=== PATIENT | male | born 1955 | race Caucasian/White ===

== ENCOUNTER 2023-09-20 08:46 | Outpatient (OUT) | payer OTHER, MEDICARE, SELFPAY ==
--- NOTE | 2023-09-20 | ECG_ITS ---
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
[2023-09-20 09:52] LABS: Basophils Percent Auto 0.5 % (0.2-2.0); Eosinophils Absolute Auto 0.5 10^3/uL (0.0-0.7); Eosinophils Percent Auto 7.6 % (0.9-7.0); Hematocrit 43.2 % (42.0-54.0); Hemoglobin 14.7 g/dL (14.0-18.0); Immature Granulocytes Abs Auto 0.02 10^3/uL (0.00-0.03); Immature Granulocytes Pct Auto 0.3 % (0.0-0.5); Lymphocytes Absolute Auto 1.1 10^3/uL (1.2-3.8); Lymphocytes Percent Auto 18.2 % (20.5-60.0); Mean Corpuscular Hemoglobin 30.8 pg (25.9-34.0); Mean Corpuscular Volume 90.6 fL (80.0-94.0); Monocytes Absolute Auto 0.7 10^3/uL (0.3-0.8); Neutrophils Absolute Auto 3.7 10^3/uL (1.4-6.5); Neutrophils Percent Auto 62.4 % (43.0-75.0); Platelet Count 217 10^3/uL (150-450); Red Blood Count 4.77 10^6/uL (4.70-6.10); Red Cell Distribution Width 13.5 % (11.0-15.0); White Blood Count 5.9 10^3/uL (4.0-11.0)
--- NOTE | 2023-09-20 09:52 | PM.PRESUREVA ---
History of Present Illness History of Present Illness Chief complaint: elevated psa and prostate lesion Narrative: Patient presents for preadmission testing. The patient states he had an elevated PSA and previously had a prostate biopsy. The patient states he does get up to void 2 times a night, and has intermittent hesitancy with urination. Otherwise he complains of no urinary symptoms and does not have any hematuria, dysuria, fever, abdominal pain, or any other complaints. Review of Systems ROS Narrative REVIEW OF SYSTEMS: Negative except as stated in HPI, ten or more systems reviewed. Constitutional: No fever, chills, weakness ENT: No sore throat or epistaxis Cardiovascular: No edema, chest pain, palpitations, or activity intolerance Respiratory: No shortness of breath, cough, or wheezing Musculoskeletal: No joint pain or swelling Gastrointestinal: No abdominal pain, constipation, diarrhea, or vomiting Genitourinary: No dysuria or hematuria Neurological: No numbness, tingling, weakness, or headache Psychiatric: No mood changes PFSH PFS Medical History (Updated 09/20/23 @ 09:30 by Jaky Tovar NP) Arthritis ?M19.90 - Unspecified osteoarthritis, unspecified site (ICD-10) Back pain ?M54.9 - Dorsalgia, unspecified (ICD-10) Erectile dysfunction ?N52.9 - Male erectile dysfunction, unspecified (ICD-10) Hypertension ?I10 - Essential (primary) hypertension (ICD-10) Hearing loss ?H91.90 - Unspecified hearing loss, unspecified ear (ICD-10) Gout ?M10.9 - Gout, unspecified (ICD-10) GERD (gastroesophageal reflux disease) ?K21.9 - Gastro-esophageal reflux disease without esophagitis (ICD-10) BPH (benign prostatic hyperplasia) ?N40.0 - Benign prostatic hyperplasia without lower urinary tract symptoms (ICD-10) Prostate nodule ?N40.2 - Nodular prostate without lower urinary tract symptoms (ICD-10) Elevated PSA ?R97.20 - Elevated prostate specific antigen [PSA] (ICD-10) Surgical History (Updated 09/20/23 @ 09:30 by Jaky Tovar NP) History of vasectomy ?Z98.52 - Vasectomy status (ICD-10) History of colonoscopy ?Z98.890 - Other specified postprocedural states (ICD-10) Hx of prostate biopsy ?Z98.890 - Other specified postprocedural states (ICD-10) Family History (Updated 09/20/23 @ 09:30 by Jaky Tovar NP) Other Family history of aneurysm Family history of heart disease Family history of seizures Family history of stroke Social History (Updated 09/20/23 @ 09:21 by Jaky Tovar NP) Within the past year, how often did you have a drink containing alcohol: 4 or more times a week Within the past year, how many standard drinks containing alcohol did you have on a typical day: 1 or 2 Total score: 0 Score interpretation: A score less than 4 is consistent with normal alcohol consumption. Smoking status: Never smoker Non-prescribed substance use: denies use Highest level of school completed/degree received: high school graduate Meds Home Medications and Allergies Home Medications ?Medication ?Instructions ?Recorded ?Confirmed ?Type allopurinol 100 mg tablet 100 mg PO DAILY 09/20/23 09/20/23 History famotidine 40 mg tablet 40 mg PO QPM 09/20/23 09/20/23 History losartan 25 mg tablet 25 mg PO DAILY 09/20/23 09/20/23 History Allergies Allergy/AdvReac Type Severity Reaction Status Date / Time No Known Drug Allergies Allergy Verified 09/20/23 09:18 Exam Narrative Exam Narrative: Constitutional: Awake, alert, comfortable, well-appearing, nontoxic, interactive, vital signs as charted Head: Normocephalic, atraumatic Neck: Supple, normal appearance, normal range of motion, no meningeal signs, no lymphadenopathy Respiratory: No respiratory distress, breath sounds clear Cardiovascular: Regular rate and rhythm, strong and regular heart tones Abdomen: Nontender, normal bowel sounds, soft, no CVA tenderness Musculoskeletal: Normal gait, no swelling or edema Skin: No rashes or induration, no lesions, only visible skin inspected Neuro: No neurological deficits, normal sensation Psychiatric: Oriented ?3, normal affect Assessment and Plan Assessment and Plan (1) BPH (benign prostatic hyperplasia): (2) Prostate nodule: (3) Elevated PSA: Plan Transrectal MRI prostate fusion biopsy scheduled with Dr. Thacker October 06, 2023.
[2023-09-20 10:13] LABS: Anion Gap 10.7; BUN Creatinine Ratio 9.7; Calcium 8.6 mg/dL (8.5-10.1); Carbon Dioxide 28.4 mmol/L (21.0-32.0); Chloride 101 mmol/L (98-107); Estimated GFR (African America >60 (>=60); Estimated GFR (Non-African Ame >60 (>=60); Glucose 104 mg/dL (74-106); Potassium 4.1 mmol/L (3.5-5.1); Sodium 136 mmol/L (136-145)
[2023-09-20 10:16] LABS: INR 0.97; Partial Thromboplastin Time 30.8 sec (22.3-36.2); Prothrombin Time 10.3 sec (9.0-11.6)
== END 2023-09-20 08:47 | disposition home or self-care (01) ==
PROVIDERS: PCP Family Medicine; Visit Provider Urology
DX: Z01.810 Encounter for preprocedural cardiovascular examination (principal); Z01.812 Encounter for preprocedural laboratory examination; Z01.818 Encounter for other preprocedural examination; R97.20 Elevated prostate specific antigen [PSA]; D49.89 Neoplasm of unspecified behavior of other specified sites
CPT/HCPCS: 80048; 85025; 85610; 85730; 93005; G0463

== ENCOUNTER 2023-10-06 07:13 | Day surgery (SDC) | payer MEDICARE, SELFPAY ==
--- NOTE | 2023-09-20 09:03 | ECG_ITS ---
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
[2023-09-20 09:41] VITALS: BP 146/90; PULSE 75; TEMP 36.3; O2SAT 95; BMI 33.0
[2023-10-06 07:25] VITALS: BP 157/86; PULSE 91; TEMP 36.4; O2SAT 96; BMI 30.7; BMI 30.8
[2023-10-06] MEDS: LACTATED RINGER'S SOLUTION 1,000 ML 50 ML IV (08:01)
[2023-10-06] MEDS: GENTAMICIN SULFATE 120 MG in 0.9 % SODIUM CHLORIDE 100 ML 206 MG IV (08:01)
[2023-10-06] MEDS: CEFAZOLIN SODIUM/DEXTROSE,ISO 1 GM/50 ML IV.SOLN IV (09:05)
[2023-10-06] MEDS: LIDOCAINE 2% JELLY 20 ML UR (09:07)
[2023-10-06 09:30] VITALS: BP 120/78; PULSE 82; TEMP 36.6; O2SAT 94
--- NOTE | 2023-10-06 09:30 | PM.URSON ---
Urology Surgery Operative Note Operative Note Procedure Date: 10/06/23 Time Out Performed: yes Pre-op Diagnosis: Elevated PSA and prostate lesion by MRI Post-op Diagnosis: same as pre-op Procedures performed: 1.Transrectal ultrasound of the prostate. 2. MRI prostate fusion biopsies with the Navigo system Anesthesia: MAC and local Complications: None Estimated blood loss (mL): 10 Findings: 1 small area of interest Specimens: 5 biopsies from the area of interest sent separately.Systematic mapped out biopsies from the left and right sides sent separately. Drains: None Indications for Procedures: This gentleman has an elevated PSA of 6.9. Prostate MRI reveals a PI-RADS 4 lesion. He now presents for transrectal ultrasound and fusion biopsies of the prostate. He has signed an informed consent for this procedure after risks were explained. Some of these include bleeding, infection, urosepsis and anesthesia to name a few. He has had a transperineal fusion biopsy done a couple years ago which revealed benign tissue. Detailed description of Procedure: The patient was brought to the operating room and kept on his [facility] bed. He was rotated in the left lateral decubitus position. Timeout was done by all parties in the room. We all agreed upon the patient's identification and the planned procedures for this patient. MAC anesthesia was then administered. 2% lidocaine gel was passed per rectum. The ultrasound probe was passed per rectum and the prostate was scanned in the sagittal view. Segmentation was then done so as to fuse the MRI images to the ultrasound. We identified the area of interestWhich was in the left peripheral zone in the mid gland.We then began taking biopsies with the needle biopsy. We took 5 biopsies through this PI-RADS 4 lesion. These were sent separately labeled region of interest. We then took mapped out biopsies from the left side Base going towards the apex and then from the right side Base going towards the apexAll the tissue was sent for pathology. The probe was then removed. He was then transferred to PACU in stable condition. He was instructed to continue his antibiotic course. Also if he gets any temperature near 101 and/or shaking chills that will not stop he was instructed to go to the ER for IV antibiotics.
[2023-10-06 09:45] VITALS: BP 119/91; PULSE 81; O2SAT 94
[2023-10-06 10:00] VITALS: BP 113/75; PULSE 89; O2SAT 95
[2023-10-06 10:15] VITALS: BP 132/84; PULSE 83; O2SAT 93
[2023-10-06 10:30] VITALS: BP 141/80; PULSE 89; O2SAT 93
== END 2023-10-06 10:40 | disposition home or self-care (01) ==
PROVIDERS: PCP Family Medicine; Visit Provider Urology
PROC: (CPT 55700; principal; 2023-10-06 08:30)
DX: C61 Malignant neoplasm of prostate (principal); R97.20 Elevated prostate specific antigen [PSA]; K21.9 Gastro-esophageal reflux disease without esophagitis; N40.0 Benign prostatic hyperplasia without lower urinary tract symptoms; I10 Essential (primary) hypertension; M10.9 Gout, unspecified; M19.90 Unspecified osteoarthritis, unspecified site
CPT/HCPCS: 55700; 36415; 88305; J0690; J1100; J1580; J2704; J3010

== ENCOUNTER 2024-10-01 08:58 | Outpatient (OUT) | payer MEDICARE, SELFPAY ==
--- OUTSIDE RECORDS SUMMARY | 2024-10-01 09:01 | XMS_ITS | Encounter Summary ---
Author Organization [facility] Address [address] [place] [address] Care Team Providers Care Life Cycle Assessment Analyst Name Role Phone Bill Marvin MD Primary Care Provider [phone] Bill Marvin MD Primary Care Provider [phone] Encounter Details Date Type Department Care Team (Late st Contact Info) Description 03/29/2024 Orders Only [facility] [address] [place] [phone] Bill Hollins DPM [address] [place] [address] Onychomycosis of great toe Social History Tobacco Use Types Packs/Day Years Used Date Smoking Tobacco: Never Smokeless Tobacco: Never Alcohol Use Standard Drinks/Week Comments Yes 0 (1 standard drink = 0.6 oz pur e alcohol) Sex and Gender Information Value Date Recorded Sex Assigned at Not on file Legal Sex Male 6:55 PM EDT Gender Identity Not on file Sexual Orientation Not on file documented as of this encounter Plan of Treatment Upcoming Encounters Date Type Department Care Team (Late st Contact Info) Description 03/04/2025 9:00 AM EST Office Visit [facility] [address] [place] [phone] Bill Hollins DPM [address] [place] [address] 03/19/2025 10:15 AM EST Office Visit [facility] [address] [place] [address] Tori Cheek MD [address] [place] [address] documented as of this encounter Procedures Procedure Name Priority Date/Time Associated Diagnosis Comments FUNGAL CULTURE, CUTANEOUS Routine 03/29/2024 9:31 AM EST Onychomycosis of great toe documented in this encounter Results * Fungal culture, cutaneous (03/29/2024 9:31 AM EST) Nail Structure of toe of left foot / Unknown Bill Hollins DPIsaiah [facility] MICROBIOLOGY - GENE RAL ORDERABLES Final Result [facility] documented in this encounter Visit Diagnoses Diagnosis Onychomycosis of great toe documented in this encounter Care Teams Life Cycle Assessment Analyst Relationship Specialty Start Date End Date Bill Marvin MD PCP - General 03/15/24 09/26/24 Bill Marvin MD [address] [place] [address] [place] [phone] PCP - General 09/27/24 documented as of this encounter
--- OUTSIDE RECORDS SUMMARY | 2024-10-01 09:01 | XMS_ITS | Clinical Summary ---
Author Organization [facility] Address [address] [place] [address] Care Team Providers Care Head Loft Worker Name Role Phone Bill Marvin MD Primary Care Provider [phone] Allergies No known active allergies Medications allopurinol (Zyloprim) 100 MG tablet Take 100 mg by mouth 12/16/2023 Active famotidine (Pepcid) 40 MG tablet 12/16/2023 Active losartan (Cozaar) 25 MG tablet 12/16/2023 Active tadalafil (Cialis) 20 MG tablet 02/16/2024 Active vardenafil (Levitra) 20 MG tablet 02/27/2024 Active fluorouracil (Efudex) 5 % creamIndication s:Actinic keratosis Apply to directed areas on arms bid x 14 days 40 g 03/16/2024 Active fluconazole (Diflucan) 200 MG tabletIndicatio ns:Onychomycosi s Take 1 tablet (200 mg) by mouth 1 (one) time per week 4 tablet 6 03/29/2024 10/12/19 25 Active Active Problems Problem Noted Date Diagnosed Date Benign hypertension 03/15/2024 Actinic keratoses 03/15/2024 Fasting hyperglycemia 03/15/2024 GERD (gastroesophageal reflux disease) Gout 03/15/2024 Genital herpes 03/15/2024 Lumbar radiculopathy, right 03/15/2024 Onychomycosis of right great toe 03/15/2024 Pes planus of both feet 03/15/2024 Prostate cancer 03/15/2024 Tubulovillous adenoma of colon 03/15/2024 Encounters Date Type Department Care Team Description 09/27/2024 9:00 AM EDT Office Visit [facility] [address] [place] [address] Bill Hollins DPM Onychomycosis (Primary Dx); Idiopathic progressive polyneuropathy 09/27/2024 Bamboo flowsheet [facility] [address] [place] [address] Bill Hollins DPM 09/27/2024 Travel from Last 3 Months Family History Medical History Relation Name Comments Melanoma Neg Hx Social History Tobacco Use Types Packs/Day Years Used Date Smoking Tobacco: Never Smokeless Tobacco: Never Tobacco Cessation:Counseling Given: Not Answered Alcohol Use Standard Drinks/Week Comments Yes 0 (1 standard drink = 0.6 oz pur e alcohol) Sex and Gender Information Value Date Recorded Sex Assigned at Not on file Legal Sex Male 6:55 PM EDT Gender Identity Not on file Sexual Orientation Not on file Last Filed Vital Signs Vital Sign Reading Time Taken Comments Blood Pressure 135/89 03/15/2024 10:39 AM EST Pulse 79 03/15/2024 10:39 AM EST Temperature - - Respiratory Rate 18 03/15/2024 10:39 AM EST Oxygen Saturation - - Inhaled Oxygen Concentration - - Weight 104 kg (230 lb) 09/27/2024 8:54 AM EDT Height 180.3 cm (5' 11 ) 09/27/2024 8:54 AM EDT Body Mass Index 32.08 09/27/2024 8:54 AM EDT Plan of Treatment Upcoming Encounters Date Type Department Care Team (Late st Contact Info) Description 03/04/2025 9:00 AM EST Office Visit [facility] [address] [place] [address] Bill Hollins DPM [address] [place] [address] 03/19/2025 10:15 AM EST Office Visit [facility] [address] [place] [address] Tori Cheek MD [address] [place] [address] Health Maintenance Due Date Last Done Comments CT Colonography 1955 FIT-DNA 1955 FIT 1955 FOBT 1955 Sigmoidoscopy 1955 Influenza Vaccine (#1) 2024 12/16/2023, 2022 Colonoscopy 09/22/2033 09/23/2023, 07/21/2020 Colorectal Cancer Screening 09/22/2033 Pneumococcal Vaccine: 65+ Years Completed Insurance MEDICARE [facility] Care Teams Head Loft Worker Relationship Specialty Start Date End Date Bill Marvin MD [address] [place] [address] [place] [address] PCP - General 09/27/24
--- OUTSIDE RECORDS SUMMARY | 2024-10-01 09:01 | XMS_ITS | Encounter Summary ---
Author Organization [facility] Address [address] [place] [address] Care Team Providers Care 3D Animator Name Role Phone Bill Marvin MD Primary Care Provider Encounter Details Date Type Department Care Team (Late st Contact Info) Description 09/27/2024 Bamboo flowsheet [facility] [address] [place] [phone] Bill Hollins DPM [address] [place] [address] Social History Tobacco Use Types Packs/Day Years [...] Office Visit [facility] [address] [place] [phone] Bill Hollins DPM [address] [place] [address] 03/19/2025 10:15 AM EST Office Visit [facility] [address] [place] [address] Tori Cheek MD [address] [place] [address] documented as of this encounter Visit Diagnoses Not on filedocumented in this encounter Care Teams 3D Animator Relationship Specialty Start Date End Date Bill Marvin MD [address] [place] [address] [place] [address] PCP - General 09/27/24 documented as of this encounter
--- OUTSIDE RECORDS SUMMARY | 2024-10-01 09:01 | XMS_ITS | Clinical Summary ---
Author Organization [facility] Address [address] [place] [address] Care Team Providers Care Mixer Runner Name Role Phone Estuardo Upton MD Primary Care Provider [phone] Allergies No known active allergies Medications allopurinol (ZYLOPRIM) 100 MG tablet Take 100 mg by mouth daily. Active Social History Tobacco Use Types Packs/Day Years Used Date Smoking Tobacco: Never Assessed Sex and Gender Information Value Date Recorded Sex Assigned at Not on file Legal Sex Male 11:46 AM EST Gender Identity Not on file Sexual Orientation Not on file Last Filed Vital Signs Vital Sign Reading Time Taken Comments Blood Pressure 136/78 2013 2:48 AM EDT Pulse 82 2013 2:48 AM EDT Temperature 36.6 C (97.9 F) 2013 2:48 AM EDT Respiratory Rate 18 2013 2:48 AM EDT Oxygen Saturation 100% 2013 2:48 AM EDT Inhaled Oxygen Concentration - - Weight - - Height - - Body Mass Index - - Plan of Treatment Not on file Care Teams Mixer Runner Relationship Specialty Start Date End Date Estuardo Upton MD [address] [place] PCP - General 11/25/13
--- OUTSIDE RECORDS SUMMARY | 2024-10-01 09:01 | XMS_ITS | Encounter Summary ---
Author Organization [facility] Address [address] [place] [address] Care Team Providers Care Product Support Specialist Name Role Phone Bill Marvin MD Primary Care Provider Encounter Details Date Type Department Care Team (Latest Contact Info) Description 09/27/2024 Travel Social History Tobacco Use Types Packs/Day Years [...] Office Visit [facility] [address] [place] [address] Bill Hollins DPM [address] [place] [address] 03/19/2025 10:15 AM EST Office Visit [facility] [address] [facility] [address] [place] [phone] Tori Cheek MD [address] [facility] [address] [place] [address] documented as of this encounter Visit Diagnoses Not on filedocumented in this encounter Care Teams Product Support Specialist Relationship Specialty Start Date End Date Bill Marvin MD [address] [place] [address] [place] [address] PCP - General 09/27/24 documented as of this encounter
--- NOTE | 2024-10-01 09:07 | XR_ITS ---
The [address] [address] Patient Name: MELISA PADILLA MRN: [id number] date: 1955 Sex: M Assigned Patient Location: [facility] Current Patient Location: [facility] Accession/Order Number: [id number] Exam Date: 10/01/2024 10:12 Report Date: 10/01/2024 10:13 At the request of: CHARLENE DURBIN MD Procedure: XR chest 2V PA AND LATERAL CHEST: CLINICAL HISTORY: Preoperative clearance. History of hypertension and prostate cancer. COMPARISON: None There is no focal parenchymal consolidation, effusion or pneumothorax. The cardiac, hilar and mediastinal silhouettes are within normal limits. There is no vascular congestion. The visualized bony thorax is intact. Minor endplate spurring is present at the spine. XR/XR chest 2V IMPRESSION: NO ACUTE CARDIOPULMONARY ABNORMALITY. Impression dictated by: Paris Hadley M.D. 10/01/2024 10:13 AM Dictation Location: [place] [address] Electronically authenticated by: [id number] Y Date: 10/01/2024 10:13
--- NOTE | 2024-10-01 09:07 | ECG_ITS ---
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 Measurements Intervals [place] Rate: 75 P: -1 TX: 168 QRS: 1 QRSD: 91 T: 9 QT: 385 QTc: 431 Interpretive Statements SINUS RHYTHM Normal ECG Compared to ECG 09/20/2023 09:39:39 Sinus arrhythmia no longer present Electronically Signed On 10-01-2024 20:34:10 EDT by AUDREY DELUNA M.D.
--- NOTE | 2024-10-01 09:45 | PM.PRESUREVA ---
History of Present Illness History of Present Illness Chief complaint: Prostate Cancer Narrative: Patient presents for presurgical testing. Please see HPI from Dr. Thacker dated September 24, 2024. Review of Systems ROS Narrative Please see ROS from Dr. Thacker dated September 24, 2024. [facility] Medical History (Updated 10/01/24 @ 09:30 by Jaky Tovar NP) Prostate cancer �C61 - Malignant neoplasm of prostate (ICD-10) Depression �F32.A - Depression, unspecified (ICD-10) Arthritis �M19.90 - Unspecified osteoarthritis, unspecified site (ICD-10) Back pain �M54.9 - Dorsalgia, unspecified (ICD-10) Erectile dysfunction �N52.9 - Male erectile dysfunction, unspecified (ICD-10) Hypertension �I10 - Essential (primary) hypertension (ICD-10) Hearing loss �H91.90 - Unspecified hearing loss, unspecified ear (ICD-10) Gout �M10.9 - Gout, unspecified (ICD-10) GERD (gastroesophageal reflux disease) �K21.9 - Gastro-esophageal reflux disease without esophagitis (ICD-10) BPH (benign prostatic hyperplasia) �N40.0 - Benign prostatic hyperplasia without lower urinary tract symptoms (ICD-10) Prostate nodule �N40.2 - Nodular prostate without lower urinary tract symptoms (ICD-10) Elevated PSA �R97.20 - Elevated prostate specific antigen [PSA] (ICD-10) Surgical History (Updated 09/25/24 @ 10:52 by Jaky Tovar NP) H/O prostate biopsy (10/06/23) �Z98.890 - Other specified postprocedural states (ICD-10) History of vasectomy �Z98.52 - Vasectomy status (ICD-10) History of colonoscopy �Z98.890 - Other specified postprocedural states (ICD-10) Hx of prostate biopsy �Z98.890 - Other specified postprocedural states (ICD-10) Family History (Updated 09/20/23 @ 09:30 by Jaky Tovar NP) Other Family history of aneurysm Family history of heart disease Family history of seizures Family history of stroke Social History (Updated 09/20/23 @ 09:21 by Jaky Tovar NP) Within the past year, how often did you have a drink containing alcohol: 4 or more times a week Within the past year, how many standard drinks containing alcohol did you have on a typical day: 1 or 2 Total score: 0 Score interpretation: A score less than 4 is consistent with normal alcohol consumption. Smoking status: Never smoker Non-prescribed substance use: denies use Highest level of school completed/degree received: high school graduate Meds Home Medications and Allergies Home Medications �Medication �Instructions �Recorded �Confirmed �Type allopurinol 100 mg tablet 100 mg PO DAILY 09/20/23 10/01/24 History famotidine 40 mg tablet 40 mg PO QPM 09/20/23 10/01/24 History losartan 25 mg tablet 25 mg PO DAILY 09/20/23 10/01/24 History ascorbic acid 100 mg-elderberry 1 tab PO DAILY 10/01/24 10/01/24 History fruit 50 mg chewable tablet escitalopram oxalate 5 mg tablet 5 mg PO DAILY 10/01/24 10/01/24 History pantoprazole 40 mg tablet,delayed 40 mg PO DAILY 10/01/24 10/01/24 History release pomegranate seed-pomegranate fruit 1 cap PO DAILY 10/01/24 10/01/24 History extract 250 mg capsule red beet 500 mg capsule 500 mg PO DAILY 10/01/24 10/01/24 History Allergies Allergy/AdvReac Type Severity Reaction Status Date / Time No Known Drug Allergies Allergy Verified 10/01/24 09:20 Exam Narrative Exam Narrative: Constitutional: Awake, alert, comfortable, well-appearing, nontoxic, interactive, vital signs as charted Head: Normocephalic, atraumatic Neck: Supple, normal appearance, normal range of motion, no meningeal signs, no lymphadenopathy Respiratory: No respiratory distress, breath sounds clear Cardiovascular: Regular rate and rhythm, strong and regular heart tones Abdomen: Nontender, normal bowel sounds, soft, no CVA tenderness Musculoskeletal: Normal gait, no swelling or edema Skin: No rashes or induration, no lesions, only visible skin inspected Neuro: No neurological deficits, normal sensation Psychiatric: Oriented �3, normal affect Assessment and Plan Assessment and Plan (1) Prostate cancer: Plan TRUS prostate biopsy scheduled with Dr. Thacker October 04, 2024.
[2024-10-01 10:27] LABS: Anion Gap 13.2; Blood Urea Nitrogen 12.0 mg/dL (7.0-18.0); Calcium 9.1 mg/dL (8.5-10.1); Carbon Dioxide 29.9 mmol/L (21.0-32.0); Chloride 103 mmol/L (98-107); Estimated GFR (African America >60 (>=60 mL/min/1.73m^2); Estimated GFR (Non-African Ame >60 (>=60 mL/min/1.73m^2); Glucose 101 mg/dL (74-106); Potassium 5.1 mmol/L (3.5-5.1); Sodium 141 mmol/L (136-145)
[2024-10-01 10:30] LABS: Hematocrit 44.4 % (42.0-54.0); Hemoglobin 15.6 g/dL (14.0-18.0); Immature Granulocytes Abs Auto 0.01 10^3/uL (0.00-0.03); Immature Granulocytes Pct Auto 0.2 % (0.0-0.5); Lymphocytes Absolute Auto 1.1 10^3/uL (1.2-3.8); Mean Corpuscular HGB Conc 35.1 g/dL (29.9-35.2); Mean Corpuscular Hemoglobin 31.7 pg (25.9-34.0); Mean Corpuscular Volume 90.2 fL (80.0-94.0); Platelet Count 213 10^3/uL (150-450); Red Blood Count 4.92 10^6/uL (4.70-6.10); White Blood Count 5.8 10^3/uL (4.0-11.0)
[2024-10-01 10:57] LABS: INR 1.02; Partial Thromboplastin Time 28.0 sec (22.3-36.2); Prothrombin Time 10.8 sec (9.0-11.6)
== END 2024-10-01 08:59 | disposition home or self-care (01) ==
LOC: PST 09:00
PROVIDERS: PCP Family Medicine; Visit Provider Urology
DX: Z01.810 Encounter for preprocedural cardiovascular examination (principal); Z01.812 Encounter for preprocedural laboratory examination; Z01.818 Encounter for other preprocedural examination; Z85.46 Personal history of malignant neoplasm of prostate; K21.9 Gastro-esophageal reflux disease without esophagitis
CPT/HCPCS: 36415; 71046; 80048; 85025; 85610; 85730; 93005; G0463

== ENCOUNTER 2024-10-04 07:22 | Day surgery (SDC) | payer MEDICARE, SELFPAY ==
[2024-10-01 09:39] VITALS: BP 145/89; PULSE 84; TEMP 36.6; O2SAT 97; BMI 31.4
--- NOTE | 2024-10-04 06:53 | US_ITS ---
[address] [address] Patient Name: MELISA PADILLA MRN: [id number] date: 1955 Sex: M Assigned Patient Location: [facility] Current Patient Location: Accession/Order Number: [id number] Exam Date: 10/04/2024 16:30 Report Date: 10/04/2024 16:31 At the request of: CHARLENE DURBIN MD Procedure: US prostate Prostate ultrasound HISTORY: Abnormal PSA. Prostate biopsy Prostate measures 4.3 x 4.8 x 2.9 cm with volume of 32 cc. US/US prostate IMPRESSION: Prostate volume 32 cc. Impression dictated by: Alfredo Tijerina M.D. 10/04/2024 4:31 PM Dictation Location: [place] [address] Electronically authenticated by: [id number] Y Date: 10/04/2024 16:31
--- OUTSIDE RECORDS SUMMARY | 2024-10-04 07:26 | XMS_ITS | CCD ---
Author Organization [facility] Care Team Providers Care Parts Room Associate Name Role Phone Aruna MARVIN Primary Care Physician MD Nick Thacker Attending Provider [phone] MD Ja Marvin Primary Care Provider Aruna MARVIN Primary Care Physician [phone] MD Ja Marvin Primary Care Provider MD Nick Thacker Attending Provider Nick Thacker Attending Unavailable Thacker, Nick Admitting Unavailable Thacker, Nick Attending Unavailable Thacker, Nick Admitting Unavailable Ja Marvin Primary Care Unavailable Aruna Marvin MD Primary Care Provider [phone] NAVID, Aruna Attending Unavailable BROWN, Christopher Admitting Unavailable BROWN, Christopher Attending Unavailable BROWN, Christopher Attending Unavailable THACKER, Nick R Attending Unavailable BROWN, Christopher Admitting Unavailable BROWN, Christopher Attending Unavailable BROWN, Christopher Attending Unavailable BROWN, Christopher Attending Unavailable THACKER, Nick R Attending Unavailable THACKER, Nick R Admitting Unavailable BROWN, Christopher Admitting Unavailable BROWN, Christopher Attending Unavailable BROWN, Christopher Attending Unavailable BROWN, Christopher Attending Unavailable THACKER, Nick R Attending Unavailable THACKER, Nick R Attending Unavailable THACKER, Nick R Attending Unavailable THACKER, Nick R Admitting Unavailable THACKER, Nick R Attending Unavailable THACKER, Nick R Attending Unavailable THACKER, Nick R Referring Unavailable BROWN, Christopher Attending Unavailable BROWN, Christopher Attending Unavailable BROWN, Christopher Attending Unavailable BROWN, Christopher Attending Unavailable BROWN, Christopher Attending Unavailable BROWN, Christopher Attending Unavailable THACKER, Nick R Attending Unavailable THACKER, Nick R Attending Unavailable THACKER, Nick R Admitting Unavailable THACKER, Nick R Attending Unavailable Colby Marvin MDopher Primary Care Provider [phone] ARUNA VERAS Attending ARUNA Mullins Referring Unavailable ARUNA VERAS Attending FRANK Castanon Attending Unavailable Medications Current Medications Medication Drug Class(es) Dates Sig (Normalized) Sig (Original) acetaminophen 325 mg / HYDROcodone bitartrate 7.5 mg oral tablet (1 source) Opioid Agonist Start: 02-10-2022 take 1 tablet by mouth once, then take 1 tablet by mouth every hour Pitman 325 mg-7.5 mg oral tablet 1 tab(s), Oral, Once, 1 tab(s), Refill(s) 0, Take 1 hour prior to procedure. Don't drive or operate machinery while taking., [id number], 178, cm, 12/28/21 13:18:00 EDT, Height/Length Dosing, 99.2, kg, 12/28/21 13:18:00 EDT, Weight Dosing Start Date: 02/10/22 Status: Ordered allopurinol 100 mg oral tablet (20 sources) Xanthine Oxidase Inhibitor Start: 12-16-2023 allopurinol (Zyloprim) 100 MG tablet Take 100 mg by mouth 12/16/2023 Active Start: 06-17-2023 take 1 tablet by topher th once daily allopurinol 100 mg Tab 100 mg = 1 tab(s), Oral, Daily, # 90 tab(s), Refills(s) 1, Pharmacy: [facility] #[id number], 178, cm, 06/07/23 10:04:00 EDT, Height/Length Dosing, 101.7, kg, 06/07/23 10:04:00 EDT, Weight Dosing Start Date: 06/17/23 Status: Ordered Start: 09-15-2022 take 1 tablet by topher th once daily allopurinol 100 mg Tab 100 mg = 1 tab(s), Oral, Daily, # 90 tab(s), Refills(s) 1, [facility]: [facility] #[id number], 178, cm, 07/05/22 14:54:00 EDT, Height/Length Dosing, 95.9, kg, 07/05/22 14:54:00 EDT, Weight Dosing Start Date: 09/15/22 Status: Ordered Start: 03-01-2022 take 1 tablet by topher once daily allopurinol 100 mg Tab 100 mg = 1 tab(s), Oral, Daily, # 90 tab(s), Refills(s) 1, [id number], 178, cm, 12/28/21 13:18:00 EDT, Height/Length Dosing, 99.2, kg, 12/28/21 13:18:00 EDT, Weight Dosing Start Date: 03/01/22 Status: Ordered Start: 09-02-2021 [facility] all[facility] 100 mg Tab 100 mg = 1 tab(s), Oral, Daily, # 90 tab(s), Refills(s) 1, [facility]: [facility], 180, cm, 03/17/21 12:59:00 EST, Height/Length Dosing, 100.5, kg, 03/17/21 12:59:00 EST, Weight Dosing Start Date: 09/02/21 Status: Ordered amoxicillin 500 mg / clavulanate 125 mg oral tablet (1 source) Penicillin-class Antibacterial Start: 04-19-2024 End: 04-29-2024 amoxicillin-clavulanate 500 mg-125 mg Tab 1 tab(s), Oral, q8hr for 10 day(s), 30 tab(s), Refill(s) 0, [facility], 180, cm, 04/19/24 10:13:00 EST, Height/Length Dosing, 105.2, kg, 04/19/24 10:13:00 EST, Weight Dosing Start Date: 04/19/24 Stop Date: 04/29/24 Status: Ordered Ascorbic Acid (1 source) Vitamin C Start: 09-24-2024 Vitamin C Daily, Refills(s) 0 Start Date: 09/24/24 Status: Ordered Repeat number: 1 ciprofloxacin 500 mg oral tablet (1 source) Quinolone Antimicrobial Start: 09-24-2024 End: 10-01-2024 Cipro 500 mg Tab 500 mg = 1 tab(s), Oral, BID, start 3 days prior to procedure, X 7 day(s), # 14 tab(s), Refills(s) 0, Pharmacy: [facility], 180, cm, 09/24/24 13:18:00 EDT, Height/Length Dosing, 102.4, kg, 09/24/24 13:18:00 EDT, Weight Dosing Start Date: 09/24/24 Stop Date: 10/01/24 Status: Ordered Quantity: 14.0 Unit: tab(s) Repeat number: 1 escitalopram 5 mg oral tablet (3 sources) Serotonin Reuptake Inhibitor Start: 06-15-2024 take 1 tablet by mouth once daily escitalopram 5 mg oral tablet 5 mg = 1 tab(s), Oral, Daily, # 90 tab(s), Refills(s) 4, Pharmacy: [facility], 180, cm, 06/15/24 8:23:00 EDT, Height/Length Dosing, 104.6, kg, 06/15/24 8:23:00 EDT, Weight Dosing Start Date: 06/15/24 Status: Ordered Quantity: 90.0 Unit: tab(s) Repeat number: 5 famotidine 40 mg oral tablet (20 sources) Histamine-2 Receptor Antagonist Start: 12-16-2023 famotidine (Pepcid) 40 MG tablet 12/16/2023 Active Start: 06-07-2023 take 1 tablet by topher once daily at bedtime famotidine 40 mg Tab 40 mg = 1 tab(s), Oral, Once a day (at bedtime), # 90 tab(s), Refills(s) 1, Pharmacy: [facility] #[id number], 178, cm, 06/07/23 10:04:00 EDT, Height/Length Dosing, 101.7, kg, 06/07/23 10:04:00 EDT, Weight Dosing Start Date: 06/07/23 Status: Ordered fluconazole 200 mg oral tablet (3 sources) Azole Antifungal Start: 03-29-2024 End: 10-11-2024 take 1 tablet by mouth every week fluconazole (Diflucan) 200 MG tablet Indications: Onychomycosis Take 1 tablet (200 mg) by mouth 1 (one) time per week 4 tablet 6 03/29/2024 10/11/2024 Active fluorouracil 50 mg/ml topical cream (5 sources) Nucleoside Metabolic Inhibitor Start: 03-16-2024 fluorouracil (Efudex) 5 % cream Indications: Actinic keratosis Apply to directed areas on arms bid x 14 days 40 g 03/16/2024 Active hydrocortisone 25 mg/ml rectal cream (20 sources) Corticosteroid Start: 06-07-2023 hydrocortisone 2.5% Rectal Crm w/Appl 1 benito, Rectal, BID, 30 gram, Refill(s) 0, 178, cm, 06/07/23 10:04:00 EDT, Height/Length Dosing, 101.7, kg, 06/07/23 10:04:00 EDT, Weight Dosing Start Date: 06/07/23 Status: Ordered Quantity: 30.0 Unit: g Repeat number: 1 Start: 05-11-2022 hydrocortisone 2.5% Rectal Crm w/Appl 1 benito, Rectal, BID, 30 gram, Refill(s) 0, 178, cm, 05/11/22 17:29:00 EST, Height/Length Dosing, 97.6, kg, 05/11/22 17:29:00 EST, Weight Dosing Start Date: 05/11/22 Status: Ordered losartan potassium 25 mg oral tablet (20 sources) Angiotensin 2 Receptor Dillon Start: 12-16-2023 losartan (Cozaar) 25 MG tablet 12/16/2023 Active Start: 06-07-2023 take 1 tablet by topher th once daily losartan 25 mg Tab 25 mg = 1 tab(s), Oral, Daily, # 90 tab(s), Refills(s) 1, [facility]: [facility] #[id number], 178, cm, 06/07/23 10:04:00 EDT, Height/Length Dosing, 101.7, kg, 06/07/23 10:04:00 EDT, Weight Dosing Start Date: 06/07/23 Status: Ordered Start: 05-05-2022 take 1 tablet by topher th once daily losartan 25 mg Tab 25 mg = 1 tab(s), Oral, Daily, # 90 tab(s), Refills(s) 1, Pharmacy: [facility] #[id number], 70, cm, 03/26/22 9:17:00 EST, Height/Length Dosing, 99.2, kg, 03/26/22 9:17:00 EST, Weight Dosing Start Date: 05/05/22 Status: Ordered Start: 11-02-2021 take 1 tablet by topher th once daily losartan 25 mg Tab 25 mg = 1 tab(s), Oral, Daily, # 90 tab(s), Refills(s) 1, [facility][id number], 180, cm, 03/17/21 12:59:00 EST, Height/Length Dosing, 100.5, kg, 03/17/21 12:59:00 EST, Weight Dosing Start Date: 11/02/21 Status: Ordered naproxen 500 mg oral tablet (20 sources) Nonsteroidal Anti-inflammatory Drug Start: 07-05-2022 take 1 tablet by mouth twice daily naproxen 500 mg Tab 500 mg = 1 tab(s), Oral, BID, # 60 tab(s), Refills(s) 1 Start Date: 07/05/22 Status: Ordered Quantity: 60.0 Unit: tab(s) Repeat number: 2 pantoprazole 40 mg delayed release oral tablet (10 sources) Proton Pump Inhibitor Start: 04-06-2024 take 1 tablet by mouth once daily Pantoprazole [address] Tab 40 mg = 1 tab(s), Oral, Daily, # 30 tab(s), Refills(s) 5, Pharmacy: [facility] #16, 180, cm, 04/06/24 11:05:00 EST, Height/Length Dosing, 105.3, kg, 04/06/24 11:05:00 EST, Weight Dosing Start Date: 04/06/24 Status: Ordered Quantity: 30.0 Unit: tab(s) Repeat number: 6 sildenafil 100 mg oral tablet (10 sources) Phosphodiesterase 5 Inhibitor Start: 04-06-2024 sildenafil 100 mg Tab See Instructions, 1 hour before sexual activity, # 30 tab(s), Refills(s) 5, Pharmacy: [facility], 180, cm, 04/06/24 11:05:00 EST, Height/Length Dosing, 105.3, kg, 04/06/24 11:05:00 EST, Weight Dosing Start Date: 04/06/24 Status: Ordered Quantity: 30.0 Unit: tab(s) Repeat number: 6 tadalafil 20 mg oral tablet (11 sources) Phosphodiesterase 5 Inhibitor Start: 02-16-2024 tadalafil (Cialis) 20 MG tablet 02/16/2024 Active vardenafil 20 mg oral tablet (5 sources) Phosphodiesterase 5 Inhibitor Start: 02-27-2024 vardenafil (Levitra) 20 MG tablet 02/27/2024 Active Problems Active Problems Problem Classification Problem Date Documented Da te Episodic/Chronic Acquired foot deformities (2 sources) Hammer toe; Translations: [Other hammer toe(s) (acquired), right foot] 03-17-2024 Chronic Cancer of prostate (20 sources) Malignant neoplasm of prostate; Translations: [Malignant tumor of prostate] Onset: 4 Chronic Conditions associated with dizziness or vertigo (20 sources) Dizziness 09-18-2019 Episodic Disorders of lipid metabolism (4 sources) Hyperlipidemia 11-05-2019 Chronic Esophageal disorders (20 sources) Gastroesophageal reflux disease; Translations: [Gastroesophageal reflux disease without esophagitis] Onset: 3 08-31-2018 Chronic Essential hypertension (20 sources) Benign hypertension; Translations: [Essential hypertension] Onset: 3 08-30-2018 Chronic Gout and other crystal arthropathies (20 sources) Gout; Translations: [Idiopathic chronic gout, right ankle and foot, without tophus (tophi)] Onset: 3 11-05-2019 Chronic Hemorrhoids (20 sources) Residual hemorrhoidal skin tags; Translations: [Residual hemorrhoidal skin tags] Onset: 3 Episodic Hyperplasia of prostate (20 sources) Benign prostatic hypertrophy without outflow obstruction; Translations: [Benign prostatic hyperplasia without lower urinary tract symptoms] Onset: 2 Chronic Immunizations and screening for infectious disease (7 sources) Vaccination given; Translations: [Encounter for immunization] Onset: 3 Episodic Mood disorders (3 sources) Major depression in partial remission 06-15-2024 Chronic Mycoses (20 sources) Onychomycosis due to dermatophyte ; Translations: [Tinea unguium] Onset: 4 Episodic Neoplasms of unspecified nature or uncertain behavior (2 sources) Neoplastic disease; Translations: [Neoplasm of unspecified behavior of bone, soft tissue, and skin] 03-16-2024 Episodic Other and unspecified benign neoplasm (2 sources) Benign neoplasm of colon; Translations: [Benign neoplasm of colon, unspecified] Onset: 4 Episodic Other congenital anomalies (14 sources) Congenital pes planus; Translations: [Congenital pes planus, unspecified foot] Onset: 4 Chronic Other connective tissue disease (2 sources) Plantar fasciitis 07-05-2022 Episodic Other connective tissue disease (2 sources) Tenosynovitis of right radial styloid 07-05-2022 Episodic Other connective tissue disease (2 sources) Pain of toes of bilateral feet; Translations: [Pain in right toe(s)] 03-17-2024 Episodic Other ear and sense organ disorders (20 sources) Hearing loss of left ear 08-28-2020 Chronic Other ear and sense organ disorders (20 sources) Impacted cerumen; Translations: [Impacted cerumen, unspecified ear] Onset: 4 09-18-2019 Episodic Other eye disorders (20 sources) Vitreous floaters 09-18-2019 Chronic Other gastrointestinal disorders (1 source) Dysphagia; Translations: [Other dysphagia] Onset: 5 Episodic Other gastrointestinal disorders (10 sources) Esophageal dysphagia 04-04-2024 Episodic Other injuries and conditions due to external causes (20 sources) Traumatic anosmia 08-30-2018 Episodic Other male genital disorders (20 sources) Male erectile dysfunction, unspecified; Translations: [Erectile dysfunction] Onset: 3 Chronic Other male genital disorders (11 sources) Hemospermia; Translations: [Hematospermia] Onset: 3 Episodic Other nervous system disorders (4 sources) Idiopathic progressive polyneuropathy; Translations: [Idiopathic progressive neuropathy] 03-17-2024 Chronic Other nutritional; endocrine; and metabolic disorders (20 sources) Body mass index 30+ - obesity 11-10-2021 Chronic Other nutritional; endocrine; and metabolic disorders (20 sources) Obese class I; Translations: [Body mass index (BMI) 30.0-30.9, adult] Onset: 3 11-10-2021 Chronic Other nutritional; endocrine; and metabolic disorders (20 sources) Obesity; Translations: [Other obesity due to excess calories] Onset: 3 11-10-2021 Chronic Other nutritional; endocrine; and metabolic disorders (6 sources) Obesity caused by energy imbalance 05-14-2024 Chronic Other nutritional; endocrine; and metabolic disorders (20 sources) Overweight 03-25-2020 Episodic Other screening for suspected conditions (not mental disorders or infectious disease) (20 sources) Raised prostate specific antigen; Translations: [Elevated prostate specific antigen [PSA]] Onset: 2 11-10-2021 Episodic Other skin disorders (5 sources) Actinic keratosis; Translations: [Actinic keratosis] Onset: 4 Episodic Other skin disorders (2 sources) Lentiginosis; Translations: [Other melanin hyperpigmentation] 03-16-2024 Episodic Other skin disorders (2 sources) Sebaceous hyperplasia; Translations: [Other specified follicular disorders] 03-16-2024 Episodic Other upper respiratory infections (1 source) Recurrent acute sinusitis; Translations: [Acute recurrent frontal sinusitis] Onset: 5 Episodic Skin and subcutaneous tissue infections (4 sources) Paronychia of toe of left foot; Translations: [Cellulitis of left toe] 03-17-2024 Episodic Unclassified (3 sources) Recurrent acute frontal sinusitis 04-19-2024 Viral infection (20 sources) Genital herpes simplex; Translations: [Herpesviral infection of urogenital system, unspecified] Onset: 4 08-30-2018 Chronic Past or Other Problems Problem Classification Problem Date Documented Da te Episodic/Chronic Acquired foot deformities (20 sources) Talipes planus; Translations: [Acquired pes planus of right foot] Onset: 10-24-2022 11-10-2021 Episodic Blindness and vision defects (20 sources) Visual disturbance Resolved: 08-30-2018 08-30-2018 Episodic Diabetes mellitus without complication (20 sources) Hyperglycemia; Translations: [Impaired fasting glycemia] Onset: 05-08-2022 03-14-2021 Episodic Other and unspecified benign neoplasm (20 sources) Adenomatous polyp of colon ; Translations: [Benign neoplasm of colon, unspecified] Onset: 03-15-2024 08-28-2020 Episodic Other skin disorders (20 sources) Multiple actinic keratoses; Translations: [Actinic keratosis] Onset: 03-15-2024 12-16-2023 Episodic Spondylosis; intervertebral disc disorders; other back problems (20 sources) Chronic low back pain; Translations: [Lumbar radiculopathy] Onset: 03-15-2024 12-04-2019 Episodic Unclassified (20 sources) Exposure to 2019 novel coronavirus 03-23-2020 Results Test Name Value Interpretation Reference Range Facility Ambulatory Visit Summaryon 0 6-30-2025 Ambulatory Visit Summary Ambulatory Visit Summary MELISA PADILLA :1955 Visit Date:09/24/2024 Ambulatory Visit Instructions Your Diagnosis Prostate cancer BPH without urinary obstruction Erectile dysfunction Your Care Team Attending Physician - Nick THACKER MD Primary Care Physician - Aruna MARVIN MD This Is Your Medications List ciprofloxacin (Cipro 500 mg Tab) sildenafil (sildenafil 100 mg Tab) Contact prescribing physician if questions or concerns allopurinol (allopurinol 100 mg Tab) ascorbic acid (Vitamin C) escitalopram (escitalopram 5 mg oral tablet) famotidine (famotidine 40 mg Tab) hydrocortisone topical (hydrocortisone 2.5% Rectal Crm w/Appl) losartan (losartan 25 mg Tab) naproxen (naproxen 500 mg Tab) pantoprazole (Pantoprazole [address] Tab) Procedures Performed MRI-US fusion guided prostate biopsy (10/06/2023), Colonoscopy (09/23/2023), MRI-US fusion guided transperineal biopsy of prostate (03/09/2022), Colonoscopy (07/21/2020), History of vasectomy. Discharge Vitals Temperature (Temporal Artery) 37 ???C Heart Rate (Peripheral) 82 Respiratory Rate 16 Blood Pressure 130/84 Height 180 cm Height 71 in Weight 102.4 kg Weight 225.753 lb BMI 31.6 What to do next Scheduled Follow-Up Appointments Tuesday 10:00 AM EDT With: Nick THACKER MD Where: [facility] [address] [address]- Tuesday 9:20 AM EST With: Aruna MARVIN MD Where: [facility] [address] [place] [address]- Tuesday 1:00 PM EST With: Where: [facility] [address] [place] [address]- You Need to Schedule the Following Appointments Follow Up with Nick THACKER MD, URL When: Comments: sched confirmatory bx Where: [facility] [address], [place] [address] [phone] Medications What How Much When Instructions New ciprofloxacin (Cipro 500 mg Tab) 1 Tablets By Mouth 2 times a day Duration: 7 Days start 3 days prior to procedure Pickup at [facility] Unchanged sildenafil (sildenafil 100 mg Tab) See instructions 1 hour before sexual activity Unchanged allopurinol (allopurinol 100 mg Tab) 1 Tablets By Mouth Every day Contact prescribing physician if questions or concerns Unchanged ascorbic acid (Vitamin C) Every day Contact prescribing physician if questions or concerns Unchanged escitalopram (escitalopram 5 mg oral tablet) 1 Tablets By Mouth Every day Contact prescribing physician if questions or concerns Unchanged famotidine (famotidine 40 mg Tab) See instructions take 1 tablet by mouth at bedtime Contact prescribing physician if questions or concerns Unchanged hydrocortisone topical (hydrocortisone 2.5% Rectal Crm w/ Appl) 1 Application By rectum 2 times a day Contact prescribing physician if questions or concerns Unchanged losartan (losartan 25 mg Tab) See instructions take 1 tablet by mouth once daily Contact prescribing physician if questions or concerns Unchanged naproxen (naproxen 500 mg Tab) 1 Tablets By Mouth 2 times a day Contact prescribing physician if questions or concerns Unchanged pantoprazole (Pantoprazole [address] Tab) 1 Tablets By Mouth Every day Contact prescribing physician if questions or concerns Pharmacy Information [facility]: [address], [place] [id number] [phone] Allergies No Known Allergies Problems Ongoing - Any problem that you are currently receiving treatment for. Actinic keratoses Benign hypertension BMI 32.0-32.9,adult BPH without urinary obstruction Erectile dysfunction Esophageal dysphagia External hemorrhoid, bleeding Fasting hyperglycemia GERD (gastroesophageal reflux disease) Gout Hearing loss on left Lumbar radiculopathy, right Major depression in partial remission Obesity due to excess calories Onychomycosis of right great toe Pes planus of both feet Pes planus, congenital Prostate cancer Traumatic anosmia Tubulovillous adenoma of colon Visual floaters Historical - Any problem that you are no longer receiving treatment for. Body mass index [BMI] 31.0-31.9, adult Chronic left-sided low back pain Class 1 obesity due to excess calories with body mass index (BMI) of 31.0 to 31.9 in adult Close exposure to COVID-19 virus Dizzinesses Overweight Visual disturbance Patient Survey You may receive a survey via text or e-mail asking about your office visit. Please share your experience with us by completing your survey. We appreciate your feedback and thank you for choosing us for your care. Education Materials Transrectal Ultrasound-Guided Prostate Biopsy, Care After The following information offers guidance on how to care for yourself after your p (more content not included)... Normal [facility] Urology Office/Clinic Noteon 09-24-2024 Urology Office/Clinic Note Urology Office/Clinic Note Chief Complaint 6 month with PSA HPI Staff 6 month f/u with PSA Dx: prostate cancer (ACTIVE SURVEILLANCE) and BPH without urinary obstruction PSA 09/11/24 - 1.8 IPSS score of 6 today. Nocturia x3. Frequency less than half the time. Weak stream less than 1 in 5x. Denies any other urinary complaints at this time. History of Present Illness Tests reviewed: reviewed UA, PSA I have reviewed the previous health record information and history for this patient from Dr. Thacker. I have reviewed and verified the staff HPI to be accurate for this encounter. Review of Systems PHQ Score Initial Depression Screen Score: 0 SCORE ROS - Provider Constitutional: denies weight loss, denies hot flashes. Eyes: denies eye problems. Gastrointestinal: denies nausea, denies vomiting. Cardiovascular: denies chest pain or angina. Integumentary: no dryness Musculoskeletal: denies musculoskeletal symptoms. ENMT: denies otolaryngeal symptoms. Respiratory: no shortness of breath. Heme/Lymph: denies easy bleeding tendency, denies easy bruising tendency. Psychiatric: no confusion, no anxiety. Genitourinary: See HPI. Physical Exam Vitals & Measurements T: 37 ???C(Temporal Artery) HR: 82(Peripheral) RR: 16 BP: 130/84 HT: 180 cm HT: 71 in WT: 225.753 lb WT: 102.4 kg BMI: 31.6 General Appearance: alert, no distress, well nourished, well developed male. Assessment/Plan Pt here with his girlfriend today. 1. Prostate cancer (C61: Malignant neoplasm of prostate) ACTIVE SURVEILLANCE. PSA: 02/2020 - 1.8 11/10/21 - 3.8, repeat free & total 3.7 & 12% 06/07/23 - 6.9 & 17.4% 04/30/24 - 11.0 & 9.1% 09/11/24 - 1.8 MRI of prostate 01/14/22 - 2 areas found PI-RADS 4. S/p transperineal fusion biopsy 03/09/22 - neg for malignancy. MRI of prostate 08/23/23 - Lesion involving the posterior aspect of the left peripheral zone, measures 5 x 4 mm. No gross extracapsular extension is seen. PI-RADS 4. S/p MRI fusion bx 10/06/23 - [place] 6 (3+3) 2/17 cores. GG1. Extraprostatic extension is not identified. PSA has decreased from prior. Advised pt next step is confirmatory bx given it has been 1 yr since dx. Pt agrees w plan. -Will schedule confirmatory TRUS of Prostate with Biopsy. The procedural risks, benefits, details, and treatment alternatives have been discussed with the patient. These include minimal to severe bleeding, infection, blood in the semen, inability to urinate, and severe infection requiring hospitalization and IV antibiotics, among others. Full informed consent has been obtained. Will order Local anesthesia. 2. BPH without urinary obstruction (N40.0: Benign prostatic hyperplasia without lower urinary tract symptoms) MRI of prostate 08/23/23 - prostate volume 38 mL. [1] UA neg. IPSS 6. Not taking any BPH meds. Gets up 3x/night. Unsure if he has sleep apnea. No bother w urination. 3. Erectile dysfunction (N52.9: Male erectile dysfunction, unspecified) Reports difficulty achieving an erection. Tried oral meds, including Cialis, Viagra, and Levitra, wo effect. Discussed alternative option of ICI. Risks/benefits discussed. Pt wishes to try this. -Schedule ICI teaching with [facility]. Follow-up With When Contact Information RAMAKRISHNA LICONA, Nick Irwin, URL [facility] [address], [place] [address]- [phone] Additional Instructions: sched confirmatory bx Patient Education Transrectal Ultrasound-Guided Prostate Biopsy, Care After Transrectal Ultrasound-Guided Prostate Biopsy Erectile Dysfunction I, Michela Oquendo, personally scribed for Dr. Thacker on 09/24/2024 14:37:22. . Documentation recorded by the Michela elizondo Oquendo, accurately reflects the services(s) I performed and decisions made by me. Authenticated by Dr. Thacker on 09/24/2024 14:40:24. Problem List/Past Medical History Ongoing Actinic keratoses Benign hypertension BMI 32.0-32.9,adult BPH without urinary obstruction Erectile dysfunction Esophageal dysphagia External hemorrhoid, bleeding Fasting hyperglycemia GERD (gastroesophageal reflux disease) Gout Hearing loss on left Lumbar radiculopathy, right Major depression in partial remission Obesity due to excess calories Onychomycosis of right great toe Pes planus of both feet Pes planus, congenital Prostate cancer Traumatic anosmia Tubulovillous adenoma of colon Visual floaters Historical Body mass index [BMI] 31.0-31.9, adult Chronic left-sided low back pain Class 1 obesity due to excess calories with body mass index (BMI) of 31.0 to 31.9 in adult Close exposure to COVID-19 virus Dizzinesses Overweight Visual disturbance Procedure/Surgical History MRI-US fusion guided prostate biopsy (10/06/2023), Colonoscopy (09/23/2023), MRI-US fusion guided transperineal biopsy of prostate (03/09/2022), Colonoscopy (07/21/2020), History of vasectomy. Medications allopurinol 100 mg Tab (more content not included)... Normal [facility] Comment on above: Result Comment: Elec tronically Signed By: Nick THACKER MD\.br\Date and Time Signed: 09/24/24 14:40 EDT\.br\Electronically Co-Signed By: Michela Oquendo.br\Date and Time Co-Signed: 09/24/24 14:37 EDT Ambulatory Visit Summaryon 0 09-11-2024 Ambulatory Visit Summary Ambulatory Visit Summary MELISA PADILLA :1955 Visit Date:09/11/2024 Ambulatory Visit Instructions Your Care Team Attending Physician - Nick THACKER MD Primary Care Physician - Aruna MARVIN MD This Is Your Medications List allopurinol (allopurinol 100 mg Tab) escitalopram (escitalopram 5 mg oral tablet) famotidine (famotidine 40 mg Tab) hydrocortisone topical (hydrocortisone 2.5% Rectal Crm w/Appl) losartan (losartan 25 mg Tab) naproxen (naproxen 500 mg Tab) pantoprazole (Pantoprazole [address] Tab) sildenafil (sildenafil 100 mg Tab) Procedures Performed MRI-US fusion guided prostate biopsy (10/06/2023), Colonoscopy (09/23/2023), MRI-US fusion guided transperineal biopsy of prostate (03/09/2022), Colonoscopy (07/21/2020), History of vasectomy. What to do next Scheduled Follow-Up Appointments Tuesday 12:45 PM EDT With: Nick THACKER MD Where: [facility] [address] [place] [address]- Tuesday 9:20 AM EST With: Aruna MARVIN MD Where: [facility] [address] [place] [address]- Tuesday 1:00 PM EST With: Where: [facility] [address] [place] [address]- Medications What How Much When Instructions Unchanged allopurinol (allopurinol 100 mg Tab) 1 Tablets By Mouth Every day Unchanged escitalopram (escitalopram 5 mg oral tablet) 1 Tablets By Mouth Every day Unchanged famotidine (famotidine 40 mg Tab) See instructions take 1 tablet by mouth at bedtime Unchanged hydrocortisone topical (hydrocortisone 2.5% Rectal Crm w/ Appl) 1 Application By rectum 2 times a day Unchanged losartan (losartan 25 mg Tab) See instructions take 1 tablet by mouth once daily Unchanged naproxen (naproxen 500 mg Tab) 1 Tablets By Mouth 2 times a day Unchanged pantoprazole (Pantoprazole [address] Tab) 1 Tablets By Mouth Every day Unchanged sildenafil (sildenafil 100 mg Tab) See instructions 1 hour before sexual activity Allergies No Known Allergies Problems Ongoing - Any problem that you are currently receiving treatment for. Actinic keratoses Benign hypertension BMI 32.0-32.9,adult BPH without urinary obstruction Erectile dysfunction Esophageal dysphagia External hemorrhoid, bleeding Fasting hyperglycemia GERD (gastroesophageal reflux disease) Gout Hearing loss on left Lumbar radiculopathy, right Major depression in partial remission Obesity due to excess calories Onychomycosis of right great toe Pes planus of both feet Pes planus, congenital Prostate cancer Traumatic anosmia Tubulovillous adenoma of colon Visual floaters Historical - Any problem that you are no longer receiving treatment for. Body mass index [BMI] 31.0-31.9, adult Chronic left-sided low back pain Class 1 obesity due to excess calories with body mass index (BMI) of 31.0 to 31.9 in adult Close exposure to COVID-19 virus Dizzinesses Overweight Visual disturbance Patient Survey You may receive a survey via text or e-mail asking about your office visit. Please share your experience with us by completing your survey. We appreciate your feedback and thank you for choosing us for your care. Normal [facility] CHEMISTRYOrdered By: SYSTEM SYSTEM on 09-11-2024 Prostate specific Ag [Mass/Vol] 1.8 ng/mL Normal 0.1 - 3.5 ng/mL [facility] Comment on above: Interpretive Data: T he concentration of PSA determined by different manufacturers can vary due to differences in assay methods and reagent specificity. Values obtained from different assay methods cannot be used interchangeably. The methodology used for this result was chemiluminescence using [email or web address]'s Access Hybritech PSA reagent. PSA Totalon 09-11-2024 PSA Total 1.8 ng/mL Normal 0.1-3.5 [facility] Comment on above: Result Comment: The concentration of PSA determined by different manufacturers can vary due to differences in assay methods and reagent specificity. Values obtained from different assay methods cannot be used interchangeably. The methodology used for this result was chemiluminescence using [employer] Access Hybritech PSA reagent. Performed By: #### 1 [id number] #### [facility] [address] [place] [address] Ambulatory Visit Summaryon 0 07-27-2024 Ambulatory Visit Summary Ambulatory Visit Summary MELISA PADILLA :1955 Visit Date:07/27/2024 Ambulatory Visit Instructions Your Diagnosis Major depression in partial remission Prostate cancer Erectile dysfunction Benign hypertension External hemorrhoid, bleeding Obesity due to excess calories BMI 32.0-32.9,adult Your Care Team Attending Physician - Aruna MARVIN MD Primary Care Physician - BROWN MD, Christopher This Is Your Medications List Contact prescribing physician if questions or concerns allopurinol (allopurinol 100 mg Tab) escitalopram (escitalopram 5 mg oral tablet) famotidine (famotidine 40 mg Tab) hydrocortisone topical (hydrocortisone 2.5% Rectal Crm w/Appl) losartan (losartan 25 mg Tab) naproxen (naproxen 500 mg Tab) pantoprazole (Pantoprazole [address] Tab) sildenafil (sildenafil 100 mg Tab) Procedures Performed MRI-US fusion guided prostate biopsy (10/06/2023), Colonoscopy (09/23/2023), MRI-US fusion guided transperineal biopsy of prostate (03/09/2022), Colonoscopy (07/21/2020), History of vasectomy. Discharge Vitals Heart Rate (Peripheral) 92 Respiratory Rate 16 Blood Pressure 130/84 Height 180 cm Height 71 in Weight 104.5 kg Weight 230.383 lb BMI 32.25 What to do next Scheduled Follow-Up Appointments Tuesday 9:00 AM EDT With: Where: [facility] [address] [address]- Tuesday 1:45 PM EDT With: Nick THACKER MD Where: [facility] [address] [address]- Tuesday 9:20 AM EST With: Aruna MARVIN MD Where: [facility] [address] [place] [address]- Tuesday 1:00 PM EST With: Where: [facility] [address] [place] [address]- You Need to Schedule the Following Appointments Follow Up with Aruna MARVIN MD, FAM When: Within 6 months Where: [address] [place] [address]- Medications What How Much When Instructions Unchanged allopurinol (allopurinol 100 mg Tab) 1 Tablets By Mouth Every day Contact prescribing physician if questions or concerns Unchanged escitalopram (escitalopram 5 mg oral tablet) 1 Tablets By Mouth Every day Contact prescribing physician if questions or concerns Unchanged famotidine (famotidine 40 mg Tab) See instructions take 1 tablet by mouth at bedtime Contact prescribing physician if questions or concerns Unchanged hydrocortisone topical (hydrocortisone 2.5% Rectal Crm w/ Appl) 1 Application By rectum 2 times a day Contact prescribing physician if questions or concerns Unchanged losartan (losartan 25 mg Tab) See instructions take 1 tablet by mouth once daily Contact prescribing physician if questions or concerns Unchanged naproxen (naproxen 500 mg Tab) 1 Tablets By Mouth 2 times a day Contact prescribing physician if questions or concerns Unchanged pantoprazole (Pantoprazole [address] Tab) 1 Tablets By Mouth Every day Contact prescribing physician if questions or concerns Unchanged sildenafil (sildenafil 100 mg Tab) See instructions 1 hour before sexual activity Contact prescribing physician if questions or concerns Allergies No Known Allergies Problems Ongoing - Any problem that you are currently receiving treatment for. Actinic keratoses Benign hypertension BMI 32.0-32.9,adult BPH without urinary obstruction Erectile dysfunction Esophageal dysphagia External hemorrhoid, bleeding Fasting hyperglycemia GERD (gastroesophageal reflux disease) Gout Hearing loss on left Lumbar radiculopathy, right Major depression in partial remission Obesity due to excess calories Onychomycosis of right great toe Pes planus of both feet Pes planus, congenital Prostate cancer Traumatic anosmia Tubulovillous adenoma of colon Visual floaters Historical - Any problem that you are no longer receiving treatment for. Body mass index [BMI] 31.0-31.9, adult Chronic left-sided low back pain Class 1 obesity due to excess calories with body mass index (BMI) of 31.0 to 31.9 in adult Close exposure to COVID-19 virus Dizzinesses Overweight Visual disturbance Patient Survey You may receive a survey via text or e-mail asking about your office visit. Please share your experience with us by completing your survey. We appreciate your feedback and thank you for choosing us for your care. Education Materials Major Depressive Disorder, Adult Major depressive disorder (MDD) is a mental health condition. It may also be called clinical depression or unipolar depression. MDD causes symptoms of sadness, hopelessness, and loss of interest in things. These symptoms last most of the day, almost mt (more content not included)... Normal [facility] Family Medicine Office/Clini c Noteon 07-27-2024 Family Medicine Office/Clinic Note Family Medicine Office/Clinic Note Chief Complaint pt presents today for 6wk rechk, no rfs, will chk insurance regarding shingrix coverage History of Present Illness Started Lexapro last visit. Has found that this has not measurably improved his outlook. No longer agitated irritable or sad. Particularly recognizes it is easier when leaving family functions he does not feel so down. Has follow-up with urology regarding prostate carcinoma and repeat PSA in the next month. Erectile dysfunction still persist despite use of sildenafil. Blood pressures have been fine no chest pain palpitations or syncope. Does complain of intermittent rectal bleeding. Has well-known hemorrhoids. Not painful. Not currently taking any fiber supplement. Colonoscopy was completed last summer and stable. Review of Systems PHQ Score Initial Depression Screen Score: 0 SCORE See HPI otherwise negative Physical Exam Vitals & Measurements HR: 92(Peripheral) RR: 16 BP: 130/84 SpO2: 95% HT: 180 cm HT: 71 in WT: 104.5 kg WT: 230.383 lb BMI: 32.25 Well-groomed adequately hydrated wearing corrective lenses. Neck is supple. No respiratory distress cardiac regular rate and rhythm no murmur gallop or rub. Belly overweight nontender no organomegaly. Deferred rectal exam. Integument moderately tanned. Does have a bright affect. Talkative smiling. Assessment/Plan 1. Major depression in partial remission (F32.4: Major depressive disorder, single episode, in partial remission) Doing very nicely with SSRI addition low-dose suggestively 6 months and we will talk about weaning at that time. Consider counseling if any mood disturbance or change. Ordered: 1126F Pain severity quantified; no pain present Current tobacco non-user 1036F Functional status assessed 1170F Medication list documented in medical record 1159F Most recent diastolic blood pressure 80-89 mm Hg 3079F Review of all meds by a prescribing practitioner or clinical pharmacist documented in EHR 1160F Systolic BP 130-139 mm Hg (Most Recent) 3075F 2. Prostate cancer (C61: Malignant neoplasm of prostate) Continue following with Dr. Thacker of urology planning PSA drawl this month. 3. Erectile dysfunction (N52.9: Male erectile dysfunction, unspecified) Asking him to discuss ED with the specialist other options other than the phosphodiesterase inhibitors already tried 4. Benign hypertension (I10: Essential (primary) hypertension) The importance of the following were all reviewed with the patient: -Take Rx(s )as prescribed. There are simple Lifestyle Modifications that you can do to reduce your blood pressure. -Weight Reduction -Follow the DASH eating plan. More information about this eating plan can be found here: https://www.nhlbi.nih.gov/ health/health-topics/topic s/dash -Reduce Sodium (Salt) Intake to 2000mg per day. -Use Moderation when consuming alcohol. - To improve your health we recommend increasing your level of moderate exercise to at least 2.5 hrs per week. For more information, please visit the CDC Exercise and Fitness Recommendations at www.cdc.gov/physicalactivi ty/basics/index.htm 5. External hemorrhoid, bleeding (K64.4: Residual hemorrhoidal skin tags) Suggesting addition of fiber such as Benefiber or Metamucil daily. We did discuss appropriate bathroom hygiene avoid straining increase fluids and activities 6. Obesity due to excess calories (E66.09: Other obesity due to excess calories) The standard range for ages 18 and older is >=18.5 and < 25 kg/m2. Your BMI today was above this range, this falls in the overweight to obese category and there are medical benefits to weight loss. We can offer counselling, referral, and/or medical support in addressing this problem. Your BMI and weight management will be followed at subsequent visits. 7. BMI 32.0-32.9,adult (Z68.32: Body mass index [BMI] 32.0-32.9, adult) See #6 Follow-up With When Contact Information NAVID LICONA, JEREMIAH Khan Within [address] [place] [address]- Additional Instructions: Patient Education Major Depressive Disorder, Adult Problem List/Past Medical History Ongoing Actinic keratoses Benign hypertension BMI 32.0-32.9,adult BPH without urinary obstruction Erectile dysfunction Esophageal dysphagia External hemorrhoid, bleeding Fasting hyperglycemia GERD (gastroesophageal reflux disease) Gout Hearing loss on left Lumbar radiculopathy, right Major depression in partial remission Obesity due to excess calories Onychomycosis of right great toe Pes planus of both feet Pes planus, congenital Prostate cancer Traumatic anosmia Tubulovillous adenoma of colon Visual floaters Historical Body mass index [BMI] 31.0-31.9, adult Chronic left-sided low back pain Class 1 obesity due to excess calories with body mass index (BMI) of 31.0 to 31.9 in adult Close exposure to COVID-19 virus Dizzinesses Overweight Visual d (more content not included)... 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 Obesity due to excess calories BMI 32.0-32.9,adult Your Care Team Attending Physician - Aruna MARVIN MD Primary Care Physician - Aruna MARVIN MD This Is Your Medications List escitalopram (escitalopram 5 mg oral tablet) Contact prescribing physician if questions or concerns allopurinol (allopurinol 100 mg Tab) famotidine (famotidine 40 mg Tab) hydrocortisone topical (hydrocortisone 2.5% Rectal Crm w/Appl) losartan (losartan 25 mg Tab) naproxen (naproxen 500 mg Tab) pantoprazole (Pantoprazole [address] Tab) sildenafil (sildenafil 100 mg Tab) Procedures Performed MRI-US fusion guided prostate biopsy (10/06/2023), Colonoscopy (09/23/2023), MRI-US fusion guided transperineal biopsy of prostate (03/09/2022), Colonoscopy (07/21/2020), History of vasectomy. Discharge Vitals Heart Rate (Peripheral) 84 Respiratory Rate 16 Blood Pressure 130/80 Height 180 cm Height 71 in Weight 104.6 kg Weight 230.603 lb BMI 32.28 What to do next Scheduled Follow-Up Appointments Tuesday 9:00 AM EDT With: Where: [facility] [address] [place] [address]- Tuesday 1:45 PM EDT With: THACKER MD, Nick R Where: [facility] [address] [place] [address]- Tuesday 1:00 PM EST With: Where: [facility] [place] [address] [place] [address]- You Need to Schedule the Following Appointments Follow Up with NAVID LICONA, JEREMIAH Khan When: Within 6 weeks Comments: labs will be called Where: Medications What How Much When Instructions New escitalopram (escitalopram 5 mg oral tablet) 1 Tablets By Mouth Every day Refills: 4 Pickup at [facility] Unchanged allopurinol (allopurinol 100 mg Tab) 1 Tablets By Mouth Every day Contact prescribing physician if questions or concerns Unchanged famotidine (famotidine 40 mg Tab) See instructions take 1 tablet by mouth at bedtime Contact prescribing physician if questions or concerns Unchanged hydrocortisone topical (hydrocortisone 2.5% Rectal Crm w/ Appl) 1 Application By rectum 2 times a day Contact prescribing physician if questions or concerns Unchanged losartan (losartan 25 mg Tab) See instructions take 1 tablet by mouth once daily Contact prescribing physician if questions or concerns Unchanged naproxen (naproxen 500 mg Tab) 1 Tablets By Mouth 2 times a day Contact prescribing physician if questions or concerns Unchanged pantoprazole (Pantoprazole [address] Tab) 1 Tablets By Mouth Every day Contact prescribing physician if questions or concerns Unchanged sildenafil (sildenafil 100 mg Tab) See instructions 1 hour before sexual activity Contact prescribing physician if questions or concerns Pharmacy Information [facility]: [address], [place] [id number] [phone] Allergies No Known Allergies Problems Ongoing - Any problem that you are currently receiving treatment for. 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 Body mass index [BMI] 31.0-31.9, adult Chronic left-sided low back pain Class 1 obesity due to excess calories with body mass index (BMI) of 31.0 to 31.9 in adult Close exposure to COVID-19 virus Dizzinesses Overweight Visual disturbance Patient Survey You may receive a survey via text or e-mail asking about your office visit. Please share your experience with us by completing your survey. We appreciate your feedback and thank you for choosing us for your care. Education Materials DASH Eating Plan DASH stands for Dietary Approaches to Stop Hypertension. The DASH eating plan is a healthy eating plan that has been shown to: ??? Lower high blood pressure (hypertension). ??? Reduce your risk for type 2 diabetes, heart disease, and stroke. ??? Help with weight loss. (more content not included)... Normal [facility] CBC w/ Auto Diffon 5 Basophils/100 WBC (Bld) 0.8 % Normal 0.0-2.0 [facility] Comment on above: Performed By: #### 2 [id number] #### [facility] [address] [place] [address] Basophils/Leukocyte s Auto (Bld) [Pure # fraction] 0.0 E9/L Normal 0.0-0.2 [facility] Comment on above: Performed By: #### 2 [id number] #### [facility] [address] [place] [address] Eosinophils (Bld) [#/Vol] 0.3 E9/L Normal 0.0-0.5 [facility] Comment on above: Performed By: #### 2 [id number] #### [facility] [address] [place] [address] Eosinophils/100 WBC (Bld) 4.9 % Normal 0.0-8.0 [facility] Comment on above: Performed By: #### 2 [id number] #### [facility] [address] [place] [address] Erythrocyte distribution width (RBC) [Ratio] 14.7 % High 10.9-14.2 [facility] Comment on above: Performed By: #### 2 [id number] #### [facility] [address] [place] [address] Hematocrit (Bld) [Volume fraction] 44.3 % Normal 37.7-49.0 [facility] Comment on above: Performed By: #### 2 [id number] #### [facility] [address] [place] [address] Hemoglobin (Bld) [Mass/Vol] 15.2 g/dL Normal 13.5-17.5 [facility] Comment on above: Performed By: #### 2 [id number] #### [facility] [address] [place] [address] Lymphocytes (Bld) [#/Vol] 0.9 E9/L Low 1.0-4.0 [facility] Comment on above: Performed By: #### 2 [id number] #### [facility] [address] [place] [address] Lymphocytes/100 WBC (Bld) 16.8 % Normal 14.0-50.0 [facility] Comment on above: Performed By: #### 2 [id number] #### [facility] [address] [place] [address] MCH (RBC) [Entitic mass] 31.4 pg Normal 27.0-34.0 [facility] Comment on above: Performed By: #### 2 [id number] #### [facility] [address] [place] [address] MCHC (RBC) [Mass/Vol] 34.2 g/dL Normal 31.4-36.0 [facility] Comment on above: Performed By: #### 2 [id number] #### [facility] [address] [place] [address] MCV (RBC) [Entitic vol] 91.7 fL Normal 80.0-100.0 [facility] Comment on above: Performed By: #### 2 [id number] #### [facility] [address] [place] [address] Monocytes (Bld) [#/Vol] 0.9 E9/L Normal 0.2-1.0 [facility] Comment on above: Performed By: #### 2 [id number] #### [facility] [address] [place] [address] Neutrophils (Bld) [#/Vol] 3.5 E9/L Normal 2.0-7.5 [facility] Comment on above: Performed By: #### 2 [id number] #### [facility] [address] [place] [address] Neutrophils/100 WBC (Bld) 62.1 % Normal 36.0-75.0 [facility] Comment on above: Performed By: #### 2 [id number] #### [facility] [address] [place] [address] Platelet 211.0 E9/L Normal 150.0-500.0 [facility] Comment on above: Performed By: #### 2 [id number] #### [facility] [address] [place] [address] Platelet mean volume (Bld) [Entitic vol] 8.7 fL Normal 6.4-10.8 [facility] Comment on above: Performed By: #### 2 [id number] #### [facility] [address] [place] [address] RBC (Bld) [#/Vol] 4.8 E12/L Normal 4.3-5.9 [facility] Comment on above: Performed By: #### 2 [id number] #### [facility] [address] [place] [address] WBC corrected for nucl RBC Auto (Bld) [#/Vol] 5.6 E9/L Normal 4.0-11.0 [facility] Comment on above: Result Comment: Rajani pheral smear review performed. Performed By: #### 2 [id number] #### [facility] [address] [place] [address] CMPon 06-15-2024 Albumin [Mass/Vol] 4.1 g/dL Normal 3.3-5.0 [facility] Comment on above: Performed By: #### 2 [id number] #### [facility] [address] [place] [address] Albumin/Globulin (S) [Mass conc ratio] 1.3 Normal 1.1-2.2 [facility] Comment on above: Performed By: #### 2 [id number] #### [facility] [address] [place] [address] ALP [Catalytic activity/Vol] 93 Int._Unit/L Normal 21-98 [facility] Comment on above: Performed By: #### 2 [id number] #### [facility] [address] [place] [address] ALT No additional P-5'-P [Catalytic activity/Vol] 20 Int._Unit/L Normal 6-46 [facility] Comment on above: Performed By: #### 2 [id number] #### [facility] [address] [place] [address] Anion gap [Moles/Vol] 11 mmol/L Normal 6-16 [facility] Comment on above: Performed By: #### 2 [id number] #### [facility] [address] [place] [address] AST [Catalytic activity/Vol] 20 Int._Unit/L Normal 5-43 [facility] Comment on above: Performed By: #### 2 [id number] #### [facility] [address] [place] [address] Bilirubin [Mass/Vol] 0.5 mg/dL Normal 0.0-1.1 [facility] Comment on above: Performed By: #### 2 [id number] #### [facility] [address] [place] [address] Calcium [Mass/Vol] 9.0 mg/dL Normal 8.9-11.1 [facility] Comment on above: Performed By: #### 2 [id number] #### [facility] [address] [place] [address] Chloride [Moles/Vol] 102 mmol/L Normal 101-111 [facility] Comment on above: Performed By: #### 2 [id number] #### [facility] [address] [place] [address] CO2 [Moles/Vol] 25 mmol/L Normal 21-31 [facility] Comment on above: Performed By: #### 2 [id number] #### [facility] [address] [place] [address] Creatinine [Mass/Vol] 1.0 mg/dL Normal 0.5-1.3 [facility] Comment on above: Performed By: #### 2 [id number] #### [facility] [address] [place] [address] Globulin (S) [Mass/Vol] 3.1 g/dL Normal 1.4-4.0 [facility] Comment on above: Performed By: #### 2 [id number] #### [facility] [address] [place] [address] Glucose [Mass/Vol] 97 mg/dL Normal 55-199 [facility] Comment on above: Performed By: #### 2 [id number] #### [facility] [address] [place] [address] Potassium [Moles/Vol] 4.4 mmol/L Normal 3.5-5.3 [facility] Comment on above: Performed By: #### 2 [id number] #### [facility] [address] [place] [address] Protein [Mass/Vol] 7.2 g/dL Normal 6.0-7.8 [facility] Comment on above: Performed By: #### 2 [id number] #### [facility] [address] [place] [address] Sodium [Moles/Vol] 134 mmol/L Low 135-145 [facility] Comment on above: Performed By: #### 2 [id number] #### [facility] [address] [place] [address] Urea nitrogen [Mass/Vol] 8 mg/dL Normal 5-21 [facility] Comment on above: Performed By: #### 2 [id number] #### [facility] [address] [facility] [place] [address] Urea nitrogen/Creatinine [Mass ratio] 8 No Units Low 10-20 [facility] Comment on above: Performed By: #### 2 [id number] #### [facility] [address] [place] [address] Family Medicine Office/Clini c Noteon 06-15-2024 Family Medicine Office/Clinic Note Family Medicine Office/Clinic Note Chief Complaint 6mo chk up, not fasting, no rfs, needs shingrix The patient presents with concerns surrounding his prostate cancer management and its associated health implications. History of Present Illness The patient is a 68-year-old male presenting with concerns related to his prostate cancer management. Over the past year, his PSA levels have shown an increase from 6.9 to 11. Monitoring is ongoing, with follow-up appointments scheduled. Patient has been dealing with erectile dysfunction for several months and has gone through 3 different ED medications. Viagra is helping the most. He does question the possibility of testing for hormone levels. Concerns about testosterone were addressed, given its potential to exacerbate his prostate cancer; thus, no supplementation is considered. Previously diagnosed idiopathic chronic gout in the right ankle and foot remains stable, and his hypertension is under control with current medication regimens. Blood pressures not routinely followed. Denies chest pain palpitations or syncope. When seen last he was worried about the possibility of herpes transmission between he and his new partner. A history of herpes simplex virus type 1 positivity remains non-problematic since there are no recent outbreaks. Reviewed other STD testing that was completed and negative. At the end of visit patient questions whether it is normal for him to be careful when crying at the end of visit patient questions whether it is normal for him to be tearful and crying frequently for no particular reason. Recognizes that this has been going on for quite some time. He is not suicidal. Thinks back that this could have been going on for years. Not currently medicated and not particular interested in counseling. Sleep is generally good. Review of Systems PHQ Score Initial Depression Screen Score: 2 SCORE - : Denies current issues with urination despite having BPH. - Emotional: Reports intermittent emotional lability with episodes of spontaneous crying. Physical Exam Vitals & Measurements HR: 84(Peripheral) RR: 16 BP: 130/80 SpO2: 96% HT: 180 cm HT: 71 in WT: 104.6 kg WT: 230.603 lb BMI: 32.28 Well-groomed adequately hydrated. HEENT normal cephalic atraumatic. Wearing corrective lenses. Conjunctiva clear pupils are symmetric. Wearing new dentures. Oropharynx pink and moist neck is supple. No thyromegaly. Lungs are clear bilaterally cardiac regular rate and rhythm no murmur gallop or rub. Belly is overweight nontender no organomegaly. Integument warm dry pale. Extremities without rash or lesions. Deferred rectal and genital exam. Mood is relatively upbeat. Makes good eye contact. No psychomotor agitation. Assessment/Plan 1. BPH without urinary obstruction (N40.0: Benign prostatic hyperplasia without lower urinary tract symptoms) Continues limit nocturnal fluids caffeinated beverages maintain scheduled voiding. Patient is under the watchful care urology for prostate carcinoma. Understands that this could certainly add to the issue of decreased urinary stream Ordered: Complex E&M Add on G2211 E&M of Est. Patient Moderate 30-39 Min 65556 Lab Specimen Collect 66931 2. Benign hypertension (I10: Essential (primary) hypertension) The importance of the following were all reviewed with the patient: -Take Rx(s )as prescribed. There are simple Lifestyle Modifications that you can do to reduce your blood pressure. -Weight Reduction -Follow the DASH eating plan. More information about this eating plan can be found here: https://www.nhlbi.nih.gov/ health/health-topics/topic s/dash -Reduce Sodium (Salt) Intake to 2000mg per day. -Use Moderation when consuming alcohol. - To improve your health we recommend increasing your level of moderate exercise to at least 2.5 hrs per week. For more information, please visit the CDC Exercise and Fitness Recommendations at www.cdc.gov/physicalactivi ty/basics/index.htm Ordered: Complex E&M Add on G2211 E&M of Est. Patient Moderate 30-39 Min 36045 Lab Specimen Collect 47501 3. Major depression in partial remission (F32.4: Major depressive disorder, single episode, in partial remission) Lengthy discussion had regarding depression. Patient is agreeable to a trial of SSRI recognizing that depression symptomatology certainly varies based on age and sex. Did review the potential of going to counseling but he defers at this time and status prefers to trial SSRI in the form of Lexapro. Starting low-dose encouraged good sleep hygiene and notify me of any agitation. Keep follow-up as planned Ordered: Complex E&M Add on G2211 E&M of Est. Patient Moderate 30-39 Min 12590 4. Erectile dysfunction (N52.9: Male erectile dysfunction, unspecified) Patient continues with sildenafil with adequate response. I discouraged testing for testosterone levels primarily because he does not have prostate cancer on hormonal supplementation could add to cancer progression. Directing (more content not included)... Normal [facility] Comment on above: Result Comment: Elec tronically Signed By: NAVID LICONA, Aruna\.br\Date and Time Signed: 06/15/24 09:41 EDT eGFRon 06-15-2024 eGFR 82 mL/min/1.73 m2 Normal >=59 [facility] Comment on above: Performed By: #### 1 [id number] #### [facility] [address] [place] [address] .Interpretation:on HCV Ab IA Ql Comment Invalid Interpretation Code [facility] Comment on above: Result Comment: Not infected with HCV unless early or acute infection is suspected (which may be delayed in an immunocompromised individual), or other evidence exists to indicate HCV infection. Performed at: [facility] [address] [place] [address] [id number] PhD Marlon Rosen Performed By: #### 2 [id number] #### [facility] [address] [place] [address] HCV Antibody RFX to Quant PC Burt 05-18-2024 HCV IgG IA Ql Non-Reactive Invalid Interpretation Code Non Reactive [facility] Comment on above: Result Comment: Perf ormed at: [facility] [address] [place], [place] [id number] PhD Marlon Rosen Performed By: #### 2 [id number] #### [facility] [address] [place] [address] HIV Screen 4th Generation wR fxon 05-18-2024 HIV 1+2 Ab+HIV1 p24 Ag IA Ql Non-Reactive Invalid Interpretation Code Non Reactive [facility] Comment on above: Result Comment: HIV- 1/HIV-2 antibodies and HIV-1 p24 antigen were NOT detected. There is no laboratory evidence of HIV infection. HIV Negative Performed at: [address] [id number] PhD Marlon Rosen Performed By: #### 9 [id number] #### [facility] [address] [place] [address] HSV I and II IgGon HSV 1 IgG IA Ql Reactive Abnormal Non Reactive [facility] Comment on above: Result Comment: Pl ease note reference interval change HSV-1 IgG testing performed using the [employer] HSV-1 IgG assay. Performed By: #### 1 [id number] #### [facility] [address] [place] [address] HSV 2 IgG IA Ql Non-Reactive Invalid Interpretation Code Non Reactive [facility] Comment on above: Result Comment: Pl ease note reference interval change Current guidelines and recommendations do not recommend routine screening for HSV-2 in asymptomatic individuals, including those that are . The detection of HSV-2 IgG antibodies in a single sample indicates previous exposure to HSV-2 but does not give information as to the site of HSV infection or the timing of exposure. The predictive value of positive and negative results depends on the population's prevalence and the pretest likelihood of HSV-2. HSV-2 IgG testing performed using the [employer] HSV-2 IgG assay. Performed at: [address] [id number] PhD Marlon Rosen Performed By: #### 1 [id number] #### [facility] [address] [place] [address] Hep Bs Abon 05-18-2024 HBV surface Ab Ql (S) Non-Reactive Invalid Interpretation Code [facility] Comment on above: Result Comment: Non Reactive: Not immune to HBV infection. Equivocal: Unable to determine if anti-HBs is present at levels consistent with immunity. Reactive: Anti-HBs concentration detected at greater than 10 mIU/mL. Individual is considered to be immune to infection with HBV. Performed at: [address] [id number] PhD Marlon Rosen Performed By: #### 2 [id number] #### [facility] [address] [place] [address] Hep Bs Agon 05-18-2024 HBV surface Ag IA Ql Negative Invalid Interpretation Code Negative [facility] Comment on above: Result Comment: Perf ormed at: [facility] [address] [place], [place] [id number] PhD Marlon Rosen Performed By: #### 2 [id number] #### [facility] [address] [place] [address] Ambulatory Visit Summaryon 0 05-15-2024 Ambulatory Visit Summary Ambulatory Visit Summary MELISA PADILLA Danny :1955 Visit Date:05/15/2024 Ambulatory Visit Instructions Your Diagnosis BPH without urinary obstruction Erectile dysfunction Prostate cancer STD exposure Obesity due to excess calories BMI 32.0-32.9,adult Your Care Team Attending Physician - NAVID LICONA, Aruna Primary Care Physician - Aruna MARVIN MD This Is Your Medications List allopurinol (allopurinol 100 mg Tab) famotidine (famotidine 40 mg Tab) hydrocortisone topical (hydrocortisone 2.5% Rectal Crm w/Appl) losartan (losartan 25 mg Tab) naproxen (naproxen 500 mg Tab) pantoprazole (Pantoprazole [address] Tab) sildenafil (sildenafil 100 mg Tab) Procedures Performed MRI-US fusion guided prostate biopsy (10/06/2023), Colonoscopy (09/23/2023), MRI-US fusion guided transperineal biopsy of prostate (03/09/2022), Colonoscopy (07/21/2020), History of vasectomy. Discharge Vitals Heart Rate (Peripheral) 80 Respiratory Rate 16 Blood Pressure 130/80 Height 180 cm Height 71 in Weight 104 kg Weight 229.28 lb BMI 32.1 What to do next Scheduled Follow-Up Appointments Tuesday 8:20 AM EDT With: Aruna MARVIN MD Where: [address] [address]- Tuesday 9:00 AM EDT With: Where: [facility] [address] [place] [address] [place] [address]- Tuesday 1:45 PM EDT With: Nick THACKER MD Where: [facility] [address] [place] [address] [place] [address]- Tuesday 1:00 PM EST With: Where: [facility] [address] [place] [address]- You Need to Complete the Following HCV Antibody RFX to Quant PCR, Blood, Routine collect, *Est. 05/15/24 due within 1 months, Order for future visit, Lab Collect, BPH without urinary obstruction Erectile dysfunction Prostate cancer STD exposure Obesity due to excess calories BMI 32.0-32.9,adult, Not Requir... Hepatitis B Surface Antibody, Blood, Routine collect, *Est. 05/15/24 due within 1 months, Order for future visit, Lab Collect, BPH without urinary obstruction Erectile dysfunction Prostate cancer STD exposure Obesity due to excess calories BMI 32.0-32.9,adult, Not Requir... Hepatitis B Surface Antigen, Blood, Routine collect, *Est. 05/15/24 due within 1 months, Order for future visit, Lab Collect, BPH without urinary obstruction Erectile dysfunction Prostate cancer STD exposure Obesity due to excess calories BMI 32.0-32.9,adult, Not Requir... HIV Screen 4th Generation wRfx, Blood, Routine collect, *Est. 05/15/24 due within 1 months, Order for future visit, Lab Collect, BPH without urinary obstruction Erectile dysfunction Prostate cancer STD exposure Obesity due to excess calories BMI 32.0-32.9,adult, Not Requir... HSV I and II IgG, Blood, Routine collect, *Est. 05/15/24 due within 1 months, Order for future visit, Lab Collect, BPH without urinary obstruction Erectile dysfunction Prostate cancer STD exposure Obesity due to excess calories BMI 32.0-32.9,adult, Not Requir... Medications What How Much When Instructions Unchanged allopurinol (allopurinol 100 mg Tab) 1 Tablets By Mouth Every day Unchanged famotidine (famotidine 40 mg Tab) See instructions take 1 tablet by mouth at bedtime Unchanged hydrocortisone topical (hydrocortisone 2.5% Rectal Crm w/ Appl) 1 Application By rectum 2 times a day Unchanged losartan (losartan 25 mg Tab) See instructions take 1 tablet by mouth once daily Unchanged naproxen (naproxen 500 mg Tab) 1 Tablets By Mouth 2 times a day Unchanged pantoprazole (Pantoprazole [address] Tab) 1 Tablets By Mouth Every day Unchanged sildenafil (sildenafil 100 mg Tab) See instructions 1 hour before sexual activity Allergies No Known Allergies Problems Ongoing - Any problem that you are currently receiving treatment for. Actinic keratoses Benign hypertension BMI 32.0-32.9,adult BPH without urinary obstruction Erectile dysfunction Esophageal dysphagia External hemorrhoid, bleeding Fasting hyperglycemia Genital herpes GERD (gastroesophageal reflux disease) Gout Hearing loss on left Lumbar radiculopathy, right Obesity due to excess calories Onychomycosis of right great toe Pes planus of both feet Pes planus, congenital Prostate cancer STD exposure Traumatic anosmia Tubulovillous adenoma of colon Visual floaters Historical - Any problem that you are no longer receiving treatment for. Body mass index [BMI] 31.0-31.9, adult Chronic left-sided low back pain Class 1 obesity due to excess calories with body mass index (BMI) of 31.0 to 31.9 in adult Close exposure to COVID-19 virus Dizzinesses Overweig (more content not included)... Normal [facility] Family Medicine Office/Clini c Noteon 05-15-2024 Family Medicine Office/Clinic Note Family Medicine Office/Clinic Note Chief Complaint pt presents today for personal discussion, no rfs History of Present Illness Patient is currently getting into an intimate relationship. His second whom he is now from apparently had herpes from her first . Patient believes that he himself tested positive with a serologic test almost 25 years ago but we have no record of this. His current partner obviously expresses concern about this. He has had longstanding history of recurrent cold sores but nothing recent and has absolutely no history of genital herpes outbreak. Patient is requesting STD testing in general. He denies any dysuria currently no urethral discharge. He does have prostate carcinoma being managed by urology. Review of Systems PHQ Score Initial Depression Screen Score: 0 SCORE Denies any fevers chills urethral discharge or genital lesions Physical Exam Vitals & Measurements HR: 80(Peripheral) RR: 16 BP: 130/80 SpO2: 95% HT: 71 in HT: 180 cm WT: 104 kg WT: 229.28 lb BMI: 32.1 Well-groomed adequately hydrated wearing corrective lenses conjunctiva clear pupils are symmetric. No oropharyngeal lesions of concern. Deferred genital exam. Abdomen is overweight. Neuropsychiatric anxious about the situation discussed but cooperative and good insight Assessment/Plan 1. BPH without urinary obstruction (N40.0: Benign prostatic hyperplasia without lower urinary tract symptoms) Patient is continuing under the care of urology with reasonable symptom management not requiring any tamsulosin or finasteride. Patient maintains limited nocturnal fluids and caffeinated beverage limits. Ordered: HCV Antibody RFX to Quant PCR Hepatitis B Surface Antibody Hepatitis B Surface Antigen HIV Screen 4th Generation wRfx HSV I and II IgG 2. Erectile dysfunction (N52.9: Male erectile dysfunction, unspecified) This is currently being treated with sildenafil with a reasonable response at this point. Ordered: HCV Antibody RFX to Quant PCR Hepatitis B Surface Antibody Hepatitis B Surface Antigen HIV Screen 4th Generation wRfx HSV I and II IgG 3. Prostate cancer (C61: Malignant neoplasm of prostate) Continue following with urology as planned fusion biopsy. Ordered: HCV Antibody RFX to Quant PCR Hepatitis B Surface Antibody Hepatitis B Surface Antigen HIV Screen 4th Generation wRfx HSV I and II IgG 4. STD exposure (Z20.2: Contact with and (suspected) exposure to infections with a predominantly sexual mode of transmission) Lengthy discussion had regarding STD exposure. Greater than 20 years ago without any current symptomatology. For peace of mind planning to check HIV, hepatitis A not necessary, hepatitis B and C will be drawn and herpes type I and II. We did discuss that utilizing great caution with intimacy such as condoms or avoiding any intimacy with any oropharyngeal lesions very important. Results will follow Ordered: HCV Antibody RFX to Quant PCR Hepatitis B Surface Antibody Hepatitis B Surface Antigen HIV Screen 4th Generation wRfx HSV I and II IgG 5. Obesity due to excess calories (E66.09: Other obesity due to excess calories) The standard range for ages 18 and older is >=18.5 and < 25 kg/m2. Your BMI today was above this range, this falls in the overweight to obese category and there are medical benefits to weight loss. We can offer counselling, referral, and/or medical support in addressing this problem. Your BMI and weight management will be followed at subsequent visits. Ordered: HCV Antibody RFX to Quant PCR Hepatitis B Surface Antibody Hepatitis B Surface Antigen HIV Screen 4th Generation wRfx HSV I and II IgG 6. BMI 32.0-32.9,adult (Z68.32: Body mass index [BMI] 32.0-32.9, adult) See #5 Ordered: HCV Antibody RFX to Quant PCR Hepatitis B Surface Antibody Hepatitis B Surface Antigen HIV Screen 4th Generation wRfx HSV I and II IgG Follow-up No qualifying data available Patient Education Erectile Dysfunction Problem List/Past Medical History Ongoing Actinic keratoses Benign hypertension BMI 32.0-32.9,adult BPH without urinary obstruction Erectile dysfunction Esophageal dysphagia External hemorrhoid, bleeding Fasting hyperglycemia Genital herpes GERD (gastroesophageal reflux disease) Gout Hearing loss on left Lumbar radiculopathy, right Obesity due to excess calories Onychomycosis of right great toe Pes planus of both feet Pes planus, congenital Prostate cancer STD exposure Traumatic anosmia Tubulovillous adenoma of colon Visual floaters Historical Body mass index [BMI] 31.0-31.9, adult Chronic left-sided low back pain Class 1 obesity due to excess calories with body mass index (BMI) of 31.0 to 31.9 in adult Close exposure to COVID-19 virus Dizzinesses Overweight Visual disturbance Procedure/Surgical History MRI-US fusion guided prostate biopsy (10/06/2023), Colonoscopy (09/23/2023), MRI-US fusi (more content not included)... Normal [facility] Comment on above: Result Comment: Elec tronically Signed By: NAVID LICONA, Aruna\.br\Date and Time Signed: 05/15/24 17:24 EST Urology Office/Clinic Noteon 04-30-2024 Urology Office/Clinic Note Urology Office/Clinic Note Chief Complaint 6mo PSA HPI Staff 68yr old male pt here for 6mo f/u with PSA. MRI of prostate 08/23/23 - PI-RADS 4. S/p MRI fusion prostate bx 10/06/23. Repeat bx in 1 year (due 09/2024). Previous Dx: prostate cancer, BPH without urinary obstruction PSA: 02/2020 - 1.8 11/10/21 - 3.8, repeat free & total 3.7 & 12% 06/07/23 - 6.9 & 17.4% Dysuria: denies Incomplete bladder emptying: denies Hematuria: denies Frequency: denies Urgency: denies Nocturia: 2x per night Stream: good stream Leaking: denies Post void dripping: denies Wearing pads/ Depends: denies Urge incontinence: denies Stress incontinence: denies Incontinence without Sensory Awareness: denies Abdominal pain: denies Flank pain: denies Sexual complaints: denies History of Present Illness Tests reviewed: reviewed UA I have reviewed the previous health record information and history for this patient from Dr. Thacker. I have reviewed and verified the staff HPI to be accurate for this encounter. Review of Systems PHQ Score Initial Depression Screen Score: 0 SCORE ROS - Provider Constitutional: denies weight loss, denies hot flashes. Eyes: denies eye problems. Gastrointestinal: denies nausea, denies vomiting. Cardiovascular: denies chest pain or angina. Integumentary: no dryness Musculoskeletal: denies musculoskeletal symptoms. ENMT: denies otolaryngeal symptoms. Respiratory: no shortness of breath. Heme/Lymph: denies easy bleeding tendency, denies easy bruising tendency. Psychiatric: no confusion, no anxiety. Genitourinary: See HPI. Physical Exam Vitals & Measurements T: 37 ???C(Oral) HR: 80(Peripheral) RR: 18 BP: 147/85 HT: 71 in HT: 180 cm WT: 104 kg WT: 229.28 lb BMI: 32.1 General Appearance: alert, no distress, well nourished, well developed male. Prostate: normal prostate, estimated weight 40 gms, no hard nodule observed. Assessment/Plan 1. Prostate cancer (C61: Malignant neoplasm of prostate) ACTIVE SURVEILLANCE. PSA: 02/2020 - 1.8 11/10/21 - 3.8, repeat free & total 3.7 & 12% 06/07/23 - 6.9 & 17.4% MRI of prostate 01/14/22 - 2 areas found PI-RADS 4. S/p transperineal fusion biopsy 03/09/22 - neg for malignancy. MRI of prostate 08/23/23 - Lesion involving the posterior aspect of the left peripheral zone, measures 5 x 4 mm. No gross extracapsular extension is seen. PI-RADS 4. S/p MRI fusion bx 10/06/23 - [place] 6 (3+3) 2/17 cores. GG1. Extraprostatic extension is not identified. Pt did not have PSA done for appt today, thought PCP did this but was not completed. BOB: ~40g, no nodules. -PSA to be drawn IO today. Will call pt with results. -F/u in 6 mos w/ PSA 2. BPH without urinary obstruction (N40.0: Benign prostatic hyperplasia without lower urinary tract symptoms) MRI of prostate 08/23/23 - prostate volume 38 mL. UA today shows small leuks, negative for blood. Not taking any BPH meds. Not voicing any urinary habit complaints. Follow-up With When Contact Information RAMAKRISHNA LICONA, Nick Irwin, URL [facility] [address], [place] [address] [phone] Additional Instructions: 6 mos w/ PSA Patient Education Prostate Cancer Screening I, Michela Oquendo, personally scribed for Dr. Thacker on 04/30/2024 14:31:00. . Documentation recorded by the scribe, Michela Oquendo, accurately reflects the services(s) I performed and decisions made by me. Authenticated by Dr. Thacker on 04/30/2024 14:33:23. Problem List/Past Medical History Ongoing Actinic keratoses Acute non-recurrent frontal sinusitis Benign hypertension BMI 32.0-32.9,adult BPH without urinary obstruction Class 1 obesity due to excess calories in adult Erectile dysfunction Esophageal dysphagia External hemorrhoid, bleeding Fasting hyperglycemia Genital herpes GERD (gastroesophageal reflux disease) Gout Hearing loss on left Lumbar radiculopathy, right Onychomycosis of right great toe Pes planus of both feet Pes planus, congenital Prostate cancer Traumatic anosmia Tubulovillous adenoma of colon Visual floaters Historical Body mass index [BMI] 31.0-31.9, adult Chronic left-sided low back pain Class 1 obesity due to excess calories with body mass index (BMI) of 31.0 to 31.9 in adult Close exposure to COVID-19 virus Dizzinesses Overweight Visual disturbance Procedure/Surgical History MRI-US fusion guided prostate biopsy (10/06/2023), Colonoscopy (09/23/2023), MRI-US fusion guided transperineal biopsy of prostate (03/09/2022), Colonoscopy (07/21/2020), History of vasectomy. Medications allopurinol 100 mg Tab, 100 mg= 1 tab(s), Oral, Daily, 4 refills famotidine 40 mg Tab, See Instructions, 4 refills hydrocortisone 2.5% Rectal Crm w/Appl, 1 benito, Rectal, BID losartan 25 mg Tab, See Instructions, 4 refills naproxen 500 mg Tab, 500 mg= 1 tab(s), Oral, BID, 1 refills Pantoprazole [address] Tab, 40 (more content not included)... Normal [facility] Comment on above: Result Comment: Elec tronically Signed By: Nick THACKER MD\.br\Date and Time Signed: 04/30/24 14:33 EST\.br\Electronically Co-Signed By: Michela Oquendo\.br\Date and Time Co-Signed: 04/30/24 14:31 EST Family Medicine Office/Clini c Noteon 04-19-2024 Family Medicine Office/Clinic Note Family Medicine Office/Clinic Note Chief Complaint pt presents today c/o sinus congestion/yellow drainage, roof of mouth sore, non prod cough, fatigue, raspy voice, sore throat x 1wk, no covid testing, denies fevers or n/v/d, rf losartan to dm/w, needs shingrix The patient presents with upper respiratory symptoms and erectile dysfunction. History of Present Illness The patient is a 68-year-old male presenting with upper respiratory symptoms and erectile dysfunction. The patient reports a history of symptoms consistent with a respiratory illness, starting approximately one week ago. Initial symptoms included sneezing, nasal congestion, and a sore throat. Reports significant other was treated for strep pharyngitis without testing. The sore throat has fluctuated in intensity but currently remains bothersome. The patient denies fever or significant chills, which he associates more commonly with influenza. Historical use of antibiotics for related conditions was noted, but no recent use prior to this visit. The patient also noted erythematous throat and features consistent with posterior pharyngeal drainage on examination but did not report previous ulcerations or lesions in the oral cavity. Patient feels that the sildenafil has been more beneficial than the Cialis with the Levitra for ED. Review of Systems PHQ Score Initial Depression Screen Score: 0 SCORE - Respiratory: Reports sneezing and congestion. - Gastrointestinal: Denies nausea or vomiting. - Musculoskeletal: Denies joint pain. Physical Exam Vitals & Measurements T: 36.3 ???C(Temporal Artery) HR: 88(Peripheral) RR: 16 BP: 120/84 SpO2: 96% HT: 71 in HT: 180 cm WT: 105.2 kg WT: 231.926 lb BMI: 32.47 Patient is nontoxic adequately hydrated does have a very hoarse voice. Dentures in good repair above, moderately poor dentition below. Oropharynx does show cobblestoning. Underneath the upper plate there is some excoriation of the skin not actual aphthous ulcers. Slightly sensitive to touch. Neck with shotty nodes. Nares with pale yellow rhinorrhea. TMs unremarkable today scant cerumen wearing corrective lenses conjunctiva clear lungs diminished but clear cardiac regular rate and rhythm no murmur gallop or rub. Overweight. Assessment/Plan 1. Acute recurrent frontal sinusitis (J01.11: Acute recurrent frontal sinusitis) Discussed with patient that for sinusitis symptoms complete antibiotics as directed. Discussed expected improvement of symptoms within 7-10 days. May continue OTC medications, nasal steroid sprays and nasal saline to moisturize nostrils if suggested. Vaporizer or humidifier can be helpful. Call if no improvement in 7-10 days, sooner if increasing cough, fever, or new symptoms. 2. Benign hypertension (I10: Essential (primary) hypertension) The importance of the following were all reviewed with the patient: -Take Rx(s )as prescribed. There are simple Lifestyle Modifications that you can do to reduce your blood pressure. -Weight Reduction -Follow the DASH eating plan. More information about this eating plan can be found here: https://www.nhlbi.nih.gov/ health/health-topics/topic s/dash -Reduce Sodium (Salt) Intake to 2000mg per day. -Use Moderation when consuming alcohol. - To improve your health we recommend increasing your level of moderate exercise to at least 2.5 hrs per week. For more information, please visit the CDC Exercise and Fitness Recommendations at www.cdc.gov/physicalactivi ty/basics/index.htm 3. Erectile dysfunction (N52.9: Male erectile dysfunction, unspecified) Current regimen with sildenafil appears effective. Patient instructed to maintain treatment with sildenafil. Consider discussion with urology for ongoing management, emphasizing efficacy and tolerability of current therapy. 4. Class 1 obesity due to excess calories in adult (E66.09: Other obesity due to excess calories) The standard range for ages 18 and older is >=18.5 and < 25 kg/m2. Your BMI today was above this range, this falls in the overweight to obese category and there are medical benefits to weight loss. We can offer counselling, referral, and/or medical support in addressing this problem. Your BMI and weight management will be followed at subsequent visits. 5. BMI 32.0-32.9,adult (Z68.32: Body mass index [BMI] 32.0-32.9, adult) See #4 Orders: amoxicillin-clavulanate, 1 tab(s), Oral, q8hr for 10 day(s), 30 tab(s), Refill(s) 0, [facility], 180, cm, 04/19/24 10:13:00 EST, Height/Length Dosing, 105.2, kg, 04/19/24 10:13:00 EST, Weight Dosing losartan, See Instructions, take 1 tablet by mouth once daily, # 90 tab(s), Refills(s) 4, Pharmacy: [facility], 180, cm, 04/19/24 10:13:00 EST, Height/Length Dosing, 105.2, kg, 04/19/24 10:13:00 EST, Weight Dosing Portions of this record may have been created with voice recognition artificial intelligence software, specifically [employer] and [employer]. Substitutions may have occurred (more content not included)... Normal [facility] Comment on above: Result Comment: Elec tronically Signed By: NAVID LICONA, Aruna\.br\Date and Time Signed: 04/19/24 12:01 EST Ambulatory Visit Summaryon 0 04-06-2024 Ambulatory Visit Summary Ambulatory Visit Summary MELISA PADILLA :1955 Visit Date:04/06/2024 Ambulatory Visit Instructions Your Diagnosis Esophageal dysphagia GERD (gastroesophageal reflux disease) Erectile dysfunction Benign hypertension Prostate cancer Class 1 obesity due to excess calories in adult BMI 32.0-32.9,adult Your Care Team Attending Physician - Aruna MARVIN MD Primary Care Physician - Aruna MARVIN MD This Is Your Medications List pantoprazole (Pantoprazole [address] Tab) sildenafil (sildenafil 100 mg Tab) Contact prescribing physician if questions or concerns allopurinol (allopurinol 100 mg Tab) famotidine (famotidine 40 mg Tab) hydrocortisone topical (hydrocortisone 2.5% Rectal Crm w/Appl) losartan (losartan 25 mg Tab) naproxen (naproxen 500 mg Tab) [Image Removed: STOP]Stop taking these medications tadalafil (Cialis 20 mg Tab) vardenafil (Levitra 20 mg Tab) Procedures Performed MRI-US fusion guided prostate biopsy (10/06/2023), Colonoscopy (09/23/2023), MRI-US fusion guided transperineal biopsy of prostate (03/09/2022), Colonoscopy (07/21/2020), History of vasectomy. Discharge Vitals Heart Rate (Peripheral) 68 Respiratory Rate 16 Blood Pressure 130/84 Height 180 cm Height 71 in Weight 105.3 kg Weight 232.146 lb BMI 32.5 What to do next Scheduled Follow-Up Appointments Tuesday 1:30 PM EST With: Nick THACKER MD Where: [facility] [address] [address]- Tuesday 8:20 AM EDT With: Aruna MARVIN MD Where: [facility] [address] [place] [address]- Tuesday 1:00 PM EST With: Where: [facility] [address] [place] [address]- You Need to Schedule the Following Appointments Follow Up with Aruna MARVIN MD, FAM When: Only if needed Where: Medications What How Much When Instructions New pantoprazole (Pantoprazole [address] Tab) 1 Tablets By Mouth Every day Refills: 5 Pickup at [facility] New sildenafil (sildenafil 100 mg Tab) See instructions Refills: 5 1 hour before sexual activity Pickup at [facility] Unchanged allopurinol (allopurinol 100 mg Tab) 1 Tablets By Mouth Every day Contact prescribing physician if questions or concerns Unchanged famotidine (famotidine 40 mg Tab) See instructions take 1 tablet by mouth at bedtime Contact prescribing physician if questions or concerns Unchanged hydrocortisone topical (hydrocortisone 2.5% Rectal Crm w/ Appl) 1 Application By rectum 2 times a day Contact prescribing physician if questions or concerns Unchanged losartan (losartan 25 mg Tab) See instructions take 1 tablet by mouth once daily Contact prescribing physician if questions or concerns Unchanged naproxen (naproxen 500 mg Tab) 1 Tablets By Mouth 2 times a day Contact prescribing physician if questions or concerns Pharmacy Information [facility]: [address], [place] [phone] What How Much When Comments Stop Taking tadalafil (Cialis 20 mg Tab) See instructions 1 tab(s) orally 45 minutes prior to making love Stop Taking vardenafil (Levitra 20 mg Tab) See instructions Take 1 tablet 1 hour before sexual activity Allergies No Known Allergies Problems Ongoing - Any problem that you are currently receiving treatment for. Actinic keratoses Benign hypertension BMI 32.0-32.9,adult Cerumen impaction Class 1 obesity due to excess calories in adult Erectile dysfunction Esophageal dysphagia External hemorrhoid, bleeding Fasting hyperglycemia Genital herpes GERD (gastroesophageal reflux disease) Gout Hearing loss on left Lumbar radiculopathy, right Onychomycosis of right great toe Pes planus of both feet Pes planus, congenital Prostate cancer Traumatic anosmia Tubulovillous adenoma of colon Visual floaters Historical - Any problem that you are no longer receiving treatment for. Body mass index [BMI] 31.0-31.9, adult Chronic left-sided low back pain Class 1 obesity due to excess calories with body mass index (BMI) of 31.0 to 31.9 in adult Close exposure to COVID-19 virus Dizzinesses Overweight Visual disturbance Patient Survey You may receive a survey via text or e-mail asking about your office visit. Please share your experience with us by completing your survey. We appreciate your feedback and thank you for choosing us for your care. Education Materials Dysphagia Eating Plan, Bite Size Food This diet is recommended for people who are not able to bite pieces of food but are able to chew. You may need this diet if you have weakness of the muscles that control swallowing, you have an increased risk of choking, or you suffer from fa (more content not included)... Normal [facility] Medicine Office/Clini c Noteon 04-06-2024 Family Medicine Office/Clinic Note Family Medicine Office/Clinic Note Chief Complaint pt presents today c/o dysphagia, no rfs, discuss cont issues with ED, needs shingrix The patient presents with difficulty swallowing and symptoms of GERD. History of Present Illness The patient is a 68-year-old male presenting with dysphagia and GERD. The patient reports experiencing swallowing difficulties a few times since the last visit, unsure if it is related to anxiety or eating speed. He uses famotidine for GERD, taking one dose at night, which he finds helpful in reducing symptoms. However, he experiences a recurrence of symptoms such as sour stomach on the occasions he forgets to take the medication. The patient does not consistently correlate specific foods to the swallowing problem, noting it can happen with any type of food. Dysphagia episodes reportedly resolve after about five minutes, but the patient describes the sensation of food not going down smoothly. There is no reported correlation with weight loss, coughing up blood, or family history of esophageal cancer. Additionally, the patient reports lifestyle factors potentially contributing to reflux symptoms, including alcohol use and dietary choices such as tomato products and citrus. Compliance with the current GERD medication regimen was noted, but additional measures and medications were discussed to improve symptom management. Another great concern is persistent problems with erectile function. Patient has prostate cancer currently monitored by Dr. Thacker with watchful waiting. No intervention has been utilized. He can get an erection, minimal ejaculate. Not satisfying for patient or partner. Has tried Cialis as well as Levitra without relief. BPH symptoms are intermittent. Review of Systems PHQ Score Initial Depression Screen Score: 2 SCORE - Respiratory: Denies coughing up blood. - Gastrointestinal: Reports dysphagia primarily with solid foods, experienced sporadically; denies frequent heartburn with current medication. - Hematologic/Lymphatic: Denies unexpected weight loss. Physical Exam Vitals & Measurements HR: 68(Peripheral) RR: 16 BP: 130/84 SpO2: 100% HT: 71 in HT: 180 cm WT: 105.3 kg WT: 232.146 lb BMI: 32.5 Well-groomed adequately hydrated. I do not appreciate any palpable mass, tenderness hyperactive bowel sounds are present. Lungs diminished but clear cardiac regular rate and rhythm no murmur gallop or rub. Integument moderately tanned there are some senile purpura on the arms. Oropharynx pink moist dentures in fair repair conjunctiva clear wearing corrective lenses grossly normal hearing. Deferred rectal and genital exams. Neuropsychiatric very pleasant cooperative. Assessment/Plan 1. Esophageal dysphagia (R13.19: Other dysphagia) The patient will continue famotidine and initiate once-daily pantoprazole prior to the largest meal to better manage GERD-related symptoms and dysphagia. Instructions were given to alternate sips of fluids with food to reduce esophageal irritation. A referral for esophagogastroduodenoscopy (EGD) will be considered if symptoms persist or worsen, especially in terms of frequency or severity. Did discuss the potential for esophageal narrowing with mass or reflux esophagitis. Ordered: Complex E&M Add on G2211 E&M of Est. Patient Moderate 30-39 Min 24569 2. GERD (gastroesophageal reflux disease) (K21.9: Gastro-esophageal reflux disease without esophagitis) Management includes optimizing acid suppression with pantoprazole in addition to continuing famotidine at night. Lifestyle modifications discussed, such as dietary changes and limiting alcohol intake. An escalation to endoscopic investigation would be considered upon persistent symptoms despite optimal medical therapy. Ordered: Complex E&M Add on G2211 E&M of Est. Patient Moderate 30-39 Min [id number] 3. Erectile dysfunction (N52.9: Male erectile dysfunction, unspecified) The patient will trial the maximum dose of sildenafil (Viagra) to assess improvement in erectile function, especially in relation to timing and dietary intake. Discussion included the potential impact of alcohol and blood pressure medications on erectile function. Further discussion with his specialist Dr. Thacker of urology will be revisited if improvement is not observed. Does have an appointment there early May Ordered: Complex E&M Add on G2211 E&M of Est. Patient Moderate 30-39 Min [id number] 4. Benign hypertension (I10: Essential (primary) hypertension) Keep in mind that this can cause erectile dysfunction when being treated The importance of the following were all reviewed with the patient: -Take Rx(s )as prescribed. There are simple Lifestyle Modifications that you can do to reduce your blood pressure. -Weight Reduction -Follow the DASH eating plan. More information about this eating plan can be found here: https://www.nhlbi.nih.gov/ health/health-topics/topic s/dash -Reduce Sodium (Salt) Intake to 2000mg per day. -Use Moderation when consuming al (more content not included)... Normal [facility] Comment on above: Result Comment: Elec tronically Signed By: Aruna MARVIN MD\.br\Date and Time Signed: 04/06/24 12:50 EST No Panel Informationon 03-16 Type of biopsy: paredes ential Informed consent: discussed and consent obtained Informed consent comment: The risks and benefits of the biopsy were discussed. Risks include but are not limited to bleeding, infection, scarring, pain, and nerve damage. An opportunity to ask questions prior to the procedure was permitted and all questions were answered. Patient was prepped and draped in usual sterile fashion: area cleansed with alcohol. Anesthesia: the lesion was anesthetized in a standard fashion Anesthetic: 1% lidocaine w/ epinephrine 1-100,000 buffered w/ 8.4% NaHCO3 Instrument used: DermaBlade Hemostasis achieved with: electrodesiccation Outcome: patient tolerated procedure well Outcome comment: The specimen was placed in a prelabeled formalin container to be sent for pathology Post-procedure details: sterile dressing applied and wound care instructions given Post-procedure details comment: Emphasized need to contact clinic for any signs of infection, uncontrollable bleeding, or complications. Dressing type: bandage Additional details: Photo taken Amount of lidocaine used: 1 cc [facility] Ambulatory Visit Summaryon 1 05-01-2023 Ambulatory Visit Summary Ambulatory Visit Summary VALERIEMELISA :1955 Visit Date:02/29/2024 Ambulatory Visit Instructions Your Diagnosis Annual visit for general adult medical examination without abnormal findings Prostate cancer Benign hypertension Fasting hyperglycemia GERD (gastroesophageal reflux disease) BMI 32.0-32.9,adult Class 1 obesity due to excess calories in adult, Other obesity due to excess calories Your Care Team Attending Physician - Aruna MARVIN MD Primary Care Physician - Aruna MARVIN MD This Is Your Medications List allopurinol (allopurinol 100 mg Tab) famotidine (famotidine 40 mg Tab) hydrocortisone topical (hydrocortisone 2.5% Rectal Crm w/Appl) losartan (losartan 25 mg Tab) naproxen (naproxen 500 mg Tab) tadalafil (Cialis 20 mg Tab) Procedures Performed MRI-US fusion guided prostate biopsy (10/06/2023), Colonoscopy (09/23/2023), MRI-US fusion guided transperineal biopsy of prostate (03/09/2022), Colonoscopy (07/21/2020), History of vasectomy. Discharge Vitals Heart Rate (Peripheral) 69 Blood Pressure 128/74 Height 180.34 cm Height 71 in Weight 105.5 kg Weight 232.587 lb BMI 32.44 What to do next Scheduled Follow-Up Appointments Tuesday 8:15 AM EST With: Nick THACKER MD Where: [facility] [address] [place] [address] [place] [address]- Tuesday 8:20 AM EDT With: Aruna MARVIN MD Where: [facility] [address], [place] [id number]- Tuesday 1:00 PM EST With: Where: [facility] [address] [place] [address]- Medications What How Much When Instructions Unchanged allopurinol (allopurinol 100 mg Tab) 1 Tablets By Mouth Every day Unchanged famotidine (famotidine 40 mg Tab) See instructions take 1 tablet by mouth at bedtime Unchanged hydrocortisone topical (hydrocortisone 2.5% Rectal Crm w/ Appl) 1 Application By rectum 2 times a day Unchanged losartan (losartan 25 mg Tab) See instructions take 1 tablet by mouth once daily Unchanged naproxen (naproxen 500 mg Tab) 1 Tablets By Mouth 2 times a day Unchanged tadalafil (Cialis 20 mg Tab) See instructions 1 tab(s) orally 45 minutes prior to making love Allergies No Known Allergies Problems Ongoing - Any problem that you are currently receiving treatment for. Actinic keratoses Benign hypertension BMI 32.0-32.9,adult Cerumen impaction Class 1 obesity due to excess calories in adult Erectile dysfunction External hemorrhoid, bleeding Fasting hyperglycemia Genital herpes GERD (gastroesophageal reflux disease) Gout Hearing loss on left Lumbar radiculopathy, right Onychomycosis of right great toe Pes planus of both feet Pes planus, congenital Prostate cancer Traumatic anosmia Tubulovillous adenoma of colon Visual floaters Historical - Any problem that you are no longer receiving treatment for. Body mass index [BMI] 31.0-31.9, adult Chronic left-sided low back pain Class 1 obesity due to excess calories with body mass index (BMI) of 31.0 to 31.9 in adult Close exposure to COVID-19 virus Dizzinesses Overweight Visual disturbance Patient Survey You may receive a survey via text or e-mail asking about your office visit. Please share your experience with us by completing your survey. We appreciate your feedback and thank you for choosing us for your care. Education Materials BMI for Adults Body mass index (BMI) is a number found using a person's weight and height. BMI can help tell how much of a person's weight is made up of fat. BMI does not measure body fat directly. It is used instead of tests that directly measure body fat, which can be difficult and expensive. What are BMI measurements used for? BMI is useful to: ??? Find out if your weight puts you at higher risk for medical problems. ??? Help recommend changes, such as in diet and exercise. This can help you reach a healthy weight. BMI screening can be done again to see if these changes are working. How is BMI calculated? Your height and weight are measured. The BMI is found from those numbers. This can be done with U.S. or metric measurements. Note that charts and online BMI calculators are available to help you find your BMI quickly and easily without doing these calculations. To calculate your BMI in U.[place]. measurements: 1. Measure your weight in pounds (lb). 2. Multiply the number of pounds by 703. ??? So, for an adult who weighs 150 lb, multiply that number by 703: 150 x 703, which equals 105,450. 3. Measure your height in inches. Then multiply that number by itself to get a measurement called inches squared. ??? So, for an adult who is 70 inches tall, the inches squared measurement is 70 inches x 70 inches, which equals (more content not included)... Normal [facility] Ambulatory Visit Summary Ambulatory Visit Summary MELISA PADILLA :1955 Visit Date:02/29/2024 Ambulatory Visit Instructions Your Diagnosis Annual visit for general adult medical examination without abnormal findings Prostate cancer Benign hypertension Fasting hyperglycemia GERD (gastroesophageal reflux disease) BMI 32.0-32.9,adult Class 1 obesity due to excess calories in adult, Other obesity due to excess calories Your Care Team Attending Physician - Aruna MARVIN MD Primary Care Physician - Aruna MARVIN MD This Is Your Medications List allopurinol (allopurinol 100 mg Tab) famotidine (famotidine 40 mg Tab) hydrocortisone topical (hydrocortisone 2.5% Rectal Crm w/Appl) losartan (losartan 25 mg Tab) naproxen (naproxen 500 mg Tab) tadalafil (Cialis 20 mg Tab) Procedures Performed MRI-US fusion guided prostate biopsy (10/06/2023), Colonoscopy (09/23/2023), MRI-US fusion guided transperineal biopsy of prostate (03/09/2022), Colonoscopy (07/21/2020), History of vasectomy. What to do next Scheduled Follow-Up Appointments Tuesday 8:15 AM EST With: Nick THACKER MD Where: [facility] [address] [address]- Tuesday 8:20 AM EDT With: Aruna MARVIN MD Where: [facility] [address] [place] [address]- Tuesday 1:00 PM EST With: Where: [facility] [address] [place] [address]- Medications What How Much When Instructions Unchanged allopurinol (allopurinol 100 mg Tab) 1 Tablets By Mouth Every day Unchanged famotidine (famotidine 40 mg Tab) See instructions take 1 tablet by mouth at bedtime Unchanged hydrocortisone topical (hydrocortisone 2.5% Rectal Crm w/ Appl) 1 Application By rectum 2 times a day Unchanged losartan (losartan 25 mg Tab) See instructions take 1 tablet by mouth once daily Unchanged naproxen (naproxen 500 mg Tab) 1 Tablets By Mouth 2 times a day Unchanged tadalafil (Cialis 20 mg Tab) See instructions 1 tab(s) orally 45 minutes prior to making love Allergies No Known Allergies Problems Ongoing - Any problem that you are currently receiving treatment for. Actinic keratoses Benign hypertension BMI 32.0-32.9,adult Cerumen impaction Class 1 obesity due to excess calories in adult Erectile dysfunction External hemorrhoid, bleeding Fasting hyperglycemia Genital herpes GERD (gastroesophageal reflux disease) Gout Hearing loss on left Lumbar radiculopathy, right Onychomycosis of right great toe Pes planus of both feet Pes planus, congenital Prostate cancer Traumatic anosmia Tubulovillous adenoma of colon Visual floaters Historical - Any problem that you are no longer receiving treatment for. Body mass index [BMI] 31.0-31.9, adult Chronic left-sided low back pain Class 1 obesity due to excess calories with body mass index (BMI) of 31.0 to 31.9 in adult Close exposure to COVID-19 virus Dizzinesses Overweight Visual disturbance Patient Survey You may receive a survey via text or e-mail asking about your office visit. Please share your experience with us by completing your survey. We appreciate your feedback and thank you for choosing us for your care. Normal [facility] Family Medicine Office/Clini c Noteon 02-29-2024 Family Medicine Office/Clinic Note Family Medicine Office/Clinic Note Chief Complaint Medicare Wellness Visit Review of Systems PHQ Score Initial Depression Screen Score: 0 SCORE Physical Exam Vitals & Measurements HR: 69(Peripheral) BP: 128/74 SpO2: 99% HT: 180.34 cm HT: 71 in WT: 105.5 kg WT: 232.587 lb BMI: 32.44 Assessment/Plan 1. Annual visit for general adult medical examination without abnormal findings (Z00.00: Encounter for general adult medical examination without abnormal findings) The patient was given a customized and personalized print out of all the current AHRQ USPSTF???s recommendations for preventative services and all current CDC recommended immunizations, relevant risk recommendations and the following patient brochures were given. Reviewed Medicare Prevention Services checklist. CDC-Falls Prevention and home safety screening reviewed. Patient denies any falls in last 12 months, voices no worry about falling. Exhibits no problems with sitting, standing or ambulation. Patient aware with keeping walk way area free of clutter to prevent tripping and/or falling. [place] Advance Directives reviewed. Documents remain at home, encouraged to bring in for scanning into chart. Patient denies any problems with ADL???s and Instrumental ADL???s. Cognitive screening completed with memory and clock face drawing. No deficits noted. Immunization record reviewed, discussed Shingrix vaccine with educational handout and availability. COVID vaccines have been administered, with 1 Booster received. Allergies and medications reviewed and up to date. No concerns with taking medication as prescribed. Reviewed OTC medications, medication list up to date. Blood tests were reviewed: Discussed what tests need to be updated. Labs were up to date. No concerns with bowel/ bladder. Colonoscopy last completed 09/23/23, repeat ion 5 years. Reviewed pain symptoms : denies pain, no pain medications taken. Reviewed all outside providers that patient follows. Last visit summary notes available in chart and/or have been requested. Patient declines any signs or symptoms of depression at this time. 15 minutes spent with screening and documentation. PHQ2 screening score 0. Patient drinks alcohol 4 or more times weekly 1-2 drinks, denies concerns. 15 minutes spent with screening and documentation. Audit score 4. Follow up scheduled with PCP, 04/19/24. AWV has been scheduled, 03/01/25 @1pm. 2. Prostate cancer (C61: Malignant neoplasm of prostate) Patient follows with Urologist Dr. Thacker, currently monitoring. 3. Benign hypertension (I10: Essential (primary) hypertension) Patient taking medications daily as directed. Patient does voice understanding with signs and symptoms to monitor for. HTN stoplight handout reviewed with importance of keeping BP <140/90 to prevent increased cardiovascular risks. DASH dietary handout reviewed with importance to lower salt intake, eat more chicken, fish and lean white meats. 4. Fasting hyperglycemia (R73.01: Impaired fasting glucose) Diabetes Risk Assessment score 7. There is no family history of diabetes, discussed his increased risk of developing diabetes. Fasting glucose was 91 on 06/07/23. DM stoplight handout given and reviewed symptoms to monitor and report to PCP as needed. 5. GERD (gastroesophageal reflux disease) (K21.9: Gastro-esophageal reflux disease without esophagitis) Patient denies any concerns. Takes Famotidine daily as directed, states effective. Patient encouraged to avoid spicy or acidic foods, to remain upright 30 min. after eating ,avoid eating late at night ,and follow up with PCP as needed. 6. BMI 32.0-32.9,adult (Z68.32: Body mass index [BMI] 32.0-32.9, adult) The standard range for ages 18 and older is >18.5 and <25kg/m2. Your BMI today was 32.44, this falls into the obesity range. BMI meaning contributes to your health with a greater risk for HTN, high cholesterol, body pain, stroke, heart disease, Type 2 DM and early . Your BMI and weight management will be followed with PCP visits. Encouraged with healthy nutritional choices and the importance with daily physical activity. 7. Class 1 obesity due to excess calories in adult, (E66.09: Other obesity due to excess calories)Other obesity due to excess calories A combination of diet and exercise can help you lose weight. Discussed weight loss benefits to dietary management and overall health with increased cardiovascular risks associated with waist measurement female>35 men>40. Patients waist measured 42 inches. Reminded of importance to work on lowering current body weight with healthy dietary intake choices and portion control. Reviewed goals and patients readiness with needing to make a lifestyle change. Will work on increasing daily activity to prevent further weight gain. Will continue to monitor during office visits with progress. Follow-up No qualifying data available Patient Education BMI for Adults Hyperglycemia DASH Eating Plan Problem List/Past Medical History (more content not included)... Normal [facility] Comment on above: Result Comment: Elec tronically Signed By: Mateus HONG, DEAN OF GIRLS- CMA, Francisca Rosas\.br\Date and Time Signed: 02/29/24 15:48 EST\.br\Electronically Co-Signed By: Dwayne SCHUMACHER, Rita Rojas\.br\Date and Time Co-Signed: 02/29/24 14:07 EST Ambulatory Visit Summaryon 1 04-17-2023 Ambulatory Visit Summary Ambulatory Visit Summary VALERIE MELISA Delgado :1955 Visit Date:02/16/2024 Ambulatory Visit Instructions Your Diagnosis Benign hypertension Erectile dysfunction Prostate cancer Cerumen impaction Class 1 obesity due to excess calories in adult BMI 32.0-32.9,adult Your Care Team Attending Physician - Aruna MARVIN MD Primary Care Physician - Aruna MARVIN MD This Is Your Medications List tadalafil (Cialis 20 mg Tab) Contact prescribing physician if questions or concerns allopurinol (allopurinol 100 mg Tab) famotidine (famotidine 40 mg Tab) hydrocortisone topical (hydrocortisone 2.5% Rectal Crm w/Appl) losartan (losartan 25 mg Tab) naproxen (naproxen 500 mg Tab) Procedures Performed MRI-US fusion guided prostate biopsy (10/06/2023), Colonoscopy (09/23/2023), MRI-US fusion guided transperineal biopsy of prostate (03/09/2022), Colonoscopy (07/21/2020), History of vasectomy. Discharge Vitals Heart Rate (Peripheral) 86 Respiratory Rate 16 Blood Pressure 140/90 Height 180 cm Height 71 in Weight 106.5 kg Weight 234.792 lb BMI 32.87 What to do next Scheduled Follow-Up Appointments Tuesday 1:00 PM EST With: Where: [facility] [address] [place] [address]- 2024 9:00 AM EST With: Aruna MARVIN MD Where: [facility] [address] [place] [address]- Tuesday 8:15 AM EST With: Nick THACKER MD Where: [facility] [address] [address]- Tuesday 8:20 AM EDT With: Aruna MARVIN MD Where: [facility] [address] [place] [address]- You Need to Schedule the Following Appointments Follow Up with Aruna MARVIN MD, FAM When: Only if needed Where: Medications What How Much When Instructions New tadalafil (Cialis 20 mg Tab) See instructions Refills: 5 1 tab(s) orally 45 minutes prior to making love Pickup at [facility] Unchanged allopurinol (allopurinol 100 mg Tab) 1 Tablets By Mouth Every day Contact prescribing physician if questions or concerns Unchanged famotidine (famotidine 40 mg Tab) See instructions take 1 tablet by mouth at bedtime Contact prescribing physician if questions or concerns Unchanged hydrocortisone topical (hydrocortisone 2.5% Rectal Crm w/ Appl) 1 Application By rectum 2 times a day Contact prescribing physician if questions or concerns Unchanged losartan (losartan 25 mg Tab) See instructions take 1 tablet by mouth once daily Contact prescribing physician if questions or concerns Unchanged naproxen (naproxen 500 mg Tab) 1 Tablets By Mouth 2 times a day Contact prescribing physician if questions or concerns Pharmacy Information [facility]: [address], [place] [id number] [phone] 1942 Allergies No Known Allergies Problems Ongoing - Any problem that you are currently receiving treatment for. Actinic keratoses Benign hypertension BMI 32.0-32.9,adult Cerumen impaction Class 1 obesity due to excess calories in adult Erectile dysfunction External hemorrhoid, bleeding Fasting hyperglycemia Genital herpes GERD (gastroesophageal reflux disease) Gout Hearing loss on left Lumbar radiculopathy, right Onychomycosis of right great toe Pes planus of both feet Pes planus, congenital Prostate cancer Traumatic anosmia Tubulovillous adenoma of colon Visual floaters Historical - Any problem that you are no longer receiving treatment for. Body mass index [BMI] 31.0-31.9, adult Chronic left-sided low back pain Class 1 obesity due to excess calories with body mass index (BMI) of 31.0 to 31.9 in adult Close exposure to COVID-19 virus Dizzinesses Overweight Visual disturbance Patient Survey You may receive a survey via text or e-mail asking about your office visit. Please share your experience with us by completing your survey. We appreciate your feedback and thank you for choosing us for your care. Education Materials Erectile Dysfunction Erectile dysfunction (ED) is the inability to get or keep an erection in order to have sexual intercourse. ED is considered a symptom of an underlying disorder and is not considered a disease. ED may include: ??? Inability to get an erection. ??? Lack of enough hardness of the erection to allow penetration. ??? Loss of erection before sex is finished. What are the causes? This condition may be caused by: ??? Physical causes, such as: ? Artery problems. This may include heart disease, high blood pressure, atherosclerosis, and diabetes. ? Hormonal problems, such as low testosterone. ? Obesity. ? Nerve problems. This may inclu (more content not included)... Normal [facility] Family Medicine Office/Clini c Noteon 02-16-2024 Family Medicine Office/Clinic Note Family Medicine Office/Clinic Note Chief Complaint pt presents today for discussion of ED meds, c/o rt ear plugging, no rfs, needs shingrix History of Present Illness patient is well-groomed adequately hydrated. The patient is a 68-year-old male presenting with erectile dysfunction and cerumen impaction in the right ear. The erectile dysfunction has been progressively worsening, with the patient noting a decrease in spontaneity and firmness of erections, particularly in the mornings. He mentions difficulty maintaining an erection sufficient for satisfactory sexual activity, which became evident during a recent encounter. The patient has a history of hypertension, treated with Losartan, and prostate cancer, for which he is in a watchful waiting stage. The prostate cancer diagnosis contributes to concerns about testosterone levels, but testosterone replacement therapy was deemed unsuitable due to the cancer diagnosis. The patient reports concerns about potential blood pressure effects from erectile dysfunction medications. Regarding the cerumen impaction, the patient reports the sensation of a plugged right ear with occasional use of Debrox drops providing minimal relief. Examination confirmed the presence of cerumen in the right ear, which was not fully obstructive but significant enough to cause the sensation of blockage. The problem is exacerbated by seasonal dryness affecting his nasal passages and ear comfort. Review of Systems PHQ Score Initial Depression Screen Score: 0 SCORE - Ears/Nose/Throat: Reports right ear fullness and plugged sensation. - Neurological: Denies dizziness, loss of consciousness. - Genitourinary: Reports difficulty in maintaining erections; denies morning erections. - Dermatological: Denies rashes or lesions indicative of tick bites. Physical Exam Vitals & Measurements HR: 86(Peripheral) RR: 16 BP: 140/90 SpO2: 97% HT: 71 in HT: 180 cm WT: 106.5 kg WT: 234.792 lb BMI: 32.87 HEENT normocephalic atraumatic. Right tympanic membrane is completely occluded by cerumen left TM moderately so decreased hearing on the right. Nares with clear rhinorrhea oropharynx pink and moist fair dentures. Wearing corrective lenses conjunctiva clear neck is supple no thyromegaly. No respiratory distress cardiac regular rate and rhythm no murmur gallop or rub. Abdomen is overweight nontender. Deferred genital exam. Integument warm and dry moderately tanned Procedure A verbal consent was obtained for removal of cerumen. Using a lighted loop was able to remove a moderate amount but had to complete the management with irrigation until the right TM was completely visible. Left TM flushed very easily. Normal hearing tolerated this well. Assessment/Plan 1. Benign hypertension (I10: Essential (primary) hypertension) The importance of the following were all reviewed with the patient: -Take Rx(s )as prescribed. There are simple Lifestyle Modifications that you can do to reduce your blood pressure. -Weight Reduction -Follow the DASH eating plan. More information about this eating plan can be found here: https://www.nhlbi.nih.gov/ health/health-topics/topic s/dash -Reduce Sodium (Salt) Intake to 2000mg per day. -Use Moderation when consuming alcohol. - To improve your health we recommend increasing your level of moderate exercise to at least 2.5 hrs per week. For more information, please visit the CDC Exercise and Fitness Recommendations at www.cdc.gov/physicalactivi ty/basics/index.ht 2. Erectile dysfunction (N52.9: Male erectile dysfunction, unspecified) Discussed with patient the natural course of erectile dysfunction as 1 ages. Would not be able to offer any testosterone even if low because he does have prostate cancer. Patient is agreeable to a trial of phosphodiesterase inhibitor using Cialis recognizing the risks and benefit of use. A lengthy discussion had regarding may very well have vaginal atrophy and would suggest some type of moisturization with a water-based lubricant. Patient understands that intimacy in new relationship does take it to a different level and would ask him to always reconsider whether this is beneficial. 3. Prostate cancer (C61: Malignant neoplasm of prostate) Patient is continuing watchful waiting under the care of urology they are not aggressively doing any therapeutics at this time. Continue follow-up as planned. 4. Cerumen impaction (H61.20: Impacted cerumen, unspecified ear) See procedural note above. Avoid using Q-tips. May continue Debrox on a as needed basis Ordered: Remove impacted ear wax- [id number] 5. Class 1 obesity due to excess calories in adult (E66.09: Other obesity due to excess calories) The standard range for ages 18 and older is >=18.5 and < 25 kg/m2. Your BMI today was above this range, this falls in the overweight to obese category and there are medical benefits to weight loss. We can offer counselling, referral, and/or medical support in addressing this problem. Your BMI and weight tayler (more content not included)... Normal [facility] Comment on above: Result Comment: Elec tronically Signed By: NAVID LICONA, Aruna\.br\Date and Time Signed: 02/16/24 16:33 EST Ambulatory Visit Summaryon 0 12-16-2023 Ambulatory Visit Summary Ambulatory Visit Summary MELISA PADILLA :1955 Visit Date:12/16/2023 Ambulatory Visit Instructions Your Diagnosis Benign hypertension Prostate cancer Gout GERD (gastroesophageal reflux disease) Fasting hyperglycemia Actinic keratoses Pes planus, congenital Onychomycosis of right great toe Class 1 obesity due to excess calories in adult BMI 32.0-32.9,adult Encounter for immunization Your Care Team Attending Physician - Aruna MARVIN MD Primary Care Physician - Aruna MARVIN MD This Is Your Medications List allopurinol (allopurinol 100 mg Tab) famotidine (famotidine 40 mg Tab) hydrocortisone topical (hydrocortisone 2.5% Rectal Crm w/Appl) losartan (losartan 25 mg Tab) Contact prescribing physician if questions or concerns naproxen (naproxen 500 mg Tab) Procedures Performed MRI-US fusion guided prostate biopsy (10/06/2023), Colonoscopy (09/23/2023), MRI-US fusion guided transperineal biopsy of prostate (03/09/2022), Colonoscopy (07/21/2020), History of vasectomy. Discharge Vitals Heart Rate (Peripheral) 104 Respiratory Rate 16 Blood Pressure 120/80 Height 180 cm Height 71 in Weight 105.2 kg Weight 231.44 lb BMI 32.47 What to do next Scheduled Follow-Up Appointments Tuesday 8:00 AM EST With: Where: [facility] [place] [address] [place] [address]- Tuesday 8:15 AM EST With: Nick THACKER MD Where: [facility] [address] [place] [address] [place] [address]- Tuesday 8:20 AM EDT With: Aruna MARVIN MD Where: [facility] [address] [place] [address]- You Need to Schedule the Following Appointments Follow Up with Aruna MARVIN MD [facility] When: Within 6 months Comments: please schedule medicare wellness with Rita before end of year, he is agreeable Where: [address] [place] [address]- Someone Will Contact You Regarding These Appointments [facility] External Ambulatory Referral, Service not offered at [facility], Podiatry, DR Ja Veras, 12/16/23 14:03:00 EDT, Onychomycosis of right great toe [facility] External Ambulatory Referral, Geographic proximity, Dermatology, [facility] [place], 12/16/23 14:05:00 EDT, Actinic keratoses Medications What How Much When Instructions Unchanged allopurinol (allopurinol 100 mg Tab) 1 Tablets By Mouth Every day Pickup at [facility] Unchanged famotidine (famotidine 40 mg Tab) See instructions take 1 tablet by mouth at bedtime Pickup at [facility] Unchanged hydrocortisone topical (hydrocortisone 2.5% Rectal Crm w/ Appl) 1 Application By rectum 2 times a day Unchanged losartan (losartan 25 mg Tab) See instructions take 1 tablet by mouth once daily Pickup at [facility] Unchanged naproxen (naproxen 500 mg Tab) 1 Tablets By Mouth 2 times a day Contact prescribing physician if questions or concerns Pharmacy Information [facility]: [address], [place] [phone] Medications and Immunizations Administered Given Fluzone High-Dose PF Prefilled Syringe , 0.5 mL, IntraMuscular. For: Benign hypertension, Prostate cancer, Gout, GERD (gastroesophageal reflux disease), Encounter for immunization influenza virus vaccine, inactivated, IntraMuscular Allergies No Known Allergies Problems Ongoing - Any problem that you are currently receiving treatment for. Actinic keratoses Benign hypertension BMI 32.0-32.9,adult Class 1 obesity due to excess calories in adult Erectile dysfunction External hemorrhoid, bleeding Fasting hyperglycemia Genital herpes GERD (gastroesophageal reflux disease) Gout Hearing loss on left Lumbar radiculopathy, right Onychomycosis of right great toe Pes planus of both feet Pes planus, congenital Prostate cancer Traumatic anosmia Tubulovillous adenoma of colon Visual floaters Historical - Any problem that you are no longer receiving treatment for. Body mass index [BMI] 31.0-31.9, adult Cerumen impaction Chronic left-sided low back pain Class 1 obesity due to excess calories with body mass index (BMI) of 31.0 to 31.9 in adult Close exposure to COVID-19 virus Dizzinesses Overweight Visual disturbance Patient Survey You may receive a survey via text or e-mail asking about your office visit. Please share your experience with us by completing your survey. We appreciate your feedback and thank you for choosing us for your care. Education Materials Fungal Nail Infection A fungal nail infection is a common infection of the toenails or fingernails. This condition affects toenails more often than fingernails. It often affects the great, or big, toes. More than one nail (more content not included)... Normal [facility] Family Medicine Office/Clini c Noteon 12-16-2023 Family Medicine Office/Clinic Note Family Medicine Office/Clinic Note Chief Complaint 6mo chk up, rf meds to dm/w, not fasting, needs shingrix and AMV History of Present Illness The patient is a 68-year-old male who presents for a general checkup. He has been under the care of Dr. Thacker of urology, who performed a biopsy in May 2023. He is scheduled for additional blood work in March 2024, after which a decision will be made regarding the need for another biopsy. Patient does have prostate cancer and has been simply monitored with active surveillance. Not experiencing any gross hematuria. He monitors his blood pressure at home, which typically reads around 120/80. He reports no recent coughs or colds. He lost his sense of smell years ago due to a head injury from a fall on ice. Does not generally bother him. He has not experienced any gout flares and continues to take allopurinol. He occasionally forgets to take famotidine but does not experience severe symptoms when he misses a dose. He has noticed some achiness in his elbow, which he attributes to aging. He reports no swelling, heat, or recent trauma to the area. He also experiences occasional knee pain. He has noticed some skin changes, which he believes may be due to sun exposure. He was previously red-haired. Has experienced multiple sunburns when he was younger. He has lesions just are peeling and did not heal. He reports normal bowel movements but experiences mild rectal bleeding and a burning sensation about an hour after using the bathroom. He has tried Anusol cream in the past. He underwent a colonoscopy on September 23, 2023, which revealed severe sigmoid diverticulosis and moderate internal hemorrhoids. He has noticed some liquid stool leakage. He has been taking Benefiber daily. He has toenail fungus and has never seen a bottom loader. He has tried trimming his nails with clippers. He received an influenza vaccine on January 26, 2023. He has not had a Medicare wellness exam with the healthcare nurse here. He weighs 231 pounds and wishes to lose weight. Review of Systems PHQ Score Initial Depression Screen Score: 0 SCORE See HPI otherwise negative Physical Exam Vitals & Measurements HR: 104(Peripheral) RR: 16 BP: 120/80 SpO2: 98% HT: 71 in HT: 180 cm WT: 105.2 kg WT: 231.44 lb BMI: 32.47 Patient is nicely groomed, adequately hydrated, age appropriate. Patient is wearing corrective lenses. Conjunctivae are clear. Pupils are symmetric. Patient has a very andi complexion. Lung sounds are diminished but clear. Heart has a regular rate and rhythm. No murmur, gallop, or rub. Abdomen is overweight, nontender. No organomegaly. Rectal and genital exam deferred. Lower extremities show negligible edema. Toenails are extremely thick hypertrophied with onychomycosis and subungual debris. Patient is very flat-footed. There is very large callus formation right left first metatarsal head. Bilateral elbows demonstrate some arthritic change lacking full flexion or extension without obvious crepitance, erythema, warmth or swelling. Integument is relatively kerr, but the forearms have numerous areas of small irregular scaly patches with erythematous bases scattered primarily on the extensor surfaces. Patient is very pleasant, cooperative, fairly talkative. Assessment/Plan 1. Benign hypertension (I10: Essential (primary) hypertension) The importance of the following were all reviewed with the patient: -Take Rx(s )as prescribed. There are simple Lifestyle Modifications that you can do to reduce your blood pressure. -Weight Reduction -Follow the DASH eating plan. More information about this eating plan can be found here: https://www.nhlbi.nih.gov/ health/health-topics/topic s/dash -Reduce Sodium (Salt) Intake to 2000mg per day. -Use Moderation when consuming alcohol. - To improve your health we recommend increasing your level of moderate exercise to at least 2.5 hrs per week. For more information, please visit the CDC Exercise and Fitness Recommendations at www.cdc.gov/physicalactivi ty/basics/index.htm We will Ordered: influenza virus vaccine, inactivated, 0.5 mL, Susp-Inj, IntraMuscular, Once, Stop date 12/16/23 15:00:00 EDT, Routine, Start date 12/16/23 15:00:00 EDT pneumococcal 20-valent conjugate vaccine, 0.5 mL, Injection, IntraMuscular, Once, Stop date 12/16/23 15:00:00 EDT, Routine, Start date 12/16/23 15:00:00 EDT Administration pneumococcal vaccine G0009 2. Prostate cancer (C61: Malignant neoplasm of prostate) Continue active surveillance with Dr. Thacker. Always bring to his attention any acute urinary symptoms of concern Ordered: influenza virus vaccine, inactivated, 0.5 mL, Susp-Inj, IntraMuscular, Once, Stop date 12/16/23 15:00:00 EDT, Routine, Start date 12/16/23 15:00:00 EDT pneumococcal 20-valent conjugate vaccine, 0.5 mL, Injection, IntraMuscular, Once, Stop date 12/16/23 15:00:00 EDT, Routine, Start date 12/16/23 15:00:00 EDT Administration pneumococcal vaccine G0009 3. Gout (M1A.07 (more content not included)... Normal [facility] Comment on above: Result Comment: Elec tronically Signed By: NAVID LICONA, Aruna\.br\Date and Time Signed: 12/16/23 17:17 EDT Ambulatory Visit Summaryon 0 10-14-2023 Ambulatory Visit Summary Ambulatory Visit Summary MELISA PADILLA :1955 Visit Date:10/14/2023 Ambulatory Visit Instructions Your Diagnosis Prostate cancer BPH without urinary obstruction Your Care Team Attending Physician - Nick THACKER MD Primary Care Physician - Aruna MARVIN MD This Is Your Medications List Contact prescribing physician if questions or concerns allopurinol (allopurinol 100 mg Tab) famotidine (famotidine 40 mg Tab) hydrocortisone topical (hydrocortisone 2.5% Rectal Crm w/Appl) losartan (losartan 25 mg Tab) naproxen (naproxen 500 mg Tab) Procedures Performed MRI-US fusion guided prostate biopsy (10/06/2023), Colonoscopy (09/23/2023), MRI-US fusion guided transperineal biopsy of prostate (03/09/2022), Colonoscopy (07/21/2020), History of vasectomy. Discharge Vitals Heart Rate (Peripheral) 100 Respiratory Rate 16 Blood Pressure 155/96 Height 71 in Height 180 cm Weight 231 lb Weight 105 kg BMI 32.41 What to do next Scheduled Follow-Up Appointments Tuesday 9:40 AM EDT With: Aruna MARVIN MD Where: [facility] [address] [id number]- \.br\ You Need to Schedule the Following Appointments\. br\ Follow Up with RAMAKRISHNA LICONA, Nick Irwin, URL When: \.br\ Where:\.br\ [address] [facility]\.br\ [place] [address]-\.br\ You Need to Complete the Following\.br\ PSA Total, Blood, Routine collect, 12/27/23, Order for future visit, Lab Collect, Prostate cancer, Required & Missing, Print Label By Order Location\.br\ Medications\.b r\ What How Much When Instructions\. br\ Unchanged allopurinol (allopurinol 100 mg Tab) 1 Tablets By Mouth Every day Contact prescribing physician if questions or concerns \.br\ Unchanged famotidine (famotidine 40 mg Tab) 1 Tablets By Mouth Once a day (at bedtime) Contact prescribing physician if questions or concerns \.br\ Unchanged hydrocortisone topical (hydrocortison e 2.5% Rectal Crm w/ Appl) 1 Application By rectum 2 times a day Contact prescribing physician if questions or concerns \.br\ Unchanged losartan (losartan 25 mg Tab) 1 Tablets By Mouth Every day Contact prescribing physician if questions or concerns \.br\ Unchanged naproxen (naproxen 500 mg Tab) 1 Tablets By Mouth 2 times a day Contact prescribing physician if questions or concerns \.br\ Allergies\.br\ No Known Allergies\.br\ Problems\.br\ Ongoing - Any problem that you are currently receiving treatment for.\.br\ Benign hypertension\. br\ BMI 31.0-31.9,adul t\.br\ BPH without urinary obstruction\.b r\ Class 1 obesity due to excess calories in adult\.br\ Elevated PSA\.br\ Erectile dysfunction\.b r\ External hemorrhoid, bleeding\.br\ Fasting hyperglycemia\ .br\ Genital herpes\.br\ GERD (gastroesophag eal reflux disease)\.br\ Gout\.br\ Hearing loss on left\.br\ Hematospermia\ .br\ Lumbar radiculopathy, right\.br\ Pes planus of both feet\.br\ Prostate cancer\.br\ PSA elevation\.br\ Traumatic anosmia\.br\ Tubulovillous adenoma of colon\.br\ Visual floaters\.br\ Historical - Any problem that you are no longer receiving treatment for.\.br\ Body mass index [BMI] 31.0-31.9, adult\.br\ Cerumen impaction\.br\ Chronic left-sided low back pain\.br\ Class 1 obesity due to excess calories with body mass index (BMI) of 31.0 to 31.9 in adult\.br\ Close exposure to COVID-19 virus\.br\ Dizzinesses\.b r\ Overweight\.br \ Visual disturbance\.b r\ Patient Survey\.br\ You may receive a survey via text or e-mail asking about your office visit. Please share your experience with us by completing your survey. We appreciate your feedback and thank you for choosing us for your care.\.br\ Education Materials\.br\ Prostate Cancer\.br\ \.br\ The prostate is a small gland that produces fluid that makes up semen (seminal fluid). It is located below the bladder in men, in front of the rectum. Prostate cancer is the abnormal growth of cells in the prostate gland.\.br\ What are the causes?\.br\ The exact cause of this condition is not known.\.br\ What increases the risk?\.br\ You are more likely to develop this condition if:\.br\ ? \.br\ You are 65 years of age or older.\.br\ ? \.br\ You have a family history of prostate cancer.\.br\ ? \.br\ You have a family history of breast and ovarian cancer.\.br\ ? \.br\ You have genes that are passed from parent to child (inherited), such as BRCA1 and BRCA2.\.br\ ? \.br\ You have Londono syndrome.\.br\ men and men of descent are diagnosed with prostate cancer at higher rates than other men. The reasons for this are not well understood and are likely due to a combination of genetic and environmental factors.\.br\ What are the signs or symptoms?\.br\ Symptoms of this condition include:\.br\ ? \.br\ Problems with urination. This may include:\.br\ ? \.br\ A weak or interrupted flow of urine.\.br\ ? \.br\ Trouble starting or stopping urination.\.br \ ? \.br\ Trouble emptying the bladder all the way.\.br\ ? \.br\ The need to urinate more often, especially at night.\.br\ ? \.br\ Blood in urine or semen.\.br\ ? \.br\ Persistent pain or discomfort in the lower back, lower abdomen, or hips.\.br\ ? \.br\ Trouble getting an erection.\.br\ ? \.br\ Weakness or numbness in the legs or feet.\.br\ How is this diagnosed?\.br \ This condition can be diagnosed with:\.br\ ? \.br\ A digital rectal exam. For this exam, a health care provider inserts a gloved finger into the rectum to feel the prostate gland.\.br\ ? \.br\ A blood test called a prostate-speci fic antigen (PSA) test.\.br\ ? \.br\ A procedure in which a sample of tissue is taken from the prostate and checked under a microscope (prostate biopsy).\.br\ ? \.br\ An imaging test called transrectal ultrasonograph y.\.br\ Once the condition is diagnosed, tests will be done to determine how far the cancer has spread. This is called staging the cancer. Staging may involve imaging tests, such as a bone scan, CT scan, PET scan, or MRI.\.br\ Stages of prostate cancer\.br\ The stages of prostate cancer are as follows:\.br\ ? \.br\ Stage 1 (I). At this stage, the cancer is found in the prostate only. The cancer is not visible on imaging tests, and it is usually found by accident, such as during prostate surgery.\.br\ ? \.br\ Stage 2 (II). At this stage, the cancer is more advanced than it is in stage 1, but the cancer has not spread outside the prostate.\.br\ ? \.br\ Stage 3 (III). At this stage, the cancer has spread beyond the outer layer of the prostate to nearby tissues. The cancer may be found in the seminal vesicles, which are near the bladder and the prostate.\.br\ ? \.br\ Stage 4 (IV). At this stage, the cancer has spread to other parts of the body, such as the lymph nodes, bones, bladder, rectum, liver, or lungs.\.br\ Prostate cancer grading\.br\ Prostate cancer is also graded according to how the cancer cells look under a microscope. This is called the [place] score and the total score can range from 6?10, indicating how likely it is that the cancer will spread (metastasize) to other parts of the body. The higher the score, the greater the likelihood that the cancer will spread.\.br\ ? \.br\ Shanda 6 or lower: This indicates that the cancer cells look similar to normal prostate cells (well differentiated ).\.br\ ? \.br\ Shanda 7: This indicates that the cancer cells look somewhat similar to normal prostate cells (moderately differentiated ).\.br\ ? \.br\ [place] 8, 9, or 10: This indicates that the cancer cells look very different than normal prostate cells (poorly differentiated ).\.br\ How is this treated?\.br\ Treatment for this condition depends on several factors, including the stage of the cancer, your age, personal preferences, and your overall health. Talk with your health care provider about treatment options that are recommended for you. Common treatments include:\.br\ ? \.br\ Observation for early stage prostate cancer (active surveillance). This involves having exams, blood tests, and in some cases, more biopsies. For some men, this is the only treatment needed.\.br\ ? \.br\ Surgery. Types of surgeries include:\.br\ ? \.br\ Open surgery (radical prostatectomy) . In this surgery, a larger incision is made to remove the prostate.\.br\ ? \.br\ A laparoscopic radical prostatectomy. This is a surgery to remove the prostate and lymph nodes through several small incisions. It is often referred to as a minimally invasive surgery.\.br\ ? \.br\ A robotic radical prostatectomy. This is laparoscopic surgery to remove t [facility] Urology Office/Clinic Noteon 10-14-2023 Urology Office/Clinic Note Urology Office/Clinic Note Chief Complaint S/P Fusion Bx HPI Staff F/u to fusion prostate bx, rev path. S/p MRI fusion prostate bx 10/06/23 - Path pending. Previous Dx: BPH & Elevated PSA. *No urologic meds. MRI of prostate 08/23/23 - PI-RADS 4. Visible blood last seen in urine 3-4 days ago. Denies pain & burning w/urination. History of Present Illness Tests reviewed: reviewed UA & path. I have reviewed the previous health record information and history for this patient from Dr. Thacker. I have reviewed and verified the staff HPI to be accurate for this encounter. There have been no associated fever, chills, flank pain, or blood in the urine. Denies any urinary infections since last encounter. Review of Systems PHQ Score Initial Depression Screen Score: 0 SCORE ROS - Provider Constitutional: denies weight loss, denies hot flashes. Eyes: denies eye problems. Gastrointestinal: denies nausea, denies vomiting. Cardiovascular: denies chest pain or angina. Integumentary: no dryness Musculoskeletal: denies musculoskeletal symptoms. ENMT: denies otolaryngeal symptoms. Respiratory: no shortness of breath. Heme/Lymph: denies easy bleeding tendency, denies easy bruising tendency. Psychiatric: no confusion, no anxiety. Genitourinary: See HPI. Physical Exam Vitals & Measurements HR: 100(Peripheral) RR: 16 BP: 155/96 HT: 71 in HT: 180 cm WT: 105 kg WT: 231 lb BMI: 32.41 General Appearance: alert, no distress, well nourished, well developed male. Assessment/Plan 1. Prostate cancer (C61: Malignant neoplasm of prostate) PSA: 02/2020 - 1.8 11/10/21 - 3.8, repeat free & total 3.7 & 12% 06/07/23 - 6.9 & 17.4% MRI of prostate 01/14/22 - 2 areas found PI-RADS 4. S/p transperineal fusion biopsy 03/09/22 - neg for malignancy. BOB 07/29/23: 45g, no nodules. MRI of prostate 08/23/23 - Lesion involving the posterior aspect of the left peripheral zone, measures 5 x 4 mm. No gross extracapsular extension is seen. PI-RADS 4. S/p MRI fusion bx 10/06/23. UA today shows moderate blood and small leuks. Path Shadna 6 (3+3) 2/17 cores. GG1. Extraprostatic extension is not identified. The pathology report, which shows the presence of prostate cancer, was disclosed to the patient in detail today. I discussed with the patient all the treatment options, including active surveillance, radical prostatectomy either by open, laparoscopic, or laparoscopic robotic technique. I discussed the radiation therapy options, including prostate brachytherapy, external beam radiation therapy, and combinations of the two. Lupron hormonal therapy was also discussed. I went over the pros and cons of each therapy today, and [employer] booklet provided. Given PSA and low [place] score we will proceed with active surveillance. -PSA in 6 mos -Repeat bx in 1 year (due 09/2024) 2. BPH without urinary obstruction (N40.0: Benign prostatic hyperplasia without lower urinary tract symptoms) MRI of prostate 08/23/23 - prostate volume 38 mL. Not taking any BPH meds. No urinary concerns. Follow-up With When Contact Information RAMAKRISHNA LICONA, Nick Irwin, URL [address] [place] [address]- Additional Instructions: 6 mos w/ PSA Patient Education Prostate Cancer INadia, personally scribed for Dr. Thacker on 10/14/2023 11:13:46. . Documentation recorded by the scribe, Nadia Haines, accurately reflects the services(s) I performed and decisions made by me. Authenticated by Dr. Thacker on 10/14/2023 11:18:40. Problem List/Past Medical History Ongoing Benign hypertension BMI 31.0-31.9,adult BPH without urinary obstruction Class 1 obesity due to excess calories in adult Elevated PSA Erectile dysfunction External hemorrhoid, bleeding Fasting hyperglycemia Genital herpes GERD (gastroesophageal reflux disease) Gout Hearing loss on left Hematospermia Lumbar radiculopathy, right Pes planus of both feet Prostate cancer PSA elevation Traumatic anosmia Tubulovillous adenoma of colon Visual floaters Historical Body mass index [BMI] 31.0-31.9, adult Cerumen impaction Chronic left-sided low back pain Class 1 obesity due to excess calories with body mass index (BMI) of 31.0 to 31.9 in adult Close exposure to COVID-19 virus Dizzinesses Overweight Visual disturbance Procedure/Surgical History MRI-US fusion guided prostate biopsy (10/06/2023), Colonoscopy (09/23/2023), MRI-US fusion guided transperineal biopsy of prostate (03/09/2022), Colonoscopy (07/21/2020), History of vasectomy. Medications allopurinol 100 mg Tab, 100 mg= 1 tab(s), Oral, Daily, 1 refills famotidine 40 mg Tab, 40 mg= 1 tab(s), Oral, Once a day (at bedtime), 1 refills hydrocortisone 2.5% Rectal Crm w/Appl, 1 benito, Rectal, BID losartan 25 mg Tab, 25 mg= 1 tab(s), Oral, Daily, 1 refills naproxen 500 mg Tab, 500 mg= 1 tab(s), Oral, BID, 1 refi (more content not included)... Normal [facility] Comment on above: Result Comment: Elec tronically Signed By: Nick THACKER MD\.br\Date and Time Signed: 10/14/23 11:18 EDT\.br\Electronically Co-Signed By: Nadia Haines.br\Date and Time Co-Signed: 10/14/23 11:14 EDT Reminderson 10-13-2023 Reminders Reminders From: Laura Hudson MA To: N - Clinical; Sent: 10/13/2023 14:58:31 EDT Show up: 09/12/2028 14:58:00 EDT Subject: Colonoscopy recall 5 years Reminder/Recall Last colonoscopy: 10/04/23 Repeat: 5 years Reason: hx of colon polyps Normal [facility] Varinder 10-06-2023 L Specimen: [id number] Received: 10/06/23 Status: DAT Solorio Num: [id number] Spec Type: Surgical Subm Dr: Nick Thacker MD Tissues: A Prostate - Needle Biopsy (AREA OF INTEREST) B Prostate - Needle Biopsy (LT BASE LATERAL) C Prostate - Needle Biopsy (LT MEDIAL) D Prostate - Needle Biopsy (LT APEX) E Prostate - Needle Biopsy (RT BASE LATERAL) F Prostate - Needle Biopsy (RT MEDIAL LATERAL) G Prostate - Needle Biopsy (RT APEX) Procedures: HE/14, Gross/Micro L4/7 Age/ Patient Sex Location Account Attending Physician Melisa Padilla 67/M LABELL [id number] Nick Thacker MD SPEC NUM: [id number] RECD: 10/06/23 STATUS: DAT SOLORIO NUM: [id number] GUSTAVO: 10/06/23 [facility] DR: Nick Thacker MD ENTERED: 10/06/23 [facility] DR: Shantanu Almeida SPEC TYPE: Surgical DEPT: CHIDI DAVE ORDERED: HE/14, Gross/Micro L4/7 ORDERED: HE/14, Gross/Micro L4/7, USS/14 Pathological Diagnosis Prostate Case Summary Result Summary Cores Involved Shanda Group Shanda Score Perineural Invasion (PNI) Extraprostatic Extension (EPE) Malignant 2 of 17 G1 3+3=6 not identified not identified Positive Core Summary [place] Group Number of Cores I 2 of 17 II 0 of 17 Specimen: [id number] Received: 10/06/23 Status: DAT Solorio Num: [id number] Spec Type: Surgical Subm Dr: Nick Thacker MD Tissues: A Prostate - Needle Biopsy (AREA OF INTEREST) B Prostate - Needle Biopsy (LT BASE LATERAL) C Prostate - Needle Biopsy (LT MEDIAL) D Prostate - Needle Biopsy (LT APEX) E Prostate - Needle Biopsy (RT BASE LATERAL) F Prostate - Needle Biopsy (RT MEDIAL LATERAL) G Prostate - Needle Biopsy (RT APEX) Procedures: , Gross/Micro L4/7 Patient: Melisa Padilla [id number] (Continued) Specimen: [id number] Received: 10/06/23 (Continued) Pathological Diagnosis (Continued) Signed (signature on file) Du Beltran MD 10/09/23 1859 Specimen: [id number] Received: 10/06/23 Status: DAT Solorio Num: [id number] Spec Type: Surgical Subm Dr: Nick Thacker MD Tissues: A Prostate - Needle Biopsy (AREA OF INTEREST) B Prostate - Needle Biopsy (LT BASE LATERAL) C Prostate - Needle Biopsy (LT MEDIAL) D Prostate - Needle Biopsy (LT APEX) E Prostate - Needle Biopsy (RT BASE LATERAL) F Prostate - Needle Biopsy (RT MEDIAL LATERAL) G Prostate - Needle Biopsy (RT APEX) Procedures: /, Gross/Micro L4/7 Patient: Melisa Padilla [id number] (Continued) Specimen: [id number] Received: 10/06/23 (Continued) Pathological Diagnosis (Continued) III 0 of 17 IV 0 of 17 V 0 of 17 Pathological diagnosis A, prostate biopsy, area of interest -Benign prostate tissue with mild nodular glandular hyperplasia in at least 2 cores B, prostate biopsy, left base -Benign prostate tissue with scattered hyperplastic glands in both cores, including small focal nodular glandular hyperplasia C, prostate biopsy, left medial -Prostatic adenocarcinoma in 1 of 2 cores, occupying <0.5 mm, and 2% of the cores combined -Shanda score 3+3=6, prognostic grade group is G1, perineural invasion not identified D, prostate biopsy, left apex -Fragments of benign fibroadipose stromal tissue E, prostate biopsy, right base -Benign prostate tissue with focal nodular glandular hyperplasia F, prostate biopsy, right medial -Benign prostate tissue with focal nodular glandular hyperplasia G, prostate biopsy, right apex -Prostatic adenocarcinoma in 1 of 2 cores in several small foci, aggregating to 3.5 mm, and 18% of the cores combined -[place] score 3+3=6, prognostic grade group is G1, perineural invasion not identified Specimen: [id number] Received: 10/06/23 Status: DAT Solorio Num: [id number] Spec Type: Surgical Subm Dr: Nick Thacker MD Tissues: A Prostate - Needle Biopsy (AREA OF INTEREST) B Prostate - Needle Biopsy (LT BASE LATERAL) C Prostate - Needle Biopsy (LT MEDIAL) D Prostate - Needle Biopsy (LT APEX) E Prostate - Needle Biopsy (RT BASE LATERAL) F Prostate - Needle Biopsy (RT MEDIAL LATERAL) G Prostate - Needle Biopsy (RT APEX) Procedures: HE/14, Gross/Micro L4/7 (more content not included)... Normal [facility] Operative Reporton Operative Report Operative Report Patient: MELISA PADILLA Age: 67 years Sex: Male : 1955 Associated Diagnoses: None Author: Jack Nunez MD Pre-Procedure Procedure Date 09/23/2023 09:08:00 . Procedure Type: Colonoscopy. Procedure provider Performed by Jack Nunez MD. Current history and physical Documented on chart. Colonoscopy ([id number]) on 09/23/2023 at 67 Years. MRI-US fusion guided transperineal biopsy of prostate ([id number]) on 03/09/2022 at 66 Years. Colonoscopy ([id number]) on 07/21/2020 at 64 Years. History of vasectomy ([id number]).. Past Medical History Resolved Visual disturbance ([id number]): Resolved on 08/30/2018 at 62 years. Cerumen impaction (49502569): Resolved. Dizzinesses (9740248191): Resolved. Chronic left-sided low back pain (710939644): Resolved. Overweight (876351461): Resolved. Close exposure to COVID-19 virus (3150958710): Resolved. Class 1 obesity due to excess calories with body mass index (BMI) of 31.0 to 31.9 in adult (7129685317): Resolved. Body mass index [BMI] 31.0-31.9, adult (777848829376156): Resolved.. Family History Ulcerative colitis Brother Seizure Mother Peripheral vascular disease Father Aneurysm Mother . Procedure History Colonoscopy ([id number]) on 09/23/2023 at 67 Years. MRI-US fusion guided transperineal biopsy of prostate ([id number]) on 03/09/2022 at 66 Years. Colonoscopy ([id number]) on 07/21/2020 at 64 Years. History of vasectomy ([id number]).. Colorectal neoplasm risk assessment High risk polyp greater than 1cm on past colonoscopy. . Informed Consent After discussing the rationale, risks and benefits, and alternatives to this procedure, the patient provided signed consent for the procedure. Pre-procedure diagnosis: History of colon polyps. Medications (Selected) Prescriptions Prescribed allopurinol 100 mg Tab: 100 mg = 1 tab(s), Oral, Daily, # 90 tab(s), Refills(s) 1, Pharmacy: [facility] #[id number], 178, cm, 06/07/23 10:04:00 EDT, Height/Length Dosing, 101.7, kg, 06/07/23 10:04:00 EDT, Weight Dosing famotidine 40 mg Tab: 40 mg = 1 tab(s), Oral, Once a day (at bedtime), # 90 tab(s), Refills(s) 1, Pharmacy: [facility] #[id number], 178, cm, 06/07/23 10:04:00 EDT, Height/Length Dosing, 101.7, kg, 06/07/23 10:04:00 EDT, Weight Dosing hydrocortisone 2.5% Rectal Crm w/Appl: 1 benito, Rectal, BID, 30 gram, Refill(s) 0, 178, cm, 06/07/23 10:04:00 EDT, Height/Length Dosing, 101.7, kg, 06/07/23 10:04:00 EDT, Weight Dosing losartan 25 mg Tab: 25 mg = 1 tab(s), Oral, Daily, # 90 tab(s), Refills(s) 1, Pharmacy: [facility] #[id number], 178, cm, 06/07/23 10:04:00 EDT, Height/Length Dosing, 101.7, kg, 06/07/23 10:04:00 EDT, Weight Dosing naproxen 500 mg Tab: 500 mg = 1 tab(s), Oral, BID, # 60 tab(s), Refills(s) 1 ASA Classification: Class II. . Monitoring: See anesthesia record. . Procedure The procedure was performed in the hospital. See anesthesia record for sedation given during procedure. Rectal exam was performed and was normal. The patient was positioned starting in the left lateral decubitus position. Endoscope type used was an adult-size. The endoscope was lubricated then introduced through the anus. The scope was advanced to the cecum verified by photographing the appendiceal orifice. No difficulties encountered during the procedure. The bowel preparation quality was excellent and was adequate (see polyps greater than or equal to 6 millimeters). The patient tolerated the procedure well. Findings Severe sigmoid diverticulosis moderate internal hemorrhoids Post-Procedure Complications: none. Estimated blood loss: none. Specimens: none. Devices/ implants: none left in place. Impression and Plan Course: Progressing as expected. Recommendations: Repeat colonoscopy:: In 5 years. Follow-up:: Schedule follow-up with general practitioner in 14 days. Diet:: Regular diet. Medication resumption:: Continue current medications. Return to activities:: After 24 hours. Normal [facility] Comment on above: Result Comment: Elec tronically Signed By: Mayra LICONA, Jack Maynard\Date and Time Signed: 10/04/23 09:10 EDT MR prostate wo/w meg 08-23 MR prostate wo/w con [facility] [place] [address] [place] [address] MRI Report Signed Patient: Melisa Padilla MR#: [id number] 77 : 1955 Acct:[id number] Age/Sex: 67 / M ADM Date: 08/23/23 Loc: MR Room: Type: [facility] Attending Dr: Nick Thacker MD Copies to: Nick Thacker MD Ordering Provider: Nick Thacker MD Date of Service: 08/23/23 MR/MR prostate wo/w con: R97.20 EXAMINATION: MR prostate wo/w con HISTORY: Elevated PSA. COMPARISON: NONE TECHNIQUE: Multiparametric imaging of the prostate gland was performed with IV contrast. FINDINGS: Prostate Dimensions: 4.8 x 3.1 x 4.9 cm. Prostate Volume: 38 mL Peripheral Zone: Heterogenous inT2 signal suggestive of prior prostatitis. A focal area of T2 hypointensity is seen involving the posterior aspect of the left peripheral zone at the level of the mid gland measuring 5 x 4 mm with associated restricted diffusion and low ADC value. No gross extracapsular extension is seen. Please see series 4 image 14, series 650 image 12 and series 600 image 12. Central/Transitional Zone: BPH changes. Seminal Vesicles: Unremarkable Neurovascular bundles: Unremarkable. Lymphadenopathy: No evidence of lymphadenopathy. Bladder: No focal lesion. Bowel: The visualized bowel is without acute abnormality. Peritoneal Cavity: No free fluid. Bones: No suspicious bony lesion. MR/MR prostate wo/w con IMPRESSION: A focal area of T2 hypointensity is seen involving the posterior aspect of the left peripheral zone at the level of the mid gland measuring 5 x 4 mm with associated restricted diffusion and low ADC value. No gross extracapsular extension is seen. Please see series 4 image 14, series 650 image 12 and series 600 image 12. PI-RADS 4. Targeting of this area on biopsy is recommended. Impression dictated by: Zeke Howard Jr., D.O.08/24/2023 10:53 AM Dictation Location: [place] [address] Transcribed By: [facility] 08/24/23 1053 Dictated By: Zeke Howard Jr, DO 08/24/23 1047 Signed By: 08/24/23 1053 Normal [facility] ISTAT XRay CREon 08-23-2023 ISTAT GFR > 60.0 Normal [facility] Comment on above: Result Comment: PERF ORMED BY: [place] [address] PATHOLOGIST PHARMACY ACCOUNT DIRECTOR ESTHER HERNANDEZ M.D. Performed By: #### I SCRE #### [facility] [address] No Panel InformationOrdered By: Nick Thacker on 08-23-2023 Bedside Estimated GFR (eGFR) > 60.0 [facility] Whole blood creatinine measu rementOrdered By: Nick Thacker on 08-23-2023 Creatinine [Mass/Vol] 1.1 mg/dL Normal 0.6-1.3 [facility] Comment on above: ER/ESD physician is notified/shown all ISTAT results.Critical values may be confirmed by laboratory testing ifdeemed necessary by ER attending doctor. Result Comment: ER/E SD physician is notified/shown all ISTAT results. Critical values may be confirmed by laboratory testing if deemed necessary by ER attending doctor. Performed By: #### I SCRE #### [facility] [address] [place] [address] CHEMISTRYOrdered By: SYSTEM SYSTEM on 06-07-2023 Albumin [Mass/Vol] 4.5 g/dL Normal 3.3 - 5.0 gm/dL Rem[facility] Chem Albumin/Globulin [Mass ratio] 1.4 {ratio} Normal 1.1 - 2.2 [facility] ALP [Catalytic activity/Vol] 104 [iU]/d High 21 - 98 Int._Unit/L [facility] Chem ALT No additional P-5'-P [Catalytic activity/Vol] 28 [iU]/d Normal 6 - 46 Int._Unit/L [facility] Anion gap [Moles/Vol] 14 mmol/L Normal 6 - 16 mEq/L [facility] AST [Catalytic activity/Vol] 26 [iU]/d Normal 5 - 43 Int._Unit/L [facility] Bilirubin [Mass/Vol] 0.8 mg/dL Normal 0.0 - 1.1 mg/dL [facility] Calcium [Mass/Vol] 9.4 mg/dL Normal 8.9 - 11. 1 mg/dL [facility] Chloride [Moles/Vol] 102 mmol/L Normal 101 - 111 mmol/L [facility] CO2 [Moles/Vol] 24 mmol/L Normal 21 - 31 mmol/L Remis ol Chem Creatinine [Mass/Vol] 1.1 mg/dL Normal 0.5 - 1.3 mg/dL [facility] Chem eGFR 74 mL/min/1.73 m2 Normal >=59mL/min /1.7 3 m2 [facility] Free PSA [Mass/Vol] 1.2 ng/mL Invalid Interpretation Code [facility] Comment on above: Interpretive Data: T he concentration of free PSA and total PSA determined with assays from different manufacturers can vary due to differences in assay methods and specificity. Values obtained with different coil machine operator's assays cannot be used interchangeably. The methodology used to obtain this result was chemiluminescence using [email or web address]'s Access Hybritech PSA reagent and [employer] free PSA reagent. Free PSA/Total PSA [Mass fraction] 17.4 % Low >=25.0% [facility] Globulin (S) [Mass/Vol] 3.2 g/dL Normal 1.4 - 4.0 gm/dL [facility] Glucose [Mass/Vol] 91 mg/dL Normal 55 - 199 mg/dL Re misol Chem Potassium [Moles/Vol] 4.3 mmol/L Normal 3.5 - 5.3 mmol/L [facility] Prostate specific Ag [Mass/Vol] 6.9 ng/mL High 0.1 - 3.5 ng/mL [facility] Comment on above: Interpretive Data: T he concentration of PSA determined by different manufacturers can vary due to differences in assay methods and reagent specificity. Values obtained from different assay methods cannot be used interchangeably. The methodology used for this result was chemiluminescence using [email or web address]'s Access Hybritech PSA reagent. Protein [Mass/Vol] 7.7 g/dL Normal 6.0 - 7.8 gm/dL [facility] Sodium [Moles/Vol] 136 mmol/L Normal 135 - 145 mmol/L [facility] Urea nitrogen [Mass/Vol] 12 mg/dL Normal 5 - 21 mg/dL [facility] Urea nitrogen/Creatinine [Mass ratio] 11 mg/mg Normal 10 - 20 [facility] HEMATOLOGYOrdered By: SYSTEM SYSTEM on 06-07-2023 Basophils/100 WBC (Bld) 0.9 % Normal 0.0 - 2.0 % [facility] Heme Basophils/Leukocyte s Auto (Bld) [Pure # fraction] 0.1 E9/L Normal 0.0 - 0.2 E9/L [facility] Eosinophils (Bld) [#/Vol] 0.4 E9/L Normal 0.0 - 0.5 E9/L [facility] Eosinophils/100 WBC (Bld) 6.2 % Normal 0.0 - 8.0 % [facility] Erythrocyte distribution width (RBC) [Ratio] 13.9 % Normal 10.9 - 14.2 % [facility] Hematocrit (Bld) [Volume fraction] 46.5 % Normal 37.7 - 49.0 % [facility] Hemoglobin (Bld) [Mass/Vol] 15.1 g/dL Normal 13.5 - 17.5 gm/dL [facility] Lymphocytes (Bld) [#/Vol] 0.9 E9/L Low 1.0 - 4.0 E9/L [facility] Lymphocytes/100 WBC (Bld) 15.2 % Normal 14.0 - 50.0 % [facility] MCH (RBC) [Entitic mass] 30.3 pg Normal 27.0 - 34.0 pg [facility] MCHC (RBC) [Mass/Vol] 32.5 g/dL Normal 31.4 - 36.0 gm/dL [facility] MCV (RBC) [Entitic vol] 93.3 fL Normal 80.0 - 100.0 fL [facility] Monocytes (Bld) [#/Vol] 0.7 E9/L Normal 0.2 - 1.0 E9/L [facility] Monocytes/100 WBC (Bld) 11.6 % Normal 4.0 - 14.0 % [facility] Neutrophils (Bld) [#/Vol] 3.9 E9/L Normal 2.0 - 7.5 E9/L [facility] Neutrophils/100 WBC (Bld) 66.1 % Normal 36.0 - 75.0 % [facility] Platelet 242.0 E9/L Normal 150.0 - 500.0 E9/L [facility] Platelet mean volume (Bld) [Entitic vol] 9.1 fL Normal 6.4 - 10.8 fL [facility] RBC (Bld) [#/Vol] 5.0 E12/L Normal 4.3 - 5.9 E12/L [facility] WBC corrected for nucl RBC Auto (Bld) [#/Vol] 6.0 E9/L Normal 4.0 - 11.0 E9/L [facility] Creatinine (Bld) [Mass/Vol]O rdered By: Nick Thacker on 01-14-2022 Creatinine [Mass/Vol] 1.0 mg/dL 0.6-1.3 [facility] Comment on above: ER/ESD physician is notified/shown all ISTAT results.Critical values may be confirmed by laboratory testing ifdeemed necessary by ER attending doctor. No Panel InformationOrdered By: Nick Thacker on 01-14-2022 POC Estimated GFR > 60 [facility] Comment on above: GFR estimated refere nce range: According to KDOQI guidelines, <60 ml/min/1.73m2 is sufficient to diagnose a patient with chronic kidney disease. POC Estimated GFR Non- Amer > 60 [facility] Vital Signs Date Time Vital Sign Value Performing Clinician Maxx vasquez 09-27-2024 08:54-0400 Body height 180.3 cm Aruna Veras DPM Work Phone: [facility] 09-27-2024 08:54-0400 Body mass index (BMI) [Ratio] 32.08 kg/m2 Aruna Veras DPM Work Phone: [facility] 09-27-2024 08:54-0400 Body weight 104.33 kg Aruna Veras DPM Work Phone: [facility] 05-15-2024 16:44-0500 Blood Pressure Location Aruna MARVIN [facility] 05-15-2024 16:44-0500 Diastolic blood pressure 80 mm[Hg] Aruna MARVIN [facility] 05-15-2024 16:44-0500 Heart rate 80 /min Aruna MARVIN [facility] 05-15-2024 16:44-0500 Respiratory rate 16 /min Aruna MARVIN [facility] 05-15-2024 16:44-0500 SaO2% (BldA) [Mass fraction] 95 % Aruna MARVIN [facility] 05-15-2024 16:44-0500 Systolic blood pressure 130 mm[Hg] Aruna MARVIN [facility] 04-30-2024 13:41-0500 Blood Pressure Location Nick THACKER [facility] 04-30-2024 13:41-0500 Body temperature 98.6 [degF] Nick THACKER [facility] 04-30-2024 13:41-0500 Diastolic blood pressure 85 mm[Hg] Nick THACKER [facility] 04-30-2024 13:41-0500 Heart rate 80 /min Nick THACKER [facility] 04-30-2024 13:41-0500 Respiratory rate 18 /min Nick THACKER [facility] 04-30-2024 13:41-0500 Systolic blood pressure 147 mm[Hg] Nick THACKER [facility] 04-19-2024 10:06-0500 Blood Pressure Location Aruna MARVIN [facility] 04-19-2024 10:06-0500 Body temperature 97.34 [degF] Aruna MARVIN [facility] 04-19-2024 10:06-0500 Diastolic blood pressure 84 mm[Hg] Christopher BROWN [facility] [place] 04-19-2024 10:06-0500 Heart rate 88 /min Christopher BROWN [facility] 04-19-2024 10:06-0500 Respiratory rate 16 /min Christopher BROWN [facility] 04-19-2024 10:06-0500 SaO2% (BldA) [Mass fraction] 96 % Christopher BROWN [facility] 04-19-2024 10:06-0500 Systolic blood pressure 120 mm[Hg] Christopher BROWN [facility] 04-06-2024 11:00-0500 Blood Pressure Location Christopher BROWN [facility] 04-06-2024 11:00-0500 Diastolic blood pressure 84 mm[Hg] Christopher BROWN [facility] [place] 04-06-2024 11:00-0500 Heart rate 68 /min Christopher BROWN [facility] 04-06-2024 11:00-0500 Respiratory rate 16 /min Christopher BROWN [facility] 04-06-2024 11:00-0500 SaO2% (BldA) [Mass fraction] 100 % Christopher BROWN [facility] 04-06-2024 11:00-0500 Systolic blood pressure 130 mm[Hg] Christopher BROWN [facility] 03-15-2024 10:39-0500 Body height 180.3 cm Aruna Veras DPM Work Phone: [facility] 03-15-2024 10:39-0500 Body mass index (BMI) [Ratio] 32.08 kg/m2 Christgeorgeer Bohach DPM Work Phone: [facility] 03-15-2024 10:39-0500 Body weight 104.33 kg Aruna Fonsecaach DPM Work Phone: [facility] 03-15-2024 10:39-0500 Diastolic blood pressure 89 mm[Hg] Karstener Gurvinder DPM Work Phone: [facility] 03-15-2024 10:39-0500 Heart rate 79 /min Christgeorgeer Raymundoach DPM Work Phone: [facility] 03-15-2024 10:39-0500 Respiratory rate 18 /min Aruna Veras DPM Work Phone: [facility] 03-15-2024 10:39-0500 Systolic blood pressure 135 mm[Hg] Aruna Veras DPM Work Phone: [facility] 02-29-2024 12:46-0500 Blood Pressure Location Aruna MARVIN [facility] 02-29-2024 12:46-0500 Diastolic blood pressure 74 mm[Hg] Aruna MARVIN [facility] 02-29-2024 12:46-0500 Heart rate 69 /min Aruna MARVIN [facility] 02-29-2024 12:46-0500 SaO2% (BldA) [Mass fraction] 99 % Aruna MARVIN [facility] 02-29-2024 12:46-0500 Systolic blood pressure 128 mm[Hg] Aruna MARVIN [facility] 02-16-2024 15:40-0500 Blood Pressure Location Christopher BROWN [facility] 02-16-2024 15:40-0500 Diastolic blood pressure 90 mm[Hg] Christopher BROWN [facility] 02-16-2024 15:40-0500 Heart rate 86 /min Christopher BROWN [facility] 02-16-2024 15:40-0500 Respiratory rate 16 /min Christopher BROWN [facility] 02-16-2024 15:40-0500 SaO2% (BldA) [Mass fraction] 97 % Christopher BROWN [facility] 02-16-2024 15:40-0500 Systolic blood pressure 140 mm[Hg] Christopher BROWN [facility] 12-16-2023 13:21-0400 Blood Pressure Location Christopher BROWN [facility] 12-16-2023 13:21-0400 Diastolic blood pressure 80 mm[Hg] Christopher BROWN [facility] 12-16-2023 13:21-0400 Heart rate 104 /min Christopher BROWN [facility] 12-16-2023 13:21-0400 Respiratory rate 16 /min Christopher BROWN [facility] 12-16-2023 13:21-0400 SaO2% (BldA) [Mass fraction] 98 % Christopher BROWN [facility] 12-16-2023 13:21-0400 Systolic blood pressure 120 mm[Hg] Aruna MARVIN [facility] 10-14-2023 10:32-0400 Diastolic blood pressure 96 mm[Hg] Nick THACKER [facility] 10-14-2023 10:32-0400 Mean blood pressure 116 mm[Hg] Nick THACKER [facility] 10-14-2023 10:32-0400 Systolic blood pressure 155 mm[Hg] Nick THACKER [facility] 10-14-2023 10:27-0400 Blood Pressure Location Nick THACKER [facility] 10-14-2023 10:27-0400 Diastolic blood pressure 98 mm[Hg] Nick THACKER [facility] 10-14-2023 10:27-0400 Heart rate 100 /min Nick THACKER [facility] 10-14-2023 10:27-0400 Respiratory rate 16 /min Nick THACKER [facility] 10-14-2023 10:27-0400 Systolic blood pressure 165 mm[Hg] Nick THACKER [facility] 09-23-2023 13:50-0400 Diastolic blood pressure 92 mm[Hg] Jack Nunez [facility] 09-23-2023 13:50-0400 Heart rate 93 /min Jack Nunez [facility] 09-23-2023 13:50-0400 Mean blood pressure 100 mm[Hg] Jack Mourany [facility] 09-23-2023 13:50-0400 Respiratory rate 12 /min Jack Mourany [facility] 09-23-2023 13:50-0400 SaO2% (BldA) [Mass fraction] 91 % Jack Mourany [facility] 09-23-2023 13:50-0400 Systolic blood pressure 115 mm[Hg] Jack Mourany [facility] 09-23-2023 13:40-0400 Diastolic blood pressure 73 mm[Hg] Jack Mourany [facility] 09-23-2023 13:40-0400 Heart rate 90 /min Jack Mourany [facility] 09-23-2023 13:40-0400 Mean blood pressure 84 mm[Hg] Jack Mourany [facility] 09-23-2023 13:40-0400 Respiratory rate 16 /min Jack Mourany [facility] 09-23-2023 13:40-0400 SaO2% (BldA) [Mass fraction] 92 % Jack Mourany [facility] 09-23-2023 13:40-0400 Systolic blood pressure 105 mm[Hg] Jack Mourany [facility] 09-23-2023 13:35-0400 Diastolic blood pressure 74 mm[Hg] Jack Mourany [facility] 09-23-2023 13:35-0400 Heart rate 91 /min Jack Mourany [facility] 09-23-2023 13:35-0400 Mean blood pressure 89 mm[Hg] Jack Mourany [facility] 09-23-2023 13:35-0400 Respiratory rate 12 /min Jack Greeneurany [facility] 09-23-2023 13:35-0400 SaO2% (BldA) [Mass fraction] 92 % Jack Greeneurany [facility] 09-23-2023 13:35-0400 Systolic blood pressure 119 mm[Hg] Jack Greeneurany [facility] 09-23-2023 13:25-0400 Body temperature 98.78 [degF] Jack Greeneurany [facility] 09-23-2023 13:20-0400 Respiratory rate 13 /min Jack Greeneurany [facility] 09-23-2023 13:15-0400 Respiratory rate 15 /min Jack Greeneurany [facility] 09-23-2023 13:10-0400 Respiratory rate 20 /min Jack Greeneurany [facility] 09-23-2023 12:50-0400 Blood Pressure Location Jack Jacobsony [facility] 09-23-2023 12:50-0400 Body temperature 99.14 [degF] Jack Greeneurany [facility] 07-29-2023 10:51-0400 Blood Pressure Location Nick THACKER [facility] 07-29-2023 10:51-0400 Diastolic blood pressure 74 mm[Hg] Nick THACKER [facility] 07-29-2023 10:51-0400 Heart rate 80 /min Nick THACKER [facility] 07-29-2023 10:51-0400 Respiratory rate 16 /min Nick THACKER [facility] 07-29-2023 10:51-0400 Systolic blood pressure 130 mm[Hg] Nick THACKER [facility] 07-25-2023 12:55-0400 Diastolic blood pressure 87 mm[Hg] Jack Mayra [facility] 07-25-2023 12:55-0400 Heart rate 105 /min Jack Indiray [facility] 07-25-2023 12:55-0400 Systolic blood pressure 121 mm[Hg] Jack Indiray [facility] 06-07-2023 10:19-0400 Diastolic blood pressure 82 mm[Hg] Christopher BROWN [facility] 06-07-2023 10:19-0400 Mean blood pressure 99 mm[Hg] Christopher BROWN [facility] 06-07-2023 10:19-0400 Systolic blood pressure 132 mm[Hg] Christopher BROWN [facility] 06-07-2023 09:57-0400 Blood Pressure Location Christopher BROWN [facility] 06-07-2023 09:57-0400 Diastolic blood pressure 90 mm[Hg] Christopher BROWN [facility] 06-07-2023 09:57-0400 Heart rate 88 /min Christopher BROWN [facility] 06-07-2023 09:57-0400 Respiratory rate 16 /min Christopher BROWN [facility] 06-07-2023 09:57-0400 SaO2% (BldA) [Mass fraction] 96 % Christopher BROWN [facility] 06-07-2023 09:57-0400 Systolic blood pressure 152 mm[Hg] Christopher BROWN [facility] 10-26-2022 16:58-0400 Blood Pressure Location Christopher BROWN [facility] 10-26-2022 16:58-0400 Diastolic blood pressure 84 mm[Hg] Christopher BROWN [facility] 10-26-2022 16:58-0400 Heart rate 110 /min Christopher BROWN [facility] 10-26-2022 16:58-0400 Respiratory rate 16 /min Christopher BROWN [facility] 10-26-2022 16:58-0400 SaO2% (BldA) [Mass fraction] 94 % Christopher BROWN [facility] 10-26-2022 16:58-0400 Systolic blood pressure 120 mm[Hg] Christopher BROWN [facility] 05-11-2022 17:47-0500 Diastolic blood pressure 78 mm[Hg] Christopher BROWN [facility] 05-11-2022 17:47-0500 Mean blood pressure 93 mm[Hg] Christopher BROWN [facility] 02-14-2023 17:47-0500 Systolic blood pressure 122 mm[Hg] Karstener BROWN [facility] 05-11-2022 17:22-0500 Blood Pressure Location Karstenchayo MARVIN [facility] 05-11-2022 17:22-0500 Diastolic blood pressure 90 mm[Hg] Aruna BROWN [facility] 05-11-2022 17:22-0500 Heart rate 112 /min Aruna NAVID [facility] 05-11-2022 17:22-0500 Respiratory rate 16 /min Aruna NAVID [facility] 05-11-2022 17:22-0500 SaO2% (BldA) [Mass fraction] 97 % Aruna MARVIN [facility] 05-11-2022 17:22-0500 Systolic blood pressure 130 mm[Hg] Aruna MARVIN [facility] 03-26-2022 09:06-0500 Blood Pressure Location Nick THACKER [facility] 03-26-2022 09:06-0500 Diastolic blood pressure 89 mm[Hg] Nick THACKER [facility] 03-26-2022 09:06-0500 Heart rate 70 /min Nick THACKER [facility] 03-26-2022 09:06-0500 Respiratory rate 16 /min Nick THACKER [facility] 03-26-2022 09:06-0500 Systolic blood pressure 137 mm[Hg] Nick THACKER [facility] 12-28-2021 13:12-0400 Blood Pressure Location Nick THACKER [facility] 12-28-2021 13:12-0400 Diastolic blood pressure 92 mm[Hg] Nick THACKER [facility] 12-28-2021 13:12-0400 Heart rate 86 /min Nick THACKER [facility] 12-28-2021 13:12-0400 Respiratory rate 18 /min Nick THACKER [facility] 12-28-2021 13:12-0400 Systolic blood pressure 151 mm[Hg] Nick THACKER [facility] Encounters Encounter Date Encounter Type Care Provider Facility Start: 01-29-2025 ambulatory rAuna Hampton ity:ZENA Rodriguez Start: 10-15-2024 ambulatory Nick THACKER Facili ty:[facility] Start: 10-04-2024 ambulatory Nick Hamptoni ty:[id number] Start: 09-27-2024 End: 09-27-2024 Bamboo flowsheet Aruna Veras DPM Work Phone: [facility] Start: 09-27-2024 End: 09-27-2024 Bamboo flowsheet Aruna Veras DPM Work Phone: [facility] Start: 09-27-2024 End: 09-27-2024 Patient encounter procedure Aruna Veras DPM Work Phone: [facility] Comment on above: Onychomycosis (Prima ry Dx); Idiopathic progressive polyneuropathy Start: 09-27-2024 End: 09-27-2024 ambulatory ARUNA VERAS Not Available Start: 09-24-2024 End: 09-24-2024 ambulatory Nick R RAMAKRISHNA Facility:[facility] Start: 09-24-2024 End: 09-24-2024 Patient encounter procedure Nick R RAMAKRISHNA [facility] Start: 09-11-2024 End: 09-11-2024 Lab Drop off Nick Irwin THACKER [facility] Start: 09-11-2024 End: 09-11-2024 ambulatory Nick R RAMAKRISHNA Facility:[facility] Start: 09-11-2024 End: 09-11-2024 Patient encounter procedure Nick R THACKER [facility] Start: 07-27-2024 End: 07-27-2024 ambulatory Karstener NAVID Facility: [place] Start: 06-15-2024 End: 06-16-2024 ambulatory Christopher BROWN Facility:[facility] Start: 05-16-2024 End: 05-16-2024 Lab Drop off Aruna BROWN [facility] Start: 05-16-2024 End: 05-16-2024 ambulatory Christgeorgeer BROWN Facility:[facility] Start: 05-16-2024 End: 05-16-2024 Patient encounter procedure Christopher BROWN [facility] [place] Start: 05-15-2024 End: 05-15-2024 ambulatory Christopher BROWN Facility: [place] Start: 05-15-2024 End: 05-15-2024 Patient encounter procedure Christopher BROWN [facility] [place] Start: 04-30-2024 End: 04-30-2024 ambulatory Nick THACKER Facility[place] Start: 04-30-2024 End: 04-30-2024 Lab Drop off Nick THACKER [facility] Start: 04-30-2024 End: 04-30-2024 ambulatory Nick Alida RAMAKRISHNA Facility:[facility] Start: 04-30-2024 End: 04-30-2024 Patient encounter procedure Nick THACKER [facility] Start: 04-19-2024 End: 04-19-2024 Patient encounter procedure Aruna MARVIN [facility] [place] Start: 04-19-2024 End: 04-19-2024 ambulatory Aruna MARVIN Facility: [facility] Start: 04-06-2024 End: 04-06-2024 ambulatory [facility] Start: 04-06-2024 End: 04-06-2024 Patient encounter procedure Aruna MARVIN [facility] [place] Start: 03-16-2024 End: 03-16-2024 Bamboo flowsheet Frank Grant MD Work Phone: [facility] Start: 03-16-2024 End: 03-16-2024 Bamboo flowsheet Frank Grant MD Work Phone: [facility] Start: 03-16-2024 End: 03-16-2024 Office outpatient new 30 minutes Frank Grant MD Work Phone: [facility] Comment on above: Sebaceous hyperplasi a of face (Primary Dx); Lentigines; Actinic keratosis; Neoplasm of unspecified behavior of bone, soft tissue, and skin Start: 03-16-2024 End: 03-16-2024 ambulatory FRANK GRANT Not Available Start: 03-15-2024 End: 03-15-2024 Bamboo flowsheet Aruna Veras DPM Work Phone: [facility] Start: 03-15-2024 End: 03-15-2024 Bamboo flowsheet Aruna Veras DPM Work Phone: [facility] Start: 03-15-2024 End: 03-15-2024 Office outpatient new 20 minutes Aruna Veras DPM Work Phone: [facility] Comment on above: Onychomycosis of gre at toe (Primary Dx); Paronychia of toe of left foot; Paronychia of toe of right foot; Pain in toes of both feet; Idiopathic progressive polyneuropathy; Hammer toes of both feet Start: 03-15-2024 End: 03-15-2024 ambulatory ARUNA VERAS Not Available Start: 02-29-2024 End: 02-29-2024 ambulatory Aruna MARVIN Facility: [facility] Start: 02-29-2024 End: 02-29-2024 Patient encounter procedure Aruna MARVIN [facility] Start: 02-29-2024 End: 02-29-2024 Well adult monitoring check done Aruna MARVIN [facility] [place] Start: 02-16-2024 End: 02-16-2024 ambulatory Aruna MARVIN Facility: [facility] Start: 02-16-2024 End: 02-16-2024 Patient encounter procedure Aruna MARVIN [facility] Start: 12-16-2023 End: 12-16-2023 ambulatory Aruna MARVIN Facility: [facility] Start: 12-16-2023 End: 12-16-2023 Patient encounter procedure Aruna MARVIN [facility] [place] Start: 10-14-2023 End: 10-14-2023 ambulatory Nick THACKER Facility:[facility] Start: 10-14-2023 End: 10-14-2023 Patient encounter procedure Nick THACKER [facility] [place] Start: 10-06-2023 End: 10-06-2023 ambulatory MD Ja Marvin Work Phone: [facility] Work Phone: Start: 10-06-2023 End: 10-06-2023 Departed Referred MD Ja Marvin Work Phone: [facility] Start: 10-06-2023 End: 10-06-2023 ambulatory Nick THACKER Facility:CD:[id number] Start: 10-06-2023 End: 10-06-2023 Off-Site Nick THACKER [facility] [place] Start: 09-23-2023 End: 09-23-2023 Patient encounter procedure Jack Nunez [facility] Start: 08-23-2023 End: 08-23-2023 Patient encounter procedure MD Ja Marvin Work Phone: [facility] [place] Work Phone: Start: 08-23-2023 End: 08-23-2023 ambulatory MD Ja Marvin Work Phone: [facility] Work Phone: Start: 07-29-2023 End: 07-29-2023 Patient encounter procedure Nick THACKER [facility] Start: 07-25-2023 End: 07-25-2023 Patient encounter procedure Jack DelgadoJessika Jcyovani [facility] [place] Start: 06-07-2023 End: 06-07-2023 Lab Drop off Aruna MARVIN [facility] Start: 06-07-2023 End: 06-07-2023 Patient encounter procedure Aruna MARVIN [facility] [place] Start: 10-26-2022 End: 10-26-2022 Lab Drop off Aruna MARVIN [facility] Start: 10-26-2022 End: 10-26-2022 Patient encounter procedure Aruna MARVIN [facility] [place] Start: 05-11-2022 End: 05-11-2022 Patient encounter procedure Aruna MARVIN [facility] [place] Start: 03-26-2022 End: 03-26-2022 Patient encounter procedure Nick THACKER [facility] Start: 03-09-2022 End: 03-09-2022 Patient encounter procedure Nick THACKER [facility] Start: 01-14-2022 End: 01-14-2022 ambulatory MD Ja Marvin Work Phone: [facility] Work Phone: Start: 01-14-2022 End: 01-14-2022 Patient encounter procedure MD Ja Marvin Work Phone: [facility] [place] Start: 12-28-2021 End: 12-28-2021 Patient encounter procedure Nick Alida THACKER [facility] Procedures Date Procedure Procedure Detail Performing Clinician Start: 03-16-2024 SKIN / NAIL BIOPSY Dane Grant MD Work Phone: Start: 03-16-2024 CRYOTHERAPY SKIN LESION Frank Grant MD Work Phone: Start: 10-06-2023 MRI-US fusion guided prostate biopsy Nickpam THACKER Start: 09-23-2023 Colonoscopy Ky Veras DPM Work Phone: Start: 09-23-2023 Colonoscopy Jack brown Start: 08-23-2023 MR prostate wo/w con MD Ja Marvin Work Phone: Start: 03-09-2022 MRI-US fusion guided transperineal biopsy of prostate Nick THACKER Start: 07-21-2020 Colonoscopy Nick AMNA [facility] H/O: vasectomy Nickpam GUERRERO Poly Plan of Treatment Date Care Activity Detail Author Start: 09-22-2033 Screening for malignant neoplasm of colon [facility] Start: 03-19-2025 End: 03-19-2025 Patient encounter procedure 03/19/2025 10:15 AM EST Office Visit [facility] [address] [place] [address] Frank Grant MD [address] [place] [address] [facility] Start: 03-04-2025 End: 03-04-2025 Patient encounter procedure 03/04/2025 9:00 AM EST Office Visit [facility] [address] [place] [phone] rAuna Veras, FRANKY [address] [place] [address] [facility] Start: 03-01-2025 ambulatory Ambulatory Facility:[facility] Start: 11-26-2024 Influenza vaccination Influenza Vaccine (#1) [facility] Start: 09-27-2024 End: 09-27-2024 Patient encounter procedure 09/27/2024 9:00 AM EDT Office Visit [facility] [address] [place] [phone] Aruna Veras DPM [address] [place] [address] Arrived [facility] Comment on above: Arrived Start: 03-16-2024 End: 03-16-2024 Patient encounter procedure [facility] Comment on above: Arrived Start: 03-15-2024 End: 03-15-2025 Fungal culture, cutaneous Fungal culture, cutaneous Microbiology Routine Onychomycosis of great toe Expected: 03/15/2024 (Approximate), Expires: 03/15/2025 [facility] Work Phone: Comment on above: Expected: 03/15/2024 (Approximate), Expi res: 03/15/2025 Start: 03-15-2024 End: 03-15-2024 Patient encounter procedure 03/15/2024 10:45 AM EST Office Visit [facility] [address] [place] [phone] Aruna Veras, DPM [address], [place] [id number] Arrived [facility] Comment on above: Arrived Start: 08-23-2023 MR Prostate WO and W contrast IV [facility] Start: 08-23-2023 MR prostate wo/w con MR prostate wo/w con [facility] Start: 01-14-2022 XR pre/post mri xray XR pre/post mri xray [facility] Start: 01-14-2022 [facility] Start: 01-14-2022 MR Prostate WO and W contrast IV [facility] Start: 01-14-2022 MR prostate wo/w con MR prostate wo/w con [facility] Start: 1955 Screening for malignant neoplasm of colon [facility] Dermatopathology exam Dermatopat hology exam Pathology and Cytology Timed Neoplasm of unspecified behavior of bone, soft tissue, and skin Release Upon Ordering for 1 Occurrences starting 03/16/2024 [facility] Work Phone: Comment on above: Release Upon Ordering for 1 Occurrences starting 03/16/2024 Immunizations Immunization Date Immunization Notes Care Provider [facility] 12-16-2023 Pneumococcal conjuga te PCV20, polysaccharide [id number] conjugate, adjuvant, PF; Translations: [Prevnar 20] Aruna MARVIN [facility] 12-16-2023 influenza, high dose seasonal, preservative-free; Translations: [Fluzone High Dose Vaccine] Aruna MARVIN [facility] 12-16-2023 influenza virus vaccine, unspecified formulation Aruna Veras DPM Work Phone: [facility] 02-14-2023 influenza virus vaccine, unspecified formulation Arnua MARVIN [facility] 10-26-2022 tetanus toxoid, reduced diphtheria toxoid, and acellular pertussis vaccine, adsorbed Aruna MARVIN [facility] 03-17-2021 COVID-19, mRNA, LNP- S, PF, 30 mcg/0.3 mL dose Nick THACKER [facility] 07-26-2020 COVID-19 mRNAJonas (Pfizer) MD Ja Marvin Work Phone: [facility] 07-26-2020 SARS-CoV-2 (COVID-19 ) mRNA-1273 [facility] 07-[facility] COVID-19 Jonas Tinsley (Pfizer) MD Ja Marvin Work Phone: [facility] 07-05-2020 SARS-CoV-2 (COVID-19 ) mRNA-1273 vaccine Nick THACKER [facility] [place] NEGATED: Highlighted row has not occurred!06-07-2023 influenza virus vaccine, unspecified formulation Colbyisael MARVIN [facility] Comment on above: Result Comment: gvn NEGATED: Highlighted row has not occurred!05-11-2022 influenza virus vaccine, unspecified formulation Colbyisael MARVIN [facility] Tay Rodriguez NEGATED: Highlighted row has not occurred!03-25-2020 influenza virus vaccine, unspecified formulation Nick THACKER [facility] [place] NEGATED: Highlighted row has not occurred!09-18-2019 influenza virus vaccine, unspecified formulation Nick THACKER [facility] [place] Payers Date Payer Category Payer Self-pay 2023 Private Health Insurance [id number] 2023 Unknown [id number] 2021 Medicare [id number] 2021 Medicare [id number] 1955 Unknown [id number] 2.16.840.1.692175.3.579.2.727 1956 Unknown [id number] 2.16.840.1.384145.3.579.2.72 1956 Unknown [id number] 2.16.840.1.153682.3.579.2.72 1956 Unknown [id number] 2.16.840.1.845215.3.579.2. 1956 Unknown [id number] 2.16.840.1.825056.3.579.2. 1956 Unknown [id number] 2.16.840.1.094279.3.579.2. 1956 Unknown [id number] 2.16.840.1.512522.3.579.2.72 1956 Unknown [id number] 2.16.840.1.188803.3.579.2. 1956 Unknown [id number] 2.16.840.1.108111.3.579.2.72 1956 Unknown [id number] 2.16.840.1.819860.3.579.2. 1956 Unknown [id number] 2.16.840.1.697183.3.579.2.72 1956 Unknown [id number] 2.16.840.1.265063.3.579.2.72 1956 Unknown [id number] 2.16.840.1.795315.3.579.2.72 1956 Unknown [id number] 2.16.840.1.978743.3.579.2.72 1956 Unknown [id number] 2.16.840.1.327081.3.579.2.727 1956 Unknown [id number] 2.16.840.1.409701.3.579.2.727 1956 Unknown [id number] 2.16.840.1.868962.3.579.2.727 1956 Unknown [id number] 2.16.840.1.435882.3.579.2.727 1956 Unknown [id number] 2.16.840.1.921270.3.579.2.727 1956 Unknown [id number] 2.16.840.1.917918.3.579.2.727 1956 Unknown [id number] 2.16.840.1.079656.3.579.2.727 1956 Unknown [id number] 2.16.840.1.270464.3.579.2.727 1956 Unknown [id number] 2.16.840.1.291381.3.579.2.125 9 1956 Unknown [id number] 2.16.840.1.236902.3.579.2.125 9 1956 Unknown [id number] 2.16.840.1.167944.3.579.2.125 9 Private Health Insurance [id number] Unknown [id number] 2.16.840.1.417264.3.579.2.531 Unknown [id number] 2.16.840.1.055436.3.579.2.531 Social History Date Type Detail Facility Start: 12-28-2021 End: 03-12-2024 Tobacco smoking status Never smoked tobacco (finding) [facility] Comment on above: Denies use. Start: 03-12-2024 End: 09-27-2024 Sex Assigned At Male [facility] Start: 1955 Sex Assigned At Male F [facility] Tobacco smoking status Never [facility] [place] Comment on above: Denies use. Start: 03-12-2024 Tobacco use and exposure Smoke less tobacco non-user [facility] Start: 03-12-2024 Alcoholic beverage intake Ex-drinker (finding) [facility] Start: 03-12-2024 End: 09-27-[address] [facility] Start: 1955 Sex assigned at Not on file [facility] Start: 03-16-2024 End: 09-27-2024 Alcoholic beverage intake Current drinker of alcohol (finding) [facility] Sexual Orientation [facility] Start: 06-15-2018 Sex Male (finding) [facility] Functional Status Date Assessment Result Facility 05-15-2024 Functional Status N/A [facility] [place] 04-30-2024 Functional Status N/A [facility] 04-19-2024 Functional Status N/A [facility] [place] 04-06-2024 Functional Status N/A [facility] [place] 02-29-2024 Functional Status N/A [facility] [place] 02-16-2024 Functional Status N/A [facility] [place] 12-16-2023 Functional Status N/A [facility] [place] 10-14-2023 Functional Status N/A [facility] 07-29-2023 Functional Status N/A [facility] 06-07-2023 Functional Status N/A [facility] [place] 10-26-2022 Functional Status N/A [facility] [place] 05-11-2022 Functional Status N/A [facility] [place] 03-26-2022 Functional Status N/A [facility] 02-25-2022 Functional Status N/A [facility] 12-28-2021 Functional Status N/A [facility] Clinical Notes 12-28-2021 to 09-27-2024 Aruna Veras, FRANKY - 09/27/2024 9:00 AM Eileen Grant MD - 03/16/2024 11:05 AM Neal Veras DPM - 03/15/2024 10:45 AM EST Note Date & Type Note Facility 09-27-2024 History of Present illness Narrative Melisa Padilla is a 68 y.o. male presents with chief complaint of Follow-up (Micro trauma RT 1st) HPI: HPI SUBJECTIVE: Diabetic/Routine Nail Care: Location: nails on bilateral feet. Severity of symptoms: mild numb/tingle. Onset:gradual. Status:no change. Context: hard to trim, hard to reach. NAILS-thickened, discolored, pain. Relieved by debridement, filing down nails, clipping nails. History of ulcers/wounds: no. PCP Dr Jessika Marvin Date of Last visit 07-27-24 Aggravated by shoe gear, pressure All nails thick and hard to trim, gr toes most tender [place] shoes most MEDICATIONS: Current Outpatient Medications Medication Instructions allopurinol (ZYLOPRIM) 100 mg famotidine (Pepcid) 40 MG tablet fluconazole (DIFLUCAN) 200 mg, Oral, Weekly fluorouracil (Efudex) 5 % cream Apply to directed areas on arms bid x 14 days losartan (Cozaar) 25 MG tablet tadalafil (Cialis) 20 MG tablet vardenafil (Levitra) 20 MG tablet ALLERGIES: No Known Allergies REVIEW OF SYMPTOMS: Review of Systems Constitutional: Negative for chills and fever. Respiratory: Negative for shortness of breath. Cardiovascular: Negative for chest pain. Gastrointestinal: Negative for abdominal pain. Neurological: Negative for dizziness. Psychiatric/Behavioral: Negative for confusion. OBJECTIVE: Visit Vitals Smoking Status Never Physical Exam General General Appearance: appears stated age and healthy Orientation: alert and oriented to person, place, and time Right Foot/Ankle Inspection and Palpation Ecchymosis: none Tenderness: none Swelling: none Arch: normal Hammertoes: second toe, third toe, fourth toe and fifth toe Hallux valgus: no Hallux limitus: no Skin Exam: skin intact; Atrophic skin and neg digital hair Neurovascular Dorsalis pedis: 3+ Posterior tibial: 3+ absent sharp sensation lesser toes and 2 areas 5.07 monofilament Achilles reflex: 2+ Babinski reflex: 2+ Muscle Strength Ankle dorsiflexion: 5 Ankle plantar flexion: 5 Ankle inversion: 5 Ankle eversion: 5 Great toe extension: 5 Great toe flexion: 5 Range of Motion Normal right ankle ROM Nails: Digit 1 thick,yellow,crumbling 5mm Digit 2 thick,yellow,crumbling 4mm Digit 3t hick,yellow,crumbling 3mm Digit 4 thick,yellow,crumbling Digit 5 thick,yellow,crumbling 4mm Left Foot/Ankle Inspection and Palpation Ecchymosis: none Tenderness: none Swelling: none Arch: normal Hammertoes: second toe, third toe, fourth toe and fifth toe Claw toes: absent Hallux valgus: no Hallux limitus: no Skin Exam: skin intact; Atrophic skin and neg digital hair Neurovascular Dorsalis pedis: 3+ Posterior tibial: 3+ absent sharp sensation lesser toes and 2 areas 5.07 monofilament Achilles reflex: 2+ Babinski reflex: 2+ Muscle Strength Ankle dorsiflexion: 5 Ankle plantar flexion: 5 Ankle inversion: 5 Ankle eversion: 5 Great toe extension: 5 Great toe flexion: 5 Range of Motion Normal left ankle ROM Nails: Digit 1 thick,yellow,crumbling 5mm Digit 2 thick,yellow,crumbling 3mm Digit 3t hick,yellow,crumbling 3mm Digit 4 thick,yellow,crumbling Digit 5 thick,yellow,crumbling 3mm POP rt 1, more than left ASSESSMENT AND PLAN: Assessment/Plan Diagnoses and all orders for this visit: Onychomycosis of great toe - Fungal culture, cutaneous; Future Paronychia of toe of left foot Paronychia of toe of right foot Pain in toes of both feet 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 Satisfactory progress Nails: all thick and dystrophic nails debrided of all affected and loose material Neuropathy: sugar control emphasized and caution for wounds and regular inspections. any new problems with appt sugg. pain can b treated with topical or oral measures, many were offered. pain can b managed with topcial or oral methods and offered today documented in this encounter [facility] 09-24-2024 Hospital Discharge instructions Patient Education 09/24/2024 14:36:24 Transrectal Ultrasound-Guided Prostate Biopsy, Care After Transrectal Ultrasound-Guided Prostate Biopsy, Care After The following information offers guidance on how to care for yourself after your procedure. Your health care provider may also give you more specific instructions. If you have problems or questions, contact your health care provider. What can I expect after the procedure? After the procedure, it is common to have: Pain and discomfort near your rectum, especially while sitting. [place]-colored urine due to small amounts of blood in your urine. A burning feeling while urinating. Blood in your stool (feces) or bleeding from your rectum. Blood in your semen. Follow these instructions at home: Medicines Take uiyg-rfq-[id number] and prescription medicines only as told by your health care provider. If you were given a sedative during your procedure, it can affect you for several hours. Do not drive or operate machinery until your health care provider says that it is safe. If you were prescribed an antibiotic medicine, take it as told by your health care provider. Do not stop using the antibiotic even if you start to feel better. Activity Return to your normal activities as told by your health care provider. Ask your health care provider what activities are safe for you. Ask your health care provider when it is okay for you to resume sexual activity. You may have to avoid lifting. Ask your health care provider how much you can safely lift. General instructions Drink enough fluid to keep your urine pale yellow. Watch your urine, stool, and semen for new or increased bleeding. Keep all follow-up visits. This is important. Contact a health care provider if: You have any of the following: ?Blood clots in your urine or stool. ?Blood in your urine more than 2 weeks after the procedure. ?Blood in your semen more than 2 months after the procedure. ?New or increased bleeding in your urine, stool, or semen. ?Severe pain in your abdomen. Your urine smells bad or unusual. You have trouble urinating. Your lower abdomen feels firm. You have problems getting an erection. You have nausea or you vomit. Get help right away if: You have a fever or chills. This could be a sign of infection. You have bright red urine. You have severe pain that does not get better with medicine. You cannot urinate. Summary After this procedure, it is common to have pain and discomfort around your rectum, especially while sitting. You may have blood in your urine and stool after the procedure. It is common to have blood in your semen after this procedure. Get help right away if you have a fever or chills. This could be a sign of infection. This information is not intended to replace advice given to you by your health care provider. Make sure you discuss any questions you have with your health care provider. Document Revised: 09/07/2021 Document Reviewed: 09/07/2021 [employer] Patient Education 2023 [employer]. 09/24/2024 14:36:23 Transrectal Ultrasound-Guided Prostate Biopsy Transrectal Ultrasound-Guided Prostate Biopsy A transrectal ultrasound-guided prostate biopsy is a procedure to remove samples of prostate tissue for testing. The prostate is a walnut-sized gland that is located below the bladder and in front of the rectum. During this procedure, a small device (probe) is lubricated and put inside the rectum. The probe sends out sound waves that make a picture of the prostate and surrounding tissues (transrectal ultrasound). The images are used to help guide the process of removing the samples. The samples are taken to a lab to be checked for prostate cancer. This procedure is usually done to evaluate the prostate gland of men who have raised (elevated) levels of prostate-specific antigen (PSA), which can be a sign of prostate cancer or prostate enlargement related to aging (benign prostatic hyperplasia, or BPH). Tell a health care provider about: Any allergies you have. All medicines you are taking, including vitamins, herbs, eye drops, creams, and wnhz-wol-icubrjb medicines. Any problems you or family members have had with anesthetic medicines. Any bleeding problems you have. Any surgeries you have had. Any medical conditions you have. Any prostate infections you have had. What are the risks? Generally, this is a safe procedure. However, problems may occur, including: Prostate infection. Bleeding from the rectum. Blood in the urine. Allergic reactions to medicines. Damage to surrounding structures such as blood vessels, organs, or muscles. Difficulty passing urine. Nerve damage. This is usually temporary. What happens before the procedure? Medicines Ask your health care provider about: Changing or stopping your regular medicines. This is especially important if you are taking diabetes medicines or blood thinners. Taking medicines such as aspirin and ibuprofen. These medicines can thin your blood. Do not take these medicines unless your health care provider tells you to take them. Taking cbve-mtf-fepsmza medicines, vitamins, herbs, and supplements. General instructions Follow instructions from your health care provider about eating and drinking. In most instances, you will not need to stop eating and drinking completely before the procedure. You will be given an enema. During an enema, a liquid is injected into your rectum to clear out waste. You may have a blood or urine sample taken. Ask your health care provider what steps will be taken to help prevent infection. These steps may include: ?Washing skin with a germ-killing soap. ?Taking antibiotic medicine. If you will be going home right after the procedure, plan to have a responsible adult: ?Take you home from the hospital or clinic. You will not be allowed to drive. ?Care for you for the time you are told. What happens during the procedure? An IV will be inserted into one of your veins. You will be given one or both of the following: ?A medicine to help you relax (sedative). ?A medicine to numb the area (local anesthetic). You will be placed on your left side, and your knees will be bent toward your chest. A probe with lubricated gel will be placed into your rectum, and images will be taken of your prostate and surrounding structures. Numbing medicine will be injected into your prostate. A biopsy needle will be inserted through your rectum or perineum and guided to your prostate using the ultrasound images. Prostate tissue samples will be removed, and the needle and probe will then be removed. The biopsy samples will be sent to a lab to be tested. The procedure may vary among health care providers and hospitals. What happens after the procedure? Your blood pressure, heart rate, breathing rate, and blood oxygen level will be monitored until you leave the hospital or clinic. You may have some discomfort in the rectal area. You will be given pain medicine as needed. If you were given a sedative during the procedure, it can affect you for several hours. Do not drive or operate machinery until your health care provider says that it is safe. It is up to you to get the results of your procedure. Ask your health care provider, or the department that is doing the procedure, when your results will be ready. Keep all follow-up visits. This is important. Summary A transrectal ultrasound-guided biopsy removes samples of tissue from your prostate using ultrasound-guided sound waves to help guide the process. This procedure is usually done to evaluate the prostate gland of men who have raised (elevated) levels of prostate-specific antigen (PSA), which can be a sign of prostate cancer or prostate enlargement related to aging. After your procedure, you may feel some discomfort in the rectal area. Plan to have a responsible adult take you home from the hospital or clinic, and follow up with your health care provider for your results. This information is not intended to replace advice given to you by your health care provider. Make sure you discuss any questions you have with your health care provider. Document Revised: 09/07/2021 Document Reviewed: 09/07/2021 [employer] Patient Education 2023 [employer]. 09/24/2024 14:35:24 Erectile Dysfunction Erectile Dysfunction Erectile dysfunction (ED) is the inability to get or keep an erection in order to have sexual intercourse. ED is considered a symptom of an underlying disorder and is not considered a disease. ED may include: Inability to get an erection. Lack of enough hardness of the erection to allow penetration. Loss of erection before sex is finished. What are the causes? This condition may be caused by: Physical causes, such as: ?Artery problems. This may include heart disease, high blood pressure, atherosclerosis, and diabetes. ?Hormonal problems, such as low testosterone. ?Obesity. ?Nerve problems. This may include back or pelvic injuries, multiple sclerosis, Parkinson's disease, spinal cord injury, and stroke. Certain medicines, such as: ?Pain relievers. ?Antidepressants. ?Blood pressure medicines and water pills (diuretics). ?Cancer medicines. ?Antihistamines. ?Muscle relaxants. Lifestyle factors, such as: ?Use of drugs such as marijuana, cocaine, or opioids. ?Excessive use of alcohol. ?Smoking. ?Lack of physical activity or exercise. Psychological causes, such as: ?Anxiety or stress. ?Sadness or depression. ?Exhaustion. ?Fear about sexual performance. ?Guilt. What are the signs or symptoms? Symptoms of this condition include: Inability to get an erection. Lack of enough hardness of the erection to allow penetration. Loss of the erection before sex is finished. Sometimes having normal erections, but with frequent unsatisfactory episodes. Low sexual satisfaction in either partner due to erection problems. A curved penis occurring with erection. The curve may cause pain, or the penis may be too curved to allow for intercourse. Never having nighttime or morning erections. How is this diagnosed? This condition is often diagnosed by: Performing a physical exam to find other diseases or specific problems with the penis. Asking you detailed questions about the problem. Doing tests, such as: ?Blood tests to check for diabetes mellitus or high cholesterol, or to measure hormone levels. ?Other tests to check for underlying health conditions. ?An ultrasound exam to check for scarring. ?A test to check blood flow to the penis. Doing a sleep study at home to measure nighttime erections. How is this treated? This condition may be treated by: Medicines, such as: ?Medicine taken by mouth to help you achieve an erection (oral medicine). ?Hormone replacement therapy to replace low testosterone levels. ?Medicine that is injected into the penis. Your health care provider may instruct you how to give yourself these injections at home. ?Medicine that is delivered with a short applicator tube. The tube is inserted into the opening at the tip of the penis, which is the opening of the urethra. A tiny pellet of medicine is put in the urethra. The pellet dissolves and enhances erectile function. This is also called MUSE (medicated urethral system for erections) therapy. Vacuum pump. This is a pump with a ring on it. The pump and ring are placed on the penis and used to create pressure that helps the penis become erect. Penile implant surgery. In this procedure, you may receive: ?An inflatable implant. This consists of cylinders, a pump, and a reservoir. The cylinders can be inflated with a fluid that helps to create an erection, and they can be deflated after intercourse. ?A semi-rigid implant. This consists of two silicone rubber rods. The rods provide some rigidity. They are also flexible, so the penis can both curve downward in its normal position and become straight for sexual intercourse. Blood vessel surgery to improve blood flow to the penis. During this procedure, a blood vessel from a different part of the body is placed into the penis to allow blood to flow around (bypass) damaged or blocked blood vessels. Lifestyle changes, such as exercising more, losing weight, and quitting smoking. Follow these instructions at home: Medicines Take zefx-bpm-cqwxxtu and prescription medicines only as told by your health care provider. Do not increase the dosage without first discussing it with your health care provider. If you are using self-injections, do injections as directed by your health care provider. Make sure you avoid any veins that are on the surface of the penis. After giving an injection, apply pressure to the injection site for 5 minutes. Talk to your health care provider about how to prevent headaches while taking ED medicines. These medicines may cause a sudden headache due to the increase in blood flow in your body. General instructions Exercise regularly, as directed by your health care provider. Work with your health care provider to lose weight, if needed. Do not use any products that contain nicotine or tobacco. These products include cigarettes, chewing tobacco, and vaping devices, such as e-cigarettes. If you need help quitting, ask your health care provider. Before using a vacuum pump, read the instructions that come with the pump and discuss any questions with your health care provider. Keep all follow-up visits. This is important. Contact a health care provider if: You feel nauseous. You are vomiting. You get sudden headaches while taking ED medicines. You have any concerns about your sexual health. Get help right away if: You are taking oral or injectable medicines and you have an erection that lasts longer than 4 hours. If your health care provider is unavailable, go to the nearest emergency room for evaluation. An erection that lasts much longer than 4 hours can result in permanent damage to your penis. You have severe pain in your groin or abdomen. You develop redness or severe swelling of your penis. You have redness spreading at your groin or lower abdomen. You are unable to urinate. You experience chest pain or a rapid heartbeat (palpitations) after taking oral medicines. These symptoms may represent a serious problem that is an emergency. Do not wait to see if the symptoms will go away. Get medical help right away. Call your local emergency services (911 in the [place] Do not drive yourself to the hospital. Summary Erectile dysfunction (ED) is the inability to get or keep an erection during sexual intercourse. This condition is diagnosed based on a physical exam, your symptoms, and tests to determine the cause. Treatment varies depending on the cause and may include medicines, hormone therapy, surgery, or a vacuum pump. You may need follow-up visits to make sure that you are using your medicines or devices correctly. Get help right away if you are taking or injecting medicines and you have an erection that lasts longer than 4 hours. This information is not intended to replace advice given to you by your health care provider. Make sure you discuss any questions you have with your health care provider. Document Revised: 06/10/2021 Document Reviewed: 06/10/2021 [employer] Patient Education 2023 [employer]. Follow Up Care 04/30/2024 14:40:06 With:RAMAKRISHNA LICONA, Nick Irwin, URL Address: [facility] [address] , [place] [address]- [phone] When: Unknown Comments:sched confirmatory bx [facility] 09-24-2024 Note Patient Education Oncology Transrectal Ultrasound-Guided Prostate Biopsy, Care After The following information offers guidance on how to care for yourself after your procedure. Your health care provider may also give you more specific instructions. If you have problems or questions, contact your health care provider. What can I expect after the procedure? After the procedure, it is common to have: ??? Pain and discomfort near your rectum, especially while sitting. ??? [place]-colored urine due to small amounts of blood in your urine. ??? A burning feeling while urinating. ??? Blood in your stool (feces) or bleeding from your rectum. ??? Blood in your semen. Follow these instructions at home: Medicines ??? Take nkiw-avk-aaomilk and prescription medicines only as told by your health care provider. ??? If you were given a sedative during your procedure, it can affect you for several hours. Do not drive or operate machinery until your health care provider says that it is safe. ??? If you were prescribed an antibiotic medicine, take it as told by your health care provider. Do not stop using the antibiotic even if you start to feel better. Activity ??? Return to your normal activities as told by your health care provider. Ask your health care provider what activities are safe for you. ??? Ask your health care provider when it is okay for you to resume sexual activity. ??? You may have to avoid lifting. Ask your health care provider how much you can safely lift. General instructions ??? Drink enough fluid to keep your urine pale yellow. ??? Watch your urine, stool, and semen for new or increased bleeding. ??? Keep all follow-up visits. This is important. Contact a health care provider if: ??? You have any of the following: ? Blood clots in your urine or stool. ? Blood in your urine more than 2 weeks after the procedure. ? Blood in your semen more than 2 months after the procedure. ? New or increased bleeding in your urine, stool, or semen. ? Severe pain in your abdomen. ??? Your urine smells bad or unusual. ??? You have trouble urinating. ??? Your lower abdomen feels firm. ??? You have problems getting an erection. ??? You have nausea or you vomit. Get help right away if: ??? You have a fever or chills. This could be a sign of infection. ??? You have bright red urine. ??? You have severe pain that does not get better with medicine. ??? You cannot urinate. Summary ??? After this procedure, it is common to have pain and discomfort around your rectum, especially while sitting. ??? You may have blood in your urine and stool after the procedure. ??? It is common to have blood in your semen after this procedure. ??? Get help right away if you have a fever or chills. This could be a sign of infection. This information is not intended to replace advice given to you by your health care provider. Make sure you discuss any questions you have with your health care provider. Document Revised: 09/07/2021 Document Reviewed: 09/07/2021 [employer] Patient Education ? 2023 [employer] Transrectal Ultrasound-Guided Prostate Biopsy A transrectal ultrasound-guided prostate biopsy is a procedure to remove samples of prostate tissue for testing. The prostate is a walnut-sized gland that is located below the bladder and in front of the rectum. During this procedure, a small device (probe) is lubricated and put inside the rectum. The probe sends out sound waves that make a picture of the prostate and surrounding tissues (transrectal ultrasound). The images are used to help guide the process of removing the samples. The samples are taken to a lab to be checked for prostate cancer. This procedure is usually done to evaluate the prostate gland of men who have raised (elevated) levels of prostate-specific antigen (PSA), which can be a sign of prostate cancer or prostate enlargement related to aging (benign prostatic hyperplasia, or BPH). Tell a health care provider about: ??? Any allergies you have. ??? All medicines you are taking, including vitamins, herbs, eye drops, creams, and lrzj-xxo-gwsexig medicines. ??? Any problems you or family members have had with anesthetic medicines. ??? Any bleeding problems you have. ??? Any surgeries you have had. ??? Any medical conditions you have. ??? Any prostate infections you have had. What are the risks? Generally, this is a safe procedure. However, problems may occur, including: ??? Prostate infection. ??? Bleeding from the rectum. ??? Blood in the urine. ??? Allergic reactions to medicines. ??? Damage to surrounding structures such as blood vessels, organs, or muscles. ??? Difficulty passing urine. ??? Nerve damage. This is usually temporary. What happens before the procedure? Medicines Ask your health care provider about: ??? Changing or stopping your regular medicines. This is especial (more content not included)... [facility] 07-26-2024 Note Patient Education Mental and Behavioral Health Major Depressive Disorder, Adult Major depressive disorder (MDD) is a mental health condition. It may also be called clinical depression or unipolar depression. MDD causes symptoms of sadness, hopelessness, and loss of interest in things. These symptoms last most of the day, almost every day, for 2 weeks. MDD can also cause physical symptoms. It can interfere with relationships and activities, such as work, school, and activities that are usually pleasant. MDD may be mild, moderate, or severe. It may be single-episode MDD, which happens once, or recurrent MDD, which may occur many times. What are the causes? The exact cause of this condition is not known. What increases the risk? The following factors may make someone more likely to develop MDD: ??? A family history of depression. ??? Being female. ??? Long-term (chronic) stress, physical illness, other mental health disorders, or substance misuse. ??? Trauma, including: ? Family problems. ? Violence or abuse. ? Loss of a parent or close family member. ? Experiencing discrimination. What are the signs or symptoms? The main symptoms of MDD usually include: ??? Constant depressed or irritable mood. ??? A loss of interest in activities. ??? Sleeping or eating too much or too little. ??? Tiredness or low energy. Other symptoms include: ??? Unexplained weight gain or weight loss. ??? Being agitated, restless, or weak. ??? Feeling hopeless, worthless, or guilty. ??? Trouble thinking clearly or making decisions. ??? Thoughts of suicide or harming others. ??? Spending a lot of time alone. ??? Not being able to complete daily tasks or work. Severe symptoms of this condition may include: ??? Psychotic depression.This may include false beliefs or delusions. It may also include seeing, hearing, tasting, smelling, or feeling things that are not real (hallucinations). ??? Chronic depression or persistent depressive disorder. This is low-level depression that lasts for at least 2 years. ??? Melancholic depression, or feeling extremely sad and hopeless. ??? Catatonic depression, which includes trouble speaking and trouble moving. ??? Seasonal depression, which is caused by changes in the seasons. How is this diagnosed? This condition may be diagnosed based on: ??? Your symptoms. ??? Your medical and mental health history. ??? A physical exam. ??? Blood tests to rule out other conditions. MDD is confirmed if you have either a depressed mood or loss of interest and at least four other MDD symptoms, most of the day, nearly every day, in a 2-week period. How is this treated? This condition is usually treated by mental health professionals, such as psychologists, psychiatrists, and clinical social workers. You may need more than one type of treatment. Treatment may include: ??? Psychotherapy, also called talk therapy or counseling. Types of psychotherapy include: ? Cognitive behavioral therapy (CBT). This teaches you to recognize unhealthy feelings, thoughts, and behaviors, and replace them with positive thoughts and actions. ? Interpersonal therapy (IPT). This helps you to improve the way you communicate with others or relate to them. ? Family therapy. This treatment includes members of your family. ??? Medicines to treat anxiety and depression. These medicines help to balance the brain chemicals that affect your emotions. ??? Lifestyle changes. You may be asked to: ? Limit alcohol use and avoid drug use. ? Get regular exercise. ? Get plenty of sleep. ? Make healthy eating choices. ? Spend more time outdoors. ??? Brain stimulation. This may be done if symptoms are very severe and other treatments have not worked. Examples of this treatment are electroconvulsive therapy and transcranial magnetic stimulation. Follow these instructions at home: Alcohol use ??? Do not drink alcohol if: ? Your health care provider tells you not to drink. ? You are , may be , or are planning to become . ??? If you drink alcohol: ? Limit how much you have to: ? 0?1 drink a day for women ? 0?2 drinks a day for men. ? Know how much alcohol is in your drink. In the [place] one drink equals one 12 oz bottle of beer (355 mL), one 5 oz glass of wine (148 mL), or one 1? oz glass of hard liquor (44 mL). Activity ??? Exercise regularly and spend time outdoors. ??? Find activities that you enjoy and make time to do them. ??? Find healthy ways to manage stress, such as: ? Meditation or deep breathing. ? Spending time in nature. ? Journaling. ??? Return to your normal activities as told by your health care provider. Ask your health care provider what activities are safe for you. General instructions ??? Take gcmk-wnh-jxafrnv and prescription medicines only as told by your health care provider. ??? Discuss alcohol use with your health care provider. Alcoh (more content not included)... [facility] 06-13-2024 Note Patient Education Nutrition DASH Eating Plan DASH stands for Dietary Approaches to Stop Hypertension. The DASH eating plan is a healthy eating plan that has been shown to: ??? Lower high blood pressure (hypertension). ??? Reduce your risk for type 2 diabetes, heart disease, and stroke. ??? Help with weight loss. What are tips for following this plan? Reading food labels ??? Check food labels for the amount of salt (sodium) per serving. Choose foods with less than 5 percent of the Daily Value (DV) of sodium. In general, foods with less than 300 milligrams (mg) of sodium per serving fit into this eating plan. ??? To find whole grains, look for the word whole as the first word in the ingredient list. Shopping ??? Buy products labeled as low-sodium or no salt added. ??? Buy fresh foods. Avoid canned foods and pre-made or frozen meals. Cooking ??? Try not to add salt when you cook. Use salt-free seasonings or herbs instead of table salt or sea salt. Check with your health care provider or pharmacist before using salt substitutes. ??? Do not lau foods. Cook foods in healthy ways, such as baking, boiling, grilling, roasting, or broiling. ??? Cook using oils that are good for your heart. These include olive, canola, avocado, soybean, and sunflower oil. Meal planning ??? Eat a balanced diet. This should include: ? 4 or more servings of fruits and 4 or more servings of vegetables each day. Try to fill half of your plate with fruits and vegetables. ? 6?8 servings of whole grains each day. ? 6 or less servings of lean meat, poultry, or fish each day. 1 oz is 1 serving. A 3 oz (85 g) serving of meat is about the same size as the palm of your hand. One egg is 1 oz (28 g). ? 2?3 servings of low-fat dairy each day. One serving is 1 cup (237 mL). ? 1 serving of nuts, seeds, or beans 5 times each week. ? 2?3 servings of heart-healthy fats. Healthy fats called omega-3 fatty acids are found in foods such as walnuts, flaxseeds, fortified milks, and eggs. These fats are also found in cold-water fish, such as sardines, salmon, and mackerel. ??? Limit how much you eat of: ? Canned or prepackaged foods. ? Food that is high in trans fat, such as fried foods. ? Food that is high in saturated fat, such as fatty meat. ? Desserts and other sweets, sugary drinks, and other foods with added sugar. ? Full-fat dairy products. ??? Do not salt foods before eating. ??? Do not eat more than 4 egg yolks a week. ??? Try to eat at least 2 vegetarian meals a week. ??? Eat more home-cooked food and less restaurant, buffet, and fast food. Lifestyle ??? When eating at a restaurant, ask if your food can be made with less salt or no salt. ??? If you drink alcohol: ? Limit how much you have to: ? 0?1 drink a day if you are female. ? 0?2 drinks a day if you are male. ? Know how much alcohol is in your drink. In the [place] one drink is one 12 oz bottle of beer (355 mL), one 5 oz glass of wine (148 mL), or one 1? oz glass of hard liquor (44 mL). General information ??? Avoid eating more than 2,300 mg of salt a day. If you have hypertension, you may need to reduce your sodium intake to 1,500 mg a day. ??? Work with your provider to stay at a healthy body weight or lose weight. Ask what the best weight range is for you. ??? On most days of the week, get at least 30 minutes of exercise that causes your heart to beat faster. This may include walking, swimming, or biking. ??? Work with your provider or dietitian to adjust your eating plan to meet your specific calorie needs. What foods should I eat? Fruits All fresh, dried, or frozen fruit. Canned fruits that are in their natural juice and do not have sugar added to them. Vegetables Fresh or frozen vegetables that are raw, steamed, roasted, or grilled. Low-sodium or reduced-sodium tomato and vegetable juice. Low-sodium or reduced-sodium tomato sauce and tomato paste. Low-sodium or reduced-sodium canned vegetables. Grains Whole-grain or whole-wheat bread. Whole-grain or whole-wheat pasta. Brown rice. Oatmeal. Quinoa. Bulgur. Whole-grain and low-sodium cereals. [place] bread. Low-fat, low-sodium crackers. Whole-wheat flour tortillas. Meats and other proteins Skinless chicken or turkey. Ground chicken or turkey. Pork with fat trimmed off. Fish and seafood. Egg whites. Dried beans, peas, or lentils. Unsalted nuts, nut butters, and seeds. Unsalted canned beans. Lean cuts of beef with fat trimmed off. Low-sodium, lean precooked or cured meat, such as sausages or meat loaves. Dairy Low-fat (1%) or fat-free (skim) milk. Reduced-fat, low-fat, or fat-free cheeses. Nonfat, low-sodium ricotta or cottage cheese. Low-fat or nonfat yogurt. Low-fat, low-sodium cheese. Fats and oils Soft margarine without trans fats. Vegetable oil. Reduced-fat, low-fat, or light mayonnaise and salad dressings (reduced-sodium). Canola, safflower, olive, avocado, soybean, and sunflower oils (more content not included)... [facility] 05-14-2024 Hospital Discharge instructions Patient Education 05/14/2024 17:42:29 Erectile Dysfunction Erectile Dysfunction Erectile dysfunction (ED) is the inability to get or keep an erection in order to have sexual intercourse. ED is considered a symptom of an underlying disorder and is not considered a disease. ED may include: Inability to get an erection. Lack of enough hardness of the erection to allow penetration. Loss of erection before sex is finished. What are the causes? This condition may be caused by: Physical causes, such as: ?Artery problems. This may include heart disease, high blood pressure, atherosclerosis, and diabetes. ?Hormonal problems, such as low testosterone. ?Obesity. ?Nerve problems. This may include back or pelvic injuries, multiple sclerosis, Parkinson's disease, spinal cord injury, and stroke. Certain medicines, such as: ?Pain relievers. ?Antidepressants. ?Blood pressure medicines and water pills (diuretics). ?Cancer medicines. ?Antihistamines. ?Muscle relaxants. Lifestyle factors, such as: ?Use of drugs such as marijuana, cocaine, or opioids. ?Excessive use of alcohol. ?Smoking. ?Lack of physical activity or exercise. Psychological causes, such as: ?Anxiety or stress. ?Sadness or depression. ?Exhaustion. ?Fear about sexual performance. ?Guilt. What are the signs or symptoms? Symptoms of this condition include: Inability to get an erection. Lack of enough hardness of the erection to allow penetration. Loss of the erection before sex is finished. Sometimes having normal erections, but with frequent unsatisfactory episodes. Low sexual satisfaction in either partner due to erection problems. A curved penis occurring with erection. The curve may cause pain, or the penis may be too curved to allow for intercourse. Never having nighttime or morning erections. How is this diagnosed? This condition is often diagnosed by: Performing a physical exam to find other diseases or specific problems with the penis. Asking you detailed questions about the problem. Doing tests, such as: ?Blood tests to check for diabetes mellitus or high cholesterol, or to measure hormone levels. ?Other tests to check for underlying health conditions. ?An ultrasound exam to check for scarring. ?A test to check blood flow to the penis. Doing a sleep study at home to measure nighttime erections. How is this treated? This condition may be treated by: Medicines, such as: ?Medicine taken by mouth to help you achieve an erection (oral medicine). ?Hormone replacement therapy to replace low testosterone levels. ?Medicine that is injected into the penis. Your health care provider may instruct you how to give yourself these injections at home. ?Medicine that is delivered with a short applicator tube. The tube is inserted into the opening at the tip of the penis, which is the opening of the urethra. A tiny pellet of medicine is put in the urethra. The pellet dissolves and enhances erectile function. This is also called MUSE (medicated urethral system for erections) therapy. Vacuum pump. This is a pump with a ring on it. The pump and ring are placed on the penis and used to create pressure that helps the penis become erect. Penile implant surgery. In this procedure, you may receive: ?An inflatable implant. This consists of cylinders, a pump, and a reservoir. The cylinders can be inflated with a fluid that helps to create an erection, and they can be deflated after intercourse. ?A semi-rigid implant. This consists of two silicone rubber rods. The rods provide some rigidity. They are also flexible, so the penis can both curve downward in its normal position and become straight for sexual intercourse. Blood vessel surgery to improve blood flow to the penis. During this procedure, a blood vessel from a different part of the body is placed into the penis to allow blood to flow around (bypass) damaged or blocked blood vessels. Lifestyle changes, such as exercising more, losing weight, and quitting smoking. Follow these instructions at home: Medicines Take [id number] and prescription medicines only as told by your health care provider. Do not increase the dosage without first discussing it with your health care provider. If you are using self-injections, do injections as directed by your health care provider. Make sure you avoid any veins that are on the surface of the penis. After giving an injection, apply pressure to the injection site for 5 minutes. Talk to your health care provider about how to prevent headaches while taking ED medicines. These medicines may cause a sudden headache due to the increase in blood flow in your body. General instructions Exercise regularly, as directed by your health care provider. Work with your health care provider to lose weight, if needed. Do not use any products that contain nicotine or tobacco. These products include cigarettes, chewing tobacco, and vaping devices, such as e-cigarettes. If you need help quitting, ask your health care provider. Before using a vacuum pump, read the instructions that come with the pump and discuss any questions with your health care provider. Keep all follow-up visits. This is important. Contact a health care provider if: You feel nauseous. You are vomiting. You get sudden headaches while taking ED medicines. You have any concerns about your sexual health. Get help right away if: You are taking oral or injectable medicines and you have an erection that lasts longer than 4 hours. If your health care provider is unavailable, go to the nearest emergency room for evaluation. An erection that lasts much longer than 4 hours can result in permanent damage to your penis. You have severe pain in your groin or abdomen. You develop redness or severe swelling of your penis. You have redness spreading at your groin or lower abdomen. You are unable to urinate. You experience chest pain or a rapid heartbeat (palpitations) after taking oral medicines. These symptoms may represent a serious problem that is an emergency. Do not wait to see if the symptoms will go away. Get medical help right away. Call your local emergency services (911 in the [place] Do not drive yourself to the hospital. Summary Erectile dysfunction (ED) is the inability to get or keep an erection during sexual intercourse. This condition is diagnosed based on a physical exam, your symptoms, and tests to determine the cause. Treatment varies depending on the cause and may include medicines, hormone therapy, surgery, or a vacuum pump. You may need follow-up visits to make sure that you are using your medicines or devices correctly. Get help right away if you are taking or injecting medicines and you have an erection that lasts longer than 4 hours. This information is not intended to replace advice given to you by your health care provider. Make sure you discuss any questions you have with your health care provider. Document Revised: 06/10/2021 Document Reviewed: 06/10/2021 [employer] Patient Education 2023 [employer]. [facility] [place] 05-14-2024 Note Patient Education Urology Erectile Dysfunction Erectile dysfunction (ED) is the inability to get or keep an erection in order to have sexual intercourse. ED is considered a symptom of an underlying disorder and is not considered a disease. ED may include: ??? Inability to get an erection. ??? Lack of enough hardness of the erection to allow penetration. ??? Loss of erection before sex is finished. What are the causes? This condition may be caused by: ??? Physical causes, such as: ? Artery problems. This may include heart disease, high blood pressure, atherosclerosis, and diabetes. ? Hormonal problems, such as low testosterone. ? Obesity. ? Nerve problems. This may include back or pelvic injuries, multiple sclerosis, Parkinson's disease, spinal cord injury, and stroke. ??? Certain medicines, such as: ? Pain relievers. ? Antidepressants. ? Blood pressure medicines and water pills (diuretics). ? Cancer medicines. ? Antihistamines. ? Muscle relaxants. ??? Lifestyle factors, such as: ? Use of drugs such as marijuana, cocaine, or opioids. ? Excessive use of alcohol. ? Smoking. ? Lack of physical activity or exercise. ??? Psychological causes, such as: ? Anxiety or stress. ? Sadness or depression. ? Exhaustion. ? Fear about sexual performance. ? Guilt. What are the signs or symptoms? Symptoms of this condition include: ??? Inability to get an erection. ??? Lack of enough hardness of the erection to allow penetration. ??? Loss of the erection before sex is finished. ??? Sometimes having normal erections, but with frequent unsatisfactory episodes. ??? Low sexual satisfaction in either partner due to erection problems. ??? A curved penis occurring with erection. The curve may cause pain, or the penis may be too curved to allow for intercourse. ??? Never having nighttime or morning erections. How is this diagnosed? This condition is often diagnosed by: ??? Performing a physical exam to find other diseases or specific problems with the penis. ??? Asking you detailed questions about the problem. ??? Doing tests, such as: ? Blood tests to check for diabetes mellitus or high cholesterol, or to measure hormone levels. ? Other tests to check for underlying health conditions. ? An ultrasound exam to check for scarring. ? A test to check blood flow to the penis. ??? Doing a sleep study at home to measure nighttime erections. How is this treated? This condition may be treated by: ??? Medicines, such as: ? Medicine taken by mouth to help you achieve an erection (oral medicine). ? Hormone replacement therapy to replace low testosterone levels. ? Medicine that is injected into the penis. Your health care provider may instruct you how to give yourself these injections at home. ? Medicine that is delivered with a short applicator tube. The tube is inserted into the opening at the tip of the penis, which is the opening of the urethra. A tiny pellet of medicine is put in the urethra. The pellet dissolves and enhances erectile function. This is also called MUSE (medicated urethral system for erections) therapy. ??? Vacuum pump. This is a pump with a ring on it. The pump and ring are placed on the penis and used to create pressure that helps the penis become erect. ??? Penile implant surgery. In this procedure, you may receive: ? An inflatable implant. This consists of cylinders, a pump, and a reservoir. The cylinders can be inflated with a fluid that helps to create an erection, and they can be deflated after intercourse. ? A semi-rigid implant. This consists of two silicone rubber rods. The rods provide some rigidity. They are also flexible, so the penis can both curve downward in its normal position and become straight for sexual intercourse. ??? Blood vessel surgery to improve blood flow to the penis. During this procedure, a blood vessel from a different part of the body is placed into the penis to allow blood to flow around (bypass) damaged or blocked blood vessels. ??? Lifestyle changes, such as exercising more, losing weight, and quitting smoking. Follow these instructions at home: Medicines ??? Take lwon-bnx-oicvlnh and prescription medicines only as told by your health care provider. Do not increase the dosage without first discussing it with your health care provider. ??? If you are using self-injections, do injections as directed by your health care provider. Make sure you avoid any veins that are on the surface of the penis. After giving an injection, apply pressure to the injection site for 5 minutes. ??? Talk to your health care provider about how to prevent headaches while taking ED medicines. These medicines may cause a sudden headache due to the increase in blood flow in your body. General instructions ??? Exercise regularly, as directed by your health care provider. Work with your health care provider to lose weight, if needed. ??? Do not u (more content not included)... [facility] 04-30-2024 Hospital Discharge instructions Patient Education 04/30/2024 14:28:21 Prostate Cancer Screening Prostate Cancer Screening Prostate cancer screening is testing that is done to check for the presence of prostate cancer in men. The prostate gland is a walnut-sized gland that is located below the bladder and in front of the rectum in males. The function of the prostate is to add fluid to semen during ejaculation. Prostate cancer is one of the most common types of cancer in men. Who should have prostate cancer screening? Screening recommendations vary based on age and other risk factors, as well as between the professional organizations who make the recommendations. In general, screening is recommended if: You are age 50 to 70 and have an average risk for prostate cancer. You should talk with your health care provider about your need for screening and how often screening should be done. Because most prostate cancers are slow growing and will not cause , screening in this age group is generally reserved for men who have a 10- to 15-year life expectancy. You are younger than age 50, and you have these risk factors: ?Having a father, brother, or uncle who has been diagnosed with prostate cancer. The risk is higher if your family member's cancer occurred at an early age or if you have multiple family members with prostate cancer at an early age. ?Being a male who is Black or is of [place] or sub-Saharan descent. In general, screening is not recommended if: You are younger than age 40. You are between the ages of 40 and 49 and you have no risk factors. You are 70 years of age or older. At this age, the risks that screening can cause are greater than the benefits that it may provide. If you are at high risk for prostate cancer, your health care provider may recommend that you have screenings more often or that you start screening at a younger age. How is screening for prostate cancer done? The recommended prostate cancer screening test is a blood test called the prostate-specific antigen (PSA) test. PSA is a protein that is made in the prostate. As you age, your prostate naturally produces more PSA. Abnormally high PSA levels may be caused by: Prostate cancer. An enlarged prostate that is not caused by cancer (benign prostatic hyperplasia, or BPH). This condition is very common in older men. A prostate gland infection (prostatitis) or urinary tract infection. Certain medicines such as male hormones (like testosterone) or other medicines that raise testosterone levels. A rectal exam may be done as part of prostate cancer screening to help provide information about the size of your prostate gland. When a rectal exam is performed, it should be done after the PSA level is drawn to avoid any effect on the results. Depending on the PSA results, you may need more tests, such as: A physical exam to check the size of your prostate gland, if not done as part of screening. Blood and imaging tests. A procedure to remove tissue samples from your prostate gland for testing (biopsy). This is the only way to know for certain if you have prostate cancer. What are the benefits of prostate cancer screening? Screening can help to identify cancer at an early stage, before symptoms start and when the cancer can be treated more easily. There is a small chance that screening may lower your risk of dying from prostate cancer. The chance is small because prostate cancer is a slow-growing cancer, and most men with prostate cancer from a different cause. What are the risks of prostate cancer screening? The main risk of prostate cancer screening is diagnosing and treating prostate cancer that would never have caused any symptoms or problems. This is called overdiagnosisand overtreatment. PSA screening cannot tell you if your PSA is high due to cancer or a different cause. A prostate biopsy is the only procedure to diagnose prostate cancer. Even the results of a biopsy may not tell you if your cancer needs to be treated. Slow-growing prostate cancer may not need any treatment other than monitoring, so diagnosing and treating it may cause unnecessary stress or other side effects. Questions to ask your health care provider When should I start prostate cancer screening? What is my risk for prostate cancer? How often do I need screening? What type of screening tests do I need? How do I get my test results? What do my results mean? Do I need treatment? Where to find more information [employer] [place] [employer]: www.cancer.org [employer]: www.auanet.org Contact a health care provider if: You have difficulty urinating. You have pain when you urinate or ejaculate. You have blood in your urine or semen. You have pain in your back or in the area of your prostate. Summary Prostate cancer is a common type of cancer in men. The prostate gland is located below the bladder and in front of the rectum. This gland adds fluid to semen during ejaculation. Prostate cancer screening may identify cancer at an early stage, when the cancer can be treated more easily and is less likely to have spread to other areas of the body. The prostate-specific antigen (PSA) test is the recommended screening test for prostate cancer, but it has associated risks. Discuss the risks and benefits of prostate cancer screening with your health care provider. If you are age 70 or older, the risks that screening can cause are greater than the benefits that it may provide. This information is not intended to replace advice given to you by your health care provider. Make sure you discuss any questions you have with your health care provider. Document Revised: 09/07/2021 Document Reviewed: 09/07/2021 [employer] Patient Education 2023 [employer]. Follow Up Care 10/14/2023 11:23:21 With:RAMAKRISHNA LICONA, Nick Irwin, URL Address: [facility] [address] [place] [phone]- [phone] When: Unknown [facility] 04-30-2024 Note Patient Education Oncology Prostate Cancer Screening Prostate cancer screening is testing that is done to check for the presence of prostate cancer in men. The prostate gland is a walnut-sized gland that is located below the bladder and in front of the rectum in males. The function of the prostate is to add fluid to semen during ejaculation. Prostate cancer is one of the most common types of cancer in men. Who should have prostate cancer screening? Screening recommendations vary based on age and other risk factors, as well as between the professional organizations who make the recommendations. In general, screening is recommended if: ??? You are age 50 to 70 and have an average risk for prostate cancer. You should talk with your health care provider about your need for screening and how often screening should be done. Because most prostate cancers are slow growing and will not cause , screening in this age group is generally reserved for men who have a 10- to 15-year life expectancy. ??? You are younger than age 50, and you have these risk factors: ? Having a father, brother, or uncle who has been diagnosed with prostate cancer. The risk is higher if your family member's cancer occurred at an early age or if you have multiple family members with prostate cancer at an early age. ? Being a male who is Black or is of [place] or sub-Saharan descent. In general, screening is not recommended if: ??? You are younger than age 40. ??? You are between the ages of 40 and 49 and you have no risk factors. ??? You are 70 years of age or older. At this age, the risks that screening can cause are greater than the benefits that it may provide. If you are at high risk for prostate cancer, your health care provider may recommend that you have screenings more often or that you start screening at a younger age. How is screening for prostate cancer done? The recommended prostate cancer screening test is a blood test called the prostate-specific antigen (PSA) test. PSA is a protein that is made in the prostate. As you age, your prostate naturally produces more PSA. Abnormally high PSA levels may be caused by: ??? Prostate cancer. ??? An enlarged prostate that is not caused by cancer (benign prostatic hyperplasia, or BPH). This condition is very common in older men. ??? A prostate gland infection (prostatitis) or urinary tract infection. ??? Certain medicines such as male hormones (like testosterone) or other medicines that raise testosterone levels. A rectal exam may be done as part of prostate cancer screening to help provide information about the size of your prostate gland. When a rectal exam is performed, it should be done after the PSA level is drawn to avoid any effect on the results. Depending on the PSA results, you may need more tests, such as: ??? A physical exam to check the size of your prostate gland, if not done as part of screening. ??? Blood and imaging tests. ??? A procedure to remove tissue samples from your prostate gland for testing (biopsy). This is the only way to know for certain if you have prostate cancer. What are the benefits of prostate cancer screening? Screening can help to identify cancer at an early stage, before symptoms start and when the cancer can be treated more easily. ??? There is a small chance that screening may lower your risk of dying from prostate cancer. The chance is small because prostate cancer is a slow-growing cancer, and most men with prostate cancer from a different cause. What are the risks of prostate cancer screening? The main risk of prostate cancer screening is diagnosing and treating prostate cancer that would never have caused any symptoms or problems. This is called overdiagnosisand overtreatment. PSA screening cannot tell you if your PSA is high due to cancer or a different cause. A prostate biopsy is the only procedure to diagnose prostate cancer. Even the results of a biopsy may not tell you if your cancer needs to be treated. Slow-growing prostate cancer may not need any treatment other than monitoring, so diagnosing and treating it may cause unnecessary stress or other side effects. Questions to ask your health care provider ??? When should I start prostate cancer screening? What is my risk for prostate cancer? How often do I need screening? What type of screening tests do I need? How do I get my test results? What do my results mean? Do I need treatment? Where to find more information ??? The [place] [employer]: www.cancer.org ??? [employer]: www.auanet.org Contact a health care provider if: ??? You have difficulty urinating. ??? You have pain when you urinate or ejaculate. ??? You have blood in your urine or semen. ??? You have pain in your back or in the area of your prostate. Summary ??? Prostate cancer is a common type of cancer in men. The prostate gland (more content not included)... [facility] 04-19-2024 Hospital Discharge instructions Patient Education 04/19/2024 10:38:29 Sinus Infection, Adult Sinus Infection, Adult A sinus infection, also called sinusitis, is inflammation of your sinuses. Sinuses are hollow spaces in the bones around your face. Your sinuses are located: Around your eyes. In the middle of your forehead. Behind your nose. In your cheekbones. Mucus normally drains out of your sinuses. When your nasal tissues become inflamed or swollen, mucus can become trapped or blocked. This allows bacteria, viruses, and fungi to grow, which leads to infection. Most infections of the sinuses are caused by a virus. A sinus infection can develop quickly. It can last for up to 4 weeks (acute) or for more than 12 weeks (chronic). A sinus infection often develops after a cold. What are the causes? This condition is caused by anything that creates swelling in the sinuses or stops mucus from draining. This includes: Allergies. Asthma. Infection from bacteria or viruses. Deformities or blockages in your nose or sinuses. Abnormal growths in the nose (nasal polyps). Pollutants, such as chemicals or irritants in the air. Infection from fungi. This is rare. What increases the risk? You are more likely to develop this condition if you: Have a weak body defense system (immune system). Do a lot of swimming or diving. Overuse nasal sprays. Smoke. What are the signs or symptoms? The main symptoms of this condition are pain and a feeling of pressure around the affected sinuses. Other symptoms include: Stuffy nose or congestion that makes it difficult to breathe through your nose. Thick yellow or greenish drainage from your nose. Tenderness, swelling, and warmth over the affected sinuses. A cough that may get worse at night. Decreased sense of smell and taste. Extra mucus that collects in the throat or the back of the nose (postnasal drip) causing a sore throat or bad breath. Tiredness (fatigue). Fever. How is this diagnosed? This condition is diagnosed based on: Your symptoms. Your medical history. A physical exam. Tests to find out if your condition is acute or chronic. This may include: ?Checking your nose for nasal polyps. ?Viewing your sinuses using a device that has a light (endoscope). ?Testing for allergies or bacteria. ?Imaging tests, such as an MRI or CT scan. In rare cases, a bone biopsy may be done to rule out more serious types of fungal sinus disease. How is this treated? Treatment for a sinus infection depends on the cause and whether your condition is chronic or acute. If caused by a virus, your symptoms should go away on their own within 10 days. You may be given medicines to relieve symptoms. They include: ?Medicines that shrink swollen nasal passages (decongestants). ?A spray that eases inflammation of the nostrils (topical intranasal corticosteroids). ?Rinses that help get rid of thick mucus in your nose (nasal saline washes). ?Medicines that treat allergies (antihistamines). ?Mlqz-old-tmcszyv pain relievers. If caused by bacteria, your health care provider may recommend waiting to see if your symptoms improve. Most bacterial infections will get better without antibiotic medicine. You may be given antibiotics if you have: ?A severe infection. ?A weak immune system. If caused by narrow nasal passages or nasal polyps, surgery may be needed. Follow these instructions at home: Medicines Take, use, or apply zkpt-vfl-deospae and prescription medicines only as told by your health care provider. These may include nasal sprays. If you were prescribed an antibiotic medicine, take it as told by your health care provider. Do not stop taking the antibiotic even if you start to feel better. Hydrate and humidify Drink enough fluid to keep your urine pale yellow. Staying hydrated will help to thin your mucus. Use a cool mist humidifier to keep the humidity level in your home above 50%. Inhale steam for 10 15 minutes, 3 4 times a day, or as told by your health care provider. You can do this in the bathroom while a hot shower is running. Limit your exposure to cool or dry air. Rest Rest as much as possible. Sleep with your head raised (elevated). Make sure you get enough sleep each night. General instructions Apply a warm, moist washcloth to your face 3 4 times a day or as told by your health care provider. This will help with discomfort. Use nasal saline washes as often as told by your health care provider. Wash your hands often with soap and water to reduce your exposure to germs. If soap and water are not available, use hand head of music. Do not smoke. Avoid being around people who are smoking (secondhand smoke). Keep all follow-up visits. This is important. Contact a health care provider if: You have a fever. Your symptoms get worse. Your symptoms do not improve within 10 days. Get help right away if: You have a severe headache. You have persistent vomiting. You have severe pain or swelling around your face or eyes. You have vision problems. You develop confusion. Your neck is stiff. You have trouble breathing. These symptoms may be an emergency. Get help right away. Call 911. Do not wait to see if the symptoms will go away. Do not drive yourself to the hospital. Summary A sinus infection is soreness and inflammation of your sinuses. Sinuses are hollow spaces in the bones around your face. This condition is caused by nasal tissues that become inflamed or swollen. The swelling traps or blocks the flow of mucus. This allows bacteria, viruses, and fungi to grow, which leads to infection. If you were prescribed an antibiotic medicine, take it as told by your health care provider. Do not stop taking the antibiotic even if you start to feel better. Keep all follow-up visits. This is important. This information is not intended to replace advice given to you by your health care provider. Make sure you discuss any questions you have with your health care provider. Document Revised: 02/16/2022 Document Reviewed: 02/16/2022 [employer] Patient Education 2023 [employer]. Follow Up Care 04/19/2024 08:29:10 With:NAVID LICONA, JEREMIAH Khan Address: When: only if needed [facility] [place] 04-19-2024 Note Patient Education Infectious Disease Sinus Infection, Adult A sinus infection, also called sinusitis, is inflammation of your sinuses. Sinuses are hollow spaces in the bones around your face. Your sinuses are located: ??? Around your eyes. ??? In the middle of your forehead. ??? Behind your nose. ??? In your cheekbones. Mucus normally drains out of your sinuses. When your nasal tissues become inflamed or swollen, mucus can become trapped or blocked. This allows bacteria, viruses, and fungi to grow, which leads to infection. Most infections of the sinuses are caused by a virus. A sinus infection can develop quickly. It can last for up to 4 weeks (acute) or for more than 12 weeks (chronic). A sinus infection often develops after a cold. What are the causes? This condition is caused by anything that creates swelling in the sinuses or stops mucus from draining. This includes: ??? Allergies. ??? Asthma. ??? Infection from bacteria or viruses. ??? Deformities or blockages in your nose or sinuses. ??? Abnormal growths in the nose (nasal polyps). ??? Pollutants, such as chemicals or irritants in the air. ??? Infection from fungi. This is rare. What increases the risk? You are more likely to develop this condition if you: ??? Have a weak body defense system (immune system). ??? Do a lot of swimming or diving. ??? Overuse nasal sprays. ??? Smoke. What are the signs or symptoms? The main symptoms of this condition are pain and a feeling of pressure around the affected sinuses. Other symptoms include: ??? Stuffy nose or congestion that makes it difficult to breathe through your nose. ??? Thick yellow or greenish drainage from your nose. ??? Tenderness, swelling, and warmth over the affected sinuses. ??? A cough that may get worse at night. ??? Decreased sense of smell and taste. ??? Extra mucus that collects in the throat or the back of the nose (postnasal drip) causing a sore throat or bad breath. ??? Tiredness (fatigue). ??? Fever. How is this diagnosed? This condition is diagnosed based on: ??? Your symptoms. ??? Your medical history. ??? A physical exam. ??? Tests to find out if your condition is acute or chronic. This may include: ? Checking your nose for nasal polyps. ? Viewing your sinuses using a device that has a light (endoscope). ? Testing for allergies or bacteria. ? Imaging tests, such as an MRI or CT scan. In rare cases, a bone biopsy may be done to rule out more serious types of fungal sinus disease. How is this treated? Treatment for a sinus infection depends on the cause and whether your condition is chronic or acute. ??? If caused by a virus, your symptoms should go away on their own within 10 days. You may be given medicines to relieve symptoms. They include: ? Medicines that shrink swollen nasal passages (decongestants). ? A spray that eases inflammation of the nostrils (topical intranasal corticosteroids). ? Rinses that help get rid of thick mucus in your nose (nasal saline washes). ? Medicines that treat allergies (antihistamines). ? Okja-fly-yjctzsj pain relievers. ??? If caused by bacteria, your health care provider may recommend waiting to see if your symptoms improve. Most bacterial infections will get better without antibiotic medicine. You may be given antibiotics if you have: ? A severe infection. ? A weak immune system. ??? If caused by narrow nasal passages or nasal polyps, surgery may be needed. Follow these instructions at home: Medicines ??? Take, use, or apply chix-osw-buwcilo and prescription medicines only as told by your health care provider. These may include nasal sprays. ??? If you were prescribed an antibiotic medicine, take it as told by your health care provider. Do not stop taking the antibiotic even if you start to feel better. Hydrate and humidify ??? Drink enough fluid to keep your urine pale yellow. Staying hydrated will help to thin your mucus. ??? Use a cool mist humidifier to keep the humidity level in your home above 50%. ??? Inhale steam for 10?15 minutes, 3?4 times a day, or as told by your health care provider. You can do this in the bathroom while a hot shower is running. ??? Limit your exposure to cool or dry air. Rest ??? Rest as much as possible. ??? Sleep with your head raised (elevated). ??? Make sure you get enough sleep each night. General instructions ??? Apply a warm, moist washcloth to your face 3?4 times a day or as told by your health care provider. This will help with discomfort. ??? Use nasal saline washes as often as told by your health care provider. ??? Wash your hands often with soap and water to reduce your exposure to germs. If soap and water are not available, use hand head of music. ??? Do not smoke. Avoid being around people who are smoking (secondhand smoke). ??? Keep all follow-up (more content not included)... [facility] 04-04-2024 Hospital Discharge instructions Patient Education 04/04/2024 16:29:10 Dysphagia Eating Plan, Bite Size Food Dysphagia Eating Plan, Bite Size Food This diet is recommended for people who are not able to bite pieces of food but are able to chew. You may need this diet if you have weakness of the muscles that control swallowing, you have an increased risk of choking, or you suffer from fatigue when chewing. Foods in the diet are soft, tender, and moist. Work with your health care provider, your diet and nutrition partner (dietitian), or speech-language pathologist to make sure you are following the eating plan safely and getting all the nutrients you need. What are tips for following this plan? Cooking To moisten foods, add liquids while you are blending, mashing, or grinding your foods to the right consistency. These liquids include gravies, sauces, vegetable or fruit juice, milk, half and half, or water. Strain extra liquid from foods before eating. Reheat foods slowly to prevent a tough crust from forming. Prepare foods in advance. Meal planning Eat a variety of foods to get all the nutrients you need. Some foods may be tolerated better than others. Work with your speech-language pathologist to identify which foods are safest for you to eat. Follow your meal plan as told by your dietitian. General information You may eat foods that are tender, soft, and moist. Always test food texture before taking a bite. Poke food with a fork or spoon to make sure it is tender. The test sample should squash, break apart, or change shape, and it should not return to its original shape when the fork or spoon is removed. Food should be easy to cut and chew. Avoid large pieces of food that require a lot of chewing. Take small bites. Each bite should be smaller than your thumbnail (about 15 mm by 15 mm for adults and 8mm by 8 mm for children). If you were on a pureed or minced food eating plan, you may eat any of the foods included in those diets. Avoid foods that are very dry, hard, sticky, chewy, coarse, or crunchy. If instructed by your health care provider, thicken liquids. Follow your health care provider's instructions for what products to use, how to do this, and to what thickness. What foods should I eat? Fruits Canned or cooked fruits that are soft or moist and do not have skin or seeds. Fresh, soft bananas. Vegetables Soft, well-cooked vegetables in small pieces. Soft-cooked, mashed potatoes. Grains Moist breads without nuts or seeds. Biscuits, muffins, pancakes, and waffles that are well-moistened with syrup, jelly, margarine, or butter. Cooked cereals. Moist bread stuffing. Moist rice. Well-moistened cold cereal with small chunks. Well-cooked pasta, noodles, and rice in small pieces and thick sauce. Soft dumplings or spaetzle in small pieces and butter or gravy. Meats and other proteins Tender, moist meats or poultry in small pieces. Moist meatballs or meatloaf. Fish without bones. Eggs or egg substitutes in small pieces. Tofu. Tempeh and meat alternatives in small pieces. Well-cooked, tender beans, peas, baked beans, and other legumes. Dairy Milk. Cream cheese. Yogurt. Cottage cheese. Sour cream. Small pieces of soft cheese. Fats and oils Butter. Oils. Margarine. Mayonnaise. Gravy. Spreads. Sweets and desserts Soft, smooth, moist desserts. Pudding. Custard. Moist cakes. Jam. Jelly. Honey. Preserves. Ask your health care provider whether you can have frozen desserts. Seasonings and other foods All seasonings and sweeteners. All sauces with small chunks. Prepared tuna, egg, or chicken salad without raw fruits or vegetables. Moist casseroles with small, tender pieces of meat. Soups with tender meat. The items listed above may not be a complete list of foods and beverages you can eat. Contact a dietitian for more information. What foods should I avoid? Fruits Hard, crunchy, stringy, high-pulp, and juicy raw fruits such as apples, pineapple, papaya, and watermelon. Small, round fruits, such as grapes. Dried fruit and fruit leather. Vegetables All raw vegetables. Cooked corn. Rubbery or stiff cooked vegetables. Stringy vegetables, such as celery. Tough, crisp fried potatoes. Potato skins. Grains Coarse or dry cereals. Dry breads. Graham. Crackers. Tough, crusty breads, such as Korean bread and baguettes. Dry pancakes, waffles, and muffins. Sticky rice. Dry bread stuffing. Granola. Popcorn. Chips. Meats and other proteins Large pieces of meat. Dry, tough meats, such as singh, sausage, and hot dogs. Chicken, turkey, or fish with skin and bones. Crunchy peanut butter. Nuts. Seeds. Nut and seed butters. Dairy Yogurt with nuts, seeds, or large chunks. Large chunks of cheese. Sweets and desserts Dry cakes. Chewy or dry cookies. Any desserts with nuts, seeds, dry fruits, coconut, pineapple, or anything dry, sticky, or hard. Chewy caramel. Licorice. Taffy-type candies. Ask your health care provider whether you can have frozen desserts. Seasonings and other foods Soups with tough or large chunks of meats, poultry, or vegetables. [place] or clam chowder. Smoothies with large chunks of fruit. The items listed above may not be a complete list of foods and beverages you should avoid. Contact a dietitian for more information. Summary Bite-size foods can be helpful for people with swallowing problems. On this dysphagia eating plan, you may eat foods that are soft, moist, and cut into pieces smaller than your thumbnail (about 15 mm by 15 mm for adults and 8mm by 8 mm for children). You may be instructed to thicken liquids. Follow your health care provider's instructions about how to do this and to what consistency. This information is not intended to replace advice given to you by your health care provider. Make sure you discuss any questions you have with your health care provider. Document Revised: 05/06/2022 Document Reviewed: 05/06/2022 [employer] Patient Education 2023 [employer]. Follow Up Care 03/16/2024 13:43:31 With:NAVID LICONA, JEREMIAH Khan Address: When: only if needed [facility] [place] 04-04-2024 Note Patient Education Physical Medicine and Rehabilitation Dysphagia Eating Plan, Bite Size Food This diet is recommended for people who are not able to bite pieces of food but are able to chew. You may need this diet if you have weakness of the muscles that control swallowing, you have an increased risk of choking, or you suffer from fatigue when chewing. Foods in the diet are soft, tender, and moist. Work with your health care provider, your diet and nutrition partner (dietitian), or speech-language pathologist to make sure you are following the eating plan safely and getting all the nutrients you need. What are tips for following this plan? Cooking ??? To moisten foods, add liquids while you are blending, mashing, or grinding your foods to the right consistency. These liquids include gravies, sauces, vegetable or fruit juice, milk, half and half, or water. ??? Strain extra liquid from foods before eating. ??? Reheat foods slowly to prevent a tough crust from forming. ??? Prepare foods in advance. Meal planning ??? Eat a variety of foods to get all the nutrients you need. ??? Some foods may be tolerated better than others. Work with your speech-language pathologist to identify which foods are safest for you to eat. ??? Follow your meal plan as told by your dietitian. General information ??? You may eat foods that are tender, soft, and moist. ??? Always test food texture before taking a bite. Poke food with a fork or spoon to make sure it is tender. The test sample should squash, break apart, or change shape, and it should not return to its original shape when the fork or spoon is removed. ??? Food should be easy to cut and chew. Avoid large pieces of food that require a lot of chewing. ??? Take small bites. Each bite should be smaller than your thumbnail (about 15 mm by 15 mm for adults and 8mm by 8 mm for children). ??? If you were on a pureed or minced food eating plan, you may eat any of the foods included in those diets. ??? Avoid foods that are very dry, hard, sticky, chewy, coarse, or crunchy. ??? If instructed by your health care provider, thicken liquids. Follow your health care provider's instructions for what products to use, how to do this, and to what thickness. What foods should I eat? Fruits Canned or cooked fruits that are soft or moist and do not have skin or seeds. Fresh, soft bananas. Vegetables Soft, well-cooked vegetables in small pieces. Soft-cooked, mashed potatoes. Grains Moist breads without nuts or seeds. Biscuits, muffins, pancakes, and waffles that are well-moistened with syrup, jelly, margarine, or butter. Cooked cereals. Moist bread stuffing. Moist rice. Well-moistened cold cereal with small chunks. Well-cooked pasta, noodles, and rice in small pieces and thick sauce. Soft dumplings or spaetzle in small pieces and butter or gravy. Meats and other proteins Tender, moist meats or poultry in small pieces. Moist meatballs or meatloaf. Fish without bones. Eggs or egg substitutes in small pieces. Tofu. Tempeh and meat alternatives in small pieces. Well-cooked, tender beans, peas, baked beans, and other legumes. Dairy Milk. Cream cheese. Yogurt. Cottage cheese. Sour cream. Small pieces of soft cheese. Fats and oils Butter. Oils. Margarine. Mayonnaise. Gravy. Spreads. Sweets and desserts Soft, smooth, moist desserts. Pudding. Custard. Moist cakes. Jam. Jelly. Honey. Preserves. Ask your health care provider whether you can have frozen desserts. Seasonings and other foods All seasonings and sweeteners. All sauces with small chunks. Prepared tuna, egg, or chicken salad without raw fruits or vegetables. Moist casseroles with small, tender pieces of meat. Soups with tender meat. The items listed above may not be a complete list of foods and beverages you can eat. Contact a dietitian for more information. What foods should I avoid? Fruits Hard, crunchy, stringy, high-pulp, and juicy raw fruits such as apples, pineapple, papaya, and watermelon. Small, round fruits, such as grapes. Dried fruit and fruit leather. Vegetables All raw vegetables. Cooked corn. Rubbery or stiff cooked vegetables. Stringy vegetables, such as celery. Tough, crisp fried potatoes. Potato skins. Grains Coarse or dry cereals. Dry breads. Graham. Crackers. Tough, crusty breads, such as Korean bread and baguettes. Dry pancakes, waffles, and muffins. Sticky rice. Dry bread stuffing. Granola. Popcorn. Chips. Meats and other proteins Large pieces of meat. Dry, tough meats, such as singh, sausage, and hot dogs. Chicken, turkey, or fish with skin and bones. Crunchy peanut butter. Nuts. Seeds. Nut and seed butters. Dairy Yogurt with nuts, seeds, or large chunks. Large chunks of cheese. Sweets and desserts Dry cakes. Chewy or dry cookies. Any desserts with nuts, seeds, dry fruits, coconut, pineapple, or anything dry (more content not included)... [facility] 03-16-2024 History of Present illness Narrative Images from the original note were not included. Skin Check Location: Patient requests a full body skin examination Dermatologic history: no history of skin cancer, no history of atypical moles, no family history of melanoma Last visit: new patient Lesions: Location: right upper back Duration: months Quality: denies pain, denies itch, denies bleeding Modifying factors: none Associated symptoms: rough, scaly Treatments: none Lesion # 2: Location: face x 2 Duration: months Quality: denies pain, denies itch, denies bleeding Modifying factors: aggravated by picking, aggravated by shaving Associated symptoms: rough, scaly Treatments: none All pertinent medical history, medications, and allergies were reviewed. General Exam: alert, oriented to person, place, and time, normal affect, well appearing Unaccompanied Areas not examined despite medical recommendation: Under socks Scalp, Examined , exam limited by hair Right leg Examined patient kept socks on Head, Face Examined Left leg Examined patient kept socks on Neck Examined Right foot Not examined Chest Examined Left foot Not examined Back Examined Buttocks Examined Abdomen Examined Digits,nails: Examined Right arm Examined Left arm Examined Lymphatics: Not examined Hands Examined 1. Sebaceous hyperplasia of face Head - Anterior (Face) Small yellow papules with a central dell. Reassure, benign. Discussed these can be removed for a cosmetic fee with the hyfrecator if desired. 2. Lentigines (5) Head - Anterior (Face), Left Arm, Neck, Right Arm, Torso - Posterior (Back) Scattered kerr macules in sun-exposed areas. The patient was informed that lentigines are benign pigmented lesions that occur on sun-exposed and sun-damaged skin. No treatment is necessary. Recommended regular use of broad spectrum sunscreen SPF 30 or higher 3. Actinic keratosis (4) Left Arm, Left Buccal Cheek, Left Zygomatic Area, Right Arm Erythematous scaly papules Patient was counseled regarding these sun-induced growths that can develop into squamous cell carcinoma if left untreated. Discussed treatment with cryotherapy. It was emphasized that any treated lesions that fail to resolve should be re-evaluated. Cryotherapy performed today; see procedure note Diagnosis: Actinic keratosis Indication: Precancerous Location: see skin exam Consent: Verbal consent was obtained and risks were discussed, including, but not limited to risks of scarring, darker or mc kay stitcher pigmentary changes, recurrence, incomplete removal and infection. Method: Liquid nitrogen was used to treat the lesion(s) with two 5-10 second freeze-thaw cycles. Eyes were shielded using cotton pad during procedure Number of lesions treated: 2 Post-procedure instructions: Instructions were given orally and in writing. The office will be contacted if the lesion fails to resolve despite treatment, or if a side effect develops such as abnormal crusting, scabbing, redness or tenderness Patient elected for treatment with Efudex. Educated on Efudex treatment. Apply to arms twice a day for two weeks. Discussed that treated areas will become red, crusty, and inflamed. If areas become too uncomfortable, patient may use OTC hydrocortisone cream to help decrease irritation and can discontinue treatment early. Sun exposure should be avoided during treatment. Patient instructed to contact office for any questions or issues during treatment. Lesions that fail to resolve once treated area is healed should be re-evaluated in the office. Handout given to patient Cryotherapy, skin lesion - Left Buccal Cheek, Left Zygomatic Area Related Medications fluorouracil (Efudex) 5 % cream Apply to directed areas on arms bid x 14 days 4. Neoplasm of unspecified behavior of bone, soft tissue, and skin Right Upper Back Yellow papule Lesion biopsy Type of biopsy: tangential Informed consent: discussed and consent obtained Informed consent comment: The risks and benefits of the biopsy were discussed. Risks include but are not limited to bleeding, infection, scarring, pain, and nerve damage. An opportunity to ask questions prior to the procedure was permitted and all questions were answered. Patient was prepped and draped in usual sterile fashion: area cleansed with alcohol. Anesthesia: the lesion was anesthetized in a standard fashion Anesthetic: 1% lidocaine w/ epinephrine 1-100,000 buffered w/ 8.4% NaHCO3 Instrument used: DermaBlade Hemostasis achieved with: electrodesiccation Outcome: patient tolerated procedure well Outcome comment: The specimen was placed in a prelabeled formalin container to be sent for pathology Post-procedure details: sterile dressing applied and wound care instructions given Post-procedure details comment: Emphasized need to contact clinic for any signs of infection, uncontrollable bleeding, or complications. Dressing type: bandage Additional details: Photo taken Amount of lidocaine used: 1 cc Specimen A - Dermatopathology exam Differential Diagnosis: sebaceous hyperplasia vs sebaceous carcinoma Check Margins: No Size of lesion: 0.8 x 0.8 cm Next Visit: 1 year skin check, pending biopsy documented in this encounter [facility] 03-15-2024 History of Present illness Narrative Melisa Padilla is a 68 y.o. male presents with chief complaint of Foot Pain and Toenail Problem (Nail fungus) HPI: HPI Pt states toenail fungus for about a year. SUBJECTIVE: Diabetic/Routine Nail Care: Location: nails on bilateral feet. Severity of symptoms: mild numb/tingle. Onset:gradual. Status:no change. Context: hard to trim, hard to reach. NAILS-thickened, discolored, pain. Relieved by debridement, filing down nails, clipping nails. History of ulcers/wounds: no. PCP Dr Jessika Marvin Date of Last visit 02-29-2024 Aggravated by shoe gear, pressure All nails thick and hard to trim, gr toes most tender [place] shoes most MEDICATIONS: Current Outpatient Medications Medication Instructions allopurinol (ZYLOPRIM) 100 mg famotidine (Pepcid) 40 MG tablet See Instructions, take 1 tablet by mouth at bedtime, # 90 tab(s), Refills(s) 4, Pharmacy: [facility], 180, cm, 12/16/23 13:27:00 EDT, Height/Length Dosing, 105.2, kg, 12/16/23 13:27:00 EDT, Weight Dosing losartan (Cozaar) 25 MG tablet See Instructions, take 1 tablet by mouth once daily, # 90 tab(s), Refills(s) 4, Pharmacy: [facility], 180, cm, 12/16/23 13:27:00 EDT, Height/Length Dosing, 105.2, kg, 12/16/23 13:27:00 EDT, Weight Dosing tadalafil (Cialis) 20 MG tablet See Instructions, 1 tab(s) orally 45 minutes prior to making love, # 5 tab(s), Refills(s) 5, Pharmacy: [facility], 180, cm, 02/16/24 15:46:00 EST, Height/Length Dosing, 106.5, kg, 02/16/24 15:46:00 EST, Weight Dosing ALLERGIES: No Known Allergies REVIEW OF SYMPTOMS: Review of Systems Constitutional: Negative for chills and fever. Respiratory: Negative for shortness of breath. Cardiovascular: Negative for chest pain. Gastrointestinal: Negative for abdominal pain. Neurological: Negative for dizziness. Psychiatric/Behavioral: Negative for confusion. OBJECTIVE: Visit Vitals BP 135/89 Pulse 79 Resp 18 Ht 5' 11 Wt 230 lb BMI 32.08 kg/m Smoking Status Never BSA 2.28 m Physical Exam General General Appearance: appears stated age and healthy Orientation: alert and oriented to person, place, and time Right Foot/Ankle Inspection and Palpation Ecchymosis: none Tenderness: none Swelling: none Arch: normal Hammertoes: second toe, third toe, fourth toe and fifth toe Hallux valgus: no Hallux limitus: no Skin Exam: skin intact; Atrophic skin and neg digital hair Neurovascular Dorsalis pedis: 3+ Posterior tibial: 3+ absent sharp sensation lesser toes and 2 areas 5.07 monofilament Achilles reflex: 2+ Babinski reflex: 2+ Muscle Strength Ankle dorsiflexion: 5 Ankle plantar flexion: 5 Ankle inversion: 5 Ankle eversion: 5 Great toe extension: 5 Great toe flexion: 5 Range of Motion Normal right ankle ROM Nails: Digit 1 thick,yellow,crumbling 6mm Digit 2 thick,yellow,crumbling 5mm Digit 3t hick,yellow,crumbling 4mm Digit 4 thick,yellow,crumbling 3mm Digit 5 thick,yellow,crumbling 4mm Left Foot/Ankle Inspection and Palpation Ecchymosis: none Tenderness: none Swelling: none Arch: normal Hammertoes: second toe, third toe, fourth toe and fifth toe Claw toes: absent Hallux valgus: no Hallux limitus: no Skin Exam: skin intact; Atrophic skin and neg digital hair Neurovascular Dorsalis pedis: 3+ Posterior tibial: 3+ absent sharp sensation lesser toes and 2 areas 5.07 monofilament Achilles reflex: 2+ Babinski reflex: 2+ Muscle Strength Ankle dorsiflexion: 5 Ankle plantar flexion: 5 Ankle inversion: 5 Ankle eversion: 5 Great toe extension: 5 Great toe flexion: 5 Range of Motion Normal left ankle ROM Nails: Digit 1 thick,yellow,crumbling 5mm Digit 2 thick,yellow,crumbling 4mm Digit 3t hick,yellow,crumbling 4mm Digit 4 thick,yellow,crumbling 3mm Digit 5 thick,yellow,crumbling 3mm POP rt 1, more than left ASSESSMENT AND PLAN: Assessment/Plan Diagnoses and all orders for this visit: Onychomycosis of great toe - Fungal culture, cutaneous; Future Paronychia of toe of left foot Paronychia of toe of right foot Pain in toes of both feet 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 Nails: all thick and dystrophic nails debrided of all affected and loose material Oral Antifungal: oral meds reviewed and planned after considering risks and alternatives. shoe and foot hygiene to improve and labs planned Hammertoe: deformed toes reviewed with risk of ulceration and infection. shoe changes reviewed including rx shoes. extra depth needed and will use pads until shoe fit improved.. surgical correction also reviewed Neuropathy: sugar control emphasized and caution for wounds and regular inspections. any new problems with appt sugg. pain can b treated with topical or oral measures, many were offered. pain can b managed with topcial or oral methods and offered today Soaks: warm soapy soaks planned BID until relief and wound healing 10 min followed by peroxide cleanse and AB drsg documented in this encounter [facility] 02-29-2024 Hospital Discharge instructions Patient Education 02/29/2024 13:57:51 BMI for Adults BMI for Adults Body mass index (BMI) is a number found using a person's weight and height. BMI can help tell how much of a person's weight is made up of fat. BMI does not measure body fat directly. It is used instead of tests that directly measure body fat, which can be difficult and expensive. What are BMI measurements used for? BMI is useful to: Find out if your weight puts you at higher risk for medical problems. Help recommend changes, such as in diet and exercise. This can help you reach a healthy weight. BMI screening can be done again to see if these changes are working. How is BMI calculated? Your height and weight are measured. The BMI is found from those numbers. This can be done with [place] or metric measurements. Note that charts and online BMI calculators are available to help you find your BMI quickly and easily without doing these calculations. To calculate your BMI in [place] measurements: 1.Measure your weight in pounds (lb). 2.Multiply the number of pounds by 703. So, for an adult who weighs 150 lb, multiply that number by 703: 150 x 703, which equals 105,450. 3.Measure your height in inches. Then multiply that number by itself to get a measurement called inches squared. So, for an adult who is 70 inches tall, the inches squared measurement is 70 inches x 70 inches, which equals 4,900 inches squared. 4.Divide the total from step 2 (number of lb x 703) by the total from step 3 (inches squared): 105,450 4,900 = 21.5. This is your BMI. To calculate your BMI in metric measurements: 1.Measure your weight in kilograms (kg). For this example, the weight is 70 kg. 2.Measure your height in meters (m). Then multiply that number by itself to get a measurement called meters squared. So, for an adult who is 1.75 m tall, the meters squared measurement is 1.75 m x 1.75 m, which equals 3.1 meters squared. 3.Divide the number of kilograms (your weight) by the meters squared number. In this example: 70 3.1 = 22.6. This is your BMI. What do the results mean? BMI charts are used to see if you are underweight, normal weight, overweight, or obese. The following guidelines will be used: Underweight: BMI less than 18.5. Normal weight: BMI between 18.5 and 24.9. Overweight: BMI between 25 and 29.9. Obese: BMI of 30 or above. BMI is a tool and cannot diagnose a condition. Talk with your health care provider about what your BMI means for you. Keep these notes in mind: Weight includes fat and muscle. Someone with a muscular build, such as an athlete, may have a BMI that is higher than 24.9. In cases like these, BMI is not a correct measure of body fat. If you have a BMI of 25 or higher, your provider may need to do more testing to find out if excess body fat is the cause. BMI is measured the same way for males and females. Females usually have more body fat than males of the same height and weight. Where to find more information For more information about BMI, including tools to quickly find your BMI, go to: Centers for Disease Control and Prevention: cdc.gov [place] [employer]: heart.org National Heart, Lung, and Blood [place]: nhlbi.nih.gov This information is not intended to replace advice given to you by your health care provider. Make sure you discuss any questions you have with your health care provider. Document Revised: 12/02/2022 Document Reviewed: 2022 [employer]. Patient Education 2023 [employer]. 02/29/2024 13:57:49 Hyperglycemia Hyperglycemia Hyperglycemia occurs when the level of sugar (glucose) in the blood is too high. Glucose is a type of sugar that provides the body's main source of energy. Certain hormones (insulin and glucagon) control the level of glucose in the blood. Insulin lowers blood glucose, and glucagon increases blood glucose. Hyperglycemia can result from not having enough insulin in the bloodstream, or from the body not responding normally to insulin. Hyperglycemia occurs most often in people who have diabetes (diabetes mellitus), but it can happen in people who do not have diabetes. It can develop quickly, and it can be life-threatening if it causes you to become severely dehydrated (diabetic ketoacidosis or hyperglycemic hyperosmolar state). Severe hyperglycemia is a medical emergency. For most people with diabetes, a blood glucose level above 240 mg/dL is considered hyperglycemia. What are the causes? If you have diabetes, hyperglycemia may be caused by: Medicines that increase blood glucose or affect your diabetes control. Getting less physical activity. Eating more than planned. Being sick or injured, having an infection, or having surgery. Stress. Not giving yourself enough insulin (if you are taking insulin). If you have undiagnosed diabetes, this may be the reason you have hyperglycemia. If you do not have diabetes, hyperglycemia may be caused by: Certain medicines, including: ?Steroid medicines. ?Beta-blockers. ?Epinephrine. ?Thiazide diuretics. Stress. Having a serious illness, an infection, or surgery. Diseases of the pancreas. What increases the risk? Hyperglycemia is more likely to develop in people who have risk factors for diabetes, such as: Having a family member with diabetes. Certain conditions in which the body's disease-fighting system (immune system) attacks itself (autoimmune disorders). Being overweight or obese. Having an inactive (sedentary) lifestyle. Having been diagnosed with insulin resistance. Having a history of prediabetes, gestational diabetes, or polycystic ovarian syndrome (PCOS). What are the signs or symptoms? Hyperglycemia may not cause any symptoms. If you do have symptoms, they may include: Increased thirst. Needing to urinate more often than usual. Hunger. Feeling very tired. Blurry vision. Other symptoms may develop if hyperglycemia gets worse, such as: Dry mouth. Abdominal pain. Loss of appetite. Fruity-smelling breath. Weakness. Unexpected weight loss. Tingling or numbness in the hands or feet. Headache. Cuts or bruises that are slow to heal. How is this diagnosed? Hyperglycemia is diagnosed with a blood test to measure your blood glucose level. This blood test is usually done while you are having symptoms. Your health care provider may also do a physical exam and review your medical history. You may have more tests to determine the cause of your hyperglycemia, such as: A fasting blood glucose (FBG) test. You will not be allowed to eat (you will fast) for at least 8 hours before a blood sample is taken. An A1C blood test. This provides information about blood glucose control over the previous 2 3 months. An oral glucose tolerance test (OGTT). This measures your blood glucose at two times: ?After fasting. This is your baseline blood glucose level. ?2 hours after drinking a beverage that contains glucose. How is this treated? Treatment depends on the cause of your hyperglycemia. Treatment may include: Taking medicine to regulate your blood glucose levels. If you take insulin or other diabetes medicines, your medicine or dosage may be adjusted. Lifestyle changes, such as exercising more, eating healthier foods, or losing weight. Treating an illness or infection. Checking your blood glucose more often. Stopping or reducing steroid medicines. If your hyperglycemia becomes severe and it results in diabetic ketoacidosis or hyperglycemic hyperosmolar state, you must be hospitalized and given IV fluids and IV insulin. Follow these instructions at home: General instructions Take [id number] and prescription medicines only as told by your health care provider. Do not use any products that contain nicotine or tobacco. These products include cigarettes, chewing tobacco, and vaping devices, such as e-cigarettes. If you need help quitting, ask your health care provider. If you drink alcohol: ?Limit how much you have to: ?0 1 drink a day for women who are not . ?0 2 drinks a day for men. ?Know how much alcohol is in a drink. In the [place] one drink equals one 12 oz bottle of beer (355 mL), one 5 oz glass of wine (148 mL), or one 1 oz glass of hard liquor (44 mL). Learn to manage stress. If you need help with this, ask your health care provider. Do exercises as told by your health care provider. Keep all follow-up visits. This is important. Eating and drinking Maintain a healthy weight. Stay hydrated, especially when you exercise, get sick, or spend time in hot temperatures. Drink enough fluid to keep your urine pale yellow. If you have diabetes: Know the symptoms of hyperglycemia. Follow your diabetes management plan as told by your health care provider. Make sure you: ?Take your insulin and medicines as told. ?Follow your exercise plan. ?Follow your meal plan. Eat on time, and do not skip meals. ?Check your blood glucose as often as told. Make sure to check your blood glucose before and after exercise. If you exercise longer or in a different way, check your blood glucose more often. ?Follow your sick day plan whenever you cannot eat or drink normally. Make this plan in advance with your health care provider. Share your diabetes management plan with people in your workplace, school, and household. Check your urine for ketones when you are ill and as told by your health care provider. Carry a medical alert card or wear medical alert jewelry. Where to find more information [place] [employer]: www.diabetes.org Contact a health care provider if: Your blood glucose is at or above 240 mg/dL (13.3 mmol/L) for 2 days in a row. You have problems keeping your blood glucose in your target range. You have frequent episodes of hyperglycemia. You have signs of illness, such as nausea, vomiting, or fever. Get help right away if: Your blood glucose monitor reads high even when you are taking insulin. You have trouble breathing. You have a change in how you think, feel, or act (mental status). You have nausea or vomiting that does not go away. These symptoms may represent a serious problem that is an emergency. Do not wait to see if the symptoms will go away. Get medical help right away. Call your local emergency services (911 in the [place] Do not drive yourself to the hospital. Summary Hyperglycemia occurs when the level of sugar (glucose) in the blood is too high. Hyperglycemia can happen with or without diabetes, and severe hyperglycemia can be life-threatening. Hyperglycemia is diagnosed with a blood test to measure your blood glucose level. This blood test is usually done while you are having symptoms. Your health care provider may also do a physical exam and review your medical history. If you have diabetes, follow your diabetes management plan as told by your health care provider. Contact your health care provider if you have problems keeping your blood glucose in your target range. This information is not intended to replace advice given to you by your health care provider. Make sure you discuss any questions you have with your health care provider. Document Revised: 12/25/2020 Document Reviewed: 12/26/2020 [employer] Patient Education 2023 [employer]. 02/29/2024 13:57:47 DASH Eating Plan DASH Eating Plan DASH stands for Dietary Approaches to Stop Hypertension. The DASH eating plan is a healthy eating plan that has been shown to: Lower high blood pressure (hypertension). Reduce your risk for type 2 diabetes, heart disease, and stroke. Help with weight loss. What are tips for following this plan? Reading food labels Check food labels for the amount of salt (sodium) per serving. Choose foods with less than 5 percent of the Daily Value (DV) of sodium. In general, foods with less than 300 milligrams (mg) of sodium per serving fit into this eating plan. To find whole grains, look for the word whole as the first word in the ingredient list. Shopping Buy products labeled as low-sodium or no salt added. Buy fresh foods. Avoid canned foods and pre-made or frozen meals. Cooking Try not to add salt when you cook. Use salt-free seasonings or herbs instead of table salt or sea salt. Check with your health care provider or pharmacist before using salt substitutes. Do not lau foods. Cook foods in healthy ways, such as baking, boiling, grilling, roasting, or broiling. Cook using oils that are good for your heart. These include olive, canola, avocado, soybean, and sunflower oil. Meal planning Eat a balanced diet. This should include: ?4 or more servings of fruits and 4 or more servings of vegetables each day. Try to fill half of your plate with fruits and vegetables. ?6 8 servings of whole grains each day. ?6 or less servings of lean meat, poultry, or fish each day. 1 oz is 1 serving. A 3 oz (85 g) serving of meat is about the same size as the palm of your hand. One egg is 1 oz (28 g). ?2 3 servings of low-fat dairy each day. One serving is 1 cup (237 mL). ?1 serving of nuts, seeds, or beans 5 times each week. ?2 3 servings of heart-healthy fats. Healthy fats called omega-3 fatty acids are found in foods such as walnuts, flaxseeds, fortified milks, and eggs. These fats are also found in cold-water fish, such as sardines, salmon, and mackerel. Limit how much you eat of: ?Canned or prepackaged foods. ?Food that is high in trans fat, such as fried foods. ?Food that is high in saturated fat, such as fatty meat. ?Desserts and other sweets, sugary drinks, and other foods with added sugar. ?Full-fat dairy products. Do not salt foods before eating. Do not eat more than 4 egg yolks a week. Try to eat at least 2 vegetarian meals a week. Eat more home-cooked food and less restaurant, buffet, and fast food. Lifestyle When eating at a restaurant, ask if your food can be made with less salt or no salt. If you drink alcohol: ?Limit how much you have to: ?0 1 drink a day if you are female. ?0 2 drinks a day if you are male. ?Know how much alcohol is in your drink. In the [place] one drink is one 12 oz bottle of beer (355 mL), one 5 oz glass of wine (148 mL), or one 1 oz glass of hard liquor (44 mL). General information Avoid eating more than 2,300 mg of salt a day. If you have hypertension, you may need to reduce your sodium intake to 1,500 mg a day. Work with your provider to stay at a healthy body weight or lose weight. Ask what the best weight range is for you. On most days of the week, get at least 30 minutes of exercise that causes your heart to beat faster. This may include walking, swimming, or biking. Work with your provider or dietitian to adjust your eating plan to meet your specific calorie needs. What foods should I eat? Fruits All fresh, dried, or frozen fruit. Canned fruits that are in their natural juice and do not have sugar added to them. Vegetables Fresh or frozen vegetables that are raw, steamed, roasted, or grilled. Low-sodium or reduced-sodium tomato and vegetable juice. Low-sodium or reduced-sodium tomato sauce and tomato paste. Low-sodium or reduced-sodium canned vegetables. Grains Whole-grain or whole-wheat bread. Whole-grain or whole-wheat pasta. Brown rice. Oatmeal. Quinoa. Bulgur. Whole-grain and low-sodium cereals. Shiloh bread. Low-fat, low-sodium crackers. Whole-wheat flour tortillas. Meats and other proteins Skinless chicken or turkey. Ground chicken or turkey. Pork with fat trimmed off. Fish and seafood. Egg whites. Dried beans, peas, or lentils. Unsalted nuts, nut butters, and seeds. Unsalted canned beans. Lean cuts of beef with fat trimmed off. Low-sodium, lean precooked or cured meat, such as sausages or meat loaves. Dairy Low-fat (1%) or fat-free (skim) milk. Reduced-fat, low-fat, or fat-free cheeses. Nonfat, low-sodium ricotta or cottage cheese. Low-fat or nonfat yogurt. Low-fat, low-sodium cheese. Fats and oils Soft margarine without trans fats. Vegetable oil. Reduced-fat, low-fat, or light mayonnaise and salad dressings (reduced-sodium). Canola, safflower, olive, avocado, soybean, and sunflower oils. Avocado. Seasonings and condiments Herbs. Spices. Seasoning mixes without salt. Other foods Unsalted popcorn and pretzels. Fat-free sweets. The items listed above may not be all the foods and drinks you can have. Talk to a dietitian to learn more. What foods should I avoid? Fruits Canned fruit in a light or heavy syrup. Fried fruit. Fruit in cream or butter sauce. Vegetables Creamed or fried vegetables. Vegetables in a cheese sauce. Regular canned vegetables that are not marked as low-sodium or reduced-sodium. Regular canned tomato sauce and paste that are not marked as low-sodium or reduced-sodium. Regular tomato and vegetable juices that are not marked as low-sodium or reduced-sodium. Pickles. Olives. Grains Baked goods made with fat, such as croissants, muffins, or some breads. Dry pasta or rice meal packs. Meats and other proteins Fatty cuts of meat. Ribs. Fried meat. Singh. Bologna, salami, and other precooked or cured meats, such as sausages or meat loaves, that are not lean and low in sodium. Fat from the back of a pig (fatback). Bratwurst. Salted nuts and seeds. Canned beans with added salt. Canned or smoked fish. Whole eggs or egg yolks. Chicken or turkey with skin. Dairy Whole or 2% milk, cream, and [id number]. Whole or full-fat cream cheese. Whole-fat or sweetened yogurt. Full-fat cheese. Nondairy creamers. Whipped toppings. Processed cheese and cheese spreads. Fats and oils Butter. Stick margarine. Lard. Shortening. Ghee. Singh fat. Tropical oils, such as coconut, palm kernel, or palm oil. Seasonings and condiments Onion salt, garlic salt, seasoned salt, table salt, and sea salt. Worcestershire sauce. Tartar sauce. Barbecue sauce. Teriyaki sauce. Soy sauce, including reduced-sodium soy sauce. Steak sauce. Canned and packaged gravies. Fish sauce. Oyster sauce. Cocktail sauce. Store-bought horseradish. Ketchup. Mustard. Meat flavorings and tenderizers. Bouillon cubes. Hot sauces. Pre-made or packaged marinades. Pre-made or packaged taco seasonings. Relishes. Regular salad dressings. Other foods Salted popcorn and pretzels. The items listed above may not be all the foods and drinks you should avoid. Talk to a dietitian to learn more. Where to find more information National Heart, Lung, and Blood [place] (NHLBI): nhlbi.nih.gov [place] [employer] (AHA): heart.org Academy of Nutrition and Dietetics: eatright.org National Kidney Foundation (NKF): kidney.org This information is not intended to replace advice given to you by your health care provider. Make sure you discuss any questions you have with your health care provider. Document Revised: 03/31/2023 Document Reviewed: 03/31/2023 Elsevier Patient Education 2023 [employer]. [facility] [place] 02-29-2024 Note Patient Education Endocrinology Hyperglycemia Hyperglycemia occurs when the level of sugar (glucose) in the blood is too high. Glucose is a type of sugar that provides the body's main source of energy. Certain hormones (insulin and glucagon) control the level of glucose in the blood. Insulin lowers blood glucose, and glucagon increases blood glucose. Hyperglycemia can result from not having enough insulin in the bloodstream, or from the body not responding normally to insulin. Hyperglycemia occurs most often in people who have diabetes (diabetes mellitus), but it can happen in people who do not have diabetes. It can develop quickly, and it can be life-threatening if it causes you to become severely dehydrated (diabetic ketoacidosis or hyperglycemic hyperosmolar state). Severe hyperglycemia is a medical emergency. For most people with diabetes, a blood glucose level above 240 mg/dL is considered hyperglycemia. What are the causes? If you have diabetes, hyperglycemia may be caused by: ??? Medicines that increase blood glucose or affect your diabetes control. ??? Getting less physical activity. ??? Eating more than planned. ??? Being sick or injured, having an infection, or having surgery. ??? Stress. ??? Not giving yourself enough insulin (if you are taking insulin). If you have undiagnosed diabetes, this may be the reason you have hyperglycemia. If you do not have diabetes, hyperglycemia may be caused by: ??? Certain medicines, including: ? Steroid medicines. ? Beta-blockers. ? Epinephrine. ? Thiazide diuretics. ??? Stress. ??? Having a serious illness, an infection, or surgery. ??? Diseases of the pancreas. What increases the risk? Hyperglycemia is more likely to develop in people who have risk factors for diabetes, such as: ??? Having a family member with diabetes. ??? Certain conditions in which the body's disease-fighting system (immune system) attacks itself (autoimmune disorders). ??? Being overweight or obese. ??? Having an inactive (sedentary) lifestyle. ??? Having been diagnosed with insulin resistance. ??? Having a history of prediabetes, gestational diabetes, or polycystic ovarian syndrome (PCOS). What are the signs or symptoms? Hyperglycemia may not cause any symptoms. If you do have symptoms, they may include: ??? Increased thirst. ??? Needing to urinate more often than usual. ??? Hunger. ??? Feeling very tired. ??? Blurry vision. Other symptoms may develop if hyperglycemia gets worse, such as: ??? Dry mouth. ??? Abdominal pain. ??? Loss of appetite. ??? Fruity-smelling breath. ??? Weakness. ??? Unexpected weight loss. ??? Tingling or numbness in the hands or feet. ??? Headache. ??? Cuts or bruises that are slow to heal. How is this diagnosed? Hyperglycemia is diagnosed with a blood test to measure your blood glucose level. This blood test is usually done while you are having symptoms. Your health care provider may also do a physical exam and review your medical history. You may have more tests to determine the cause of your hyperglycemia, such as: ??? A fasting blood glucose (FBG) test. You will not be allowed to eat (you will fast) for at least 8 hours before a blood sample is taken. ??? An A1C blood test. This provides information about blood glucose control over the previous 2?3 months. ??? An oral glucose tolerance test (OGTT). This measures your blood glucose at two times: ? After fasting. This is your baseline blood glucose level. ? 2 hours after drinking a beverage that contains glucose. How is this treated? Treatment depends on the cause of your hyperglycemia. Treatment may include: ??? Taking medicine to regulate your blood glucose levels. If you take insulin or other diabetes medicines, your medicine or dosage may be adjusted. ??? Lifestyle changes, such as exercising more, eating healthier foods, or losing weight. ??? Treating an illness or infection. ??? Checking your blood glucose more often. ??? Stopping or reducing steroid medicines. If your hyperglycemia becomes severe and it results in diabetic ketoacidosis or hyperglycemic hyperosmolar state, you must be hospitalized and given IV fluids and IV insulin. Follow these instructions at home: General instructions ??? Take ebxh-qsm-xaofjon and prescription medicines only as told by your health care provider. ??? Do not use any products that contain nicotine or tobacco. These products include cigarettes, chewing tobacco, and vaping devices, such as e-cigarettes. If you need help quitting, ask your health care provider. ??? If you drink alcohol: ? Limit how much you have to: ? 0?1 drink a day for women who are not . ? 0?2 drinks a day for men. ? Know how much alcohol is in a drink. In the [place] one drink equals one 12 oz bottle of beer (355 mL), one 5 oz glass of wine (148 mL), or one 1? oz glass of hard liquor (44 mL). ??? Learn to manage stress. If you need help with this, ask yo (more content not included)... [facility] 02-15-2024 Hospital Discharge instructions Patient Education 02/15/2024 11:24:32 Erectile Dysfunction Erectile Dysfunction Erectile dysfunction (ED) is the inability to get or keep an erection in order to have sexual intercourse. ED is considered a symptom of an underlying disorder and is not considered a disease. ED may include: Inability to get an erection. Lack of enough hardness of the erection to allow penetration. Loss of erection before sex is finished. What are the causes? This condition may be caused by: Physical causes, such as: ?Artery problems. This may include heart disease, high blood pressure, atherosclerosis, and diabetes. ?Hormonal problems, such as low testosterone. ?Obesity. ?Nerve problems. This may include back or pelvic injuries, multiple sclerosis, Parkinson's disease, spinal cord injury, and stroke. Certain medicines, such as: ?Pain relievers. ?Antidepressants. ?Blood pressure medicines and water pills (diuretics). ?Cancer medicines. ?Antihistamines. ?Muscle relaxants. Lifestyle factors, such as: ?Use of drugs such as marijuana, cocaine, or opioids. ?Excessive use of alcohol. ?Smoking. ?Lack of physical activity or exercise. Psychological causes, such as: ?Anxiety or stress. ?Sadness or depression. ?Exhaustion. ?Fear about sexual performance. ?Guilt. What are the signs or symptoms? Symptoms of this condition include: Inability to get an erection. Lack of enough hardness of the erection to allow penetration. Loss of the erection before sex is finished. Sometimes having normal erections, but with frequent unsatisfactory episodes. Low sexual satisfaction in either partner due to erection problems. A curved penis occurring with erection. The curve may cause pain, or the penis may be too curved to allow for intercourse. Never having nighttime or morning erections. How is this diagnosed? This condition is often diagnosed by: Performing a physical exam to find other diseases or specific problems with the penis. Asking you detailed questions about the problem. Doing tests, such as: ?Blood tests to check for diabetes mellitus or high cholesterol, or to measure hormone levels. ?Other tests to check for underlying health conditions. ?An ultrasound exam to check for scarring. ?A test to check blood flow to the penis. Doing a sleep study at home to measure nighttime erections. How is this treated? This condition may be treated by: Medicines, such as: ?Medicine taken by mouth to help you achieve an erection (oral medicine). ?Hormone replacement therapy to replace low testosterone levels. ?Medicine that is injected into the penis. Your health care provider may instruct you how to give yourself these injections at home. ?Medicine that is delivered with a short applicator tube. The tube is inserted into the opening at the tip of the penis, which is the opening of the urethra. A tiny pellet of medicine is put in the urethra. The pellet dissolves and enhances erectile function. This is also called MUSE (medicated urethral system for erections) therapy. Vacuum pump. This is a pump with a ring on it. The pump and ring are placed on the penis and used to create pressure that helps the penis become erect. Penile implant surgery. In this procedure, you may receive: ?An inflatable implant. This consists of cylinders, a pump, and a reservoir. The cylinders can be inflated with a fluid that helps to create an erection, and they can be deflated after intercourse. ?A semi-rigid implant. This consists of two silicone rubber rods. The rods provide some rigidity. They are also flexible, so the penis can both curve downward in its normal position and become straight for sexual intercourse. Blood vessel surgery to improve blood flow to the penis. During this procedure, a blood vessel from a different part of the body is placed into the penis to allow blood to flow around (bypass) damaged or blocked blood vessels. Lifestyle changes, such as exercising more, losing weight, and quitting smoking. Follow these instructions at home: Medicines Take hyrn-ike-kuonmao and prescription medicines only as told by your health care provider. Do not increase the dosage without first discussing it with your health care provider. If you are using self-injections, do injections as directed by your health care provider. Make sure you avoid any veins that are on the surface of the penis. After giving an injection, apply pressure to the injection site for 5 minutes. Talk to your health care provider about how to prevent headaches while taking ED medicines. These medicines may cause a sudden headache due to the increase in blood flow in your body. General instructions Exercise regularly, as directed by your health care provider. Work with your health care provider to lose weight, if needed. Do not use any products that contain nicotine or tobacco. These products include cigarettes, chewing tobacco, and vaping devices, such as e-cigarettes. If you need help quitting, ask your health care provider. Before using a vacuum pump, read the instructions that come with the pump and discuss any questions with your health care provider. Keep all follow-up visits. This is important. Contact a health care provider if: You feel nauseous. You are vomiting. You get sudden headaches while taking ED medicines. You have any concerns about your sexual health. Get help right away if: You are taking oral or injectable medicines and you have an erection that lasts longer than 4 hours. If your health care provider is unavailable, go to the nearest emergency room for evaluation. An erection that lasts much longer than 4 hours can result in permanent damage to your penis. You have severe pain in your groin or abdomen. You develop redness or severe swelling of your penis. You have redness spreading at your groin or lower abdomen. You are unable to urinate. You experience chest pain or a rapid heartbeat (palpitations) after taking oral medicines. These symptoms may represent a serious problem that is an emergency. Do not wait to see if the symptoms will go away. Get medical help right away. Call your local emergency services (911 in the [place] Do not drive yourself to the hospital. Summary Erectile dysfunction (ED) is the inability to get or keep an erection during sexual intercourse. This condition is diagnosed based on a physical exam, your symptoms, and tests to determine the cause. Treatment varies depending on the cause and may include medicines, hormone therapy, surgery, or a vacuum pump. You may need follow-up visits to make sure that you are using your medicines or devices correctly. Get help right away if you are taking or injecting medicines and you have an erection that lasts longer than 4 hours. This information is not intended to replace advice given to you by your health care provider. Make sure you discuss any questions you have with your health care provider. Document Revised: 06/10/2021 Document Reviewed: 06/10/2021 [employer] Patient Education 2023 [employer] Follow Up Care 02/13/2024 14:46:14 With:Aruna MARVIN MD, FAM Address: When: only if needed [facility] [place] 11-20-2024 Note Patient Education Urology Erectile Dysfunction Erectile dysfunction (ED) is the inability to get or keep an erection in order to have sexual intercourse. ED is considered a symptom of an underlying disorder and is not considered a disease. ED may include: ??? Inability to get an erection. ??? Lack of enough hardness of the erection to allow penetration. ??? Loss of erection before sex is finished. What are the causes? This condition may be caused by: ??? Physical causes, such as: ? Artery problems. This may include heart disease, high blood pressure, atherosclerosis, and diabetes. ? Hormonal problems, such as low testosterone. ? Obesity. ? Nerve problems. This may include back or pelvic injuries, multiple sclerosis, Parkinson's disease, spinal cord injury, and stroke. ??? Certain medicines, such as: ? Pain relievers. ? Antidepressants. ? Blood pressure medicines and water pills (diuretics). ? Cancer medicines. ? Antihistamines. ? Muscle relaxants. ??? Lifestyle factors, such as: ? Use of drugs such as marijuana, cocaine, or opioids. ? Excessive use of alcohol. ? Smoking. ? Lack of physical activity or exercise. ??? Psychological causes, such as: ? Anxiety or stress. ? Sadness or depression. ? Exhaustion. ? Fear about sexual performance. ? Guilt. What are the signs or symptoms? Symptoms of this condition include: ??? Inability to get an erection. ??? Lack of enough hardness of the erection to allow penetration. ??? Loss of the erection before sex is finished. ??? Sometimes having normal erections, but with frequent unsatisfactory episodes. ??? Low sexual satisfaction in either partner due to erection problems. ??? A curved penis occurring with erection. The curve may cause pain, or the penis may be too curved to allow for intercourse. ??? Never having nighttime or morning erections. How is this diagnosed? This condition is often diagnosed by: ??? Performing a physical exam to find other diseases or specific problems with the penis. ??? Asking you detailed questions about the problem. ??? Doing tests, such as: ? Blood tests to check for diabetes mellitus or high cholesterol, or to measure hormone levels. ? Other tests to check for underlying health conditions. ? An ultrasound exam to check for scarring. ? A test to check blood flow to the penis. ??? Doing a sleep study at home to measure nighttime erections. How is this treated? This condition may be treated by: ??? Medicines, such as: ? Medicine taken by mouth to help you achieve an erection (oral medicine). ? Hormone replacement therapy to replace low testosterone levels. ? Medicine that is injected into the penis. Your health care provider may instruct you how to give yourself these injections at home. ? Medicine that is delivered with a short applicator tube. The tube is inserted into the opening at the tip of the penis, which is the opening of the urethra. A tiny pellet of medicine is put in the urethra. The pellet dissolves and enhances erectile function. This is also called MUSE (medicated urethral system for erections) therapy. ??? Vacuum pump. This is a pump with a ring on it. The pump and ring are placed on the penis and used to create pressure that helps the penis become erect. ??? Penile implant surgery. In this procedure, you may receive: ? An inflatable implant. This consists of cylinders, a pump, and a reservoir. The cylinders can be inflated with a fluid that helps to create an erection, and they can be deflated after intercourse. ? A semi-rigid implant. This consists of two silicone rubber rods. The rods provide some rigidity. They are also flexible, so the penis can both curve downward in its normal position and become straight for sexual intercourse. ??? Blood vessel surgery to improve blood flow to the penis. During this procedure, a blood vessel from a different part of the body is placed into the penis to allow blood to flow around (bypass) damaged or blocked blood vessels. ??? Lifestyle changes, such as exercising more, losing weight, and quitting smoking. Follow these instructions at home: Medicines ??? Take kxkl-vao-dpingvj and prescription medicines only as told by your health care provider. Do not increase the dosage without first discussing it with your health care provider. ??? If you are using self-injections, do injections as directed by your health care provider. Make sure you avoid any veins that are on the surface of the penis. After giving an injection, apply pressure to the injection site for 5 minutes. ??? Talk to your health care provider about how to prevent headaches while taking ED medicines. These medicines may cause a sudden headache due to the increase in blood flow in your body. General instructions ??? Exercise regularly, as directed by your health care provider. Work with your health care provider to lose weight, if needed. ??? Do not u (more content not included)... [facility] 12-16-2023 Hospital Discharge instructions Patient Education 12/16/2023 14:04:35 Fungal Nail Infection Fungal Nail Infection A fungal nail infection is a common infection of the toenails or fingernails. This condition affects toenails more often than fingernails. It often affects the great, or big, toes. More than one nail may be infected. The condition can be passed from person to person (is contagious). What are the causes? This condition is caused by a fungus, such as yeast or molds. Several types of fungi can cause the infection. These fungi are common in moist and warm areas. If your hands or feet come into contact with the fungus, it may get into a crack in your fingernail or toenail or in the surrounding skin, and cause an infection. What increases the risk? The following factors may make you more likely to develop this condition: Being of older age. Having certain medical conditions, such as: ?Athlete's foot. ?Diabetes. ?Poor circulation. ?A weak body defense system (immune system). Walking barefoot in areas where the fungus thrives, such as showers or locker rooms. Wearing shoes and socks that cause your feet to sweat. Having a nail injury or a recent nail surgery. What are the signs or symptoms? Symptoms of this condition include: A pale spot on the nail. Thickening of the nail. A nail that becomes yellow, brown, or white. A brittle or ragged nail edge. A nail that has lifted away from the nail bed. How is this diagnosed? This condition is diagnosed with a physical exam. Your health care provider may take a scraping or clipping from your nail to test for the fungus. How is this treated? Treatment is not needed for mild infections. If you have significant nail changes, treatment may include: Antifungal medicines taken by mouth (orally). You may need to take the medicine for several weeks or several months, and you may not see the results for a long time. These medicines can cause side effects. Ask your health care provider what problems to watch for. Antifungal nail syrian or nail cream. These may be used along with oral antifungal medicines. Laser treatment of the nail. Surgery to remove the nail. This may be needed for the most severe infections. It can take a long time, usually up to a year, for the infection to go away. The infection may also come back. Follow these instructions at home: Medicines Take or apply nmnh-jmm-adowpoo and prescription medicines only as told by your health care provider. Ask your health care provider about using stdo-jqh-nuisfdf mentholated ointment on your nails. Nail care Trim your nails often. Wash and dry your hands and feet every day. Keep your feet dry. To do this: ?Wear absorbent socks, and change your socks frequently. ?Wear shoes that allow air to circulate, such as sandals or canvas tennis shoes. Throw out old shoes. If you go to a nail salon, make sure you choose one that uses clean instruments. Use antifungal foot powder on your feet and in your shoes. General instructions Do not share personal items, such as towels or nail clippers. Do not walk barefoot in shower rooms or locker rooms. Wear rubber gloves if you are working with your hands in wet areas. Keep all follow-up visits. This is important. Contact a health care provider if: You have redness, pain, or pus near the toenail or fingernail. Your infection is not getting better, or it is getting worse after several months. You have more circulation problems near the toenail or fingernail. You have brown or black discoloration of the nail that spreads to the surrounding skin. Summary A fungal nail infection is a common infection of the toenails or fingernails. Treatment is not needed for mild infections. If you have significant nail changes, treatment may include taking medicine orally and applying medicine to your nails. It can take a long time, usually up to a year, for the infection to go away. The infection may also come back. Take or apply btuy-xkn-ixxinxw and prescription medicines only as told by your health care provider. This information is not intended to replace advice given to you by your health care provider. Make sure you discuss any questions you have with your health care provider. Document Revised: 06/15/2021 Document Reviewed: 06/15/2021 [employer] Patient Education 2023 [employer]. 12/14/2023 14:51:22 DASH Eating Plan DASH Eating Plan DASH stands for Dietary Approaches to Stop Hypertension. The DASH eating plan is a healthy eating plan that has been shown to: Lower high blood pressure (hypertension). Reduce your risk for type 2 diabetes, heart disease, and stroke. Help with weight loss. What are tips for following this plan? Reading food labels Check food labels for the amount of salt (sodium) per serving. Choose foods with less than 5 percent of the Daily Value (DV) of sodium. In general, foods with less than 300 milligrams (mg) of sodium per serving fit into this eating plan. To find whole grains, look for the word whole as the first word in the ingredient list. Shopping Buy products labeled as low-sodium or no salt added. Buy fresh foods. Avoid canned foods and pre-made or frozen meals. Cooking Try not to add salt when you cook. Use salt-free seasonings or herbs instead of table salt or sea salt. Check with your health care provider or pharmacist before using salt substitutes. Do not lau foods. Cook foods in healthy ways, such as baking, boiling, grilling, roasting, or broiling. Cook using oils that are good for your heart. These include olive, canola, avocado, soybean, and sunflower oil. Meal planning Eat a balanced diet. This should include: ?4 or more servings of fruits and 4 or more servings of vegetables each day. Try to fill half of your plate with fruits and vegetables. ?6 8 servings of whole grains each day. ?6 or less servings of lean meat, poultry, or fish each day. 1 oz is 1 serving. A 3 oz (85 g) serving of meat is about the same size as the palm of your hand. One egg is 1 oz (28 g). ?2 3 servings of low-fat dairy each day. One serving is 1 cup (237 mL). ?1 serving of nuts, seeds, or beans 5 times each week. ?2 3 servings of heart-healthy fats. Healthy fats called omega-3 fatty acids are found in foods such as walnuts, flaxseeds, fortified milks, and eggs. These fats are also found in cold-water fish, such as sardines, salmon, and mackerel. Limit how much you eat of: ?Canned or prepackaged foods. ?Food that is high in trans fat, such as fried foods. ?Food that is high in saturated fat, such as fatty meat. ?Desserts and other sweets, sugary drinks, and other foods with added sugar. ?Full-fat dairy products. Do not salt foods before eating. Do not eat more than 4 egg yolks a week. Try to eat at least 2 vegetarian meals a week. Eat more home-cooked food and less restaurant, buffet, and fast food. Lifestyle When eating at a restaurant, ask if your food can be made with less salt or no salt. If you drink alcohol: ?Limit how much you have to: ?0 1 drink a day if you are female. ?0 2 drinks a day if you are male. ?Know how much alcohol is in your drink. In the [place] one drink is one 12 oz bottle of beer (355 mL), one 5 oz glass of wine (148 mL), or one 1 oz glass of hard liquor (44 mL). General information Avoid eating more than 2,300 mg of salt a day. If you have hypertension, you may need to reduce your sodium intake to 1,500 mg a day. Work with your provider to stay at a healthy body weight or lose weight. Ask what the best weight range is for you. On most days of the week, get at least 30 minutes of exercise that causes your heart to beat faster. This may include walking, swimming, or biking. Work with your provider or dietitian to adjust your eating plan to meet your specific calorie needs. What foods should I eat? Fruits All fresh, dried, or frozen fruit. Canned fruits that are in their natural juice and do not have sugar added to them. Vegetables Fresh or frozen vegetables that are raw, steamed, roasted, or grilled. Low-sodium or reduced-sodium tomato and vegetable juice. Low-sodium or reduced-sodium tomato sauce and tomato paste. Low-sodium or reduced-sodium canned vegetables. Grains Whole-grain or whole-wheat bread. Whole-grain or whole-wheat pasta. Brown rice. Oatmeal. Quinoa. Bulgur. Whole-grain and low-sodium cereals. Shiloh bread. Low-fat, low-sodium crackers. Whole-wheat flour tortillas. Meats and other proteins Skinless chicken or turkey. Ground chicken or turkey. Pork with fat trimmed off. Fish and seafood. Egg whites. Dried beans, peas, or lentils. Unsalted nuts, nut butters, and seeds. Unsalted canned beans. Lean cuts of beef with fat trimmed off. Low-sodium, lean precooked or cured meat, such as sausages or meat loaves. Dairy Low-fat (1%) or fat-free (skim) milk. Reduced-fat, low-fat, or fat-free cheeses. Nonfat, low-sodium ricotta or cottage cheese. Low-fat or nonfat yogurt. Low-fat, low-sodium cheese. Fats and oils Soft margarine without trans fats. Vegetable oil. Reduced-fat, low-fat, or light mayonnaise and salad dressings (reduced-sodium). Canola, safflower, olive, avocado, soybean, and sunflower oils. Avocado. Seasonings and condiments Herbs. Spices. Seasoning mixes without salt. Other foods Unsalted popcorn and pretzels. Fat-free sweets. The items listed above may not be all the foods and drinks you can have. Talk to a dietitian to learn more. What foods should I avoid? Fruits Canned fruit in a light or heavy syrup. Fried fruit. Fruit in cream or butter sauce. Vegetables Creamed or fried vegetables. Vegetables in a cheese sauce. Regular canned vegetables that are not marked as low-sodium or reduced-sodium. Regular canned tomato sauce and paste that are not marked as low-sodium or reduced-sodium. Regular tomato and vegetable juices that are not marked as low-sodium or reduced-sodium. Pickles. Olives. Grains Baked goods made with fat, such as croissants, muffins, or some breads. Dry pasta or rice meal packs. Meats and other proteins Fatty cuts of meat. Ribs. Fried meat. Singh. Bologna, salami, and other precooked or cured meats, such as sausages or meat loaves, that are not lean and low in sodium. Fat from the back of a pig (fatback). Bratwurst. Salted nuts and seeds. Canned beans with added salt. Canned or smoked fish. Whole eggs or egg yolks. Chicken or turkey with skin. Dairy Whole or 2% milk, cream, and pqoc-eud-szoj. Whole or full-fat cream cheese. Whole-fat or sweetened yogurt. Full-fat cheese. Nondairy creamers. Whipped toppings. Processed cheese and cheese spreads. Fats and oils Butter. Stick margarine. Lard. Shortening. Ghee. Singh fat. Tropical oils, such as coconut, palm kernel, or palm oil. Seasonings and condiments Onion salt, garlic salt, seasoned salt, table salt, and sea salt. Worcestershire sauce. Tartar sauce. Barbecue sauce. Teriyaki sauce. Soy sauce, including reduced-sodium soy sauce. Steak sauce. Canned and packaged gravies. Fish sauce. Oyster sauce. Cocktail sauce. Store-bought horseradish. Ketchup. Mustard. Meat flavorings and tenderizers. Bouillon cubes. Hot sauces. Pre-made or packaged marinades. Pre-made or packaged taco seasonings. Relishes. Regular salad dressings. Other foods Salted popcorn and pretzels. The items listed above may not be all the foods and drinks you should avoid. Talk to a dietitian to learn more. Where to find more information National Heart, Lung, and Blood [place] (NHLBI): nhlbi.nih.gov [place] [employer] (AHA): heart.org Academy of Nutrition and Dietetics: eatright.org National Kidney Foundation (NKF): kidney.org This information is not intended to replace advice given to you by your health care provider. Make sure you discuss any questions you have with your health care provider. Document Revised: 03/31/2023 Document Reviewed: 03/31/2023 [employer] Patient Education 2023 [employer] Follow Up Care 06/07/2023 10:48:20 With:Aruna MARVIN MD, FAM Address: [address] [place] [address]- When:6 months Comments:please schedule medicare wellness with Rita before end of year, he is agreeable [facility] 12-16-2023 Note Patient Education Infectious Disease Fungal Nail Infection A fungal nail infection is a common infection of the toenails or fingernails. This condition affects toenails more often than fingernails. It often affects the great, or big, toes. More than one nail may be infected. The condition can be passed from person to person (is contagious). What are the causes? This condition is caused by a fungus, such as yeast or molds. Several types of fungi can cause the infection. These fungi are common in moist and warm areas. If your hands or feet come into contact with the fungus, it may get into a crack in your fingernail or toenail or in the surrounding skin, and cause an infection. What increases the risk? The following factors may make you more likely to develop this condition: ? Being of older age. ? Having certain medical conditions, such as: ? Athlete's foot. ? Diabetes. ? Poor circulation. ? A weak body defense system (immune system). ? Walking barefoot in areas where the fungus thrives, such as showers or locker rooms. ? Wearing shoes and socks that cause your feet to sweat. ? Having a nail injury or a recent nail surgery. What are the signs or symptoms? Symptoms of this condition include: ? A pale spot on the nail. ? Thickening of the nail. ? A nail that becomes yellow, brown, or white. ? A brittle or ragged nail edge. ? A nail that has lifted away from the nail bed. How is this diagnosed? This condition is diagnosed with a physical exam. Your health care provider may take a scraping or clipping from your nail to test for the fungus. How is this treated? Treatment is not needed for mild infections. If you have significant nail changes, treatment may include: ? Antifungal medicines taken by mouth (orally). You may need to take the medicine for several weeks or several months, and you may not see the results for a long time. These medicines can cause side effects. Ask your health care provider what problems to watch for. ? Antifungal nail syrian or nail cream. These may be used along with oral antifungal medicines. ? Laser treatment of the nail. ? Surgery to remove the nail. This may be needed for the most severe infections. It can take a long time, usually up to a year, for the infection to go away. The infection may also come back. Follow these instructions at home: Medicines ? Take or apply rwns-kez-edmftgr and prescription medicines only as told by your health care provider. ? Ask your health care provider about using kgbq-gtk-iqbizkl mentholated ointment on your nails. Nail care ? Trim your nails often. ? Wash and dry your hands and feet every day. ? Keep your feet dry. To do this: ? Wear absorbent socks, and change your socks frequently. ? Wear shoes that allow air to circulate, such as sandals or canvas tennis shoes. Throw out old shoes. ? If you go to a nail salon, make sure you choose one that uses clean instruments. ? Use antifungal foot powder on your feet and in your shoes. General instructions ? Do not share personal items, such as towels or nail clippers. ? Do not walk barefoot in shower rooms or locker rooms. ? Wear rubber gloves if you are working with your hands in wet areas. ? Keep all follow-up visits. This is important. Contact a health care provider if: ? You have redness, pain, or pus near the toenail or fingernail. ? Your infection is not getting better, or it is getting worse after several months. ? You have more circulation problems near the toenail or fingernail. ? You have brown or black discoloration of the nail that spreads to the surrounding skin. Summary ? A fungal nail infection is a common infection of the toenails or fingernails. ? Treatment is not needed for mild infections. If you have significant nail changes, treatment may include taking medicine orally and applying medicine to your nails. ? It can take a long time, usually up to a year, for the infection to go away. The infection may also come back. ? Take or apply xtxm-orb-vdcjsdi and prescription medicines only as told by your health care provider. This information is not intended to replace advice given to you by your health care provider. Make sure you discuss any questions you have with your health care provider. Document Revised: 06/15/2021 Document Reviewed: 06/15/2021 [employer] Patient Education ? 2023 [employer] Nutrition DASH Eating Plan DASH stands for Dietary Approaches to Stop Hypertension. The DASH eating plan is a healthy eating plan that has been shown to: ? Lower high blood pressure (hypertension). ? Reduce your risk for type 2 diabetes, heart disease, and stroke. ? Help with weight loss. What are tips for following this plan? Reading food labels ? Check food labels for the amount of salt (sodium) per serving. Choose foods with less than 5 percent of the Daily Value (DV) of sodium. In general, foods with less than 300 milligra (more content not included)... [facility] 10-14-2023 Hospital Discharge instructions Patient Education 10/14/2023 11:10:24 Prostate Cancer Prostate Cancer The prostate is a small gland that produces fluid that makes up semen (seminal fluid). It is located below the bladder in men, in front of the rectum. Prostate cancer is the abnormal growth of cells in the prostate gland. What are the causes? The exact cause of this condition is not known. What increases the risk? You are more likely to develop this condition if: You are 65 years of age or older. You have a family history of prostate cancer. You have a family history of breast and ovarian cancer. You have genes that are passed from parent to child (inherited), such as BRCA1 and BRCA2. You have Londono syndrome. men and men of descent are diagnosed with prostate cancer at higher rates than other men. The reasons for this are not well understood and are likely due to a combination of genetic and environmental factors. What are the signs or symptoms? Symptoms of this condition include: Problems with urination. This may include: ?A weak or interrupted flow of urine. ?Trouble starting or stopping urination. ?Trouble emptying the bladder all the way. ?The need to urinate more often, especially at night. Blood in urine or semen. Persistent pain or discomfort in the lower back, lower abdomen, or hips. Trouble getting an erection. Weakness or numbness in the legs or feet. How is this diagnosed? This condition can be diagnosed with: A digital rectal exam. For this exam, a health care provider inserts a gloved finger into the rectum to feel the prostate gland. A blood test called a prostate-specific antigen (PSA) test. A procedure in which a sample of tissue is taken from the prostate and checked under a microscope (prostate biopsy). An imaging test called transrectal ultrasonography. Once the condition is diagnosed, tests will be done to determine how far the cancer has spread. This is called staging the cancer. Staging may involve imaging tests, such as a bone scan, CT scan, PET scan, or MRI. Stages of prostate cancer The stages of prostate cancer are as follows: Stage 1 (I). At this stage, the cancer is found in the prostate only. The cancer is not visible on imaging tests, and it is usually found by accident, such as during prostate surgery. Stage 2 (II). At this stage, the cancer is more advanced than it is in stage 1, but the cancer has not spread outside the prostate. Stage 3 (III). At this stage, the cancer has spread beyond the outer layer of the prostate to nearby tissues. The cancer may be found in the seminal vesicles, which are near the bladder and the prostate. Stage 4 (IV). At this stage, the cancer has spread to other parts of the body, such as the lymph nodes, bones, bladder, rectum, liver, or lungs. Prostate cancer grading Prostate cancer is also graded according to how the cancer cells look under a microscope. This is called the [place] score and the total score can range from 6 10, indicating how likely it is that the cancer will spread (metastasize) to other parts of the body. The higher the score, the greater the likelihood that the cancer will spread. [place] 6 or lower: This indicates that the cancer cells look similar to normal prostate cells (well differentiated). Shanda 7: This indicates that the cancer cells look somewhat similar to normal prostate cells (moderately differentiated). [place] 8, 9, or 10: This indicates that the cancer cells look very different than normal prostate cells (poorly differentiated). How is this treated? Treatment for this condition depends on several factors, including the stage of the cancer, your age, personal preferences, and your overall health. Talk with your health care provider about treatment options that are recommended for you. Common treatments include: Observation for early stage prostate cancer (active surveillance). This involves having exams, blood tests, and in some cases, more biopsies. For some men, this is the only treatment needed. Surgery. Types of surgeries include: ?Open surgery (radical prostatectomy). In this surgery, a larger incision is made to remove the prostate. ?A laparoscopic radical prostatectomy. This is a surgery to remove the prostate and lymph nodes through several small incisions. It is often referred to as a minimally invasive surgery. ?A robotic radical prostatectomy. This is laparoscopic surgery to remove the prostate and lymph nodes with the help of robotic arms that are controlled by the surgeon. ?Cryoablation. This is surgery to freeze and destroy cancer cells. Radiation treatment. Types of radiation treatment include: ?External beam radiation. This type aims beams of radiation from outside the body at the prostate to destroy cancerous cells. ?Brachytherapy. This type uses radioactive needles, seeds, wires, or tubes that are implanted into the prostate gland. Like external beam radiation, brachytherapy destroys cancerous cells. An advantage is that this type of radiation limits the damage to surrounding tissue and has fewer side effects. Chemotherapy. This treatment kills cancer cells or stops them from multiplying. It kills both cancer cells and normal cells. Targeted therapy. This treatment uses medicines to kill cancer cells without damaging normal cells. Hormone treatment. This treatment involves taking medicines that act on testosterone, one of the male hormones, by: ?Stopping your body from producing testosterone. ?Blocking testosterone from reaching cancer cells. Follow these instructions at home: Lifestyle Do not use any products that contain nicotine or tobacco. These products include cigarettes, chewing tobacco, and vaping devices, such as e-cigarettes. If you need help quitting, ask your health care provider. Eat a healthy diet. To do this: ?Eat foods that are high in fiber. These include beans, whole grains, and fresh fruits and vegetables. ?Limit foods that are high in fat and sugar. These include fried or sweet foods. Treatment for prostate cancer may affect sexual function. If you have a partner, continue to have intimate moments. This may include touching, holding, hugging, and caressing your partner. Get plenty of sleep. Consider joining a support group for men who have prostate cancer. Meeting with a support group may help you learn to manage the stress of having cancer. General instructions Take zrcd-diw-asmuybb and prescription medicines only as told by your health care provider. If you have to go to the hospital, notify your cancer specialist (oncologist). Keep all follow-up visits. This is important. Where to find more information [place] Cancer Society: www.cancer.org [place] Society of Clinical Oncology: www.cancer.net National Cancer [place]: www.cancer.gov Contact a health care provider if: You have new or increasing trouble urinating. You have new or increasing blood in your urine. You have new or increasing pain in your hips, back, or chest. Get help right away if: You have weakness or numbness in your legs. You cannot control urination or your bowel movements (incontinence). You have chills or a fever. Summary The prostate is a small gland that is involved in the production of semen. It is located below a man's bladder, in front of the rectum. Prostate cancer is the abnormal growth of cells in the prostate gland. Treatment for this condition depends on the stage of the cancer, your age, personal preferences, and your overall health. Talk with your health care provider about treatment options that are recommended for you. Consider joining a support group for men who have prostate cancer. Meeting with a support group may help you learn to manage the stress of having cancer. This information is not intended to replace advice given to you by your health care provider. Make sure you discuss any questions you have with your health care provider. Document Revised: 06/10/2021 Document Reviewed: 06/10/2021 [employer] Patient Education 2022 [employer]. Follow Up Care 09/02/2023 12:47:55 With:RAMAKRISHNA LICONA, Nick Irwin, URL Address: [address] [place], [place] [id number]- When: Unknown [facility] 10-14-2023 Note Patient Education Oncology Prostate Cancer The prostate is a small gland that produces fluid that makes up semen (seminal fluid). It is located below the bladder in men, in front of the rectum. Prostate cancer is the abnormal growth of cells in the prostate gland. What are the causes? The exact cause of this condition is not known. What increases the risk? You are more likely to develop this condition if: ? You are 65 years of age or older. ? You have a family history of prostate cancer. ? You have a family history of breast and ovarian cancer. ? You have genes that are passed from parent to child (inherited), such as BRCA1 and BRCA2. ? You have Londono syndrome. men and men of descent are diagnosed with prostate cancer at higher rates than other men. The reasons for this are not well understood and are likely due to a combination of genetic and environmental factors. What are the signs or symptoms? Symptoms of this condition include: ? Problems with urination. This may include: ? A weak or interrupted flow of urine. ? Trouble starting or stopping urination. ? Trouble emptying the bladder all the way. ? The need to urinate more often, especially at night. ? Blood in urine or semen. ? Persistent pain or discomfort in the lower back, lower abdomen, or hips. ? Trouble getting an erection. ? Weakness or numbness in the legs or feet. How is this diagnosed? This condition can be diagnosed with: ? A digital rectal exam. For this exam, a health care provider inserts a gloved finger into the rectum to feel the prostate gland. ? A blood test called a prostate-specific antigen (PSA) test. ? A procedure in which a sample of tissue is taken from the prostate and checked under a microscope (prostate biopsy). ? An imaging test called transrectal ultrasonography. Once the condition is diagnosed, tests will be done to determine how far the cancer has spread. This is called staging the cancer. Staging may involve imaging tests, such as a bone scan, CT scan, PET scan, or MRI. Stages of prostate cancer The stages of prostate cancer are as follows: ? Stage 1 (I). At this stage, the cancer is found in the prostate only. The cancer is not visible on imaging tests, and it is usually found by accident, such as during prostate surgery. ? Stage 2 (II). At this stage, the cancer is more advanced than it is in stage 1, but the cancer has not spread outside the prostate. ? Stage 3 (III). At this stage, the cancer has spread beyond the outer layer of the prostate to nearby tissues. The cancer may be found in the seminal vesicles, which are near the bladder and the prostate. ? Stage 4 (IV). At this stage, the cancer has spread to other parts of the body, such as the lymph nodes, bones, bladder, rectum, liver, or lungs. Prostate cancer grading Prostate cancer is also graded according to how the cancer cells look under a microscope. This is called the [place] score and the total score can range from 6?10, indicating how likely it is that the cancer will spread (metastasize) to other parts of the body. The higher the score, the greater the likelihood that the cancer will spread. ? [place] 6 or lower: This indicates that the cancer cells look similar to normal prostate cells (well differentiated). ? [place] 7: This indicates that the cancer cells look somewhat similar to normal prostate cells (moderately differentiated). ? Shanda 8, 9, or 10: This indicates that the cancer cells look very different than normal prostate cells (poorly differentiated). How is this treated? Treatment for this condition depends on several factors, including the stage of the cancer, your age, personal preferences, and your overall health. Talk with your health care provider about treatment options that are recommended for you. Common treatments include: ? Observation for early stage prostate cancer (active surveillance). This involves having exams, blood tests, and in some cases, more biopsies. For some men, this is the only treatment needed. ? Surgery. Types of surgeries include: ? Open surgery (radical prostatectomy). In this surgery, a larger incision is made to remove the prostate. ? A laparoscopic radical prostatectomy. This is a surgery to remove the prostate and lymph nodes through several small incisions. It is often referred to as a minimally invasive surgery. ? A robotic radical prostatectomy. This is laparoscopic surgery to remove the prostate and lymph nodes with the help of robotic arms that are controlled by the surgeon. ? Cryoablation. This is surgery to freeze and destroy cancer cells. ? Radiation treatment. Types of radiation treatment include: ? External beam radiation. This type aims beams of radiation from outside the body at the prostate to destroy cancerous cells. ? Brachytherapy. This type uses radioactive needles, seeds, wires, or tubes that are implanted into the prostate gla (more content not included)... [facility] 09-23-2023 Hospital Discharge instructions Patient Education 09/23/2023 13:33:03 Diverticulosis MAGR (CUSTOM) Diverticulosis Many people have small pouches in their colon called diverticulum. The diverticulum bulge outward through weak spots in the colon. You could have one or more of these pouches in the colon. The condition of having these pouches in the colon is called diverticulosis or diverticular disease. Diverticulosis is usually diagnosed by tests to evaluate something else. For example, you may have had a colonoscopy to screen for colon cancer when the diverticulosis was found. Most people with diverticulosis do not have any discomfort or problems. If symptoms develop, they may include mild cramps, bloating, and constipation. A complication of this condition is called diverticulitis. This is when the diverticulum become inflamed and infected. How to treat diverticulosis: Increasing the amount of fiber in the diet may reduce symptoms of diverticulosis and prevent complications such as diverticulitis (infected diverticuli). Fiber keeps stool soft and lowers pressure inside the colon so that bowel contents can move through easily. You should eat 20 to 35 grams of fiber each day. The table below shows the amount of fiber in some foods that you can easily add to your diet. Adding fiber slowly may decrease the bloating and fullness sometimes felt with an immediate high fiber diet. The doctor may also recommend taking a fiber product such as Citrucel or Metamucil once a day. In the past people with diverticulosis were to avoid nuts, corn, and seeds. This has not been found to be true. If you find that certain foods create cramping or bloating, avoid that food. Foods high in fiber include: Fresh fruits, fresh vegetables, legumes (beans), whole wheat bread, bran muffins or cereal, and nuts. See the table below for examples of high fiber foods. Remember, your goal is 20-35 grams per day. Amount of fiber in different foods Food Serving Grams of fiber Fruits Apple (with skin) 1 medium apple 4.4 Banana 1 medium banana 3.1 Oranges 1 orange 3.1 Prunes 1 cup, pitted 12.4 Juices Apple, unsweetened, w/added ascorbic acid 1 cup 0.5 Grapefruit, white, canned, sweetened 1 cup 0.2 Grape, unsweetened, w/added ascorbic acid 1 cup 0.5 [place] 1 cup 0.7 Vegetables Cooked Green beans 1 cup 4.0 Carrots 1/2 cup sliced 2.3 Peas 1 cup 8.8 Potato (baked, with skin) 1 medium potato 3.8 Raw [place] (with peel) 1 cucumber 1.5 Lettuce 1 cup shredded 0.5 Tomato 1 medium tomato 1.5 Spinach 1 cup 0.7 Legumes Baked beans, canned, no salt added 1 cup 13.9 Kidney beans, canned 1 cup 13.6 [place] beans, canned 1 cup 11.6 Lentils, boiled 1 cup 15.6 Breads, pastas, flours Bran muffins 1 medium muffin 5.2 Oatmeal, cooked 1 cup 4.0 White bread 1 slice 0.6 Whole-wheat bread 1 slice 1.9 Pasta and rice, cooked Macaroni 1 cup 2.5 Rice, brown 1 cup 3.5 Rice, white 1 cup 0.6 Spaghetti (regular) 1 cup 2.5 Nuts Almonds 1/2 cup 8.7 Peanuts 1/2 cup 7.9 Chart from [employer] 2013. SEEK IMMEDIATE MEDICAL CARE IF: You develop abdominal (belly) pain. An oral temperature above _ 101 F__develops. Repeated vomiting occurs. Blood is being passed in stools (bright red or black tarry stools). You develop any bowel problems or changes which you have not had before. Extra Information: To learn how much fiber and other nutrients are in different foods, visit the [place] Department of Agriculture (USDA) National Nutrient Database at: http://www.nal.usda.gov/fnic/food comp/search/ Created using data from the USDA National Nutrient Database for Standard Reference. Available at http://www.FreshPay.D[employer] Research.gov/fnic/food comp/search/. Information adapted from: [facility] Patient Information 2010 [employer]. [employer] 2013 http://www.NMRKT/contents/ soeovmorryhq-jiqdbku-vspmix-the-b asics 09/23/2023 13:32:59 Hemorrhoids, Myur-bk-Pksz Hemorrhoids Hemorrhoids are swollen veins that may develop: In the butt (rectum). These are called internal hemorrhoids. Around the opening of the butt (anus). These are called external hemorrhoids. Hemorrhoids can cause pain, itching, or bleeding. Most of the time, they do not cause serious problems. They usually get better with diet changes, lifestyle changes, and other home treatments. What are the causes? This condition may be caused by: Having trouble pooping (constipation). Pushing hard (straining) to poop. Watery poop (diarrhea). . Being very overweight (obese). Sitting for long periods of time. Heavy lifting or other activity that causes you to strain. Anal sex. Riding a bike for a long period of time. What are the signs or symptoms? Symptoms of this condition include: Pain. Itching or soreness in the butt. Bleeding from the butt. Leaking poop. Swelling in the area. One or more lumps around the opening of your butt. How is this diagnosed? A doctor can often diagnose this condition by looking at the affected area. The doctor may also: Do an exam that involves feeling the area with a gloved hand (digital rectal exam). Examine the area inside your butt using a small tube (anoscope). Order blood tests. This may be done if you have lost a lot of blood. Have you get a test that involves looking inside the colon using a flexible tube with a camera on the end (sigmoidoscopy or colonoscopy). How is this treated? This condition can usually be treated at home. Your doctor may tell you to change what you eat, make lifestyle changes, or try home treatments. If these do not help, procedures can be done to remove the hemorrhoids or make them smaller. These may involve: Placing rubber bands at the base of the hemorrhoids to cut off their blood supply. Injecting medicine into the hemorrhoids to shrink them. Shining a type of light energy onto the hemorrhoids to cause them to fall off. Doing surgery to remove the hemorrhoids or cut off their blood supply. Follow these instructions at home: Eating and drinking Eat foods that have a lot of fiber in them. These include whole grains, beans, nuts, fruits, and vegetables. Ask your doctor about taking products that have added fiber (fibersupplements). Reduce the amount of fat in your diet. You can do this by: ?Eating low-fat dairy products. ?Eating less red meat. ?Avoiding processed foods. Drink enough fluid to keep your pee (urine) pale yellow. Managing pain and swelling Take a warm-water bath (sitz bath) for 20 minutes to ease pain. Do this 3 4 times a day. You may do this in a bathtub or using a portable sitz bath that fits over the toilet. If told, put ice on the painful area. It may be helpful to use ice between your warm baths. ?Put ice in a plastic bag. ?Place a towel between your skin and the bag. ?Leave the ice on for 20 minutes, 2 3 times a day. General instructions Take jwdb-cvz-qysxcxi and prescription medicines only as told by your doctor. ?Medicated creams and medicines may be used as told. Exercise often. Ask your doctor how much and what kind of exercise is best for you. Go to the bathroom when you have the urge to poop. Do not wait. Avoid pushing too hard when you poop. Keep your butt dry and clean. Use wet toilet paper or moist towelettes after pooping. Do not sit on the toilet for a long time. Keep all follow-up visits as told by your doctor. This is important. Contact a doctor if you: Have pain and swelling that do not get better with treatment or medicine. Have trouble pooping. Cannot poop. Have pain or swelling outside the area of the hemorrhoids. Get help right away if you have: Bleeding that will not stop. Summary Hemorrhoids are swollen veins in the butt or around the opening of the butt. They can cause pain, itching, or bleeding. Eat foods that have a lot of fiber in them. These include whole grains, beans, nuts, fruits, and vegetables. Take a warm-water bath (sitz bath) for 20 minutes to ease pain. Do this 3 4 times a day. This information is not intended to replace advice given to you by your health care provider. Make sure you discuss any questions you have with your health care provider. Document Revised: 09/23/2021 Document Reviewed: 09/23/2021 [employer] Patient Education 2022 [employer]. 09/23/2023 13:00:57 Colonoscopy, Adult, Care After Colonoscopy, Adult, Care After The following information offers guidance on how to care for yourself after your procedure. Your health care provider may also give you more specific instructions. If you have problems or questions, contact your health care provider. What can I expect after the procedure? After the procedure, it is common to have: A small amount of blood in your stool for 24 hours after the procedure. Some gas. Mild cramping or bloating of your abdomen. Follow these instructions at home: Eating and drinking Drink enough fluid to keep your urine pale yellow. Follow instructions from your health care provider about eating or drinking restrictions. Resume your normal diet as told by your health care provider. Avoid heavy or fried foods that are hard to digest. Activity Rest as told by your health care provider. Avoid sitting for a long time without moving. Get up to take short walks every 1 2 hours. This is important to improve blood flow and breathing. Ask for help if you feel weak or unsteady. Return to your normal activities as told by your health care provider. Ask your health care provider what activities are safe for you. Managing cramping and bloating Try walking around when you have cramps or feel bloated. If directed, apply heat to your abdomen as told by your health care provider. Use the heat source that your health care provider recommends, such as a moist heat pack or a heating pad. ?Place a towel between your skin and the heat source. ?Leave the heat on for 20 30 minutes. ?Remove the heat if your skin turns bright red. This is especially important if you are unable to feel pain, heat, or cold. You have a greater risk of getting burned. General instructions If you were given a sedative during the procedure, it can affect you for several hours. Do not drive or operate machinery until your health care provider says that it is safe. For the first 24 hours after the procedure: ?Do not sign important documents. ?Do not drink alcohol. ?Do your regular daily activities at a slower pace than normal. ?Eat soft foods that are easy to digest. Take ixpp-mkt-cwmrcbq and prescription medicines only as told by your health care provider. Keep all follow-up visits. This is important. Contact a health care provider if: You have blood in your stool 2 3 days after the procedure. Get help right away if: You have more than a small spotting of blood in your stool. You have large blood clots in your stool. You have swelling of your abdomen. You have nausea or vomiting. You have a fever. You have increasing pain in your abdomen that is not relieved with medicine. These symptoms may be an emergency. Get help right away. Call 911. Do not wait to see if the symptoms will go away. Do not drive yourself to the hospital. Summary After the procedure, it is common to have a small amount of blood in your stool. You may also have mild cramping and bloating of your abdomen. If you were given a sedative during the procedure, it can affect you for several hours. Do not drive or operate machinery until your health care provider says that it is safe. Get help right away if you have a lot of blood in your stool, nausea or vomiting, a fever, or increased pain in your abdomen. This information is not intended to replace advice given to you by your health care provider. Make sure you discuss any questions you have with your health care provider. Document Revised: 11/04/2021 Document Reviewed: 11/04/2021 Elsevier Patient Education 2022 [employer]. Follow Up Care 07/25/2023 13:23:32 With:Mayra LICONA, JOLIE Massey Address: When: only if needed Comments:Call for any problems. [facility] 09-23-2023 Evaluation + Plan note Extrac katy from: Title:ANES Post-operative Note - General Author: Hermelindo Quinones Jr., DO Date:09/23/23 Plan Transfer/Discharge: Transfer/Discharge Discharge when meets criteria ( From PACU to Ambulatory Surgery Unit, and To home ). Extracted from: Title:ANES Pre-operative Note - Endo Author:Hermelindo Donovan Jr., DO Date:09/23/23 Plan [place] [employer]esthesiologists (ASA) physical status classification: Class III. Anesthetic Preoperative Plan: Anesthesia General, and -TIVA. Future Appointments Appointment Date:10/14/2023 10:15:00 AM Scheduled Provider:Nick THACKER MD Location:[facility] Juan Pablo Appointment Type:URO Office Visit Appointment Date:12/13/2023 09:40:00 AM Scheduled Provider:Aruna MARVIN MD Location:[facility] Michael Appointment Type:[facility]05-03-2024 Hospital Discharge instructions Patient Education 07/29/2023 11:18:58 Prostate Cancer Screening Prostate Cancer Screening Prostate cancer screening is testing that is done to check for the presence of prostate cancer in men. The prostate gland is a walnut-sized gland that is located below the bladder and in front of therectum in males. The function of the prostate is to add fluid to semen during ejaculation. Prostatecancer is one of the most common types of cancer in men. Who should have prostate cancer screening? Screening recommendations vary based on age and other risk factors, as well as between the professional organizations who make the recommendations. In general, screening is recommended if: You are age 50 to 70 and have an average risk for prostate cancer. You should talk with your healthcare provider about your need for screening and how often screening should be done. Because most prostate cancers are slow growing and will not cause , screening in this age group is generally reserved for men who have a 10- to 15-year life expectancy. You are younger than age 50, and you have these risk factors: ?Having a father, brother, or uncle who has been diagnosed with prostate cancer. The risk is higherif your family member's cancer occurred at an early age or if you have multiple family members withprostate cancer at an early age. ?Being a male who is Black or is of [place] or sub-Saharan descent. In general, screening is not recommended if: You are younger than age 40. You are between the ages of 40 and 49 and you have no risk factors. You are 70 years of age or older. At this age, the risks that screening can cause are greater than the benefits that it may provide. If you are at high risk for prostate cancer, your health care provider may recommend that you have screenings more often or that you start screening at a younger age. How is screening for prostate cancer done? The recommended prostate cancer screening test is a blood test called the prostate-specific antigen(PSA) test. PSA is a protein that is made in the prostate. As you age, your prostate naturally produces more PSA. Abnormally high PSA levels may be caused by: Prostate cancer. An enlarged prostate that is not caused by cancer (benign prostatic hyperplasia, or BPH). This condition is very common in older men. A prostate gland infection (prostatitis) or urinary tract infection. Certain medicines such as male hormones (like testosterone) or other medicines that raise testosterone levels. A rectal exam may be done as part of prostate cancer screening to help provide information about the size of your prostate gland. When a rectal exam is performed, it should be done after the PSA level is drawn to avoid any effect on the results. Depending on the PSA results, you may need more tests, such as: A physical exam to check the size of your prostate gland, if not done as part of screening. Blood and imaging tests. A procedure to remove tissue samples from your prostate gland for testing (biopsy). This is the only way to know for certain if you have prostate cancer. What are the benefits of prostate cancer screening? Screening can help to identify cancer at an early stage, before symptoms start and when the cancer can be treated more easily. There is a small chance that screening may lower your risk of dying from prostate cancer. The chance is small because prostate cancer is a slow-growing cancer, and most men with prostate cancer from a different cause. What are the risks of prostate cancer screening? The main risk of prostate cancer screening is diagnosing and treating prostate cancer that would never have caused any symptoms or problems. This is called overdiagnosisand overtreatment. PSA screening cannot tell you if your PSA is high due to cancer or a different cause. A prostate biopsy is the only procedure to diagnose prostate cancer. Even the results of a biopsy may not tell you if your cancer needs to be treated. Slow-growing prostate cancer may not need any treatment other than monitoring, so diagnosing and treating it may cause unnecessary stress or other side effects. Questions to ask your health care provider When should I start prostate cancer screening? What is my risk for prostate cancer? How often do I need screening? What type of screening tests do I need? How do I get my test results? What do my results mean? Do I need treatment? Where to find more information The [place] [employer]: www.cancer.org [place] [employer]: www.auanet.org Contact a health care provider if: You have difficulty urinating. You have pain when you urinate or ejaculate. You have blood in your urine or semen. You have pain in your back or in the area of your prostate. Summary Prostate cancer is a common type of cancer in men. The prostate gland is located below the bladder and in front of the rectum. This gland adds fluid to semen during ejaculation. Prostate cancer screening may identify cancer at an early stage, when the cancer can be treated more easily and is less likely to have spread to other areas of the body. The prostate-specific antigen (PSA) test is the recommended screening test for prostate cancer, butit has associated risks. Discuss the risks and benefits of prostate cancer screening with your health care provider. If you are age 70 or older, the risks that screening can cause are greater than the benefits that it may provide. This information is not intended to replace advice given to you by your health care provider. Make sure you discuss any questions you have with your health care provider. Document Revised: 09/07/2021 Document Reviewed: 09/07/2021 Elsevier Patient Education 2022 [employer] Follow Up Care 03/26/2022 09:49:41 With:RAMAKRISHNA LICONA, Nick Irwin, URL Address: [address] [place] [phone] When: Unknown [facility] 03-12-2024 Hospital Discharge instructions Patient Education 06/07/2023 10:38:05 Hemorrhoids Hemorrhoids Hemorrhoids are swollen veins in and around the rectum or anus. There are two types of hemorrhoids: Internal hemorrhoids. These occur in the veins that are just inside the rectum. They may poke through to the outside and become irritated and painful. External hemorrhoids. These occur in the veins that are outside the anus and can be felt as a painful swelling or hard lump near the anus. Most hemorrhoids do not cause serious problems, and they can be managed with home treatments such as diet and lifestyle changes. If home treatments do not help the symptoms, procedures can be done toshrink or remove the hemorrhoids. What are the causes? This condition is caused by increased pressure in the anal area. This pressure may result from various things, including: Constipation. Straining to have a bowel movement. Diarrhea. . Obesity. Sitting for long periods of time. Heavy lifting or other activity that causes you to strain. Anal sex. Riding a bike for a long period of time. What are the signs or symptoms? Symptoms of this condition include: Pain. Anal itching or irritation. Rectal bleeding. Leakage of stool (feces). Anal swelling. One or more lumps around the anus. How is this diagnosed? This condition can often be diagnosed through a visual exam. Other exams or tests may also be done,such as: An exam that involves feeling the rectal area with a gloved hand (digital rectal exam). An exam of the anal canal that is done using a small tube (anoscope). A blood test, if you have lost a significant amount of blood. A test to look inside the colon using a flexible tube with a camera on the end (sigmoidoscopy or colonoscopy). How is this treated? This condition can usually be treated at home. However, various procedures may be done if dietary changes, lifestyle changes, and other home treatments do not help your symptoms. These procedures canhelp make the hemorrhoids smaller or remove them completely. Some of these procedures involve surgery, and others do not. Common procedures include: Rubber band ligation. Rubber bands are placed at the base of the hemorrhoids to cut off their bloodsupply. Sclerotherapy. Medicine is injected into the hemorrhoids to shrink them. Infrared coagulation. A type of light energy is used to get rid of the hemorrhoids. Hemorrhoidectomy surgery. The hemorrhoids are surgically removed, and the veins that supply them are tied off. Stapled hemorrhoidopexy surgery. The surgeon pat the base of the hemorrhoid to the rectal wall. Follow these instructions at home: Eating and drinking Eat foods that have a lot of fiber in them, such as whole grains, beans, nuts, fruits, and vegetables. Ask your health care provider about taking products that have added fiber (fiber supplements). Reduce the amount of fat in your diet. You can do this by eating low-fat dairy products, eating less red meat, and avoiding processed foods. Drink enough fluid to keep your urine pale yellow. Managing pain and swelling Take warm sitz baths for 20 minutes, 3 4 times a day to ease pain and discomfort. You may do this in a bathtub or using a portable sitz bath that fits over the toilet. If directed, apply ice to the affected area. Using ice packs between sitz baths may be helpful. ?Put ice in a plastic bag. ?Place a towel between your skin and the bag. ?Leave the ice on for 20 minutes, 2 3 times a day. General instructions Take pjvu-rpc-pcmxppx and prescription medicines only as told by your health care provider. Use medicated creams or suppositories as told. Get regular exercise. Ask your health care provider how much and what kind of exercise is best for you. In general, you should do moderate exercise for at least 30 minutes on most days of the week (150 minutes each week). This can include activities such as walking, biking, or yoga. Go to the bathroom when you have the urge to have a bowel movement. Do not wait. Avoid straining to have bowel movements. Keep the anal area dry and clean. Use wet toilet paper or moist towelettes after a bowel movement. Do not sit on the toilet for long periods of time. This increases blood pooling and pain. Keep all follow-up visits as told by your health care provider. This is important. Contact a health care provider if you have: Increasing pain and swelling that are not controlled by treatment or medicine. Difficulty having a bowel movement, or you are unable to have a bowel movement. Pain or inflammation outside the area of the hemorrhoids. Get help right away if you have: Uncontrolled bleeding from your rectum. Summary Hemorrhoids are swollen veins in and around the rectum or anus. Most hemorrhoids can be managed with home treatments such as diet and lifestyle changes. Taking warm sitz baths can help ease pain and discomfort. In severe cases, procedures or surgery can be done to shrink or remove the hemorrhoids. This information is not intended to replace advice given to you by your health care provider. Make sure you discuss any questions you have with your health care provider. Document Revised: 09/23/2021 Document Reviewed: 09/23/2021 [employer] Patient Education 2022 [employer]. 06/05/2023 15:19:51 DASH Eating Plan DASH Eating Plan DASH stands for Dietary Approaches to Stop Hypertension. The DASH eating plan is a healthy eating plan that has been shown to: Reduce high blood pressure (hypertension). Reduce your risk for type 2 diabetes, heart disease, and stroke. Help with weight loss. What are tips for following this plan? Reading food labels Check food labels for the amount of salt (sodium) per serving. Choose foods with less than 5 percent of the Daily Value of sodium. Generally, foods with less than 300 milligrams (mg) of sodium per serving fit into this eating plan. To find whole grains, look for the word whole as the first word in the ingredient list. Shopping Buy products labeled as low-sodium or no salt added. Buy fresh foods. Avoid canned foods and pre-made or frozen meals. Cooking Avoid adding salt when cooking. Use salt-free seasonings or herbs instead of table salt or sea salt. Check with your health care provider or pharmacist before using salt substitutes. Do not lau foods. Cook foods using healthy methods such as baking, boiling, grilling, roasting, andbroiling instead. Cook with heart-healthy oils, such as olive, canola, avocado, soybean, or sunflower oil. Meal planning Eat a balanced diet that includes: ?4 or more servings of fruits and 4 or more servings of vegetables each day. Try to fill one-half of your plate with fruits and vegetables. ?6 8 servings of whole grains each day. ?Less than 6 oz (170 g) of lean meat, poultry, or fish each day. A 3-oz (85-g) serving of meat is about the same size as a deck of cards. One egg equals 1 oz (28 g). ?2 3 servings of low-fat dairy each day. One serving is 1 cup (237 mL). ?1 serving of nuts, seeds, or beans 5 times each week. ?2 3 servings of heart-healthy fats. Healthy fats called omega-3 fatty acids are found in foods such as walnuts, flaxseeds, fortified milks, and eggs. These fats are also found in cold-water fish, such as sardines, salmon, and mackerel. Limit how much you eat of: ?Canned or prepackaged foods. ?Food that is high in trans fat, such as some fried foods. ?Food that is high in saturated fat, such as fatty meat. ?Desserts and other sweets, sugary drinks, and other foods with added sugar. ?Full-fat dairy products. Do not salt foods before eating. Do not eat more than 4 egg yolks a week. Try to eat at least 2 vegetarian meals a week. Eat more home-cooked food and less restaurant, buffet, and fast food. Lifestyle When eating at a restaurant, ask that your food be prepared with less salt or no salt, if possible. If you drink alcohol: ?Limit how much you use to: ?0 1 drink a day for women who are not . ?0 2 drinks a day for men. ?Be aware of how much alcohol is in your drink. In the [place] one drink equals one 12 oz bottle of beer (355 mL), one 5 oz glass of wine (148 mL), or one 1 oz glass of hard liquor (44 mL). General information Avoid eating more than 2,300 mg of salt a day. If you have hypertension, you may need to reduce your sodium intake to 1,500 mg a day. Work with your health care provider to maintain a healthy body weight or to lose weight. Ask what an ideal weight is for you. Get at least 30 minutes of exercise that causes your heart to beat faster (aerobic exercise) most days of the week. Activities may include walking, swimming, or biking. Work with your health care provider or dietitian to adjust your eating plan to your individual calorie needs. What foods should I eat? Fruits All fresh, dried, or frozen fruit. Canned fruit in natural juice (without added sugar). Vegetables Fresh or frozen vegetables (raw, steamed, roasted, or grilled). Low-sodium or reduced-sodium tomatoand vegetable juice. Low-sodium or reduced-sodium tomato sauce and tomato paste. Low-sodium or reduced-sodium canned vegetables. Grains Whole-grain or whole-wheat bread. Whole-grain or whole-wheat pasta. Brown rice. Oatmeal. Quinoa. Bulgur. Whole-grain and low-sodium cereals. Shiloh bread. Low- fat, low-sodium crackers. Whole-wheat flour tortillas. Meats and other proteins Skinless chicken or turkey. Ground chicken or turkey. Pork with fat trimmed off. Fish and seafood. Egg whites. Dried beans, peas, or lentils. Unsalted nuts, nut butters, and seeds. Unsalted canned beans. Lean cuts of beef with fat trimmed off. Low-sodium, lean precooked or cured meat, such as sausages or meat loaves. Dairy Low-fat (1%) or fat-free (skim) milk. Reduced-fat, low-fat, or fat-free cheeses. Nonfat, low-sodiumricotta or cottage cheese. Low-fat or nonfat yogurt. Low-fat, low-sodium cheese. Fats and oils Soft margarine without trans fats. Vegetable oil. Reduced-fat, low-fat, or light mayonnaise and salad dressings (reduced-sodium). Canola, safflower, olive, avocado, soybean, and sunflower oils. Avocado. Seasonings and condiments Herbs. Spices. Seasoning mixes without salt. Other foods Unsalted popcorn and pretzels. Fat-free sweets. The items listed above may not be a complete list of foods and beverages you can eat. Contact a dietitian for more information. What foods should I avoid? Fruits Canned fruit in a light or heavy syrup. Fried fruit. Fruit in cream or butter sauce. Vegetables Creamed or fried vegetables. Vegetables in a cheese sauce. Regular canned vegetables (not low-sodium or reduced-sodium). Regular canned tomato sauce and paste (not low-sodium or reduced-sodium). Regular tomato and vegetable juice (not low-sodium or reduced-sodium). Pickles. Olives. Grains Baked goods made with fat, such as croissants, muffins, or some breads. Dry pasta or rice meal packs. Meats and other proteins Fatty cuts of meat. Ribs. Fried meat. Singh. Bologna, salami, and other precooked or cured meats, such as sausages or meat loaves. Fat from the back of a pig (fatback). Bratwurst. Salted nuts and seeds. Canned beans with added salt. Canned or smoked fish. Whole eggs or egg yolks. Chicken or turkey with skin. Dairy Whole or 2% milk, cream, and [id number]. Whole or full-fat cream cheese. Whole-fat or sweetened yogurt. Full-fat cheese. Nondairy creamers. Whipped toppings. Processed cheese and cheese spreads. Fats and oils Butter. Stick margarine. Lard. Shortening. Ghee. Singh fat. Tropical oils, such as coconut, palm kernel, or palm oil. Seasonings and condiments Onion salt, garlic salt, seasoned salt, table salt, and sea salt. Worcestershire sauce. Tartar sauce. Barbecue sauce. Teriyaki sauce. Soy sauce, including reduced-sodium. Steak sauce. Canned and packaged gravies. Fish sauce. Oyster sauce. Cocktail sauce. Store-bought horseradish. Ketchup. Mustard. Meat flavorings and tenderizers. Bouillon cubes. Hot sauces. Pre-made or packaged marinades. Pre-made or packaged taco seasonings. Relishes. Regular salad dressings. Other foods Salted popcorn and pretzels. The items listed above may not be a complete list of foods and beverages you should avoid. Contact a dietitian for more information. Where to find more information National Heart, Lung, and Blood [place]: www.nhlbi.nih.gov [place] [employer]: www.heart.org Academy of Nutrition and Dietetics: www.eatright.org National Kidney Foundation: www.kidney.org Summary The DASH eating plan is a healthy eating plan that has been shown to reduce high blood pressure (hypertension). It may also reduce your risk for type 2 diabetes, heart disease, and stroke. When on the DASH eating plan, aim to eat more fresh fruits and vegetables, whole grains, lean proteins, low-fat dairy, and heart-healthy fats. With the DASH eating plan, you should limit salt (sodium) intake to 2,300 mg a day. If you have hypertension, you may need to reduce your sodium intake to 1,500 mg a day. Work with your health care provider or dietitian to adjust your eating plan to your individual calorie needs. This information is not intended to replace advice given to you by your health care provider. Make sure you discuss any questions you have with your health care provider. Document Revised: 02/15/2020 Document Reviewed: 02/15/2020 [employer] Patient Education 2022 [employer]. Follow Up Care 10/26/2022 17:50:30 With:NAVID LICONA, JEREMIAH Khan Address: [address] [place], [place] [id number]- When:6 months [facility] [place] 07-30-2023 Hospital Discharge instructions Patient Education 10/24/2022 14:25:36 Managing Your Hypertension Managing Your Hypertension Hypertension, also called high blood pressure, is when the force of the blood pressing against the swartz of the arteries is too strong. Arteries are blood vessels that carry blood from your heart throughout your body. Hypertension forces the heart to work harder to pump blood and may cause the arteries to become narrow or stiff. Understanding blood pressure readings A blood pressure reading includes a higher number over a lower number: The first, or top, number is called the systolic pressure. It is a measure of the pressure in your arteries as your heart beats. The second, or bottom number, is called the diastolic pressure. It is a measure of the pressure in your arteries as the heart relaxes. For most people, a normal blood pressure is below 120/80. Your personal target blood pressure may vary depending on your medical conditions, your age, and other factors. Blood pressure is classified into four stages. Based on your blood pressure reading, your health care provider may use the following stages to determine what type of treatment you need, if any. Systolic pressure and diastolic pressure are measured in a unit called millimeters of mercury (mmHg). Normal Systolic pressure: below 120. Diastolic pressure: below 80. Elevated Systolic pressure: 120 129. Diastolic pressure: below 80. Hypertension stage 1 Systolic pressure: 130 139. Diastolic pressure: 80 89. Hypertension stage 2 Systolic pressure: 140 or above. Diastolic pressure: 90 or above. How can this condition affect me? Managing your hypertension is very important. Over time, hypertension can damage the arteries and decrease blood flow to parts of the body, including the brain, heart, and kidneys. Having untreated or uncontrolled hypertension can lead to: A heart attack. A stroke. A weakened blood vessel (aneurysm). Heart failure. Kidney damage. Eye damage. Memory and concentration problems. Vascular dementia. What actions can I take to manage this condition? Hypertension can be managed by making lifestyle changes and possibly by taking medicines. Your health care provider will help you make a plan to bring your blood pressure within a normal range. You may be referred for counseling on a healthy diet and physical activity. Nutrition Eat a diet that is high in fiber and potassium, and low in salt (sodium), added sugar, and fat. An example eating plan is called the DASH diet. DASH stands for Dietary Approaches to Stop Hypertension. To eat this way: ?Eat plenty of fresh fruits and vegetables. Try to fill one-half of your plate at each meal with fruits and vegetables. ?Eat whole grains, such as whole-wheat pasta, brown rice, or whole-grain bread. Fill about one-fourth of your plate with whole grains. ?Eat low-fat dairy products. ?Avoid fatty cuts of meat, processed or cured meats, and poultry with skin. Fill about one-fourth of your plate with lean proteins such as fish, chicken without skin, beans, eggs, and tofu. ?Avoid pre-made and processed foods. These tend to be higher in sodium, added sugar, and fat. Reduce your daily sodium intake. Many people with hypertension should eat less than 1,500 mg of sodium a day. Lifestyle Work with your health care provider to maintain a healthy body weight or to lose weight. Ask what an ideal weight is for you. Get at least 30 minutes of exercise that causes your heart to beat faster (aerobic exercise) most days of the week. Activities may include walking, swimming, or biking. Include exercise to strengthen your muscles (resistance exercise), such as weight lifting, as part of your weekly exercise routine. Try to do these types of exercises for 30 minutes at least 3 days aweek. Do not use any products that contain nicotine or tobacco. These products include cigarettes, chewing tobacco, and vaping devices, such as e-cigarettes. If you need help quitting, ask your health careprovider. Control any long-term (chronic) conditions you have, such as high cholesterol or diabetes. Identify your sources of stress and find ways to manage stress. This may include meditation, deep breathing, or making time for fun activities. Alcohol use Do not drink alcohol if: ?Your health care provider tells you not to drink. ?You are , may be , or are planning to become . If you drink alcohol: ?Limit how much you have to: ?0 1 drink a day for women. ?0 2 drinks a day for men. ?Know how much alcohol is in your drink. In the [place] one drink equals one 12 oz bottle of beer (355 mL), one 5 oz glass of wine (148 mL), or one 1 oz glass of hard liquor (44 mL). Medicines Your health care provider may prescribe medicine if lifestyle changes are not enough to get your blood pressure under control and if: Your systolic blood pressure is 130 or higher. Your diastolic blood pressure is 80 or higher. Take medicines only as told by your health care provider. Follow the directions carefully. Blood pressure medicines must be taken as told by your health care provider. The medicine does not work as well when you skip doses. Skipping doses also puts you at risk for problems. Monitoring Before you monitor your blood pressure: Do not smoke, drink caffeinated beverages, or exercise within 30 minutes before taking a measurement. Use the bathroom and empty your bladder (urinate). Sit quietly for at least 5 minutes before taking measurements. Monitor your blood pressure at home as told by your health care provider. To do this: Sit with your back straight and supported. Place your feet flat on the floor. Do not cross your legs. Support your arm on a flat surface, such as a table. Make sure your upper arm is at heart level. Each time you measure, take two or three readings one minute apart and record the results. You may also need to have your blood pressure checked regularly by your health care provider. General information Talk with your health care provider about your diet, exercise habits, and other lifestyle factors that may be contributing to hypertension. Review all the medicines you take with your health care provider because there may be side effects or interactions. Keep all follow-up visits. Your health care provider can help you create and adjust your plan for managing your high blood pressure. Where to find more information National Heart, Lung, and Blood [place]: www.nhlbi.nih.gov [employer]: www.heart.org Contact a health care provider if: You think you are having a reaction to medicines you have taken. You have repeated (recurrent) headaches. You feel dizzy. You have swelling in your ankles. You have trouble with your vision. Get help right away if: You develop a severe headache or confusion. You have unusual weakness or numbness, or you feel faint. You have severe pain in your chest or abdomen. You vomit repeatedly. You have trouble breathing. These symptoms may be an emergency. Get help right away. Call 911. Do not wait to see if the symptoms will go away. Do not drive yourself to the hospital. Summary Hypertension is when the force of blood pumping through your arteries is too strong. If this condition is not controlled, it may put you at risk for serious complications. Your personal target blood pressure may vary depending on your medical conditions, your age, and other factors. For most people, a normal blood pressure is less than 120/80. Hypertension is managed by lifestyle changes, medicines, or both. Lifestyle changes to help manage hypertension include losing weight, eating a healthy, low-sodium diet, exercising more, stopping smoking, and limiting alcohol. This information is not intended to replace advice given to you by your health care provider. Make sure you discuss any questions you have with your health care provider. Document Revised: 11/26/2021 Document Reviewed: 11/26/2021 [employer] Patient Education 2022 [employer]. Follow Up Care 05/11/2022 18:04:40 With:Aruna MARVIN MD, FAM Address: [address] [place] [id number] When:6 months [facility] [place] 02-11-2023 Hospital Discharge instructions Patient Education 05/08/2022 11:03:32 Managing Your Hypertension Managing Your Hypertension Hypertension is commonly called high blood pressure. This is when the force of your blood pressing against the swartz of your arteries is too strong. Arteries are blood vessels that carry blood from your heart throughout your body. Hypertension forces the heart to work harder to pump blood, and may cause the arteries to become narrow or stiff. Having untreated or uncontrolled hypertension can cause heart attack, stroke, kidney disease, and other problems. What are blood pressure readings? A blood pressure reading consists of a higher number over a lower number. Ideally, your blood pressure should be below 120/80. The first ( top ) number is called the systolic pressure. It is a measure of the pressure in your arteries as your heart beats. The second ( bottom ) number is called the diastolic pressure. It is a measure of the pressure in your arteries as the heart relaxes. What does my blood pressure reading mean? Blood pressure is classified into four stages. Based on your blood pressure reading, your health care provider may use the following stages to determine what type of treatment you need, if any. Systolic pressure and diastolic pressure are measured in a unit called mm Hg. Normal Systolic pressure: below 120. Diastolic pressure: below 80. Elevated Systolic pressure: 120-129. Diastolic pressure: below 80. Hypertension stage 1 Systolic pressure: 130-139. Diastolic pressure: 80-89. Hypertension stage 2 Systolic pressure: 140 or above. Diastolic pressure: 90 or above. What health risks are associated with hypertension? Managing your hypertension is an important responsibility. Uncontrolled hypertension can lead to: A heart attack. A stroke. A weakened blood vessel (aneurysm). Heart failure. Kidney damage. Eye damage. Metabolic syndrome. Memory and concentration problems. What changes can I make to manage my hypertension? Hypertension can be managed by making lifestyle changes and possibly by taking medicines. Your health care provider will help you make a plan to bring your blood pressure within a normal range. Eating and drinking Eat a diet that is high in fiber and potassium, and low in salt (sodium), added sugar, and fat. An example eating plan is called the DASH (Dietary Approaches to Stop Hypertension) diet. To eat this way: ?Eat plenty of fresh fruits and vegetables. Try to fill half of your plate at each meal with fruitsand vegetables. ?Eat whole grains, such as whole wheat pasta, brown rice, or whole grain bread. Fill about one quarter of your plate with whole grains. ?Eat low-fat diary products. ?Avoid fatty cuts of meat, processed or cured meats, and poultry with skin. Fill about one quarter of your plate with lean proteins such as fish, chicken without skin, beans, eggs, and tofu. ?Avoid premade and processed foods. These tend to be higher in sodium, added sugar, and fat. Reduce your daily sodium intake. Most people with hypertension should eat less than 1,500 mg of sodium a day. Limit alcohol intake to no more than 1 drink a day for non women and 2 drinks a day for men. One drink equals 12 oz of beer, 5 oz of wine, or 1 oz of hard liquor. Lifestyle Work with your health care provider to maintain a healthy body weight, or to lose weight. Ask what an ideal weight is for you. Get at least 30 minutes of exercise that causes your heart to beat faster (aerobic exercise) most days of the week. Activities may include walking, swimming, or biking. Include exercise to strengthen your muscles (resistance exercise), such as weight lifting, as part of your weekly exercise routine. Try to do these types of exercises for 30 minutes at least 3 days aweek. Do not use any products that contain nicotine or tobacco, such as cigarettes and e-cigarettes. If you need help quitting, ask your health care provider. Control any long-term (chronic) conditions you have, such as high cholesterol or diabetes. Monitoring Monitor your blood pressure at home as told by your health care provider. Your personal target blood pressure may vary depending on your medical conditions, your age, and other factors. Have your blood pressure checked regularly, as often as told by your health care provider. Working with your health care provider Review all the medicines you take with your health care provider because there may be side effects or interactions. Talk with your health care provider about your diet, exercise habits, and other lifestyle factors that may be contributing to hypertension. Visit your health care provider regularly. Your health care provider can help you create and adjustyour plan for managing hypertension. Will I need medicine to control my blood pressure? Your health care provider may prescribe medicine if lifestyle changes are not enough to get your blood pressure under control, and if: Your systolic blood pressure is 130 or higher. Your diastolic blood pressure is 80 or higher. Take medicines only as told by your health care provider. Follow the directions carefully. Blood pressure medicines must be taken as prescribed. The medicine does not work as well when you skip doses. Skipping doses also puts you at risk for problems. Contact a health care provider if: You think you are having a reaction to medicines you have taken. You have repeated (recurrent) headaches. You feel dizzy. You have swelling in your ankles. You have trouble with your vision. Get help right away if: You develop a severe headache or confusion. You have unusual weakness or numbness, or you feel faint. You have severe pain in your chest or abdomen. You vomit repeatedly. You have trouble breathing. Summary Hypertension is when the force of blood pumping through your arteries is too strong. If this condition is not controlled, it may put you at risk for serious complications. Your personal target blood pressure may vary depending on your medical conditions, your age, and other factors. For most people, a normal blood pressure is less than 120/80. Hypertension is managed by lifestyle changes, medicines, or both. Lifestyle changes include weight loss, eating a healthy, low-sodium diet, exercising more, and limiting alcohol. This information is not intended to replace advice given to you by your health care provider. Make sure you discuss any questions you have with your health care provider. Document Released: 12/06/2012 Document Revised: 07/06/2019 Document Reviewed: 02/09/2017 [employer] Patient Education 2019 [employer]. Follow Up Care 11/10/2021 10:38:42 With:NAVID LICONA, JEREMIAH Khan Address: [address] [place] [phone]- When:[address] [facility] 12-30-2022 Hospital Discharge instructions Patient Education 03/26/2022 09:44:34 Prostate Cancer Screening Prostate Cancer Screening The prostate is a walnut-sized gland that is located below the bladder and in front of the rectum in males. The function of the prostate (prostate gland) is to add fluid to semen during ejaculation. Prostate cancer is the second most common type of cancer in men. A screening test for cancer is a test that is done before cancer symptoms start. Screening can helpto identify cancer at an early stage, when the cancer can be treated more easily. The recommended prostate cancer screening test is a blood test called the prostate-specific antigen (PSA) test. PSA is a protein that is made in the prostate. As you age, your prostate naturally produces more PSA. Abnormally high PSA levels may be caused by: Prostate cancer. An enlarged prostate that is not caused by cancer (benign prostatic hyperplasia, BPH). This condition is very common in older men. A prostate gland infection (prostatitis). Medicines to assist with hair growth, such as finasteride. Depending on the PSA results, you may need more tests, such as: A physical exam to check the size of your prostate gland. Blood and imaging tests. A procedure to remove tissue samples from your prostate gland for testing (biopsy). Who should have screening? Screening recommendations vary based on age. If you are younger than age 40, screening is not recommended. If you are age 40 54 and you have no risk factors, screening is not recommended. If you are younger than age 55, ask your health care provider if you need screening if you have oneof these risk factors: ?Being of -[place]ub[place] descent. ?Having a family history of prostate cancer. If you are age 55 69, talk with your health care provider about your need for screening and how often screening should be done. If you are older than age 70, screening is not recommended. This is because the risks that screening can cause are greater than the benefits that it may provide (risks outweigh the benefits). If you are at high risk for prostate cancer, your health care provider may recommend that you have screenings more often or start screening at a younger age. You may be at high risk if you: Are older than age 55. Are -Cuban. Have a father, brother, or uncle who has been diagnosed with prostate cancer. The risk may be higher if your family member's cancer occurred at an early age. What are the benefits of screening? There is a small chance that screening may lower your risk of dying from prostate cancer. The chance is small because prostate cancer is typically a slow-growing cancer, and most men with prostate cancer from a different cause. What are the risks of screening? The main risk of prostate cancer screening is diagnosing and treating prostate cancer that would never have caused any symptoms or problems (overdiagnosis and overtreatment). PSA screening cannot tell you if your PSA is high due to cancer or a different cause. A prostate biopsy is the only procedure to diagnose prostate cancer. Even the results of a biopsy may not tell you if your cancer needs mateo treated. Slow-growing prostate cancer may not need any treatment other than monitoring, so diagnosing and treating it may cause unnecessary stress or other side effects. A prostate biopsy may also cause: Infection or fever. A false negative. This is a result that shows that you do not have prostate cancer when you actually do have prostate cancer. Questions to ask your health care provider When should I start prostate cancer screening? What is my risk for prostate cancer? How often do I need screening? What type of screening tests do I need? How do I get my test results? What do my results mean? Do I need treatment? Contact a health care provider if: You have difficulty urinating. You have pain when you urinate or ejaculate. You have blood in your urine or semen. You have pain in your back or in the area of your prostate. You have trouble getting or maintaining an erection (erectile dysfunction, ED). Summary Prostate cancer is a common type of cancer in men. The prostate (prostate gland) is located below the bladder and in front of the rectum. This gland adds fluid to semen during ejaculation. Prostate cancer screening may identify cancer at an early stage, when the cancer can be treated more easily. The prostate-specific antigen (PSA) test is the recommended screening test for prostate cancer. Discuss the risks and benefits of prostate cancer screening with your health care provider. If you are age 70 or older, screening is likely to lead to more risks than benefits (risks outweigh the benefits). This information is not intended to replace advice given to you by your health care provider. Make sure you discuss any questions you have with your health care provider. Document Released: 12/23/2017 Document Revised: 02/24/2018 Document Reviewed: 12/23/2017 [employer] Patient Education 2020 [employer]. Follow Up Care 02/10/2022 13:14:02 With:RAMAKRISHNA LICONA, Nick Irwin, URL Address: [address] [place] [id number]- When: Unknown [facility] 12-13-2022 Hospital Discharge instructions Patient Education 03/09/2022 10:05:40 [facility] - Transrectal Ultrasound of the Prostate with US guided biopsy Discharge Instructions (CUSTOM) Transrectal Ultrasound of the Prostate with US guided biopsy Even though there are no visible incisions, multiple prostate biopsies have been taken through the rectum and you need to follow some instructions to minimize the risks of bleeding. You may see some blood in your urine and stool for up to 1 week (and blood in the semen for severalmonths) Diet -You may resume your normal diet, but you may want to avoid alcohol, carbonated drinks, caffeine, and spicy foods, which may increase the irritation from the surgery. -Drink plenty of water to keep the urine clear. Activity -You should limit any physical activity for about 48 hours -No heavy lifting or straining (10 pound limit) -No driving a car and limit long car rides for 2 days -No strenuous exercise -No sexual intercourse until this is discussed with your doctor Bowels -Try to keep your bowel movements soft to minimize straining to have a bowel movement. -You may use a stool softener or over the counter laxative if needed -Difficult bowel movement may lead to straining and bleeding from the prostate Medications -You may resume your home medications unless instructed otherwise -Hold aspirin, ibuprofen, Coumadin (warfarin) and other blood thinners for about two days or until there is no active bleeding unless otherwise instructed -Finish the antibiotic which you have already started Things to watch for which would require an Emergency Room visit or call 911: (this is not a complete list) -Persistent or heavy bleeding or blood clots from the rectum or in the urine -Inability to urinate -Fever over 101.5 degrees Fahrenheit, with or without chills -Severe drug reactions with itching, hives or rash -Tenderness or swelling of the calves, chest pain, or shortness of breath Please call the office to arrange for your post-operative appointment in 1-2 weeks [phone] or [phone] Follow Up Care 02/10/2022 14:11:34 With:Nick THACKER Address: [facility] [address], [place] [address]- [facility] (1) When: Unknown Comments:Keep scheduled appointment [facility]10-03-2022 Hospital Discharge instructions Patient Education 12/28/2021 13:26:24 Prostate Cancer Screening Prostate Cancer Screening The prostate is a walnut-sized gland that is located below the bladder and in front of the rectum in males. The function of the prostate (prostate gland) is to add fluid to semen during ejaculation. Prostate cancer is the second most common type of cancer in men. A screening test for cancer is a test that is done before cancer symptoms start. Screening can helpto identify cancer at an early stage, when the cancer can be treated more easily. The recommended prostate cancer screening test is a blood test called the prostate-specific antigen (PSA) test. PSA is a protein that is made in the prostate. As you age, your prostate naturally produces more PSA. Abnormally high PSA levels may be caused by: Prostate cancer. An enlarged prostate that is not caused by cancer (benign prostatic hyperplasia, BPH). This condition is very common in older men. A prostate gland infection (prostatitis). Medicines to assist with hair growth, such as finasteride. Depending on the PSA results, you may need more tests, such as: A physical exam to check the size of your prostate gland. Blood and imaging tests. A procedure to remove tissue samples from your prostate gland for testing (biopsy). Who should have screening? Screening recommendations vary based on age. If you are younger than age 40, screening is not recommended. If you are age 40 54 and you have no risk factors, screening is not recommended. If you are younger than age 55, ask your health care provider if you need screening if you have oneof these risk factors: ?Being of -[place]uban descent. ?Having a family history of prostate cancer. If you are age 55 69, talk with your health care provider about your need for screening and how often screening should be done. If you are older than age 70, screening is not recommended. This is because the risks that screening can cause are greater than the benefits that it may provide (risks outweigh the benefits). If you are at high risk for prostate cancer, your health care provider may recommend that you have screenings more often or start screening at a younger age. You may be at high risk if you: Are older than age 55. Are -Cuban. Have a father, brother, or uncle who has been diagnosed with prostate cancer. The risk may be higher if your family member's cancer occurred at an early age. What are the benefits of screening? There is a small chance that screening may lower your risk of dying from prostate cancer. The chance is small because prostate cancer is typically a slow-growing cancer, and most men with prostate cancer from a different cause. What are the risks of screening? The main risk of prostate cancer screening is diagnosing and treating prostate cancer that would never have caused any symptoms or problems (overdiagnosis and overtreatment). PSA screening cannot tell you if your PSA is high due to cancer or a different cause. A prostate biopsy is the only procedure to diagnose prostate cancer. Even the results of a biopsy may not tell you if your cancer needs mateo treated. Slow-growing prostate cancer may not need any treatment other than monitoring, so diagnosing and treating it may cause unnecessary stress or other side effects. A prostate biopsy may also cause: Infection or fever. A false negative. This is a result that shows that you do not have prostate cancer when you actually do have prostate cancer. Questions to ask your health care provider When should I start prostate cancer screening? What is my risk for prostate cancer? How often do I need screening? What type of screening tests do I need? How do I get my test results? What do my results mean? Do I need treatment? Contact a health care provider if: You have difficulty urinating. You have pain when you urinate or ejaculate. You have blood in your urine or semen. You have pain in your back or in the area of your prostate. You have trouble getting or maintaining an erection (erectile dysfunction, ED). Summary Prostate cancer is a common type of cancer in men. The prostate (prostate gland) is located below the bladder and in front of the rectum. This gland adds fluid to semen during ejaculation. Prostate cancer screening may identify cancer at an early stage, when the cancer can be treated more easily. The prostate-specific antigen (PSA) test is the recommended screening test for prostate cancer. Discuss the risks and benefits of prostate cancer screening with your health care provider. If you are age 70 or older, screening is likely to lead to more risks than benefits (risks outweigh the benefits). This information is not intended to replace advice given to you by your health care provider. Make sure you discuss any questions you have with your health care provider. Document Released: 12/23/2017 Document Revised: 02/24/2018 Document Reviewed: 12/23/2017 [employer] Patient Education 2020 [employer]. Follow Up Care 11/12/2021 11:01:55 With:RAMAKRISHNA LICONA, Nick Irwin, MARYLOUL Address: [facility] [address] , [place] [phone] When: Unknown [facility] evaluation + Plan note Future Appointments Appointment Date:12/31/2021 09:00:00 AM Scheduled Provider:Mitch Levine DO Location[place] Occupational Health Appointment Type:IH DOT Physicals (FT) Appointment Date:05/21/2022 08:00:00 AM Scheduled Provider:Aruna MARVIN MD Location:[facility] [place] Appointment Type:FM Open [facility] evaluation + Plan note Future Appointments Appointment Date:03/26/2022 09:00:00 AM Scheduled Provider:Nick TH[facility]ER MD [facility] App[facility] Type:URO Office Visit Appointment Date:05/21/2022 08:00:00 AM Scheduled Provider:Aruna MARVIN MD Location:[facility] [place] Appointment Type: Open Diagnostic Tests Pending * Prostate Histology [facility] Appointment Date:05/21/2022 08:00:00 AM Scheduled Provider:Aruna MARVIN MD Location:[facility] [place] Appointment Type:FM Open Appointment Date:03/25/2023 08:15:00 AM Scheduled Provider:Nick THACKER MD [facility] App[facility] Type:URO Office Visit Future Scheduled Tests Laboratory* PSA Free & Total 11/26/22 [facility] evaluation + Plan note Future Appointments Appointment Date:10/26/2022 05:00:00 PM Scheduled Provider:Aruna MARVIN MD Location:[facility] [place] Appointment Type:FM Open Appointment Date:03/25/2023 08:15:00 AM Scheduled Provider:Nick THACKER MD [facility] App[facility] Type:URO Office Visit Future Scheduled Tests Laboratory* PSA Free & Total 11/26/22 [facility] [place] Evaluation + Plan note Future Appointments Appointment Date:03/25/2023 08:15:00 AM Scheduled Provider:Nick THACKER MD [facility] App[facility] Type:URO Office Visit Appointment Date:05/03/2023 05:00:00 PM Scheduled Provider:Aruna MARVIN MD Location:[facility] [place] Appointment Type:FM Open Future Scheduled Tests Laboratory* PSA Free & Total 11/26/22 [facility] [place] Evaluation + Plan note Future Appointments Appointment Date:03/25/2023 08:15:00 AM Scheduled Provider:Nick THACKER MD Location:[facility] Appointment Type:URO Office Visit Appointment Date:05/03/2023 05:00:00 PM Scheduled Provider:Aruna MARVIN MD [facility] Type: Open Diagnostic Tests Pending * CBC w/ Auto Diff 10/26/22 * Comprehensive Metabolic Panel 10/26/22 Future Scheduled Tests Laboratory* PSA Free & [facility] Appointment Date:07/29/2023 10:45:00 AM Scheduled Provider:Nick THACKER MD Location:[facility] Appointment Type:URO Office Visit Appointment Date:12/13/2023 09:40:00 AM Scheduled Provider:Aruna MARVIN MD Location:[facility] Appointment Type: Open [facility] Evaluation + Plan note Future Appointments Appointment Date:07/29/2023 10:45:00 AM Scheduled Provider:Nick THACKER MD Location:[facility] Appointment Type:URO Office Visit Appointment Date:09/23/2023 02:00:00 PM Scheduled Provider: Location:[facility] Appointment Type:Surgery FT Appointment Date:12/13/2023 09:40:00 AM Scheduled Provider:Aruna MARVIN MD Location:[facility] Appointment Type: Open [facility] [place] Evaluation + Plan note Future Appointments Appointment Date:09/23/2023 02:00:00 PM Scheduled Provider: Location:[facility] Appointment Type:Surgery FT Appointment Date:12/13/2023 09:40:00 AM Scheduled Provider:Aruna MARVIN MD [facility] App[facility] Type: Open [facility] evaluation + Plan note Future Appointments Appointment Date:10/14/2023 10:15:00 AM Scheduled Provider:[facility] Type:URO Office Visit Appointment Date:12/13/2023 09:40:00 AM Scheduled Provider:Aruna MARVIN MD Location:[facility] [place] Appointment Type:FM Open [facility] Evaluation + Plan note Future Appointments Appointment Date:12/13/2023 09:40:00 AM Scheduled Provider:Aruna MARVIN MD Location:[facility] [place] Appointment Type:FM Open Appointment Date:04/20/2024 08:15:00 AM Scheduled Provider:Nick THACKER MD Location:[facility] [place] Appointment Type:URO Office Visit Future Scheduled Tests Laboratory* PSA Total 12/27/23 [facility] evaluation + Plan note Future Appointments Appointment Date:02/24/2024 08:00:00 AM Scheduled Provider: Location:[facility] [place] Appointment Type: Medicare Wellness Initial Appointment Date:04/20/2024 08:15:00 AM Scheduled Provider:Nick THACKER MD Location:[facility] [place] Appointment Type:URO Office Visit Appointment Date:06/15/2024 08:20:00 AM Scheduled Provider:Aruna MARVIN MD [facility] Appointment Type: Open Future Scheduled Tests Laboratory* PSA Total 12/27/23 [facility] [place] Evaluation + Plan note Future Appointments Appointment Date:02/29/2024 01:00:00 PM Scheduled Provider: Location:[facility] [place] Appointment Type: Medicare Wellness Initial Appointment Date:04/19/2024 09:00:00 AM Scheduled Provider:Aruna MARVIN MD Location:[facility] Appointment Type:FM Open Appointment Date:04/20/2024 08:15:00 AM Scheduled Provider:Nick THACKER MD Location:[facility] [place] Appointment Type:URO Office Visit Appointment Date:06/15/2024 08:20:00 AM Scheduled Provider:Aruna MARVIN MD [facility] Appointment Type:FM Open Future Scheduled Tests Laboratory* PSA Total 12/27/[address] [facility] Evaluation + Plan note Future Appointments Appointment Date:04/20/2024 08:15:00 AM Scheduled Provider:[facility] TH[facility]ER MD [facility] App[facility] Type:URO Office Visit Appointment Date:06/15/2024 08:20:00 AM Scheduled Provider:Aruna MARVIN MD [facility] Appointment Type:FM Open Appointment Date:03/01/2025 01:00:00 PM Scheduled Provider: [facility] Appointment Type: Medicare Wellness Subsequent Future Scheduled Tests Laboratory* PSA Total 12/27/[address] [facility] Evaluation + Plan note Future Appointments Appointment Date:04/30/2024 01:30:00 PM Scheduled Provider:Nick THACKER MD [facility] App[facility] Type:URO Office Visit Appointment Date:06/15/2024 08:20:00 AM Scheduled Provider:Aruna MARVIN MD [facility] Appointment Type:FM Open Appointment Date:03/01/2025 01:00:00 PM Scheduled Provider: [facility] Appointment Type: Medicare Wellness Subsequent Future Scheduled Tests Laboratory* PSA Total 12/27/[address] [facility] Evaluation + Plan note Future Appointments Appointment Date:06/15/2024 08:20:00 AM Scheduled Provider:Aruna MARVIN MD [facility] Appointment Type:FM Open Appointment Date:11/05/2024 11:30:00 AM Scheduled Provider:Nick THACKER MD [facility] Appointment Type:URO Office Visit Appointment Date:03/01/2025 01:00:00 PM Scheduled Provider: [facility] Appointment Type: Medicare Wellness Subsequent Diagnostic Tests Pending * PSA Total 04/30/24 Future Scheduled Tests Laboratory* PSA Total 12/27/23 [facility] evaluation + Plan note Future Appointments Appointment Date:06/15/2024 08:20:00 AM Scheduled Provider:Aruna MARVIN MD Location:[facility] [place] Appointment Type: Open Appointment Date:11/05/2024 11:30:00 AM Scheduled Provider:Nick THACKER MD Location[place] [place] Appointment Type:URO Office Visit Appointment Date:03/01/2025 01:00:00 PM Scheduled Provider: Location:[facility] [place] Appointment Type:FM Medicare Wellness Subsequent Diagnostic Tests Pending * PSA Free & Total 04/30/24 Future Scheduled Tests Laboratory* PSA Total 12/27/23 [facility] Evaluation + Plan note Future Appointments Appointment Date:06/15/2024 08:20:00 AM Scheduled Provider:Aruna MARVIN MD Location:[facility] [place] Appointment Type: Open Appointment Date:08/21/2024 09:00:00 AM Scheduled Provider: Location:[facility] [place] Appointment Type:URO Nurse Visit Appointment Date:08/27/2024 01:45:00 PM Scheduled Provider:Nick THACKER MD Location:[facility] [place] Appointment Type:URO Office Visit Appointment Date:03/01/2025 01:00:00 PM Scheduled Provider: [facility] Appointment Type:FM Medicare Wellness Subsequent Future Scheduled Tests Laboratory* PSA Total 12/27/23 * HCV Antibody RFX to Quant PCR 05/15/24 * HIV Screen 4th Generation wRfx 05/15/24 * HSV I and II IgG 05/15/24 * Hepatitis B Surface Antibody 05/15/24 * Hepatitis B Surface Antigen 05/15/24 [facility] [place] Evaluation + Plan note Future Appointments Appointment Date:06/15/2024 08:20:00 AM Scheduled Provider:Aruna MARVIN MD Location:[facility] [place] Appointment Type: Open Appointment Date:08/21/2024 09:00:00 AM Scheduled Provider: Location:[facility] [place] Appointment Type:URO Nurse Visit Appointment Date:08/27/2024 01:45:00 PM Scheduled Provider:Nick THACKER MD Location:[facility] Appointment Type:URO Office Visit Appointment Date:03/01/2025 01:00:00 PM Scheduled Provider: Location:[facility] [place] Appointment Type: Medicare Wellness Subsequent Diagnostic Tests Pending * HSV I and II IgG 05/16/24 * HCV Antibody RFX to Quant PCR 05/16/24 * HIV Screen 4th Generation wRfx 05/16/24 * Hepatitis B Surface Antibody 05/16/24 * Hepatitis B Surface Antigen 05/16/24 Future Scheduled Tests Laboratory* PSA Total 12/27/23 [facility] Evaluation + Plan note Future Appointments Appointment Date:06/15/2024 08:20:00 AM Scheduled Provider:Aruna MARVIN MD Location:[facility] Appointment Type: Open Appointment Date:08/21/2024 09:00:00 AM Scheduled Provider: [facility] Type:URO Nurse Visit Appointment Date:08/27/2024 01:45:00 PM Scheduled Provider:Nick THACKER MD Location:[facility] [place] Appointment Type:URO Office Visit Appointment Date:03/01/2025 01:00:00 PM Scheduled Provider: Location:[facility] [place] Appointment Type:FM Medicare Wellness Subsequent Future Scheduled Tests Laboratory* PSA Total 12/27/23 [facility] [place] Evaluation + Plan note Future Appointments Appointment Date:09/24/2024 12:45:00 PM Scheduled Provider:Nick THACKER MD [facility] Appointment Type:URO Office Visit Appointment Date:01/29/2025 09:20:00 AM Scheduled Provider:Aruna MARVIN MD Location:[facility] [place] Appointment Type: Open Appointment Date:03/01/2025 01:00:00 PM Scheduled Provider: Location:[facility] Appointment Type:FM Medicare Wellness Subsequent Future Scheduled Tests Laboratory* PSA Total 12/27/23 [facility] evaluation + Plan note Future Appointments Appointment Date:10/15/2024 10:00:00 AM Scheduled Provider:Nick THACKER MD Location:[facility] [place] Appointment Type:URO Office Visit Appointment Date:01/29/2025 09:20:00 AM Scheduled Provider:Aruna MARVIN MD Location:[facility] [place] Appointment Type:FM Open Appointment Date:03/01/2025 01:00:00 PM Scheduled Provider: Location:[facility] Appointment Type:FM Medicare Wellness Subsequent Future Scheduled Tests Laboratory* PSA Total 12/27/23 [facility] evaluation noteNo assessment information available [facility] Work Phone: Evaluation note* Diagnosis Sebaceous hyperplasia of face- Primary Lentigines Actinic keratosis Neoplasm of unspecified behavior of bone, soft tissue, and skin documented in this encounter [facility] Diagnosis Onychomycosis of great toe- Primary Paronychia of toe of left foot Paronychia of toe of right foot Pain in toes of both feet 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 documented in this encounter [facility] Diagnosis Onychomycosis- Primary Dermatophytosis of nail Idiopathic progressive polyneuropathy documented in [facility] Narrative No data available for this section [facility] Hospital Discharge instructions No data available for this section [facility] No data available for this section [facility] reason for referral (narrative) Referred by: Aruna MARVIN MD Referred by: Aruna MARVIN MD [facility] [place] Chief Complaint and Reason for Visit Chief Complaint elevated psa Chief Complaint R97.20 Chief Complaint R97.20 Unknown Advance Directives Advance Directive Response Recorded Date/ Time Advance Directives No January 05, 2022 3:00pm Summary Purpose Family History No Family History Records Found Additional Source Comments Care Team (unrecognized sect ion and content) Team Status: Inactive Member Role Status Dates Nick Thacker MD Attending Provider Active Ja Marvin MD Primary Care Provider Active Team Status: Active Member Role Status Dates Ja Marvin MD Primary Care Provider Active Team Status: Inactive Member Role Status Dates Ja Marvin MD Primary Care Provider Active Start: August 23, 2023 End: August 23, 2023 Nick Thacker MD Attending Provider Active St art: August 23, 2023 End: August 23, 2023 Team Status: Inactive Member Role Status Dates Nick Thacker MD Attending Provider Active St art: October 06, 2023 End: October 06, 2023 [facility] Relationship Specialty Start Date End Date Aruna Marvin MD [address] [place] [phone] PCP - General 03/15/24 [facility] Relationship Specialty Start Date End Date Aruna Marvin MD [address] [place] [phone] PCP - General 03/15/24 [facility] Relationship Specialty Start Date End Date Aruna Marvin MD [address] [place] [address] [place] [phone] PCP - General 03/15/24 [facility] Relationship Specialty Start Date End Date Aruna Marvin MD [address] [place] [phone] PCP - General 03/15/24 [facility] Associate Relationship Specialty Start Date End Date Aruna Marvin MD [address] [place] [address] PCP - General 09/27/24 [facility] Associate Relationship Specialty Start Date End Date Aruna Marvin MD [address] [place] [phone] PCP - General 09/27/24 Goals (unrecognized section and content) Goals may be documented in a n alternate section (unrecognized sect ion and content) No Status Records FoundNo Status Records FoundNo Status Records FoundNo Status Records FoundNo Status Records FoundNo Status Records FoundNo Status Records FoundNo Status Records FoundNo Status Records FoundNo Status Records FoundNo Status Records FoundNo Status Records FoundNo Status Records FoundNo Status Records Found INFORMATION SOURCE (unrecogn ized section and content) DATE CREATED AUTHOR 10/12/2023 [facility] DATE CREATED AUTHOR AUTHOR'S ORGANIZ ATION 05/20/2024 [facility] DATE CREATED AUTHOR AUTHOR'S ORGANIZ ATION 06/17/2024 [facility] DATE CREATED AUTHOR AUTHOR'S ORGANIZ ATION 08/01/2024 [facility] DATE CREATED AUTHOR AUTHOR'S ORGANIZ ATION 09/13/2024 [facility] DATE CREATED AUTHOR AUTHOR'S ORGANIZ ATION 09/25/2024 [facility] DATE CREATED AUTHOR AUTHOR'S ORGANIZ ATION 09/29/2024 [facility] Reason for Visit (unrecogniz ed section and content) Reason Comments Foot Pain Toenail Problem Nail fungus Reason Comments Follow-up Micro trauma RT 1st FOR RECORDS PERTAINING TO PATIENTS WHO ARE OR HAVE BEEN ENROLLED IN A CHEMICAL DEPENDENCY/SUBSTANCEABUSE PROGRAM, SOME INFORMATION MAY BE OMITTED. This clinical summary was aggregated from multiple sources. Caution should be exercised in using it in the provision of clinical care. This summary normalizes information from multiple sources, and as a consequence, information in this document may materially change the coding, format and clinical context of patient data. In addition, data may be omitted in some cases. CLINICAL DECISIONS SHOULD BE BASED ON THE PRIMARY CLINICAL RECORDS. [facility] provides no warranty or guarantee of the accuracy or completeness of information in this document.
[2024-10-04 07:38] VITALS: BP 148/88; PULSE 73; TEMP 35.9; O2SAT 98
[2024-10-04] MEDS: CEFAZOLIN SODIUM 1 GM/50 ML D5W PREMIX IV (07:47)
[2024-10-04] MEDS: GENTAMICIN SULFATE 120 MG in 0.9 % SODIUM CHLORIDE 100 ML 206 MG IV (08:22)
[2024-10-04] MEDS: LIDOCAINE 2% JELLY 20 ML UR (08:50)
--- NOTE | 2024-10-04 09:04 | PM.URSON ---
Urology Surgery Operative Note Operative Note Procedure Date: 10/04/24 Time Out Performed: yes Pre-op Diagnosis: Prostate cancer; active surveillance. Post-op Diagnosis: same as pre-op Procedures performed: 1. Transrectal ultrasound of the prostate. 2. Prostate needle biopsies. Anesthesia: MAC and local Primary Surgeon: Nick Thacker Complications: None Estimated blood loss (mL): 10 Findings: No hypoechoic areas Specimens: Prostate needle biopsies Drains: None Indications for Procedures: This gentleman has a history of prostate cancer Shanda score 3+3 equal 6 in 2 cores. Less than 20% of the cores were involved with the cancer. This was diagnosed in September 2023. His PSA has been stable and trending downward. His BOB has been benign. He now presents for confirmatory prostate ultrasound and biopsies. He has signed an informed consent after risks were explained. Some of these risks include bleeding, infection, urosepsis and anesthesia to name a few. Detailed description of Procedure: The patient was kept on his gurney bed and brought into the endoscopy suite. He was rotated into the left lateral decubitus position. Timeout was done by all parties in the room. We all agreed upon the patient's identification and the planned procedures for this patient. MAC anesthesia was then administered. The patient's rectum was swabbed with Betadine soaked sponges several times. We then passed 2% lidocaine gel per rectum. The ultrasound probe was then passed per rectum and the prostate was scanned in the transverse and longitudinal views. The volume was calculated to be 34 g. No hypoechoic areas were noted. While in the sagittal view, we began taking biopsies from the left base and progressed towards the apex. We divided up into 4 levels. From level 1 we took 2 biopsies. From levels 2 and 3 we took 4 biopsies each. At level 4 we took 2 biopsies. On the right side we took 2 biopsies from levels 1 2 and 3 but we took 4 biopsies from level 4 at the apex. At the end of the procedure we had 22 satisfactory biopsies. The probe was removed. He was then transferred to PACU in stable condition.
[2024-10-04 09:06] VITALS: BP 91/50; PULSE 70; TEMP 36.8; O2SAT 94
[2024-10-04 09:21] VITALS: BP 109/63; PULSE 65; O2SAT 93
[2024-10-04 09:36] VITALS: BP 116/74; PULSE 64; O2SAT 96
== END 2024-10-04 09:36 | disposition home or self-care (01) ==
LOC: SURGOUT 07:23
PROVIDERS: PCP Family Medicine; Visit Provider Urology
PROC: (CPT 55700; principal; 2024-10-04 08:30)
DX: C61 Malignant neoplasm of prostate (principal); K21.9 Gastro-esophageal reflux disease without esophagitis; M10.9 Gout, unspecified; F32.A Depression, unspecified; N40.0 Benign prostatic hyperplasia without lower urinary tract symptoms; N52.9 Male erectile dysfunction, unspecified; I10 Essential (primary) hypertension; Z98.52 Vasectomy status
CPT/HCPCS: 55700; 36415; 76872; J0690; J1580; J2704; J3010